=== PATIENT | male | born 1975 | race Caucasian/White ===

== ENCOUNTER 2016-12-18 12:06 | Inpatient (IN) | payer OTHER ==
[2016-12-18 12:36] VITALS: BMI 48.0
--- NOTE | 2016-12-18 14:39 | HP ---
Admission ROS [facility] Chief Complaint: i am here for rehab from alcohol and cocaine Allergies/Adverse Reactions: Allergies Allergy/AdvReac Type Severity Reaction Status Date / Time No Known Allergies Allergy Verified 12/18/16 13:56 History of Present Illness: this 41 years old male with alcohol and cocaine dependence,seeking rehab,last treatment in [facility] from 10/26/11 to 10/30/11 hypertension,asthma.hiv positive in 2008 sleep apnea ongest period of sobriety 3 months Exam Limitations: No Limitations - Ebola screening Have you traveled outside of the country in the last 21 days: No Have you had contact with anyone from an Ebola affected area: No Have you been sick,other than usual withdrawal symptoms: No Do you have a fever: No - Review of Systems Constitutional: No Symptoms Reported EENT: reports: No Symptoms Reported, Hearing Loss Respiratory: reports: Other (asthma) Cardiac: reports: No Symptoms Reported GI: reports: No Symptoms Reported : reports: No Symptoms Reported Musculoskeletal: reports: No Symptoms Reported Integumentary: reports: No Symptoms Reported Neuro: reports: No Symptoms reported Endocrine: reports: No Symptoms Reported Hematology: reports: No Symptoms Reported, Other (hiv) Psychiatric: reports: Judgement Intact, Mood/Affect Appropiate Patient History - Patient Medical History Hx Asthma: Yes (ON ALBUTEROL INHALER) Hx Chronic Obstructive Pulmonary Disease (COPD): No Hx Cardiac Disorders: Yes (history of chf 5 years ago) Hx Hypertension: Yes (on meds) Hx Pacemaker: No HX Cerebrovascular Accident: No Hx Seizures: No Hx Dementia: No Hx Diabetes: Yes (no med since 2012 ) Hx Gastrointestinal Disorders: No Hx Liver Disease: No Hx Genitourinary Disorders: No Hx Sexually Transmitted Disorders: No Hx Renal Disease (ESRD): No Hx Human Immunodeficiency Virus (HIV): Yes (since 2008) Hx Hepatitis C: No Hx Depression: No Hx Suicide Attempt: No Hx Bipolar Disorder: No Hx Schizophrenia: No Other Medical History: no suicidal,no homicidal - Patient Surgical History Past Surgical History: Yes Hx Neurologic Surgery: No Hx Cataract Extraction: No Hx Cardiac Surgery: Yes (CARDIAC CATHETERIZATION IN 09/2011.. NO BLOCKAGE) Hx Lung Surgery: No Hx Breast Surgery: No Hx Breast Biopsy: No Hx Abdominal Surgery: No Hx Appendectomy: No Hx Cholecystectomy: No Hx Genitourinary Surgery: No Hx Section: No Hx Orthopedic Surgery: No Anesthesia Reaction: No - PPD History Previous Implant?: Yes Documented Results: Negative w/o proof Implanted On Prior R Admission?: Yes Date: 05/31/11 Results: 0 mm PPD to be Administered?: Yes - Smoking Cessation Smoking history: Current every day smoker Have you smoked in the past 12 months: Yes Aproximately how many cigarettes per day: 3 Hx Chewing Tobacco Use: No Initiated information on smoking cessation: Yes 'Breaking Loose' booklet given: 12/18/16 - Substance & Tx. History Hx Alcohol Use: Yes Hx Substance Use: Yes Substance Use Type: Alcohol, Cocaine Hx Substance Use Treatment: Yes (last treatment 10/26/11 to 10/30/11 [facility]) - Substances Abused Alcohol Route: Oral Frequency: Daily Amount used: 1to 2pint bacardi,vodka/4 of 24 ozs of beer Age of first use: 20 Date of Last Use: 12/16/16 Cocaine Route: Smoking Frequency: 1-2 times per week Amount used: 60$ to 100$ Age of first use: 24 Date of Last Use: 12/16/16 Family Disease History - Family Disease History Family History: Denies Admission Physical Exam S - Vital Signs Vital Signs: Vital Signs - 24 hr 12/18/16 12:26 Temperature 98.7 F Pulse Rate 72 Respiratory 18 Rate Blood Pressure 155/79 - Physical General Appearance: Yes: Within Normal Limits HEENTM: Yes: Hearing grossly Normal, MAISHA, Pharynx Normal Respiratory: Yes: Lungs Clear, Normal Breath Sounds, No Respiratory Distress Neck: Yes: Within Normal Limits, Supple, Trachea in good position Breast: Yes: Within Normal Limits Cardiology: Yes: Within Normal Limits, Regular Rhythm, Regular Rate, S1, S2 Abdominal: Yes: Within Normal Limits, Normal Bowel Sounds, Non Tender, Flat, Soft Genitourinary: Yes: Within Normal Limits Back: Yes: Within Normal Limits Musculoskeletal: Yes: Within Normal Limits Extremities: Yes: Within Normal Limits, Normal Inspection, Normal Range of Motion 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: Yes: veneer marker II-XII NML intact, Alert, Motor Strength 5/5 Integumentary: Yes: Within Normal Limits Lymphatic: Yes: Within Normal Limits - Diagnostic (1) Alcohol dependence Current Visit: No Status: Active (2) Cocaine dependence Current Visit: No Status: Active (3) Hypertension Current Visit: Yes Status: Acute (4) Asthma Current Visit: Yes Status: Acute (5) Sleep apnea Current Visit: Yes Status: Acute (6) HIV (human immunodeficiency virus infection) Current Visit: Yes Status: Acute (7) History of CHF (congestive heart failure) Current Visit: Yes Status: Acute (8) DM2 (diabetes mellitus, type 2) Current Visit: Yes Status: Acute Cleared for Admission [facility] - Detox or Rehab Claeared for Rehab Admission: Yes [facility] Breath Alcohol Content Breath Alcohol Content: 0 Urine Drug Screen - Results Drug Screen Negative: No Urine Drug Screen Results: TOMÁS-Cocaine, AMP-Amphetamines, MET-Methamphetamine
[2016-12-18] MEDS ORDERED: MAG HYDROX/AL HYDROX/SIMETH 30 ML UNIT-DOSE CUP PO PRN (15:03)
[2016-12-18] MEDS ORDERED: MAGNESIUM CITRATE 300 ML BOTTLE PO PRN (15:03)
[2016-12-18] MEDS ORDERED: LOPERAMIDE HCL 2 MG CAPSULE PO PRN (15:03)
[2016-12-18] MEDS ORDERED: MENTHOL/PHENOL 1 EACH UD MM PRN (15:03)
[2016-12-18] MEDS ORDERED: ACETAMINOPHEN 325 MG TABLET (FP) PO PRN (15:03)
[2016-12-18] MEDS ORDERED: P-EPHED 60MG/TRIPROLIDI 2.5MG TABLET PO PRN (15:03)
[2016-12-18] MEDS ORDERED: diphenhydrAMINE HCL 50 MG CAPSULE PO PRN (15:03)
[2016-12-18] MEDS ORDERED: hydrOXYzine PAMOATE 50 MG CAPSULE (FP) PO PRN (15:03)
[2016-12-18] MEDS ORDERED: guaiFENesin/D-METHORPHAN HB 10 ML UNIT-DOSE CUPS PO PRN (15:03)
[2016-12-18] MEDS ORDERED: MAGNESIUM HYDROX 2400MG/30ML ORAL SUSPENSION 30 ML CUP PO PRN (15:03)
[2016-12-18] MEDS ORDERED: IBUPROFEN 400 MG TABLET (FP) PO PRN (15:03)
[2016-12-18] MEDS ORDERED: ALBUTEROL SO4 6.7 GM HFA INHALER IH PRN (15:06)
[2016-12-18 16:11] LABS: MCH 32.4 pg (25.7-33.7); MCHC 33.6 g/dl (32.0-35.9); MEAN CELL VOLUME 96.4 fl (80-96); MEAN PLT VOLUME 7.2 fl (7.5-11.1); PLATELET COUNT 318 K/MM3 (134-434); RDW 13.8 % (11.9-15.9)
[2016-12-18 16:34] LABS: ALBUMIN 3.8 g/dl (3.4-5.0); ANION GAP 6 (8-16); CO2 33 mmol/L (21-32); GLUCOSE,RANDOM 108 mg/dL (74-106)
[2016-12-18 16:37] LABS: ALK PHOS 89 U/L (45-117); BILIRUBIN,TOTAL 0.7 mg/dL (0.2-1.0); CREATININE 0.8 mg/dL (0.7-1.3); SGOT/AST 16 U/L (15-37); SGPT/ALT 42 U/L (12-78); TOT PROT 7.7 g/dl (6.4-8.2)
[2016-12-18 19:06] LABS: URINE APPEARANCE CLEAR; URINE BILIRUBIN NEGATIVE (NEGATIVE); URINE BLOOD NEGATIVE (NEGATIVE); URINE COLOR YELLOW; URINE GLUCOSE (UA) NEGATIVE (NEGATIVE); URINE KETONE NEGATIVE (NEGATIVE); URINE LEUK ESTERASE NEGATIVE (NEGATIVE); URINE NITRITE NEGATIVE (NEGATIVE); URINE PROTEIN NEGATIVE (NEGATIVE); URINE UROBILINOGEN NEGATIVE mg/dL (0.2-1.0)
[2016-12-18] MEDS ORDERED: TUBERCULIN PPD 5 TU/0.1ML VIAL ID ONE (20:35)
[2016-12-18] MEDS: THIAMINE HCL 100 MG TABLET (FP) PO SCH (21:28)
[2016-12-19] MEDS: EMTRICITAB/RILPIVIRINE/TENOFOV 1 EACH TABLET PO SCH ×2 (07:48→09:28)
[2016-12-19] MEDS: HYDROCHLOROTHIAZIDE 25 MG TABLET (FP) PO SCH (09:25)
[2016-12-19] MEDS: LISINOPRIL 20 MG TABLET (FP) PO SCH (09:25)
[2016-12-19] MEDS: amLODIPine BESYLATE 10 MG TABLET (FP) PO SCH (09:25)
[2016-12-19] MEDS: PRENATAL VITAMINS W/ FOLIC ACID TABLET (FP) PO SCH (09:25)
[2016-12-19] MEDS: THIAMINE HCL 100 MG TABLET (FP) PO SCH (21:52)
[2016-12-20] MEDS: EMTRICITAB/RILPIVIRINE/TENOFOV 1 EACH TABLET PO SCH (07:08)
[2016-12-20] MEDS: amLODIPine BESYLATE 10 MG TABLET (FP) PO SCH (09:34)
[2016-12-20] MEDS: PRENATAL VITAMINS W/ FOLIC ACID TABLET (FP) PO SCH (09:34)
[2016-12-20] MEDS: HYDROCHLOROTHIAZIDE 25 MG TABLET (FP) PO SCH (09:34)
[2016-12-20] MEDS: LISINOPRIL 20 MG TABLET (FP) PO SCH (09:34)
--- NOTE | 2016-12-20 13:58 | EKG ---
Test Reason : Blood Pressure : / mmHG Vent. Rate : 075 BPM Atrial Rate : 075 BPM P-R Int : 140 ms QRS Dur : 100 ms QT Int : 390 ms P-R-T Axes : 044 035 040 degrees QTc Int : 435 ms NORMAL SINUS RHYTHM NORMAL ECG NO PREVIOUS ECGS AVAILABLE Confirmed by LIBERTAD CHAVIS MD ([id number]) on 12/20/2016 1:58:06 PM Referred By: Confirmed By:LIBERTAD CHAVIS MD
[2016-12-20] MEDS: THIAMINE HCL 100 MG TABLET (FP) PO SCH (23:26)
[2016-12-21] MEDS: EMTRICITAB/RILPIVIRINE/TENOFOV 1 EACH TABLET PO SCH (07:00)
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
[2016-12-21] MEDS: HYDROCHLOROTHIAZIDE 25 MG TABLET (FP) PO SCH (10:49)
[2016-12-21] MEDS: LISINOPRIL 20 MG TABLET (FP) PO SCH (10:49)
[2016-12-21] MEDS: amLODIPine BESYLATE 10 MG TABLET (FP) PO SCH (10:49)
[2016-12-21] MEDS: PRENATAL VITAMINS W/ FOLIC ACID TABLET (FP) PO SCH (10:49)
[2016-12-21] MEDS: THIAMINE HCL 100 MG TABLET (FP) PO SCH (21:34)
[2016-12-22] MEDS: EMTRICITAB/RILPIVIRINE/TENOFOV 1 EACH TABLET PO SCH (07:18)
[2016-12-22] MEDS ORDERED: HYDROCHLOROTHIAZIDE 25 MG TABLET (FP) PO ONE (07:24)
[2016-12-22] MEDS: PRENATAL VITAMINS W/ FOLIC ACID TABLET (FP) PO SCH (09:43)
[2016-12-22] MEDS: LISINOPRIL 20 MG TABLET (FP) PO SCH (09:43)
[2016-12-22] MEDS: amLODIPine BESYLATE 10 MG TABLET (FP) PO SCH (09:43)
[2016-12-22] MEDS: THIAMINE HCL 100 MG TABLET (FP) PO SCH (21:28)
[2016-12-23] MEDS: HYDROCHLOROTHIAZIDE 25 MG TABLET (FP) PO SCH (06:01)
[2016-12-23] MEDS: EMTRICITAB/RILPIVIRINE/TENOFOV 1 EACH TABLET PO SCH (07:12)
[2016-12-23] MEDS: PRENATAL VITAMINS W/ FOLIC ACID TABLET (FP) PO SCH (09:48)
[2016-12-23] MEDS: LISINOPRIL 20 MG TABLET (FP) PO SCH (09:48)
[2016-12-23] MEDS: amLODIPine BESYLATE 10 MG TABLET (FP) PO SCH (09:48)
[2016-12-23] MEDS ORDERED: ALBUTEROL SO4 2.5/IPRATROPIUM 0.5 INH SOL 3 ML VIAL.NEB. NEB PRN (12:40)
[2016-12-23] MEDS: THIAMINE HCL 100 MG TABLET (FP) PO SCH (21:24)
[2016-12-24] MEDS: HYDROCHLOROTHIAZIDE 25 MG TABLET (FP) PO SCH (06:07)
[2016-12-24] MEDS: EMTRICITAB/RILPIVIRINE/TENOFOV 1 EACH TABLET PO SCH (07:21)
[2016-12-24] MEDS: LISINOPRIL 20 MG TABLET (FP) PO SCH (09:37)
[2016-12-24] MEDS: PRENATAL VITAMINS W/ FOLIC ACID TABLET (FP) PO SCH (09:37)
[2016-12-24] MEDS: amLODIPine BESYLATE 10 MG TABLET (FP) PO SCH (09:37)
[2016-12-24] MEDS: THIAMINE HCL 100 MG TABLET (FP) PO SCH (23:15)
[2016-12-25] MEDS: HYDROCHLOROTHIAZIDE 25 MG TABLET (FP) PO SCH (06:54)
[2016-12-25] MEDS: EMTRICITAB/RILPIVIRINE/TENOFOV 1 EACH TABLET PO SCH (07:32)
[2016-12-25] MEDS: LISINOPRIL 20 MG TABLET (FP) PO SCH (09:50)
[2016-12-25] MEDS: amLODIPine BESYLATE 10 MG TABLET (FP) PO SCH (09:50)
[2016-12-25] MEDS: PRENATAL VITAMINS W/ FOLIC ACID TABLET (FP) PO SCH (09:50)
[2016-12-25] MEDS: THIAMINE HCL 100 MG TABLET (FP) PO SCH (21:25)
[2016-12-26] MEDS: HYDROCHLOROTHIAZIDE 25 MG TABLET (FP) PO SCH (06:15)
[2016-12-26 06:42] VITALS: TEMP 98.3
[2016-12-26] MEDS: EMTRICITAB/RILPIVIRINE/TENOFOV 1 EACH TABLET PO SCH (07:03)
[2016-12-26] MEDS: LISINOPRIL 20 MG TABLET (FP) PO SCH (09:41)
[2016-12-26] MEDS: PRENATAL VITAMINS W/ FOLIC ACID TABLET (FP) PO SCH (09:42)
[2016-12-26] MEDS: amLODIPine BESYLATE 10 MG TABLET (FP) PO SCH (09:42)
[2016-12-26 09:53] VITALS: BP 119/66; PULSE 85
--- NOTE | 2016-12-26 20:20 | PN ---
[facility] Progress Note Note: patient did not want to complete treatment,seen by counselor,signed releaser ama ,psychiatrist director environmental notified by nurse
== END 2016-12-26 19:25 | disposition left against medical advice (07) | DRG 770 ==
LOC: YASAS 12:06 → Y3W 15:35
PROVIDERS: ADMIT Psychiatry & Neurology Psychiatry; ATTEND Psychiatry & Neurology Psychiatry
PROC: HZ42ZZZ Group Counseling for Substance Abuse Treatment, Cognitive-Behavioral (ICD-10-PCS; principal; 2016-12-18)
DX: F10.20 Alcohol dependence, uncomplicated (principal); F14.20 Cocaine dependence, uncomplicated; F17.210 Nicotine dependence, cigarettes, uncomplicated; F19.24 Other psychoactive substance dependence with psychoactive substance-induced mood disorder; E11.9 Type 2 diabetes mellitus without complications; J45.909 Unspecified asthma, uncomplicated; Z21 Asymptomatic human immunodeficiency virus [HIV] infection status; I10 Essential (primary) hypertension; I50.9 Heart failure, unspecified; G47.30 Sleep apnea, unspecified
CPT/HCPCS: 36415; 80053; 81003; 85027; 86593; 93005; 93010

== ENCOUNTER 2017-01-28 11:59 | Inpatient (IN) | payer OTHER ==
[2017-01-28 13:51] VITALS: BMI 51.0
--- NOTE | 2017-01-28 15:53 | HP ---
CIWA Score - CIWA Score Nausea/Vomitin Muscle Tremors: 3 Anxiety: 3 Agitation: 3 Paroxysmal Sweats: 1-Minimal Palms Moist Orientation: 0-Oriented Tacttile Disturbances: 2-Mild Itch/Numbness/Burn Auditory Disturbances: 2-Mild Harshness/Frighten Visual Disturbances: 1-Very Mild Sensitivity Headache: 2-Mild CIWA-Ar Total Score: 20 Admission ROS [facility] - HPI Chief Complaint: I NEED HELP TO STOP DRINKING ALCOHOL AND COCAINE Allergies/Adverse Reactions: Allergies Allergy/AdvReac Type Severity Reaction Status Date / Time No Known Allergies Allergy Verified 01/28/17 14:58 History of Present Illness: THIS 41 YEARS OLD MALE WITH ALCOHOL AND COCAINE DEPENDENCE,SEEKING DETOX,LAST TREATMENT [facility] FROM 12/28/16 TO 12/30/16 MULTIPLE ADMISSIONS FOR DETOX KEEP RELAPSING HIV SINCE 2008 HTN ASTHMA NICOTINE DEPENDENCE LONGEST PERIOD OF SOBRIETY 3 MONTHS Exam Limitations: No Limitations - Ebola screening Have you traveled outside of the country in the last 21 days: No Have you had contact with anyone from an Ebola affected area: No Have you been sick,other than usual withdrawal symptoms: No - Review of Systems Constitutional: Loss of Appetite, Malaise, Night Sweats, Changes in sleep EENT: reports: Nose Congestion Respiratory: reports: Other (ASTHMA) Cardiac: reports: No Symptoms Reported GI: reports: Diarrhea, Nausea, Vomiting, Abdominal cramping : reports: No Symptoms Reported Musculoskeletal: reports: Back Pain, Muscle Pain Integumentary: reports: Dryness Neuro: reports: Tremors Endocrine: reports: No Symptoms Reported Hematology: reports: No Symptoms Reported Psychiatric: reports: Judgement Intact, Mood/Affect Appropiate, Orientated x3 Patient History - Patient Medical History Hx Asthma: Yes (ON ALBUTEROL INHALER) Hx Chronic Obstructive Pulmonary Disease (COPD): No Hx Cancer: No Hx Cardiac Disorders: No Hx Hypertension: Yes (ON MED) Hx Pacemaker: No HX Cerebrovascular Accident: No Hx Seizures: No Hx Dementia: No Hx Diabetes: No Hx Gastrointestinal Disorders: No Hx Liver Disease: No Hx Genitourinary Disorders: No Hx Sexually Transmitted Disorders: No Hx Renal Disease (ESRD): No Hx Human Immunodeficiency Virus (HIV): Yes (since 2008) Hx Hepatitis C: No Hx Depression: No Hx Suicide Attempt: No Hx Bipolar Disorder: No Hx Schizophrenia: No Other Medical History: NO SUICIDAL,NO HOMICIDAL - Patient Surgical History Past Surgical History: Yes Hx Neurologic Surgery: No Hx Cataract Extraction: No Hx Cardiac Surgery: Yes (CARDIAC CATHETERIZATION IN 09/2011.. NO BLOCKAGE) Hx Lung Surgery: No Hx Breast Surgery: No Hx Breast Biopsy: No Hx Abdominal Surgery: No Hx Appendectomy: No Hx Cholecystectomy: No Hx Genitourinary Surgery: No Hx Section: No Hx Orthopedic Surgery: No Anesthesia Reaction: No - PPD History Previous Implant?: Yes Documented Results: Negative w/proof Implanted On Prior [facility] Admission?: Yes Date: 12/20/16 Results: 0 mm PPD to be Administered?: No - Smoking Cessation Smoking history: Current some day smoker Have you smoked in the past 12 months: Yes Aproximately how many cigarettes per day: 3 Hx Chewing Tobacco Use: No Initiated information on smoking cessation: Yes 'Breaking Loose' booklet given: 01/28/17 - Substance & Tx. History Hx Alcohol Use: Yes Hx Substance Use: Yes Substance Use Type: Alcohol, Cocaine - Substances Abused Alcohol Route: Oral Frequency: Daily Amount used: vodka(1 pint)/beer(3-4 24 oz cans)/ Age of first use: 20 Date of Last Use: 01/28/17 Cocaine Route: Smoking Frequency: 1-2 times per week Amount used: $40-60 Age of first use: 24 Date of Last Use: 01/27/17 Family Disease History - Family Disease History Family Disease History: Other: Father (ALOCOHOL,), Mother (ALCOHOL, ) Admission Physical Exam [facility] - Vital Signs Vital Signs: Vital Signs - 24 hr 01/28/17 13:47 Temperature 96.4 F L Pulse Rate 98 H Respiratory 20 Rate Blood Pressure 165/90 - Physical General Appearance: Yes: Moderate Distress, Intoxicated, Tremorous, Irritable, Anxious HEENTM: Yes: Normal ENT Inspection, MAISHA, Pharynx Normal, Photophobia Respiratory: Yes: Lungs Clear, Normal Breath Sounds, No Respiratory Distress Neck: Yes: Within Normal Limits, No masses,lesions,Nodules, Supple, Trachea in good position Breast: Yes: Within Normal Limits Cardiology: Yes: Within Normal Limits, Regular Rhythm, Regular Rate, S1, S2 Abdominal: Yes: Within Normal Limits, Normal Bowel Sounds, Non Tender, Flat, Soft Genitourinary: Yes: Within Normal Limits Back: Yes: Muscle Spasm Musculoskeletal: Yes: Back pain, Muscle Pain Extremities: Yes: Within Normal Limits, Normal Range of Motion, Tremors 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: Yes: sports apparel internship II-XII NML intact, Fully Oriented, Alert, Motor Strength 5/5 Integumentary: Yes: Clammy Lymphatic: Yes: Within Normal Limits - Diagnostic (1) Alcohol dependence with uncomplicated withdrawal Current Visit: Yes Status: Acute (2) Asthma Current Visit: No Status: Acute (3) Cocaine dependence Current Visit: No Status: Acute (4) DM2 (diabetes mellitus, type 2) Current Visit: No Status: Acute (5) HIV (human immunodeficiency virus infection) Current Visit: No Status: Acute (6) Hypertension Current Visit: No Status: Acute (7) Nicotine dependence Current Visit: No Status: Acute (8) Sleep apnea Current Visit: No Status: Acute Cleared for Admission [facility] - Detox or Rehab [facility] Level of Care: Medically Managed Detox Regimen/Protocol: Librium S Breath Alcohol Content Breath Alcohol Content: 0 Urine Drug Screen - Results Drug Screen Negative: No Urine Drug Screen Results: TOMÁS-Cocaine, BZO-Benzodiazepines
[2017-01-28] MEDS ORDERED: guaiFENesin/D-METHORPHAN HB 10 ML UNIT-DOSE CUPS PO PRN (16:12)
[2017-01-28] MEDS ORDERED: P-EPHED 60MG/TRIPROLIDI 2.5MG TABLET PO PRN (16:12)
[2017-01-28] MEDS ORDERED: ACETAMINOPHEN 325 MG TABLET (FP) PO PRN (16:12)
[2017-01-28] MEDS ORDERED: MAG HYDROX/AL HYDROX/SIMETH 30 ML UNIT-DOSE CUP PO PRN (16:12)
[2017-01-28] MEDS ORDERED: chlordiazePOXIDE HCL 25 MG CAPSULE PO PRN (16:12)
[2017-01-28] MEDS ORDERED: MAGNESIUM CITRATE 300 ML BOTTLE PO PRN (16:12)
[2017-01-28] MEDS ORDERED: MAGNESIUM HYDROX 2400MG/30ML ORAL SUSPENSION 30 ML CUP PO PRN (16:12)
[2017-01-28] MEDS ORDERED: MENTHOL/PHENOL 1 EACH UD MM PRN (16:12)
[2017-01-28] MEDS ORDERED: LOPERAMIDE HCL 2 MG CAPSULE PO PRN (16:12)
[2017-01-28] MEDS ORDERED: diphenhydrAMINE HCL 50 MG CAPSULE PO PRN (16:12)
[2017-01-28] MEDS ORDERED: hydrOXYzine PAMOATE 50 MG CAPSULE (FP) PO PRN (16:12)
[2017-01-28] MEDS ORDERED: ALBUTEROL SO4 18 GM HFA INHALER IH PRN (16:17)
[2017-01-28] MEDS ORDERED: chlordiazePOXIDE HCL 25 MG CAPSULE PO ONE (16:55)
[2017-01-28] MEDS: LISINOPRIL 20 MG TABLET (FP) PO SCH (18:03)
[2017-01-28] MEDS: amLODIPine BESYLATE 10 MG TABLET (FP) PO SCH (18:03)
[2017-01-28] MEDS: HYDROCHLOROTHIAZIDE 25 MG TABLET (FP) PO SCH (18:03)
[2017-01-28] MEDS: chlordiazePOXIDE HCL 25 MG CAPSULE PO SCH (22:17)
[2017-01-28] MEDS: THIAMINE HCL 100 MG TABLET (FP) PO SCH (22:17)
[2017-01-28 23:39] LABS: URINE APPEARANCE CLEAR; URINE BILIRUBIN NEGATIVE (NEGATIVE); URINE BLOOD NEGATIVE (NEGATIVE); URINE COLOR YELLOW; URINE GLUCOSE (UA) NEGATIVE (NEGATIVE); URINE KETONE NEGATIVE (NEGATIVE); URINE LEUK ESTERASE NEGATIVE (NEGATIVE); URINE NITRITE NEGATIVE (NEGATIVE); URINE PROTEIN NEGATIVE (NEGATIVE); URINE UROBILINOGEN NEGATIVE mg/dL (0.2-1.0)
[2017-01-29] MEDS: chlordiazePOXIDE HCL 25 MG CAPSULE PO SCH ×4 (05:25→22:30)
[2017-01-29] MEDS: EMTRICITAB/RILPIVIRINE/TENOFOV 1 EACH TABLET PO SCH (07:49)
--- NOTE | 2017-01-29 09:23 | EKG ---
Test Reason : Blood Pressure : / mmHG Vent. Rate : 081 BPM Atrial Rate : 081 BPM P-R Int : 142 ms QRS Dur : 106 ms QT Int : 398 ms P-R-T Axes : 043 021 024 degrees QTc Int : 462 ms NORMAL SINUS RHYTHM NON-SPECIFIC INTRA-VENTRICULAR CONDUCTION DELAY WHEN COMPARED WITH ECG OF 18-DEC-2016 20:19, NO SIGNIFICANT CHANGE WAS FOUND Confirmed by JUAN DIEGO FITCH MD ([id number]) on 01/29/2017 9:22:57 AM Referred By: Confirmed By:JUAN DIEGO FITCH MD
--- NOTE | 2017-01-29 10:14 | PN ---
S CIWA - CIWA Score Nausea/Vomitin Muscle Tremors: 3 Anxiety: 3 Agitation: 3 Paroxysmal Sweats: 1-Minimal Palms Moist Orientation: 0-Oriented Tacttile Disturbances: 1-Very Mild Itch/Numbness Auditory Disturbances: 1-Very Mild Visual Disturbances: 0-None Headache: 1-Very Mild CIWA-Ar Total Score: 16 [facility] Progress Note (SOAP) Subjective: alert,irritable,anxious,interrupted sleep,tremor,pain in the body Objective: 01/29/17 10:11 Vital Signs Temperature 98.1 F 01/29/17 09:49 Pulse Rate 90 01/29/17 09:49 Respiratory Rate 18 01/29/17 09:49 Blood Pressure 146/87 01/29/17 09:49 O2 Sat by Pulse Oximetry (%) 01/29/17 10:12 ekg nsr Laboratory Last Values Urine Color Yellow 01/28/17 15:44 Urine Appearance Clear 01/28/17 15:44 Urine pH 6.0 (5.0-8.0) 01/28/17 15:44 Ur Specific [place] 1.025 (1.005-1.025) 01/28/17 15:44 Urine Protein Negative (NEGATIVE) 01/28/17 15:44 Urine Glucose (UA) Negative (NEGATIVE) 01/28/17 15:44 Urine Ketones Negative (NEGATIVE) 01/28/17 15:44 Urine Blood Negative (NEGATIVE) 01/28/17 15:44 Urine Nitrite Negative (NEGATIVE) 01/28/17 15:44 Urine Bilirubin Negative (NEGATIVE) 01/28/17 15:44 Urine Urobilinogen Negative mg/dL (0.2-1.0) 01/28/17 15:44 normal ecg labs pending Assessment: 01/29/17 10:13 withdrawal symptom Plan: continue detox
[2017-01-29 10:22] LABS: MCHC 32.7 g/dl (32.0-35.9); MEAN CELL VOLUME 94.9 fl (80-96); MEAN PLT VOLUME 7.1 fl (7.5-11.1); PLATELET COUNT 292 K/MM3 (134-434); RDW 13.6 % (11.9-15.9); WHITE BLOOD COUNT 7.3 K/mm3 (4.0-10.0)
[2017-01-29] MEDS: amLODIPine BESYLATE 10 MG TABLET (FP) PO SCH (10:27)
[2017-01-29] MEDS: LISINOPRIL 20 MG TABLET (FP) PO SCH (10:27)
[2017-01-29] MEDS: HYDROCHLOROTHIAZIDE 25 MG TABLET (FP) PO SCH (10:27)
[2017-01-29] MEDS: PRENATAL VITAMINS W/ FOLIC ACID TABLET (FP) PO SCH (10:27)
[2017-01-29 10:59] LABS: SGPT/ALT 36 U/L (12-78)
[2017-01-29 11:03] LABS: ALBUMIN 3.5 g/dl (3.4-5.0); ALK PHOS 106 U/L (45-117); ANION GAP 10 (8-16); BILIRUBIN,TOTAL 0.7 mg/dL (0.2-1.0); CALCIUM 8.5 mg/dL (8.5-10.1); CO2 29 mmol/L (21-32); CREATININE 0.8 mg/dL (0.7-1.3); GLUCOSE,RANDOM 122 mg/dL (74-106); SGOT/AST 16 U/L (15-37); TOT PROT 7.9 g/dl (6.4-8.2)
[2017-01-29] MEDS: THIAMINE HCL 100 MG TABLET (FP) PO SCH (22:30)
[2017-01-30] MEDS: chlordiazePOXIDE HCL 25 MG CAPSULE PO SCH ×3 (05:25→17:38)
[2017-01-30] MEDS: EMTRICITAB/RILPIVIRINE/TENOFOV 1 EACH TABLET PO SCH (07:31)
[2017-01-30] MEDS: LISINOPRIL 20 MG TABLET (FP) PO SCH (10:29)
[2017-01-30] MEDS: amLODIPine BESYLATE 10 MG TABLET (FP) PO SCH (10:29)
[2017-01-30] MEDS: HYDROCHLOROTHIAZIDE 25 MG TABLET (FP) PO SCH (10:29)
[2017-01-30] MEDS: PRENATAL VITAMINS W/ FOLIC ACID TABLET (FP) PO SCH (10:29)
--- NOTE | 2017-01-30 12:36 | PN ---
S CIWA - CIWA Score Nausea/Vomitin Muscle Tremors: 3 Anxiety: 3 Agitation: 2 Paroxysmal Sweats: 1-Minimal Palms Moist Orientation: 0-Oriented Tacttile Disturbances: 1-Very Mild Itch/Numbness Auditory Disturbances: 1-Very Mild Visual Disturbances: 1-Very Mild Sensitivity Headache: 2-Mild CIWA-Ar Total Score: 17 [facility] Progress Note (SOAP) Subjective: alert,irritable,anxious,interrupted sleep,tremor Objective: 01/30/17 12:35 Vital Signs Temperature 97.7 F 01/30/17 10:57 Pulse Rate 92 H 01/30/17 10:57 Respiratory Rate 20 01/30/17 10:57 Blood Pressure 131/77 01/30/17 10:57 O2 Sat by Pulse Oximetry (%) Laboratory Last Values WBC 7.3 K/mm3 (4.0-10.0) 01/29/17 07:40 RBC 4.30 M/mm3 (4.00-5.60) 01/29/17 07:40 Hgb 13.3 GM/dL (11.7-16.9) 01/29/17 07:40 Hct 40.7 % (35.4-49) 01/29/17 07:40 MCV 94.9 fl (80-96) 01/29/17 07:40 MCH 31.0 pg (25.7-33.7) 01/29/17 07:40 MCHC 32.7 g/dl (32.0-35.9) 01/29/17 07:40 RDW 13.6 % (11.9-15.9) 01/29/17 07:40 Plt Count 292 K/MM3 (134-434) 01/29/17 07:40 MPV 7.1 fl (7.5-11.1) L 01/29/17 07:40 Sodium 137 mmol/L (136-145) 01/29/17 07:40 Potassium 3.5 mmol/L (3.5-5.1) 01/29/17 07:40 Chloride 98 mmol/L (98-107) 01/29/17 07:40 Carbon Dioxide 29 mmol/L (21-32) 01/29/17 07:40 Anion Gap 10 (8-16) 01/29/17 07:40 BUN 13 mg/dL (7-18) D 01/29/17 07:40 Creatinine 0.8 mg/dL (0.7-1.3) 01/29/17 07:40 Creat Clearance w eGFR > 60 (>60) 01/29/17 07:40 Random Glucose 122 mg/dL (74-106) H 01/29/17 07:40 Calcium 8.5 mg/dL (8.5-10.1) 01/29/17 07:40 Total Bilirubin 0.7 mg/dL (0.2-1.0) 01/29/17 07:40 AST 16 U/L (15-37) 01/29/17 07:40 ALT 36 U/L (12-78) 01/29/17 07:40 Alkaline Phosphatase 106 U/L (45-117) 01/29/17 07:40 Total Protein 7.9 g/dl (6.4-8.2) 01/29/17 07:40 Albumin 3.5 g/dl (3.4-5.0) 01/29/17 07:40 Urine Color Yellow 01/28/17 15:44 Urine Appearance Clear 01/28/17 15:44 Urine pH 6.0 (5.0-8.0) 01/28/17 15:44 Ur Specific [place] 1.025 (1.005-1.025) 01/28/17 15:44 Urine Protein Negative (NEGATIVE) 01/28/17 15:44 Urine Glucose (UA) Negative (NEGATIVE) 01/28/17 15:44 Urine Ketones Negative (NEGATIVE) 01/28/17 15:44 Urine Blood Negative (NEGATIVE) 01/28/17 15:44 Urine Nitrite Negative (NEGATIVE) 01/28/17 15:44 Urine Bilirubin Negative (NEGATIVE) 01/28/17 15:44 Urine Urobilinogen Negative mg/dL (0.2-1.0) 01/28/17 15:44 RPR Titer Nonreactive (NONREACTIVE) 01/29/17 07:40 Assessment: 01/30/17 12:35 withdrawal symptom Plan: continue detox,bgm 122,bgm monitoring
[2017-01-30] MEDS: THIAMINE HCL 100 MG TABLET (FP) PO SCH (22:25)
[2017-01-30] MEDS: chlordiazePOXIDE 5 MG CAPSULE PO SCH (22:26)
[2017-01-31] MEDS: chlordiazePOXIDE 5 MG CAPSULE PO SCH ×3 (06:24→17:34)
[2017-01-31] MEDS: EMTRICITAB/RILPIVIRINE/TENOFOV 1 EACH TABLET PO SCH (08:48)
--- NOTE | 2017-01-31 09:17 | PN ---
S Progress Note (SOAP) Subjective: ALERT,IRRITABLE,ANXIOUS,INTERRUPTED SLEEP, Objective: 01/31/17 09:16 Vital Signs Temperature 97.1 F L 01/31/17 06:00 Pulse Rate 82 01/31/17 06:00 Respiratory Rate 20 01/31/17 06:00 Blood Pressure 157/89 01/31/17 06:00 O2 Sat by Pulse Oximetry (%) Assessment: 01/31/17 09:16 WITHDRAWAL SYMPTOM Plan: CONTINUE DETOX,DISCHARGE IN AM
[2017-01-31] MEDS: PRENATAL VITAMINS W/ FOLIC ACID TABLET (FP) PO SCH (10:27)
[2017-01-31] MEDS: HYDROCHLOROTHIAZIDE 25 MG TABLET (FP) PO SCH (10:27)
[2017-01-31] MEDS: amLODIPine BESYLATE 10 MG TABLET (FP) PO SCH (10:27)
[2017-01-31] MEDS: IBUPROFEN 400 MG TABLET (FP) PO PRN ×2 (10:28→22:25)
[2017-01-31] MEDS: LISINOPRIL 20 MG TABLET (FP) PO SCH (10:30)
[2017-01-31] MEDS: chlordiazePOXIDE HCL 10 MG CAPSULE PO SCH (22:23)
[2017-01-31] MEDS: THIAMINE HCL 100 MG TABLET (FP) PO SCH (22:23)
[2017-02-01] MEDS: chlordiazePOXIDE HCL 10 MG CAPSULE PO SCH (06:33)
[2017-02-01] MEDS: EMTRICITAB/RILPIVIRINE/TENOFOV 1 EACH TABLET PO SCH (07:57)
--- NOTE | 2017-02-01 08:54 | DS ---
[facility] Detox Discharge Summary Admission Date: 01/28/17 Discharge Date: 02/01/17 - History Present History: Alcohol Dependence, Cocaine Dependence Additional Comments: FOLLOW UP WITH [facility] Pertinent Past History: HIV HYPERTENSION TYPE 2 DM NICOTINE DEPENDENCE SLEEP APNEA - Physical Exam Results Vital Signs: Vital Signs Temperature 97.0 F L 02/01/17 06:36 Pulse Rate 83 02/01/17 06:36 Respiratory Rate 18 02/01/17 06:36 Blood Pressure 158/87 02/01/17 06:36 O2 Sat by Pulse Oximetry (%) Pertinent Admission Physical Exam Findings: WITHDRAWAL SYMPTOM - Treatment Hospital Course: Detox Protocol Followed, Detoxed Safely, Responded well, Discharged Condition Good Patient has Accepted a Rehab Referral to: DECLINED - Medication Discharge Medications: Ambulatory Orders Hydrochlorothiazide [Hydrodiuril] 25 mg PO DAILY 05/29/11 Albuterol Sulfate [Proventil HFA Inhaler -] 2 inh PO Q4H PRN 10/26/11 Amlodipine Besylate [Norvasc -] 10 mg PO DAILY 12/18/16 Emtricitab/Rilpiviri/Tenof Ala [Odefsey Tablet] 1 each PO DAILY 12/18/16 Lisinopril [Zestril] 40 mg PO DAILY 12/18/16 - Diagnosis (1) Alcohol dependence with uncomplicated withdrawal Current Visit: Yes Status: Acute (2) Asthma Current Visit: No Status: Acute (3) Cocaine dependence Current Visit: No Status: Acute (4) DM2 (diabetes mellitus, type 2) Current Visit: No Status: Acute (5) HIV (human immunodeficiency virus infection) Current Visit: No Status: Acute (6) Hypertension Current Visit: No Status: Acute (7) Nicotine dependence Current Visit: No Status: Acute (8) Sleep apnea Current Visit: No Status: Acute - AMA Did Patient Leave Against Medical Advice: No
[2017-02-01] MEDS: HYDROCHLOROTHIAZIDE 25 MG TABLET (FP) PO SCH (09:23)
[2017-02-01] MEDS: PRENATAL VITAMINS W/ FOLIC ACID TABLET (FP) PO SCH (09:23)
[2017-02-01] MEDS: LISINOPRIL 20 MG TABLET (FP) PO SCH (09:23)
[2017-02-01] MEDS: amLODIPine BESYLATE 10 MG TABLET (FP) PO SCH (09:23)
[2017-02-01 10:14] VITALS: BP 135/88; PULSE 93; TEMP 97.9
== END 2017-02-01 09:34 | disposition home or self-care (01) | DRG 774 ==
LOC: YASAS 11:59 → Y6N 16:52
PROVIDERS: ADMIT Internal Medicine; ATTEND Internal Medicine
PROC: HZ2ZZZZ Detoxification Services for Substance Abuse Treatment (ICD-10-PCS; principal; 2017-01-28)
DX: F10.230 Alcohol dependence with withdrawal, uncomplicated (principal); F10.220 Alcohol dependence with intoxication, uncomplicated; F14.20 Cocaine dependence, uncomplicated; F17.210 Nicotine dependence, cigarettes, uncomplicated; J45.909 Unspecified asthma, uncomplicated; E11.9 Type 2 diabetes mellitus without complications; I10 Essential (primary) hypertension; G47.30 Sleep apnea, unspecified; Z21 Asymptomatic human immunodeficiency virus [HIV] infection status; Z98.61 Coronary angioplasty status
CPT/HCPCS: 36415; 80053; 81003; 85027; 86593; 93005; 93010

== ENCOUNTER 2017-03-21 10:21 | Inpatient (IN) | payer OTHER ==
[2017-03-21 10:46] VITALS: BMI 56.5
--- NOTE | 2017-03-21 13:17 | HP ---
CIWA Score - CIWA Score Nausea/Vomitin (DIARRHEA) Muscle Tremors: 2 Anxiety: 4-Mod. Anxious/Guarded Agitation: 3 Paroxysmal Sweats: 1-Minimal Palms Moist Orientation: 0-Oriented Tacttile Disturbances: 3-Moderate Itch/Numb/Burn Auditory Disturbances: 0-None Visual Disturbances: 0-None Headache: 0-None Present CIWA-Ar Total Score: 16 Admission ROS BHS - HPI Chief Complaint: DETOX TX FOR ALCOHOL WITHDRAWAL SX Allergies/Adverse Reactions: Allergies Allergy/AdvReac Type Severity Reaction Status Date / Time No Known Allergies Allergy Verified 03/21/17 12:31 History of Present Illness: 41 Y/O H/M WITH A HX OF ALCOHOL DEPENDENCE SEEKING DETOX TX Exam Limitations: No Limitations - Ebola screening Have you traveled outside of the country in the last 21 days: No Have you had contact with anyone from an Ebola affected area: No Have you been sick,other than usual withdrawal symptoms: No Do you have a fever: No - Review of Systems Constitutional: Chills, Night Sweats, Changes in sleep EENT: reports: Blurred Vision, Nose Congestion, Dental Problems (MISSING TEETH) Respiratory: reports: Shortness of Breath (HX ASTHMA), Wheezing Cardiac: reports: Lightheadedness GI: reports: Constipated, Diarrhea, Poor Fluid Intake : reports: Frequency Musculoskeletal: reports: Back Pain, Joint Pain, Muscle Pain Integumentary: reports: Dryness, Lesions, Rash (BOTH LOWE EXTREMETIES.) Neuro: reports: Headache, Numbness, Tingling, Tremors, Unsteady Gait, Dizziness Endocrine: reports: No Symptoms Reported Hematology: reports: No Symptoms Reported Psychiatric: reports: Orientated x3, Anxious Other Systems: Reviewed and Negative Patient History - Patient Medical History Hx Anemia: No Hx Asthma: Yes (MDI) Hx Chronic Obstructive Pulmonary Disease (COPD): No Hx Cancer: No Hx Cardiac Disorders: Yes (HX ENLARGED HEART;S/P CATHETERIZATION 2011) Hx Congestive Heart Failure: Yes Hx Hypertension: Yes (ON MEDS) Hx Pacemaker: No HX Cerebrovascular Accident: No Hx Seizures: No Hx Dementia: No Hx Diabetes: Yes (TYPE 2 DM--WAS ON METFORMIN BID; D/C'D 2013 DUE TO CONTROLLED. ) Hx Gastrointestinal Disorders: No Hx Liver Disease: No Hx Genitourinary Disorders: No Hx Sexually Transmitted Disorders: No Hx Renal Disease (ESRD): No Hx Thyroid Disease: No Hx Human Immunodeficiency Virus (HIV): Yes (since 2008;NOT CURRENTLY TAKING MEDS ("I STOPPED BY MYSELF").) Hx Hepatitis C: No Hx Depression: No Hx Suicide Attempt: No (DENIES) Hx Bipolar Disorder: No Hx Schizophrenia: No Other Medical History: PT NOW DENIES PREVIOUS ADMISSIONS CLAIM OF SLEEP APNEA WHEN ASKED. - Patient Surgical History Past Surgical History: Yes Hx Neurologic Surgery: No Hx Cataract Extraction: No Hx Cardiac Surgery: Yes (CARDIAC CATHETERIZATION IN 09/2011.. NO BLOCKAGE) Hx Lung Surgery: No Hx Breast Surgery: No Hx Breast Biopsy: No Hx Abdominal Surgery: No Hx Appendectomy: No Hx Cholecystectomy: No Hx Genitourinary Surgery: Yes (rt testicle removed-2011(swelling)) Hx Orthopedic Surgery: No Other Surgical History: abcess rt thigh (inner-2011) Anesthesia Reaction: No - PPD History Previous Implant?: Yes Documented Results: Negative w/proof Implanted On Prior R Admission?: Yes Date: 12/20/16 Results: 0 mm PPD to be Administered?: No - Reproductive History Patient is a Female of Child Bearing Age (11 -55 yrs old): No (MALE) - Smoking Cessation Smoking history: Current some day smoker Have you smoked in the past 12 months: Yes Aproximately how many cigarettes per day: 3 Hx Chewing Tobacco Use: No Initiated information on smoking cessation: Yes 'Breaking Loose' booklet given: 03/21/17 - Substance & Tx. History Hx Alcohol Use: Yes (BEER/LIQUOR) Hx Substance Use: Yes (COCAINE) Substance Use Type: Alcohol, Cocaine Hx Substance Use Treatment: Yes (LAST TX AT [facility]) - Substances Abused Alcohol Route: Oral Frequency: Daily Amount used: beer(4-5 40 oz)/vodka(2-3 -1/2 pints) Age of first use: 20 Date of Last Use: 03/21/17 Cocaine Route: Smoking Frequency: 1-2 times per week Amount used: $40-60 Age of first use: 24 Date of Last Use: 03/20/17 Family Disease History - Family Disease History Family Disease History: Other: Father (ALOCOHOL,), Mother (ALCOHOL, ) Admission Physical Exam BHS - Vital Signs Vital Signs: Vital Signs - 24 hr 11/12/17 10:43 Temperature 98.9 F Pulse Rate 101 H Respiratory 22 Rate Blood Pressure 167/104 - Physical General Appearance: Yes: Moderate Distress, Obese, Irritable, Anxious HEENTM: Yes: EOMI, Normocephalic, MAISHA, Pharynx Normal Respiratory: Yes: Chest Non-Tender, Lungs Clear, Normal Breath Sounds, No Respiratory Distress Neck: Yes: Supple, Trachea in good position Breast: Yes: Breast Exam Deferred Cardiology: Yes: Regular Rhythm, S1, S2, Tachycardia Abdominal: Yes: Normal Bowel Sounds, Non Tender, Protuberent Genitourinary: Yes: Other (N/C) Back: Yes: Within Normal Limits Musculoskeletal: Yes: full range of Motion, Gait Steady Extremities: Yes: Normal Range of Motion, Non-Tender, Inflammation (DRY SCALY DISCOORATION OF LOWER EXTREMITIES, BILATERAL.) 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: 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: 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, Fully Oriented, Alert Integumentary: Yes: Dry, Warm, Erythema (LOWER EXTREMITIES, BILATERAL), Rash ( SCALY DRY DISCOLORATION OF LOWER EXTREMITIES,BILATERAL) Lymphatic: Yes: Within Normal Limits - Addiitonal Findings: BGM = 144 MG/DL - Diagnostic (1) Alcohol dependence with uncomplicated withdrawal Current Visit: No Status: Acute (2) Asthma Current Visit: No Status: Chronic Qualifiers: Asthma severity: mild Asthma persistence: unspecified (3) Cocaine dependence Current Visit: No Status: Acute Qualifiers: Substance use status: uncomplicated Qualified Code(s): F14.20 - Cocaine dependence, uncomplicated (4) DM2 (diabetes mellitus, type 2) Current Visit: No Status: Chronic Qualifiers: Diabetes mellitus complication status: with skin complications Diabetes mellitus complication detail: with other skin complication (5) HIV (human immunodeficiency virus infection) Current Visit: No Status: Chronic (6) History of CHF (congestive heart failure) Current Visit: No Status: Chronic (7) Hypertension Current Visit: No Status: Chronic Qualifiers: Hypertension type: essential hypertension Qualified Code(s): I10 - Essential (primary) hypertension (8) Nicotine dependence Current Visit: No Status: Acute Qualifiers: Nicotine product type: cigarettes Substance use status: in withdrawal Qualified Code(s): F17.213 - Nicotine dependence, cigarettes, with withdrawal (9) Cellulitis Current Visit: Yes Status: Acute Qualifiers: Site of cellulitis: extremity Site of cellulitis of extremity: lower extremity Cleared for Admission [facility] - Detox or Rehab [facility] Level of Care: Medically Managed Detox Regimen/Protocol: Librium [facility] Breath Alcohol Content Breath Alcohol Content: 0 Urine Drug Screen - Results Drug Screen Negative: No Urine Drug Screen Results: TOMÁS-Cocaine, BZO-Benzodiazepines
[2017-03-21] MEDS ORDERED: hydrOXYzine PAMOATE 25 MG CAPSULE (FP) PO PRN (13:34)
[2017-03-21] MEDS ORDERED: guaiFENesin/D-METHORPHAN HB 10 ML UNIT-DOSE CUPS PO PRN (13:34)
[2017-03-21] MEDS ORDERED: LOPERAMIDE HCL 2 MG CAPSULE PO PRN (13:34)
[2017-03-21] MEDS ORDERED: chlordiazePOXIDE HCL 25 MG CAPSULE PO PRN (13:34)
[2017-03-21] MEDS ORDERED: MAGNESIUM HYDROX 2400MG/30ML ORAL SUSPENSION 30 ML CUP PO PRN (13:34)
[2017-03-21] MEDS ORDERED: MAG HYDROX/AL HYDROX/SIMETH 30 ML UNIT-DOSE CUP PO PRN (13:34)
[2017-03-21] MEDS ORDERED: MENTHOL/PHENOL 1 EACH UD MM PRN (13:34)
[2017-03-21] MEDS ORDERED: P-EPHED 60MG/TRIPROLIDI 2.5MG TABLET PO PRN (13:34)
[2017-03-21] MEDS ORDERED: MAGNESIUM CITRATE 300 ML BOTTLE PO PRN (13:34)
[2017-03-21] MEDS ORDERED: IBUPROFEN 400 MG TABLET (FP) PO PRN (13:34)
[2017-03-21] MEDS ORDERED: NICOTINE POLACRILEX 2 MG GUM BUC PRN (13:34)
[2017-03-21] MEDS ORDERED: ALBUTEROL SO4 18 GM HFA INHALER IH PRN (13:36)
[2017-03-21] MEDS ORDERED: PATIENT'S OWN MEDICATION (NON-FORMULARY) (Lisinopril [Zestril] 40 MG) PO SCH ×2 (13:45→15:06)
[2017-03-21] MEDS: ASPIRIN 81 MG CHEWABLE TABLETS PO SCH (14:44)
[2017-03-21] MEDS: INSULIN SLIDING SCALE (NOVOLOG) 1 VIAL SQ SCH ×2 (15:03→18:09)
[2017-03-21] MEDS: CEPHALEXIN MONOHYDRATE 500 MG CAPSULE (UD) PO SCH ×2 (15:11→22:20)
--- NOTE | 2017-03-21 15:41 | EKG ---
Test Reason : Blood Pressure : / mmHG Vent. Rate : 085 BPM Atrial Rate : 085 BPM P-R Int : 142 ms QRS Dur : 094 ms QT Int : 410 ms P-R-T Axes : 044 017 040 degrees QTc Int : 487 ms NORMAL SINUS RHYTHM MODERATE VOLTAGE CRITERIA FOR LVH, MAY BE NORMAL VARIANT PROLONGED QT ABNORMAL ECG WHEN COMPARED WITH ECG OF 28-JAN-2017 16:44, NO SIGNIFICANT CHANGE WAS FOUND Confirmed by ANTONIO SARAVIA MD ([id number]) on 03/21/2017 3:40:54 PM Referred By: Confirmed By:ANTONIO SARAVIA MD
[2017-03-21] MEDS ORDERED: chlordiazePOXIDE HCL 25 MG CAPSULE PO ONE (16:00)
[2017-03-21 16:22] LABS: URINE APPEARANCE CLEAR; URINE BILIRUBIN NEGATIVE (NEGATIVE); URINE BLOOD NEGATIVE (NEGATIVE); URINE COLOR LTYELLOW; URINE GLUCOSE (UA) 3+ (NEGATIVE); URINE KETONE NEGATIVE (NEGATIVE); URINE NITRITE NEGATIVE (NEGATIVE); URINE UROBILINOGEN NEGATIVE mg/dL (0.2-1.0)
[2017-03-21 16:24] LABS: URINE PROTEIN 1+ (NEGATIVE)
[2017-03-21 16:26] LABS: URINE RBC < 1; URINE WBC 3
[2017-03-21] MEDS: chlordiazePOXIDE HCL 25 MG CAPSULE PO SCH ×2 (18:09→22:19)
[2017-03-21 18:59] LABS: URINE LEUK ESTERASE Negative (NEGATIVE)
[2017-03-21] MEDS ORDERED: ATORVASTATIN CA 40 MG TABLET (FP) ONE (21:19)
[2017-03-21] MEDS: THIAMINE HCL 100 MG TABLET (FP) PO SCH (22:19)
[2017-03-21] MEDS: CARVEDILOL 6.25 MG TABLET (FP) PO SCH (22:19)
[2017-03-21] MEDS: ATORVASTATIN CA 80 MG TABLET (FP) PO SCH (22:20)
[2017-03-21] MEDS: AMMONIUM LACTATE 12% LOTION 225 GM BOTTLE TP SCH (22:20)
[2017-03-22] MEDS: chlordiazePOXIDE HCL 25 MG CAPSULE PO SCH ×4 (05:46→22:21)
[2017-03-22] MEDS: ACETAMINOPHEN 325 MG TABLET (FP) PO PRN (05:47)
[2017-03-22] MEDS: INSULIN SLIDING SCALE (NOVOLOG) 1 VIAL SQ SCH ×2 (07:30→18:09)
[2017-03-22 09:58] LABS: MCH 29.1 pg (25.7-33.7); MCHC 31.9 g/dl (32.0-35.9); MEAN CELL VOLUME 91.1 fl (80-96); PLATELET COUNT 262 K/MM3 (134-434); WHITE BLOOD COUNT 7.8 K/mm3 (4.0-10.0)
--- NOTE | 2017-03-22 10:04 | PN ---
S CIWA - CIWA Score Nausea/Vomitin Muscle Tremors: 3 Anxiety: 2 Agitation: 3 Paroxysmal Sweats: 1-Minimal Palms Moist Orientation: 0-Oriented Tacttile Disturbances: 1-Very Mild Itch/Numbness Auditory Disturbances: 1-Very Mild Visual Disturbances: 0-None Headache: 2-Mild CIWA-Ar Total Score: 16 BHS Progress Note (SOAP) Subjective: alert,irritable,anxious,interrupted sleep,tremor Objective: 03/22/17 10:01 Vital Signs Temperature 97.9 F 03/22/17 09:40 Pulse Rate 90 03/22/17 09:40 Respiratory Rate 19 03/22/17 09:40 Blood Pressure 163/81 03/22/17 09:40 O2 Sat by Pulse Oximetry (%) ekg nsr,lvh,prolong qt no chest pain,no sob,no dizziness Laboratory Last Values POC Glucometer 182 UNITS (80-120) 03/22/17 05:39 Urine Color Ltyellow 03/21/17 15:30 Urine Appearance Clear 03/21/17 15:30 Urine pH 7.0 (5.0-8.0) 03/21/17 15:30 Ur Specific [place] 1.014 (1.001-1.035) 03/21/17 15:30 Urine Protein 1+ (NEGATIVE) H 03/21/17 15:30 Urine Glucose (UA) 3+ (NEGATIVE) H 03/21/17 15:30 Urine Ketones Negative (NEGATIVE) 03/21/17 15:30 Urine Blood Negative (NEGATIVE) 03/21/17 15:30 Urine Nitrite Negative (NEGATIVE) 03/21/17 15:30 Urine Bilirubin Negative (NEGATIVE) 03/21/17 15:30 Urine Urobilinogen Negative mg/dL (0.2-1.0) 03/21/17 15:30 Ur Leukocyte Esterase Negative (NEGATIVE) 03/21/17 15:30 Urine WBC (Auto) 3 03/21/17 15:30 Urine RBC (Auto) < 1 03/21/17 15:30 labs pending Assessment: 03/22/17 10:03 withdrawal symptom Plan: continue detox
--- NOTE | 2017-03-22 10:05 | PN ---
[facility] Progress Note Note: addendum patient stated he is on complera 1 tab po daily
[2017-03-22 10:11] LABS: ALBUMIN 3.3 g/dl (3.4-5.0); ANION GAP 9 (8-16); CALCIUM 8.7 mg/dL (8.5-10.1); CO2 29 mmol/L (21-32); GLUCOSE,RANDOM 203 mg/dL (74-106)
[2017-03-22 10:16] LABS: ALK PHOS 128 U/L (45-117); BILIRUBIN,TOTAL 0.9 mg/dL (0.2-1.0); CREATININE 1.2 mg/dL (0.7-1.3); SGOT/AST 42 U/L (15-37); SGPT/ALT 87 U/L (12-78); TOT PROT 7.4 g/dl (6.4-8.2)
[2017-03-22] MEDS: LISINOPRIL 20 MG TABLET (FP) PO SCH (10:48)
[2017-03-22] MEDS: CEPHALEXIN MONOHYDRATE 500 MG CAPSULE (UD) PO SCH ×2 (10:48→22:21)
[2017-03-22] MEDS: ASPIRIN 81 MG CHEWABLE TABLETS PO SCH (10:48)
[2017-03-22] MEDS: HYDROCHLOROTHIAZIDE 25 MG TABLET (FP) PO SCH (10:48)
[2017-03-22] MEDS: PRENATAL VITAMINS W/ FOLIC ACID TABLET (FP) PO SCH (10:48)
[2017-03-22] MEDS: EMTRICITAB/RILPIVIRINE/TENOFOV 1 EACH TABLET PO SCH (10:49)
[2017-03-22] MEDS: CARVEDILOL 6.25 MG TABLET (FP) PO SCH ×2 (10:49→22:21)
[2017-03-22] MEDS: AMMONIUM LACTATE 12% LOTION 225 GM BOTTLE TP SCH ×2 (11:00→22:21)
[2017-03-22] MEDS ORDERED: INSULIN (NOVOLOG) ASPART 100 UNITS/ML 10ML VIAL ONE (17:49)
[2017-03-22] MEDS: ATORVASTATIN CA 80 MG TABLET (FP) PO SCH (22:21)
[2017-03-22] MEDS: THIAMINE HCL 100 MG TABLET (FP) PO SCH (22:21)
[2017-03-23] MEDS: chlordiazePOXIDE HCL 25 MG CAPSULE PO SCH ×2 (06:20→10:32)
[2017-03-23] MEDS ORDERED: INSULIN (NOVOLOG) ASPART 100 UNITS/ML 10ML VIAL ONE ×2 (07:03→17:41)
[2017-03-23] MEDS: ACETAMINOPHEN 325 MG TABLET (FP) PO PRN ×2 (07:05→12:25)
[2017-03-23] MEDS: INSULIN SLIDING SCALE (NOVOLOG) 1 VIAL SQ SCH ×2 (07:10→18:02)
[2017-03-23] MEDS: EMTRICITAB/RILPIVIRINE/TENOFOV 1 EACH TABLET PO SCH (09:06)
--- NOTE | 2017-03-23 10:13 | PN ---
S CIWA - CIWA Score Nausea/Vomitin Muscle Tremors: 3 Anxiety: 3 Agitation: 3 Paroxysmal Sweats: 1-Minimal Palms Moist Orientation: 0-Oriented Tacttile Disturbances: 1-Very Mild Itch/Numbness Auditory Disturbances: 1-Very Mild Visual Disturbances: 0-None Headache: 2-Mild CIWA-Ar Total Score: 17 BHS Progress Note (SOAP) Subjective: alert,irritable,anxious,interrupted sleep,tremor Objective: 03/23/17 10:11 Vital Signs Temperature 97.3 F L 03/23/17 06:00 Pulse Rate 73 03/23/17 06:00 Respiratory Rate 22 03/23/17 06:00 Blood Pressure 147/66 03/23/17 06:00 O2 Sat by Pulse Oximetry (%) bgm 226 Assessment: 03/23/17 10:12 withdrawal symptom Plan: continue detox,bgm monitoring
[2017-03-23] MEDS: CEPHALEXIN MONOHYDRATE 500 MG CAPSULE (UD) PO SCH ×2 (10:32→22:33)
[2017-03-23] MEDS: ASPIRIN 81 MG CHEWABLE TABLETS PO SCH (10:32)
[2017-03-23] MEDS: LISINOPRIL 20 MG TABLET (FP) PO SCH (10:32)
[2017-03-23] MEDS: HYDROCHLOROTHIAZIDE 25 MG TABLET (FP) PO SCH (10:32)
[2017-03-23] MEDS: PRENATAL VITAMINS W/ FOLIC ACID TABLET (FP) PO SCH (10:32)
[2017-03-23] MEDS: CARVEDILOL 6.25 MG TABLET (FP) PO SCH ×2 (10:33→22:33)
[2017-03-23] MEDS: AMMONIUM LACTATE 12% LOTION 225 GM BOTTLE TP SCH ×2 (10:45→22:35)
[2017-03-23] MEDS: chlordiazePOXIDE 5 MG CAPSULE PO SCH ×2 (18:02→22:33)
[2017-03-23] MEDS ORDERED: cloNIDine HCL 0.1 MG TABLET PO ONE (19:38)
[2017-03-23] MEDS: ATORVASTATIN CA 80 MG TABLET (FP) PO SCH (22:33)
[2017-03-23] MEDS: THIAMINE HCL 100 MG TABLET (FP) PO SCH (22:33)
[2017-03-24] MEDS: ACETAMINOPHEN 325 MG TABLET (FP) PO PRN (06:09)
[2017-03-24] MEDS: chlordiazePOXIDE 5 MG CAPSULE PO SCH ×2 (06:10→10:13)
[2017-03-24] MEDS ORDERED: INSULIN (NOVOLOG) ASPART 100 UNITS/ML 10ML VIAL ONE ×2 (07:31→17:16)
[2017-03-24] MEDS: INSULIN SLIDING SCALE (NOVOLOG) 1 VIAL SQ SCH ×2 (07:40→22:32)
--- NOTE | 2017-03-24 09:35 | PN ---
S Progress Note (SOAP) Subjective: ALERT,IRRITABLE,INTERRUPTED SLEEP,REPORTED TO NURSE THAT HE ROLLED OUT OF BED AROUND 2.30 AM, Objective: 03/24/17 09:35 BP 169/97,P95,R18,T97.3 Assessment: WITHDRAWAL SYMPTOM 03/24/17 09:36 Plan: CONTINUE DETOX,FALL PROTOCOL2,FALL PRECAUTION
[2017-03-24] MEDS: CEPHALEXIN MONOHYDRATE 500 MG CAPSULE (UD) PO SCH ×2 (10:13→23:35)
[2017-03-24] MEDS: HYDROCHLOROTHIAZIDE 25 MG TABLET (FP) PO SCH (10:13)
[2017-03-24] MEDS: ASPIRIN 81 MG CHEWABLE TABLETS PO SCH (10:13)
[2017-03-24] MEDS: LISINOPRIL 20 MG TABLET (FP) PO SCH (10:13)
[2017-03-24] MEDS: CARVEDILOL 6.25 MG TABLET (FP) PO SCH ×2 (10:13→23:35)
[2017-03-24] MEDS: EMTRICITAB/RILPIVIRINE/TENOFOV 1 EACH TABLET PO SCH (10:13)
[2017-03-24] MEDS: PRENATAL VITAMINS W/ FOLIC ACID TABLET (FP) PO SCH (10:13)
[2017-03-24] MEDS ORDERED: IBUPROFEN 400 MG TABLET (FP) PO PRN (10:18)
[2017-03-24] MEDS: AMMONIUM LACTATE 12% LOTION 225 GM BOTTLE TP SCH ×2 (12:10→23:36)
[2017-03-24 14:24] VITALS: BP 130/79; PULSE 91; TEMP 97.9
[2017-03-24] MEDS: chlordiazePOXIDE HCL 10 MG CAPSULE PO SCH ×2 (18:58→23:36)
--- NOTE | 2017-03-24 21:28 | PN ---
[facility] Progress Note Note: nose bleeding, coughing, bp 207/112, c/o headache, shortness of breath, obese patient admitted non compliance with hypertension medications recent months, waking up frequent from post bloody nasal drip transferred to [facility] er for uncontrol bp and headache and ent bleeding may return for alcohol rehab when medically cleared
[2017-03-24] MEDS: THIAMINE HCL 100 MG TABLET (FP) PO SCH (23:36)
[2017-03-24] MEDS: ATORVASTATIN CA 80 MG TABLET (FP) PO SCH (23:36)
[2017-03-25] MEDS: chlordiazePOXIDE HCL 10 MG CAPSULE PO SCH (06:18)
--- NOTE | 2017-03-25 07:32 | PN ---
[facility] Progress Note Note: patient was transferred to [facility] for evaluation and treatment of hypertension,on 03/24/17 admitted at [facility] for management and monitoring
== END 2017-03-25 06:22 | disposition short-term general hospital (02) | DRG 774 ==
LOC: YASAS 10:21 → Y6N 13:25
PROVIDERS: ADMIT Internal Medicine; ATTEND Internal Medicine
PROC: HZ2ZZZZ Detoxification Services for Substance Abuse Treatment (ICD-10-PCS; principal; 2017-03-21)
DX: F10.230 Alcohol dependence with withdrawal, uncomplicated (principal); F14.20 Cocaine dependence, uncomplicated; F17.213 Nicotine dependence, cigarettes, with withdrawal; J45.30 Mild persistent asthma, uncomplicated; E11.628 Type 2 diabetes mellitus with other skin complications; Z79.4 Long term (current) use of insulin; Z21 Asymptomatic human immunodeficiency virus [HIV] infection status; I10 Essential (primary) hypertension; I50.9 Heart failure, unspecified; E66.9 Obesity, unspecified; R05 Cough; R04.0 Epistaxis; R51 Headache; R06.02 Shortness of breath; Z68.43 Body mass index [BMI] 50.0-59.9, adult; Z91.14 Patient's other noncompliance with medication regimen; Z87.2 Personal history of diseases of the skin and subcutaneous tissue; Z79.84 Long term (current) use of oral hypoglycemic drugs; Z98.61 Coronary angioplasty status
CPT/HCPCS: 36415; 80053; 81003; 81015; 85027; 86593; 93005; 93010

== ENCOUNTER 2017-03-24 20:40 | Inpatient (IN) | payer OTHER ==
[2017-03-24 20:56] VITALS: BMI 56.5
[2017-03-24] MEDS ORDERED: CARVEDILOL 6.25 MG TABLET (FP) PO ONE (22:29)
[2017-03-24] MEDS ORDERED: CARVEDILOL 3.125 MG TABLET (FP) ONE (22:41)
--- NOTE | 2017-03-24 22:48 | PDOC ---
History of Present Illness - General Chief Complaint: Blood Pressure Problem Stated Complaint: NOSE BLEED Time Seen by Provider: 03/24/17 22:22 - History of Present Illness Initial Comments: 03/24/17 22:42 CHIEF COMPLAINT: nosebleed HISTORY OF PRESENT ILLNESS: 41 yo M with hx of HIV, HTN, HLD, "heart failure", etOH and cocaine abuse, presents to ED with nosebleed x 2 hours. Patient reports "I woke up with a bloody nose and I've been spitting up blood." He reports a "slight headache" but denies any chest pain, shortness of breath, palpitations. Patient reports daily etOH use "like 4-5 40 oz drinks a day" as well as cocaine use "maybe twice a week" and his last use was approximately 4 days ago. On arrival patient's BP was 190s/110s, patient states he did not take his BP meds tonight yet. PAST MEDICAL HISTORY: as per HPI FAMILY HISTORY: Denies SOCIAL HISTORY: alcohol, cocaine SURGICAL HISTORY: Denies ALLERGIES: No known drug allergies REVIEW OF SYSTEMS General/Constitutional: Denies fever or chills. Denies weakness. HEENT: Nose bleed, "and I've been spitting up blood." Denies change in vision. Denies ear pain or discharge. Denies sore throat. Cardiovascular: Denies chest pain or shortness of breath. Respiratory: Denies cough, wheezing. Gastrointestinal: Denies nausea, vomiting, diarrhea or constipation. Genitourinary: Denies dysuria, frequency, or change in urination. Musculoskeletal: Denies joint or muscle swelling or pain. Denies neck or back pain. Skin and breasts: Denies rash or easy bruising. Neurologic: "slight headache." Denies vertigo, loss of consciousness, or loss of sensation. PHYSICAL EXAM General Appearance: Well-appearing, appropriately dressed. No apparent distress. HEENT: Dried blood to L nare, no active bleeding. EOMI, PERRLA. No conjunctival pallor. No photophobia, scleral icterus. Respiratory/Chest: Lungs CTAB. No shortness of breath, chest tenderness, respiratory distress, accessory muscle use. No crackles, rales, rhonchi, stridor , wheezing, dullness Cardiovascular: RRR. S1, S2. Gastrointestinal/Abdominal: Normal bowel sounds. Abdomen soft, non-distended. No tenderness or rebound tenderness. No organomegaly, pulsatile mass, guarding , hernia, hepatomegaly, splenomegaly. Musculoskeletal/Extremities: Normal inspection. FROM of all extremities, normal capillary refill. Pelvis Stable. No CVA tenderness. No tenderness to extremities, pedal edema, swelling, erythema or deformity. Integumentary: Appropriate color, dry, warm. 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 Fully oriented, alert. Appropriate mood/affect. Motor strength 5/5. No appreciable EOM palsy, facial droop or sensory deficit. Past History - Past Medical History Allergies/Adverse Reactions: Allergies Allergy/AdvReac Type Severity Reaction Status Date / Time No Known Allergies Allergy Verified 03/21/17 12:31 Home Medications: Ambulatory Orders Hydrochlorothiazide [Hydrodiuril] 25 mg PO DAILY 05/29/11 Albuterol Sulfate [Proventil HFA Inhaler -] 2 inh PO Q4H PRN 10/26/11 Emtricitab/Rilpiviri/Tenof Ala [Odefsey Tablet] 1 each PO DAILY 12/18/16 Lisinopril [Zestril] 40 mg PO DAILY 12/18/16 Aspirin [ASA -] 81 mg PO DAILY 03/21/17 Atorvastatin Ca [Lipitor] 80 mg PO HS 03/21/17 Labetalol HCl [Normodyne -] 100 mg PO BID #60 tablet 03/25/17 Anemia: No Asthma: Yes (MDI) Cancer: No Cardiac Disorders: Yes (HX ENLARGED HEART;S/P CATHETERIZATION 2011) CVA: No COPD: No CHF: Yes Dementia: No Diabetes: Yes (TYPE 2 DM--WAS ON METFORMIN BID; D/C'D 2013 DUE TO CONTROLLED.) GI Disorders: No Disorders: No HTN: Yes (ON MEDS) Kidney Stones: No Liver Disease: No Seizures: No Thyroid Disease: No - Surgical History Abdominal Surgery: No Appendectomy: No Cardiac Surgery: Yes (CARDIAC CATHETERIZATION IN 09/2011.. NO BLOCKAGE) Cholecystectomy: No Lung Surgery: No Neurologic Surgery: No Orthopedic Surgery: No - Reproductive History Testicular Surgery: No - Suicide/Smoking/Psychosocial Hx Smoking History: Never smoked Have you smoked in the past 12 months: Yes Number of Cigarettes Smoked Daily: 3 'Breaking Loose' booklet given: 03/21/17 Hx Alcohol Use: Yes (BEER/LIQUOR) Drug/Substance Use Hx: Yes (COCAINE) Substance Use Type: Alcohol, Cocaine Hx Substance Use Treatment: Yes (LAST TX AT [facility] DETOX) *Physical Exam - Vital Signs Last Vital Signs Temp Pulse Resp BP Pulse Ox 97.9 F 81 18 199/113 98 03/24/17 20:54 03/24/17 20:54 03/24/17 20:54 03/24/17 20:54 03/24/17 20:54 ED Treatment Course - LABORATORY CBC & Chemistry Diagram: 03/25/17 08:30 03/25/17 08:30 - RADIOLOGY Radiology Studies Ordered: Category Date Time Status CHEST PA & LAT [RAD] Stat Radiology 03/24/17 22:25 Ordered Medical Decision Making - Medical Decision Making 03/24/17 22:48 41 yo M with hx of HTN, HLD, "heart failure", etOH and cocaine abuse, presents to ED with nosebleed x 2 hours and elevated BP on arrival. -CBC, CMP, PT/INR, Mg, card profile, BNP -EKG, CXR -6.25 Coreg (home med) 03/25/17 00:39 Repeat BP 178/95. Lisinopril given (home dose). Patient c/o lower back and R leg pain. Tylenol given. 03/25/17 03:39 Repeat BP 197/105. Discussed case with attending ER MD Eddy. Given that patient BP is not responding to home BP meds (with additional dose of Lisinopril , will admit for hypertensive urgency.) *DC/Admit/Observation/Transfer Diagnosis at time of Disposition: Cocaine dependence, Alcohol dependence, Hypertensive urgency - Discharge Dispostion Disposition: AGAINST MEDICAL ADVICE Admit: Yes - Prescriptions - Referrals - Patient Instructions - Post Discharge Activity
[2017-03-24 23:33] LABS: BASOPHIL 0.5 % (0-2.0); EOSINOPHIL 3.8 % (0-4.5); MCH 29.2 pg (25.7-33.7); MCHC 32.5 g/dl (32.0-35.9); MEAN CELL VOLUME 89.8 fl (80-96); MEAN PLT VOLUME 6.8 fl (7.5-11.1); NEUTROPHILS 74.8 % (42.8-82.8); PLATELET COUNT 268 K/MM3 (134-434); WHITE BLOOD COUNT 7.4 K/mm3 (4.0-10.0)
[2017-03-24 23:37] LABS: INR 1.15 (0.82-1.09)
[2017-03-25 00:03] LABS: ANION GAP 8 (8-16); BILIRUBIN,TOTAL 0.5 mg/dL (0.2-1.0); CALCIUM 8.2 mg/dL (8.5-10.1); CO2 30 mmol/L (21-32); CREATININE 0.9 mg/dL (0.7-1.3); GLUCOSE,RANDOM 167 mg/dL (74-106); MAGNESIUM 2.1 mg/dL (1.8-2.4); SGOT/AST 26 U/L (15-37); SGPT/ALT 64 U/L (12-78); TOT PROT 7.2 g/dl (6.4-8.2)
[2017-03-25 00:05] LABS: ALK PHOS 113 U/L (45-117); CPK 143 IU/L (39-308); TROPONIN I 0.04 ng/ml (0.00-0.05)
[2017-03-25 00:28] LABS: URINE MARIJUANA THC NEGATIVE ng/ml (CUTOFF=50)
[2017-03-25] MEDS ORDERED: LISINOPRIL 20 MG TABLET (FP) PO ONE (01:18)
[2017-03-25] MEDS ORDERED: LISINOPRIL 20 MG TABLET (FP) ONE ×2 (01:27→06:17)
[2017-03-25] MEDS ORDERED: ACETAMINOPHEN 325 MG TABLET (FP) PO ONE (02:02)
[2017-03-25] MEDS ORDERED: ACETAMINOPHEN 325 MG TABLET (FP) ONE (02:26)
[2017-03-25 04:41] LABS: TROPONIN I 0.04 ng/ml (0.00-0.05)
[2017-03-25] MEDS ORDERED: hydrALAZINE HCL 20 MG/ML VIAL IVPUSH ONE (04:55)
[2017-03-25] MEDS ORDERED: ACETAMINOPHEN 325 MG TABLET (FP) PO PRN (04:56)
--- NOTE | 2017-03-25 04:58 | PDOC ---
*Physical Exam - Vital Signs Last Vital Signs Temp Pulse Resp BP Pulse Ox 97.9 F 89 20 197/105 98 03/24/17 20:54 03/25/17 03:10 03/25/17 03:10 03/25/17 03:10 03/25/17 03:10 ED Treatment Course - LABORATORY CBC & Chemistry Diagram: 03/24/17 23:12 03/24/17 23:12 - ADDITIONAL ORDERS Additional order review: Laboratory Results 03/25/17 03/24/17 03/24/17 04:01 23:12 23:12 PT with INR INR Sodium Potassium Chloride Carbon Dioxide Anion Gap BUN Creatinine Creat Clearance w eGFR Random Glucose Calcium Magnesium Total Bilirubin AST ALT Alkaline Phosphatase Creatine Kinase 131 Troponin I 0.04 B-Natriuretic Peptide 128.22 H Total Protein Albumin Opiates Screen Negative Methadone Screen Negative Barbiturate Screen Negative Phencyclidine Screen Negative Ur Amphetamines Screen Negative MDMA (Ecstasy) Screen Negative Benzodiazepines Screen Positive Cocaine Screen Negative U Marijuana (THC) Screen Negative 03/24/17 03/24/17 23:12 23:12 PT with INR 13.00 H INR 1.15 H Sodium 140 Potassium 3.7 Chloride 102 Carbon Dioxide 30 Anion Gap 8 BUN 19 H Creatinine 0.9 D Creat Clearance w eGFR > 60 Random Glucose 167 H Calcium 8.2 L Magnesium 2.1 Total Bilirubin 0.5 D AST 26 D ALT 64 D Alkaline Phosphatase 113 Creatine Kinase 143 Troponin I 0.04 B-Natriuretic Peptide Total Protein 7.2 Albumin 3.0 L Opiates Screen Methadone Screen Barbiturate Screen Phencyclidine Screen Ur Amphetamines Screen MDMA (Ecstasy) Screen Benzodiazepines Screen Cocaine Screen U Marijuana (THC) Screen 03/24/17 23:12 RBC 4.15 MCV 89.8 MCHC 32.5 RDW 15.0 MPV 6.8 L Neutrophils % 74.8 Lymphocytes % 14.5 Monocytes % 6.4 Eosinophils % 3.8 Basophils % 0.5 - Medications Given in the ED: ED Medications Discontinued Medications Generic Name Dose Route Start Last Admin Trade Name Freq PRN Reason Stop Dose Admin Acetaminophen 975 mg 03/25/17 02:02 03/25/17 02:30 Tylenol - PO 03/25/17 02:03 975 mg ONCE ONE Administration Carvedilol 6.25 mg 03/24/17 22:29 03/24/17 23:08 Coreg - PO 03/24/17 22:30 6.25 mg ONCE ONE Administration Lisinopril 40 mg 03/25/17 01:18 03/25/17 01:30 Prinivil PO 03/25/17 01:19 40 mg ONCE ONE Administration Medical Decision Making - Medical Decision Making 03/25/17 04:51 Pt seen by the Advanced Practice Provider under my direct supervision Ancillary studies reviewed I agree with plan as outlined by the Advanced Practice Provider Pt's presents to ED with epistaxis (quickly controlled with pressure) and found to have very elevated BP. Home dose of coreg was given with minimal response. Home dose of lisinopril was given with temporary decrease in blood pressure, however BP shot up again to 190s/110. Pt continues to be asymptomatic, but labs checked to evaluate for hypertensive emergency. Labs with no evidence of end organ damage. BP persistently elevated to 190/110 despite long acting home dose medications. Given the absence of end organ damage, and two anti-hypertensive medications already on board, the decision was made to not treat with IV BP medications so as not to cause end organ hypoperfusion and irreversible ischemia as has been well reported in the literature. Given the need for a more gradual decrease in BP for this patient, a decision was made to admit for further management of his hypertensive urgency.
[2017-03-25] MEDS ORDERED: chlordiazePOXIDE HCL 25 MG CAPSULE PO PRN (05:11)
[2017-03-25] MEDS ORDERED: ALBUTEROL SO4 18 GM HFA INHALER IH PRN (05:11)
--- NOTE | 2017-03-25 05:14 | HP ---
CHIEF COMPLAINT: "I have a headache and a nose bleed" PCP: none HISTORY OF PRESENT ILLNESS: This is a 41 yo M with PMH of HIV (on HAART), HTN, HLD, CAD s/p stent 2011, CHF , etOH and cocaine abuse who presents to ED with epistaxis and headache x 2 hours. Patient found to have BP 199/113. He reports onset of symptoms immediately upon waking up. He states that his BP is usually well controlled ( has been checked daily in [facility]) and that he does not usually get epistaxis or headache, however he did not take his BP meds tonight. On presentation to ED he denies blurry vision, CP, sob, palpitations, n/v, numbness. In ED patient was given home doses of po coreg 6.25 and po lisinopril 40, with initial reduction of BP to 178/95 followed by elevation back up to 197/ 105 over 2 hours. Patient reports resolution of epistaxis and headache but complain of back ache. [facility], last use of both on wednesday. He drinks 4-5 40 oz drinks a day and uses cocaine 2 x a week. ER course was notable for: (1)labs (2)cxr clear. EKG: prolonged qtc 477, NS 93, LVH, lateral T abnormalities (3)home PO meds. Recent Travel: denies PAST MEDICAL HISTORY: as above PAST SURGICAL HISTORY: as above [facility] Smoking: denies Alcohol: daily Drugs: cocaine Family History: unknown Allergies No Known Allergies Allergy (Verified 03/21/17 12:31) HOME MEDICATIONS: Home Medications Medication Instructions Recorded Hydrochlorothiazide [Hydrodiuril] 25 mg PO DAILY 05/29/11 Albuterol Sulfate [Proventil HFA 2 inh PO Q4H PRN 10/26/11 Inhaler -] Emtricitab/Rilpiviri/Tenof Ala 1 each PO DAILY 12/18/16 [Odefsey Tablet] Lisinopril [Zestril] 40 mg PO DAILY 12/18/16 Aspirin [ASA -] 81 mg PO DAILY 03/21/17 Atorvastatin Ca [Lipitor] 80 mg PO HS 03/21/17 Carvedilol [Coreg -] 6.25 mg PO BID 03/21/17 REVIEW OF SYSTEMS CONSTITUTIONAL: Absent: fever, chills, generalized weakness, malaise, loss of appetite, weight change HEENT: Absent: rhinorrhea, nasal congestion, throat pain, visual changes CARDIOVASCULAR: Absent: chest pain, syncope, palpitations, irregular heart rate, lightheadedness , peripheral edema RESPIRATORY: Absent: cough, shortness of breath, dyspnea with exertion GASTROINTESTINAL: Absent: abdominal pain, abdominal distension, nausea, vomiting, diarrhea, constipation, melena, hematochezia GENITOURINARY: Absent: dysuria MUSCULOSKELETAL: Absent: myalgia, arthralgia, joint swelling, SKIN: Absent: rash, itching, pallor HEMATOLOGIC/IMMUNOLOGIC: Absent: easy bleeding, easy bruising ENDOCRINE: Absent: unexplained weight gain, unexplained weight loss, heat intolerance, cold intolerance NEUROLOGIC: Absent: focal weakness or paresthesias PSYCHIATRIC: Absent: anxiety, depression PHYSICAL EXAMINATION Vital Signs - 24 hr 03/24/17 03/25/17 03/25/17 20:54 01:12 03:10 Temperature 97.9 F Pulse Rate 81 Pulse Rate [ 96 H 89 Apical] Respiratory 18 20 20 Rate Blood Pressure 199/113 Blood Pressure 178/95 197/105 [Left Arm] Blood Pressure [Right Arm] O2 Sat by Pulse 98 97 98 Oximetry (%) 03/25/17 04:57 Temperature Pulse Rate Pulse Rate [ 85 Apical] Respiratory 20 Rate Blood Pressure Blood Pressure [Left Arm] Blood Pressure 167/109 [Right Arm] O2 Sat by Pulse 95 Oximetry (%) GENERAL: obese, Awake, alert, and fully oriented, in no acute distress. HEAD: Normal with no signs of trauma. EYES: Pupils equal, round and reactive to light, extraocular movements intact, sclera anicteric, conjunctiva injected. No lid lag. Fundoscopic exam: no papilledema EARS, NOSE, THROAT: Moist mucous membranes. NECK: supple without JVD LUNGS: Breath sounds equal, clear to auscultation bilaterally. HEART: Regular rate and rhythm, normal S1 and S2 ABDOMEN: obese, Soft, nontender, not distended, normoactive bowel sounds, no guarding, no rebound, no masses. No hepatomegaly or splenomegaly. MUSCULOSKELETAL: No CVA tenderness. UPPER EXTREMITIES: 2+ pulses, warm, well-perfused. No peripheral edema. LOWER EXTREMITIES: 1+ pulses, warm, well-perfused. No calf tenderness. 1+ peripheral edema with venous statis skin changes. NEUROLOGICAL: Cranial nerves II-XII intact. Normal speech. PSYCHIATRIC: Cooperative. Good eye contact. Appropriate mood and affect. SKIN: Warm, dry Laboratory Results - last 24 hr 03/24/17 03/24/17 03/24/17 23:12 23:12 23:12 WBC 7.4 RBC 4.15 Hgb 12.1 Hct 37.2 MCV 89.8 MCH 29.2 MCHC 32.5 RDW 15.0 Plt Count 268 MPV 6.8 L Neutrophils % 74.8 Lymphocytes % 14.5 Monocytes % 6.4 Eosinophils % 3.8 Basophils % 0.5 PT with INR 13.00 H INR 1.15 H Sodium 140 Potassium 3.7 Chloride 102 Carbon Dioxide 30 Anion Gap 8 BUN 19 H Creatinine 0.9 D Creat Clearance w eGFR > 60 Random Glucose 167 H Calcium 8.2 L Magnesium 2.1 Total Bilirubin 0.5 D AST 26 D ALT 64 D Alkaline Phosphatase 113 Creatine Kinase 143 Troponin I 0.04 B-Natriuretic Peptide Total Protein 7.2 Albumin 3.0 L Opiates Screen Methadone Screen Barbiturate Screen Phencyclidine Screen Ur Amphetamines Screen MDMA (Ecstasy) Screen Benzodiazepines Screen Cocaine Screen U Marijuana (THC) Screen 03/24/17 03/24/17 03/25/17 23:12 23:12 04:01 WBC RBC Hgb Hct MCV MCH MCHC RDW Plt Count MPV Neutrophils % Lymphocytes % Monocytes % Eosinophils % Basophils % PT with INR INR Sodium Potassium Chloride Carbon Dioxide Anion Gap BUN Creatinine Creat Clearance w eGFR Random Glucose Calcium Magnesium Total Bilirubin AST ALT Alkaline Phosphatase Creatine Kinase 131 Troponin I 0.04 B-Natriuretic Peptide 128.22 H Total Protein Albumin Opiates Screen Negative Methadone Screen Negative Barbiturate Screen Negative Phencyclidine Screen Negative Ur Amphetamines Screen Negative MDMA (Ecstasy) Screen Negative Benzodiazepines Screen Positive Cocaine Screen Negative U Marijuana (THC) Screen Negative ASSESSMENT/PLAN: This is a 41 yo M with PMH of HIV (currently treated), HTN, HLD, CAD s/p stent 2011, CHF, etOH and cocaine abuse who presents to ED with epistaxis and headache x 2 hours. Hypertensive urgency, possibly emergency at onset given mild hypertensive encephalopathy -presents with BP 199/133, acute in onset given [facility] -epistaxis, headache, now resolved -patients BP did not adequately respond to home PO meds given in ED -given initial emergency with encephalopathy, which resolved, multiple cardiac risk factors and relatively acute onset, will treat with IV hydralazine to lower by no more than 25% and reassess -TTE, TSH, free t4, lipid panel a1c -cardiac monitoring -back ache chronic, aortic dissection unlikely CAD s/p stent HLD HTN CHF -resume home statin, asa -resume home HTN meds, if BP is not below 160 systolic tomorrow morning HIV -resume HAART EtOH detox -librium protocol Dispo: obs tele. Problem List - Problem (1) Alcohol dependence Code(s): F10.20 - ALCOHOL DEPENDENCE, UNCOMPLICATED (2) Cocaine dependence Code(s): F14.20 - COCAINE DEPENDENCE, UNCOMPLICATED Qualifiers: Substance use status: uncomplicated Qualified Code(s): F14.20 - Cocaine dependence, uncomplicated (3) Epistaxis Code(s): R04.0 - EPISTAXIS (4) Hypertensive urgency Code(s): I16.0 - HYPERTENSIVE URGENCY (5) DM2 (diabetes mellitus, type 2) Code(s): E11.9 - TYPE 2 DIABETES MELLITUS WITHOUT COMPLICATIONS Qualifiers: Diabetes mellitus complication status: with skin complications Diabetes mellitus complication detail: with other skin complication (6) History of CHF (congestive heart failure) Code(s): Z86.79 - PERSONAL HISTORY OF OTHER DISEASES OF THE CIRCULATORY SYSTEM (7) Hypertension Code(s): I10 - ESSENTIAL (PRIMARY) HYPERTENSION Qualifiers: Hypertension type: essential hypertension Qualified Code(s): I10 - Essential (primary) hypertension Visit type - Emergency Visit Emergency Visit: Yes ED Registration Date: 03/25/17 Care time: The patient presented to the Emergency Department on the above date and was hospitalized for further evaluation of their emergent condition. - New Patient This patient is new to me today: Yes Date on this admission: 03/29/17 - Critical Care Critical Care patient: No
[2017-03-25] MEDS ORDERED: LISINOPRIL 20 MG TABLET (FP) PO SCH (05:15)
[2017-03-25] MEDS ORDERED: hydrALAZINE HCL 20 MG/ML VIAL ONE (05:26)
[2017-03-25] MEDS ORDERED: chlordiazePOXIDE HCL 25 MG CAPSULE ONE ×2 (05:52→11:03)
[2017-03-25] MEDS: chlordiazePOXIDE HCL 25 MG CAPSULE PO SCH ×2 (05:58→11:02)
--- NOTE | 2017-03-25 06:37 | PN ---
Teaching Attending Note Name of Resident: Chiquita Hudson ATTENDING PHYSICIAN STATEMENT I saw and evaluated the patient. I reviewed the resident's note and discussed the case with the resident. I agree with the resident's findings and plan as documented. SUBJECTIVE: 41 year old presenting from [facility] with complaints of elevated blood pressure , headache and episode of epistaxis. Epistaxis resolved Reports habituale cocaine use / last episode 4 days ago c/o lower back pain radiating to left lower ext non compliant with CPAP while at [facility] PMH Obesity Sleep apnea Substance abuse CAD HTN OBJECTIVE: Vital Signs Temperature 97.9 F 03/24/17 20:54 Pulse Rate 86 03/25/17 06:07 Respiratory Rate 20 03/25/17 06:07 Blood Pressure 165/110 03/25/17 06:07 O2 Sat by Pulse Oximetry (%) 98 03/25/17 06:07 MOrbidly obese HEENT PERRLA , NO pupillary edema CVS S1/S2 WNL RS no wheesing CBC, BMP 03/24/17 23:12 03/24/17 23:12 ASSESSMENT AND PLAN: 1. HTN urgency- Presented with BP 195/113, indeed no evidence of end organ damage based on our exam . So far only home medications were administered with lack of improvement of his BP which remains 165/110
--- NOTE | 2017-03-25 07:25 | DS ---
[facility] Detox Discharge Summary Admission Date: 03/25/17 Discharge Date: 03/25/17 - History Present History: Alcohol Dependence, Cocaine Dependence Additional Comments: patient has epistaxis with uncontrolled hypertension,transferred to [facility] for evaluation ,and treatment,on 03/24/17 admitted at [facility] for management of hypertensive urgency and monitoring, discharge from [facility] [place] Pertinent Past History: asthma type 2 dm hiv hypertension uncontrolled epitaxis history of chf - Physical Exam Results Vital Signs: Vital Signs Temperature 97.9 F 03/24/17 20:54 Pulse Rate 86 03/25/17 06:07 Respiratory Rate 20 03/25/17 06:07 Blood Pressure 182/90 03/25/17 06:07 O2 Sat by Pulse Oximetry (%) 98 03/25/17 06:07 Pertinent Admission Physical Exam Findings: withdrawal symptom - Medication Discharge Medications: Ambulatory Orders Hydrochlorothiazide [Hydrodiuril] 25 mg PO DAILY 05/29/11 Albuterol Sulfate [Proventil HFA Inhaler -] 2 inh PO Q4H PRN 10/26/11 Emtricitab/Rilpiviri/Tenof Ala [Odefsey Tablet] 1 each PO DAILY 12/18/16 Lisinopril [Zestril] 40 mg PO DAILY 12/18/16 Aspirin [ASA -] 81 mg PO DAILY 03/21/17 Atorvastatin Ca [Lipitor] 80 mg PO HS 03/21/17 Carvedilol [Coreg -] 6.25 mg PO BID 03/21/17 - Diagnosis (1) Alcohol dependence with uncomplicated withdrawal Current Visit: No Status: Acute (2) Cocaine dependence Current Visit: No Status: Acute Qualifiers: Substance use status: uncomplicated Qualified Code(s): F14.20 - Cocaine dependence, uncomplicated (3) Nicotine dependence Current Visit: No Status: Acute Qualifiers: Nicotine product type: cigarettes Substance use status: in withdrawal Qualified Code(s): F17.213 - Nicotine dependence, cigarettes, with withdrawal (4) Asthma Current Visit: No Status: Chronic Qualifiers: Asthma severity: mild Asthma persistence: unspecified (5) DM2 (diabetes mellitus, type 2) Current Visit: No Status: Chronic Qualifiers: Diabetes mellitus complication status: with skin complications Diabetes mellitus complication detail: with other skin complication (6) HIV (human immunodeficiency virus infection) Current Visit: No Status: Chronic (7) History of CHF (congestive heart failure) Current Visit: No Status: Chronic (8) Hypertension Current Visit: No Status: Chronic Qualifiers: Hypertension type: essential hypertension Qualified Code(s): I10 - Essential (primary) hypertension (9) Epistaxis Current Visit: Yes Status: Acute - AMA Did Patient Leave Against Medical Advice: No
[2017-03-25] MEDS ORDERED: LABETALOL HCL 5 MG/1 ML (100MG/20 ML VIAL) IVPUSH ONE (08:22)
[2017-03-25] MEDS ORDERED: LABETALOL HCL 5 MG/1 ML (200MG/40ML VIAL) IVPB ONE (08:28)
[2017-03-25 09:07] LABS: MCH 29.1 pg (25.7-33.7); MCHC 32.2 g/dl (32.0-35.9); MEAN CELL VOLUME 90.4 fl (80-96); MEAN PLT VOLUME 6.9 fl (7.5-11.1); PLATELET COUNT 263 K/MM3 (134-434); RDW 15.2 % (11.9-15.9); WHITE BLOOD COUNT 7.7 K/mm3 (4.0-10.0)
[2017-03-25 09:43] LABS: ANION GAP 9 (8-16); CO2 28 mmol/L (21-32); CREATININE 0.8 mg/dL (0.7-1.3); GLUCOSE,RANDOM 230 mg/dL (74-106); MAGNESIUM 2.2 mg/dL (1.8-2.4); PHOSPHOROUS 2.7 mg/dL (2.5-4.9)
[2017-03-25 09:56] LABS: FREE T4 0.95 ng/dl (0.76-1.16); THYROID STIMULATING HORMONE 2.04 uIU/ml (0.358-3.74)
[2017-03-25] MEDS ORDERED: HYDROCHLOROTHIAZIDE 25 MG TABLET (FP) PO SCH (10:00)
[2017-03-25] MEDS ORDERED: ASPIRIN 81 MG CHEWABLE TABLETS PO SCH (10:00)
[2017-03-25] MEDS ORDERED: CARVEDILOL 6.25 MG TABLET (FP) PO SCH (10:00)
[2017-03-25 10:44] LABS: CHOLESTEROL 138 mg/dL (50-200)
--- NOTE | 2017-03-25 11:03 | EKG ---
Test Reason : Blood Pressure : / mmHG Vent. Rate : 093 BPM Atrial Rate : 093 BPM P-R Int : 144 ms QRS Dur : 086 ms QT Int : 384 ms P-R-T Axes : 051 008 043 degrees QTc Int : 477 ms NORMAL SINUS RHYTHM MODERATE VOLTAGE CRITERIA FOR LVH, MAY BE NORMAL VARIANT NONSPECIFIC T WAVE ABNORMALITY PROLONGED QT ABNORMAL ECG WHEN COMPARED WITH ECG OF 21-MAR-2017 14:35, NONSPECIFIC T WAVE ABNORMALITY NOW EVIDENT IN LATERAL LEADS Confirmed by YONY RODRIGUEZ MD ([id number]) on 03/25/2017 11:02:48 AM Referred By: Confirmed By:YONY RODRIGUEZ MD
[2017-03-25] MEDS ORDERED: LABETALOL HCL 100 MG TABLET (FP) PO SCH (12:15)
[2017-03-25] MEDS ORDERED: LABETALOL HCL 100 MG TABLET (FP) ONE (12:19)
[2017-03-25 14:24] VITALS: BP 143/80; PULSE 80; TEMP 98
--- NOTE | 2017-03-25 16:07 | DS ---
Physical Examination Vital Signs: Vital Signs Temperature 98 F 03/25/17 14:17 Pulse Rate 80 03/25/17 14:17 Respiratory Rate 18 03/25/17 14:17 Blood Pressure 143/80 03/25/17 14:17 O2 Sat by Pulse Oximetry (%) 97 03/25/17 14:28 Labs: CBC, BMP 03/25/17 08:30 03/25/17 08:30 Discharge Summary Reason For Visit: HYPERTENSIVE URGENCY COCAINE ABUSE Hospital Course: Left AMA Attempted to call the patient to inform him that a prescription for Labetolol 100mg po bid was sent to his pharmacy and to STOP taking Coreg. Call placed to . Number disconnected. Call placed to Don ([phone]), person to notify in [facility]. Phone went straight to voicemail and voicemail was not set up, could not leave message. - Instructions Disposition: AGAINST MEDICAL ADVICE - Home Medications Comprehensive Discharge Medication List: Ambulatory Orders Hydrochlorothiazide [Hydrodiuril] 25 mg PO DAILY 05/29/11 Albuterol Sulfate [Proventil HFA Inhaler -] 2 inh PO Q4H PRN 10/26/11 Emtricitab/Rilpiviri/Tenof Ala [Odefsey Tablet] 1 each PO DAILY 12/18/16 Lisinopril [Zestril] 40 mg PO DAILY 12/18/16 Aspirin [ASA -] 81 mg PO DAILY 03/21/17 Atorvastatin Ca [Lipitor] 80 mg PO HS 03/21/17 Labetalol HCl [Normodyne -] 100 mg PO BID #60 tablet 03/25/17
--- NOTE | 2017-03-25 17:28 | PN ---
Progress Note (short form) - Note Progress Note: Informed earlier today that patient left AMA. Unable to perform consult.
[2017-03-25] MEDS ORDERED: ATORVASTATIN CA 80 MG TABLET (FP) PO SCH (22:00)
[2017-03-26] MEDS ORDERED: LISINOPRIL 20 MG TABLET (FP) PO SCH (10:00)
== END 2017-03-25 15:18 | disposition left against medical advice (07) | DRG 199 ==
LOC: JER 20:40 → JERBED 03-25 05:21 → UNDOADMOB 03-25 05:55 → OBSVTOIN 03-25 08:28 → J4W 03-25 13:01
PROVIDERS: ADMIT Internal Medicine; ATTEND Registered Nurse
DX: I16.0 Hypertensive urgency (principal); J45.909 Unspecified asthma, uncomplicated; E11.9 Type 2 diabetes mellitus without complications; F10.20 Alcohol dependence, uncomplicated; F14.20 Cocaine dependence, uncomplicated; Z68.43 Body mass index [BMI] 50.0-59.9, adult; Z21 Asymptomatic human immunodeficiency virus [HIV] infection status; I25.10 Atherosclerotic heart disease of native coronary artery without angina pectoris; Z98.61 Coronary angioplasty status; R04.0 Epistaxis; I50.9 Heart failure, unspecified; E66.01 Morbid (severe) obesity due to excess calories
CPT/HCPCS: 36415; 71010-TC; 80048; 80053; 80061; 80307; 82550; 83036; 83721; 83735; 83880; 84100; 84439; 84443; 84484; 85025; 85027; 85610; 93005; 93010; 93306-TC; 99285-25; G0378

== ENCOUNTER 2018-07-04 12:55 | Inpatient (IN) | payer OTHER ==
[2018-07-04 14:14] VITALS: BMI 53.1
--- NOTE | 2018-07-04 14:51 | HP ---
CIWA Score Nausea/Vomitin-Mild Nausea/No Vomiting Muscle Tremors: 2 Anxiety: 3 Agitation: 0-Normal Activity Paroxysmal Sweats: 4-Forehead w/Sweat Beads Orientation: 0-Oriented Tacttile Disturbances: 1-Very Mild Itch/Numbness Auditory Disturbances: 0-None Visual Disturbances: 1-Very Mild Sensitivity Headache: 0-None Present CIWA-Ar Total Score: 12 - Admission Criteria OAS Guidelines: Admission for Medically Managed Detox: Requires at least one of the followin. CIWA greater than 12 2. Seizures within the past 24 hours 3. Delirium tremens within the past 24 hours 4. Hallucinations within the past 24 hours 5. Acute intervention needed for co occurring medical disorder 6. Acute intervention needed for co occurring psychiatric disorder 7. Severe withdrawal that cannot be handled at a lower level of care (continued vomiting, continued diarrhea, abnormal vital signs) requiring intravenous medication and/or fluids 8. Patient presents the following: CIWA greater than 12, Acute intervention needed for co-occurring med or psych disorder Admission Criteria Met: Admission criteria met Admission ROS [facility] Chief Complaint: " detox" Allergies/Adverse Reactions: Allergies Allergy/AdvReac Type Severity Reaction Status Date / Time No Known Allergies Allergy Verified 03/21/17 12:31 History of Present Illness: 42 yo male presents today for alcohol detox d/t withdrawal sx, with hx of chronic alcohol and cocaine dependence, self referred. utox positive for dayron and bzo, denies use of benzo. Patient currently drinks 80 - 120 oz of beer + 1/ 2 pint liquor per day since age 20 yo, last drink this morning. VAL = 0.000. PMHX: CHF, HTN, DMII ( oral meds), Asthma, obesity, HDL, HIV +. Denies psych hx. Denies suicidal / homicidal ideation. Denies hx of suicide attempt. Denies hx of seizures, reports hx of EOTH black out with last episode 2017. Exam Limitations: No Limitations - Ebola screening Have you traveled outside of the country in the last 21 days: No Have you had contact with anyone from an Ebola affected area: No Have you been sick,other than usual withdrawal symptoms: No - Review of Systems Constitutional: Other (weight gain of 15 lbs in last 30 days) EENT: reports: No Symptoms Reported Respiratory: reports: SOB with Exertion Cardiac: reports: No Symptoms Reported GI: reports: Indigestion, Abdominal cramping : reports: No Symptoms Reported Musculoskeletal: reports: Back Pain Integumentary: reports: No Symptoms Reported Neuro: reports: No Symptoms reported Endocrine: reports: Increased Thirst Hematology: reports: No Symptoms Reported Psychiatric: reports: Orientated x3, Anxious Other Systems: Reviewed and Negative Patient History - Patient Medical History Hx Anemia: No Hx Asthma: Yes (MDI) Hx Chronic Obstructive Pulmonary Disease (COPD): No Hx Cancer: No Hx Cardiac Disorders: Yes (HX ENLARGED HEART;S/P CATHETERIZATION 2011) Hx Congestive Heart Failure: Yes Hx Hypertension: Yes (ON MEDS) Hx Hypercholesterolemia: No Hx Pacemaker: No HX Cerebrovascular Accident: No Hx Seizures: No Hx Dementia: No Hx Diabetes: Yes (TYPE 2 DM--WAS ON METFORMIN BID;) Hx Gastrointestinal Disorders: No Hx Liver Disease: No Hx Genitourinary Disorders: No Hx Sexually Transmitted Disorders: No Hx Renal Disease (ESRD): No Hx Thyroid Disease: No Hx Human Immunodeficiency Virus (HIV): No Hx Hepatitis C: No Hx Depression: No Hx Suicide Attempt: No (DENIES) Hx Bipolar Disorder: No Hx Schizophrenia: No - Patient Surgical History Past Surgical History: No Hx Neurologic Surgery: No Hx Cataract Extraction: No Hx Cardiac Surgery: Yes (CARDIAC CATHETERIZATION IN 09/2011.. NO BLOCKAGE) Hx Lung Surgery: No Hx Breast Surgery: No Hx Breast Biopsy: No Hx Abdominal Surgery: No Hx Appendectomy: No Hx Cholecystectomy: No Hx Genitourinary Surgery: No Hx Section: No Hx Orthopedic Surgery: No Hx Hysterectomy: No Other Surgical History: abcess rt thigh () Anesthesia Reaction: No - PPD History Previous Implant?: No Documented Results: Negative w/proof Date: 12/20/16 Results: 0 mm PPD to be Administered?: Yes - Smoking Cessation Smoking history: Never smoked Have you smoked in the past 12 months: Yes Aproximately how many cigarettes per day: 3 Hx Chewing Tobacco Use: No Initiated information on smoking cessation: No - Substance & Tx. History Hx Alcohol Use: Yes Hx Substance Use: Yes Substance Use Type: Alcohol, Cocaine Hx Substance Use Treatment: Yes (1.5 years ago detox at [facility] ) - Substances Abused alcohol Route: Oral Frequency: Daily Amount used: 80 -120 oz beer + 1/2 pint liquor Age of first use: 20 Date of Last Use: 07/04/18 Cocaine Route: Smoking Frequency: Daily Amount used: 8 -12 bags Age of first use: 24 Date of Last Use: 07/04/18 Family Disease History - Family Disease History Family Disease History: Other: Father (ALOCOHOL,), Mother (ALCOHOL, ) Admission Physical Exam [facility] - Vital Signs Vital Signs: Vital Signs - 24 hr 07/04/18 14:12 Temperature 98.6 F Pulse Rate 82 Respiratory 18 Rate Blood Pressure 208/110 H - Physical General Appearance: Yes: Appropriately Dressed, Mild Distress, Obese, Sweating, Anxious HEENTM: Yes: EOMI, Hearing grossly Normal, Normal ENT Inspection, Normocephalic , Normal Voice, MAISHA, Pharynx Normal, Tm's normal Respiratory: Yes: Chest Non-Tender, Lungs Clear, Normal Breath Sounds, No Respiratory Distress, No Accessory Muscle Use Neck: Yes: No masses,lesions,Nodules Breast: Yes: Breast Exam Deferred Cardiology: Yes: Regular Rhythm, Regular Rate, Edema Abdominal: Yes: Normal Bowel Sounds, Non Tender, Soft, Protuberent Genitourinary: Yes: Within Normal Limits Back: Yes: Normal Inspection Musculoskeletal: Yes: full range of Motion, Gait Steady, Pelvis Stable, Back pain Extremities: Yes: Normal Capillary Refill, Normal Range of Motion, Non-Tender, Other ( chronic venous stasis b/l lower extremities, hyperpigmentation. 2+ edema to the knees, non-pitting and non-tender to palpation.) 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: Yes: resident in diagnostic radiology II-XII NML intact, Fully Oriented, Alert, Motor Strength 5/5, Depressed Affect Integumentary: Yes: Normal Color, Warm, Diaphoresis Lymphatic: Yes: Within Normal Limits - Diagnostic (1) Congestive heart failure (CHF) Current Visit: Yes Status: Chronic Qualifiers: Heart failure type: unspecified Heart failure chronicity: chronic Qualified Code(s): I50.9 - Heart failure, unspecified (2) Alcohol dependence with uncomplicated withdrawal Current Visit: No Status: Acute (3) Cocaine dependence Current Visit: Yes Status: Acute Qualifiers: Substance use status: uncomplicated Qualified Code(s): F14.20 - Cocaine dependence, uncomplicated (4) Asthma Current Visit: Yes Status: Chronic Qualifiers: Asthma severity: mild Asthma persistence: unspecified (5) DM2 (diabetes mellitus, type 2) Current Visit: Yes Status: Chronic Qualifiers: Diabetes mellitus penitentiary insulin use: without penitentiary use Diabetes mellitus complication status: with skin complications Diabetes mellitus complication detail: with other skin complication Qualified Code(s): E11.628 - Type 2 diabetes mellitus with other skin complications (6) HIV (human immunodeficiency virus infection) Current Visit: Yes Status: Chronic Qualifiers: HIV symptom status: unspecified Qualified Code(s): B20 - Human immunodeficiency virus [HIV] disease (7) Hypertension Current Visit: Yes Status: Chronic Qualifiers: Hypertension type: essential hypertension Qualified Code(s): I10 - Essential (primary) hypertension (8) Obese Current Visit: Yes Status: Chronic Qualifiers: Obesity type: unspecified obesity type Obesity classification: adult class 3 (BMI >= 40) Body mass index: BMI 50.0-59.9 Cleared for Admission [facility] - Detox or Rehab [facility] Level of Care: Medically Managed Detox Regimen/Protocol: Librium S Breath Alcohol Content Breath Alcohol Content: 0 Urine Drug Screen - Results Drug Screen Negative: No Urine Drug Screen Results: DAYRON-Cocaine, BZO-Benzodiazepines Inpatient Rehab Admission - Rehab Decision to Admit Inpatient rehab admission?: No
[2018-07-04] MEDS ORDERED: ALBUTEROL SO4 8 GM HFA INHALER IH PRN (14:55)
[2018-07-04] MEDS ORDERED: MAG HYDROX/AL HYDROX/SIMETH 30 ML UNIT-DOSE CUP PO PRN (14:56)
[2018-07-04] MEDS ORDERED: guaiFENesin/D-METHORPHAN HB 10 ML UNIT-DOSE CUPS PO PRN (14:56)
[2018-07-04] MEDS ORDERED: MENTHOL/PHENOL 1 EACH UD MM PRN (14:56)
[2018-07-04] MEDS ORDERED: ACETAMINOPHEN 325 MG TABLET (FP) PO PRN (14:56)
[2018-07-04] MEDS ORDERED: MAGNESIUM HYDROX 2400MG/30ML ORAL SUSPENSION 30 ML CUP PO PRN (14:56)
[2018-07-04] MEDS ORDERED: MAGNESIUM CITRATE 300 ML BOTTLE PO PRN (14:56)
[2018-07-04] MEDS ORDERED: P-EPHED 60MG/TRIPROLIDI 2.5MG TABLET PO PRN (14:56)
[2018-07-04] MEDS ORDERED: LOPERAMIDE HCL 2 MG CAPSULE PO PRN (14:56)
[2018-07-04] MEDS: LISINOPRIL 20 MG TABLET (FP) PO SCH (18:31)
[2018-07-04] MEDS: HYDROCHLOROTHIAZIDE 25 MG TABLET (FP) PO SCH (18:31)
[2018-07-04] MEDS: CARVEDILOL 6.25 MG TABLET (FP) PO SCH (18:32)
[2018-07-04] MEDS: chlordiazePOXIDE HCL 25 MG CAPSULE PO PRN (18:32)
[2018-07-04] MEDS: metFORMIN HCL 500 MG TABLET (FP) PO SCH (18:32)
[2018-07-04] MEDS ORDERED: MELATONIN 5 MG TABLETS PO PRN (22:00)
[2018-07-04] MEDS: THIAMINE HCL 100 MG TABLET (FP) PO SCH (22:37)
[2018-07-04] MEDS: chlordiazePOXIDE HCL 25 MG CAPSULE PO SCH (22:37)
[2018-07-05] MEDS: chlordiazePOXIDE HCL 25 MG CAPSULE PO SCH ×4 (06:03→22:21)
[2018-07-05] MEDS: metFORMIN HCL 500 MG TABLET (FP) PO SCH ×2 (06:03→16:40)
[2018-07-05] MEDS: CARVEDILOL 6.25 MG TABLET (FP) PO SCH (10:40)
[2018-07-05] MEDS: LISINOPRIL 20 MG TABLET (FP) PO SCH (10:40)
[2018-07-05] MEDS: PRENATAL VITAMINS W/ FOLIC ACID TABLET (FP) PO SCH (10:40)
[2018-07-05] MEDS: HYDROCHLOROTHIAZIDE 25 MG TABLET (FP) PO SCH (10:41)
--- NOTE | 2018-07-05 11:14 | PN ---
S CIWA - CIWA Score Nausea/Vomitin-No Nausea/No Vomiting Muscle Tremors: None Anxiety: 3 Agitation: 0-Normal Activity Paroxysmal Sweats: 3 Orientation: 0-Oriented Tacttile Disturbances: 2-Mild Itch/Numbness/Burn Auditory Disturbances: 2-Mild Harshness/Frighten Visual Disturbances: 3-Moderate Sensitivity Headache: 0-None Present CIWA-Ar Total Score: 13 [facility] Progress Note (SOAP) Subjective: Anxious, Sweating, Body Aches. Objective: PATIENT A & O X 3, OBSERVED AMBULATING ON UNIT. IN NO ACUTE DISTRESS. 07/05/18 11:16 Vital Signs Temperature 97.4 F L 07/05/18 09:42 Pulse Rate 72 07/05/18 09:42 Respiratory Rate 20 07/05/18 09:42 Blood Pressure 152/90 07/05/18 09:42 O2 Sat by Pulse Oximetry (%) Laboratory Tests 07/04/18 07/05/18 16:23 06:03 POC Glucometer 219 199 ADMISSION LAB RESULTS PENDING. Assessment: 07/05/18 11:18 WITHDRAWAL SYMPTOMS. HYPERTENSION. 07/05/18 11:23 Plan: CONTINUE DETOX. TOPICAL DUTCH-LASSITER FOR LOWER BACK PAIN. CONTINUE TO MONITOR BLOOD PRESSURE.
--- NOTE | 2018-07-05 11:29 | PN ---
[facility] Progress Note Note: PATIENT REPORTS THAT HE TAKES ODEFSEY FOR TREATMENT OF H.I.V., BUT THAT HE DID NOT BRING MEDICATION WITH HIM AT TIME OF ADMISSION. ACCORDING TO PHARMACIST AT PATIENT'[place] PHARMAC[place] [place] [place] PATIENT LAST HAD PRESCRIPTION FOR ODEFSEY SENT THERE ON FEBRUARY OF 2017 AND HE DID NOT FILL PRESCRIPTION AT THAT TIME. ODEFSEY WILL NOT BE ORDERED FOR PATIENT DURING THIS DETOX ADMISSION. PATIENT ADVISED TO FOLLOW-UP WITH H.I.V. MEDICAL PROVIDER AFTER DISCHARGE FROM DETOX UNIT FOR FURTHER EVALUATION. Dustin SANDOVAL NP
[2018-07-05 12:40] LABS: HEMATOCRIT 38.4 % (35.4-49); HEMOGLOBIN 12.7 GM/dL (11.7-16.9); MCH 31.5 pg (25.7-33.7); MCHC 33.2 g/dl (32.0-35.9); MEAN CELL VOLUME 94.7 fl (80-96); MEAN PLT VOLUME 7.5 fl (7.5-11.1); PLATELET COUNT 215 K/MM3 (134-434); RBC 4.05 M/mm3 (4.00-5.60); RDW 13.4 % (11.9-15.9); WHITE BLOOD COUNT 8.1 K/mm3 (4.0-10.0)
[2018-07-05 12:48] LABS: ALBUMIN 3.4 g/dl (3.4-5.0); ALK PHOS 91 U/L (45-117); ANION GAP 6 MMOL/L (8-16); BILIRUBIN,TOTAL 0.8 mg/dL (0.2-1); BLOOD UREA NITROGEN 13 mg/dL (7-18); CALCIUM 7.9 mg/dL (8.5-10.1); CHLORIDE 101 mmol/L (98-107); CO2 31 mmol/L (21-32); GLUCOSE,RANDOM 211 mg/dL (74-106); POTASSIUM 3.3 mmol/L (3.5-5.1); SGOT/AST 16 U/L (15-37); SGPT/ALT 38 U/L (13-61); SODIUM 138 mmol/L (136-145)
[2018-07-05] MEDS: METHYL SALICYLATE/MENTHOL OINT 30 GM TUBE TP SCH ×2 (13:57→22:21)
--- NOTE | 2018-07-05 14:19 | EKG ---
Test Reason : Blood Pressure : / mmHG Vent. Rate : 079 BPM Atrial Rate : 079 BPM P-R Int : 140 ms QRS Dur : 084 ms QT Int : 386 ms P-R-T Axes : 033 018 036 degrees QTc Int : 442 ms NORMAL SINUS RHYTHM NORMAL ECG WHEN COMPARED WITH ECG OF 24-MAR-2017 23:36, NO SIGNIFICANT CHANGE WAS FOUND Confirmed by Jose Ramon Henry MD ([id number]) on 07/05/2018 2:18:47 PM Referred By: Confirmed By:Jose Ramon Henry MD
[2018-07-05] MEDS ORDERED: INSULIN (NOVOLOG) ASPART 100 UNITS/ML 10ML VIAL SQ ONE (18:17)
--- NOTE | 2018-07-05 18:18 | PN ---
[facility] Progress Note Note: Vital Signs Temperature 98.4 F 07/05/18 17:44 Pulse Rate 79 07/05/18 17:44 Respiratory Rate 18 07/05/18 17:44 Blood Pressure 153/87 07/05/18 17:44 O2 Sat by Pulse Oximetry (%) Patient on Glucophage with BGM 321, asymptomatic. novolog 4 units ordered increase PO fluids continue to monitor
[2018-07-05] MEDS: chlordiazePOXIDE HCL 25 MG CAPSULE PO PRN (18:52)
[2018-07-05] MEDS ORDERED: INSULIN SLIDING SCALE (NOVOLOG) 1 VIAL SQ ONE (19:20)
[2018-07-05] MEDS ORDERED: cloNIDine HCL 0.1 MG TABLET PO ONE (22:07)
--- NOTE | 2018-07-05 22:10 | PN ---
S Progress Note Note: Patient's blood pressure is B/P 175/103. Patient is asymptomatic Vital Signs Temperature 97.1 F L 07/05/18 21:35 Pulse Rate 80 07/05/18 21:37 Respiratory Rate 20 07/05/18 21:37 Blood Pressure 175/103 H 07/05/18 21:37 O2 Sat by Pulse Oximetry (%) Action: Clonidine 0.1mg tablet 1 tablet oral ordered
[2018-07-05] MEDS: THIAMINE HCL 100 MG TABLET (FP) PO SCH (22:21)
[2018-07-06] MEDS: metFORMIN HCL 500 MG TABLET (FP) PO SCH ×2 (06:25→16:36)
[2018-07-06] MEDS: chlordiazePOXIDE HCL 25 MG CAPSULE PO SCH ×3 (06:25→17:36)
--- NOTE | 2018-07-06 07:38 | PN ---
S Progress Note Note: bp 180/97,p124, withdrawal symptom,tremor on librium regimen no complaint,no headache,no no sob clonidine 0.1 mg po continue lisinopril 40 mgs po daily bp monitoring
[2018-07-06] MEDS ORDERED: cloNIDine HCL 0.1 MG TABLET PO ONE (07:45)
[2018-07-06] MEDS: HYDROCHLOROTHIAZIDE 25 MG TABLET (FP) PO SCH (10:37)
[2018-07-06] MEDS: LISINOPRIL 20 MG TABLET (FP) PO SCH (10:37)
[2018-07-06] MEDS: PRENATAL VITAMINS W/ FOLIC ACID TABLET (FP) PO SCH (10:37)
[2018-07-06] MEDS: METHYL SALICYLATE/MENTHOL OINT 30 GM TUBE TP SCH ×2 (10:37→22:23)
[2018-07-06] MEDS: CARVEDILOL 6.25 MG TABLET (FP) PO SCH ×2 (10:37→21:04)
[2018-07-06] MEDS: IBUPROFEN 400 MG TABLET (FP) PO PRN (10:39)
[2018-07-06] MEDS ORDERED: HYDROCHLOROTHIAZIDE 25 MG TABLET (FP) PO ONE (14:00)
[2018-07-06] MEDS ORDERED: POTASSIUM CHLORIDE TABS 20 MEQ TABLET.ER (FP) PO ONE (14:02)
--- NOTE | 2018-07-06 14:05 | PN ---
[facility] CIWA - CIWA Score Nausea/Vomitin-No Nausea/No Vomiting Muscle Tremors: None Anxiety: 3 Agitation: 2 Paroxysmal Sweats: No Perspiration Orientation: 0-Oriented Tacttile Disturbances: 2-Mild Itch/Numbness/Burn Auditory Disturbances: 0-None Visual Disturbances: 2-Mild Sensitivity Headache: 2-Mild CIWA-Ar Total Score: 11 S Progress Note (SOAP) Subjective: Body Aches, H/A, Anxious. Objective: PATIENT A & O X 3, OBSERVED AMBULATING ON UNIT. IN NO ACUTE DISTRESS. 07/06/18 14:01 Vital Signs Temperature 98.8 F 07/06/18 13:27 Pulse Rate 80 07/06/18 13:27 Respiratory Rate 18 07/06/18 13:27 Blood Pressure 169/94 07/06/18 13:27 O2 Sat by Pulse Oximetry (%) Laboratory Tests 07/04/18 07/05/18 07/05/18 16:23 06:03 07:00 WBC 8.1 RBC 4.05 Hgb 12.7 Hct 38.4 MCV 94.7 MCH 31.5 MCHC 33.2 RDW 13.4 D Plt Count 215 MPV 7.5 Sodium Potassium Chloride Carbon Dioxide Anion Gap BUN Creatinine Creat Clearance w eGFR POC Glucometer 219 199 Random Glucose Calcium Total Bilirubin AST ALT Alkaline Phosphatase Total Protein Albumin RPR Titer 07/05/18 07/05/18 07/05/18 07:00 07:00 16:43 WBC RBC Hgb Hct MCV MCH MCHC RDW Plt Count MPV Sodium 138 Potassium 3.3 L Chloride 101 Carbon Dioxide 31 Anion Gap 6 L BUN 13 Creatinine 1.0 Creat Clearance w eGFR > 60 POC Glucometer 321 Random Glucose 211 H Calcium 7.9 L Total Bilirubin 0.8 AST 16 ALT 38 Alkaline Phosphatase 91 Total Protein 7.0 Albumin 3.4 RPR Titer Nonreactive 07/06/18 06:24 WBC RBC Hgb Hct MCV MCH MCHC RDW Plt Count MPV Sodium Potassium Chloride Carbon Dioxide Anion Gap BUN Creatinine Creat Clearance w eGFR POC Glucometer 281 Random Glucose Calcium Total Bilirubin AST ALT Alkaline Phosphatase Total Protein Albumin RPR Titer LABS NOTED. Assessment: 07/06/18 14:02 WITHDRAWAL SYMPTOMS. HTN. HYPOKALEMIA. 07/06/18 14:05 Plan: CONTINUE DETOX. K-DUR, 40 MEQ X 1 NOW, THEN 20 MEQ PO BID. ANTI-HYPERTENSIVE MEDICATIONS ADJUSTED DUE TO PERSISTENTLY ELEVATED BP DESPITE TREATMENT. SEE FOLLOWING [facility] NOTE BY Mera STEVENS NP.
--- NOTE | 2018-07-06 14:34 | PN ---
[facility] Progress Note Note: patient continues having bp elevation asymptomatic denies chest pain denies headaches denies shortness or breath denies dizziness S1S2 clear lungs radio news writer called patient preferred pharmacy [phone] that last fill 2016 patient currently does not have preferred pharmacy increase hctz to 50 mg po daily increase coreg 6.25 mg to bid adds amlodipine 10 mg discuss weight loss healthy eating hobbies and exercise regularly
[2018-07-06] MEDS: amLODIPine BESYLATE 10 MG TABLET (FP) PO SCH (14:49)
[2018-07-06] MEDS: POTASSIUM CHLORIDE TABS 20 MEQ TABLET.ER (FP) PO SCH (17:36)
--- NOTE | 2018-07-06 18:07 | PN ---
[facility] Progress Note Note: Vital Signs Temperature 98.8 F 07/06/18 13:27 Pulse Rate 80 07/06/18 13:27 Respiratory Rate 18 07/06/18 13:27 Blood Pressure 169/94 07/06/18 13:27 O2 Sat by Pulse Oximetry (%) Laboratory Last Values WBC 8.1 K/mm3 (4.0-10.0) 07/05/18 07:00 RBC 4.05 M/mm3 (4.00-5.60) 07/05/18 07:00 Hgb 12.7 GM/dL (11.7-16.9) 07/05/18 07:00 Hct 38.4 % (35.4-49) 07/05/18 07:00 MCV 94.7 fl (80-96) 07/05/18 07:00 MCH 31.5 pg (25.7-33.7) 07/05/18 07:00 MCHC 33.2 g/dl (32.0-35.9) 07/05/18 07:00 RDW 13.4 % (11.9-15.9) D 07/05/18 07:00 Plt Count 215 K/MM3 (134-434) 07/05/18 07:00 MPV 7.5 fl (7.5-11.1) 07/05/18 07:00 Sodium 138 mmol/L (136-145) 07/05/18 07:00 Potassium 3.3 mmol/L (3.5-5.1) L 07/05/18 07:00 Chloride 101 mmol/L (98-107) 07/05/18 07:00 Carbon Dioxide 31 mmol/L (21-32) 07/05/18 07:00 Anion Gap 6 MMOL/L (8-16) L 07/05/18 07:00 BUN 13 mg/dL (7-18) 07/05/18 07:00 Creatinine 1.0 mg/dL (0.55-1.3) 07/05/18 07:00 Creat Clearance w eGFR > 60 (>60) 07/05/18 07:00 POC Glucometer 337 UNITS (80-120) 07/06/18 16:41 Random Glucose 211 mg/dL (74-106) H 07/05/18 07:00 Calcium 7.9 mg/dL (8.5-10.1) L 07/05/18 07:00 Total Bilirubin 0.8 mg/dL (0.2-1) 07/05/18 07:00 AST 16 U/L (15-37) 07/05/18 07:00 ALT 38 U/L (13-61) 07/05/18 07:00 Alkaline Phosphatase 91 U/L (45-117) 07/05/18 07:00 Total Protein 7.0 g/dl (6.4-8.2) 07/05/18 07:00 Albumin 3.4 g/dl (3.4-5.0) 07/05/18 07:00 RPR Titer Nonreactive (NONREACTIVE) 07/05/18 07:00 patient with elevated BGM during stay, last BGM 337 Patient in no distress, ambulating in the unit sliding scale ordered continue to monitor increase PO fluids ambulate
[2018-07-06] MEDS: INSULIN SLIDING SCALE (NOVOLOG) 1 VIAL SQ SCH (18:48)
[2018-07-06] MEDS: THIAMINE HCL 100 MG TABLET (FP) PO SCH (21:03)
[2018-07-06] MEDS: chlordiazePOXIDE 5 MG CAPSULE PO SCH (22:24)
[2018-07-07] MEDS: chlordiazePOXIDE 5 MG CAPSULE PO SCH ×3 (05:55→17:15)
[2018-07-07] MEDS: INSULIN SLIDING SCALE (NOVOLOG) 1 VIAL SQ SCH ×3 (07:10→19:29)
[2018-07-07] MEDS ORDERED: INSULIN SLIDING SCALE (NOVOLOG) 1 VIAL SQ ONE (07:12)
[2018-07-07] MEDS: metFORMIN HCL 500 MG TABLET (FP) PO SCH ×2 (07:33→17:15)
[2018-07-07] MEDS: HYDROCHLOROTHIAZIDE 25 MG TABLET (FP) PO SCH (10:30)
[2018-07-07] MEDS: LISINOPRIL 20 MG TABLET (FP) PO SCH (10:30)
[2018-07-07] MEDS: POTASSIUM CHLORIDE TABS 20 MEQ TABLET.ER (FP) PO SCH ×2 (10:30→17:45)
[2018-07-07] MEDS: PRENATAL VITAMINS W/ FOLIC ACID TABLET (FP) PO SCH (10:31)
[2018-07-07] MEDS: METHYL SALICYLATE/MENTHOL OINT 30 GM TUBE TP SCH ×2 (10:31→22:16)
[2018-07-07] MEDS: CARVEDILOL 6.25 MG TABLET (FP) PO SCH ×2 (10:31→22:16)
[2018-07-07] MEDS: amLODIPine BESYLATE 10 MG TABLET (FP) PO SCH (10:31)
[2018-07-07] MEDS: IBUPROFEN 400 MG TABLET (FP) PO PRN (10:34)
--- NOTE | 2018-07-07 11:33 | PN ---
S CIWA - CIWA Score Nausea/Vomitin-No Nausea/No Vomiting Muscle Tremors: 2 Anxiety: 1-Mildly Anxious Agitation: 2 Paroxysmal Sweats: 1-Minimal Palms Moist Orientation: 0-Oriented Tacttile Disturbances: 0-None Auditory Disturbances: 0-None Visual Disturbances: 0-None Headache: 0-None Present CIWA-Ar Total Score: 6 [facility] Progress Note (SOAP) Subjective: feeling better less tremor mild sweating social with peers in day room Objective: 07/07/18 11:34 Vital Signs Temperature 97.4 F L 07/07/18 09:31 Pulse Rate 91 H 07/07/18 09:31 Respiratory Rate 20 07/07/18 09:31 Blood Pressure 158/87 07/07/18 09:31 O2 Sat by Pulse Oximetry (%) Laboratory Last Values WBC 8.1 K/mm3 (4.0-10.0) 07/05/18 07:00 RBC 4.05 M/mm3 (4.00-5.60) 07/05/18 07:00 Hgb 12.7 GM/dL (11.7-16.9) 07/05/18 07:00 Hct 38.4 % (35.4-49) 07/05/18 07:00 MCV 94.7 fl (80-96) 07/05/18 07:00 MCH 31.5 pg (25.7-33.7) 07/05/18 07:00 MCHC 33.2 g/dl (32.0-35.9) 07/05/18 07:00 RDW 13.4 % (11.9-15.9) D 07/05/18 07:00 Plt Count 215 K/MM3 (134-434) 07/05/18 07:00 MPV 7.5 fl (7.5-11.1) 07/05/18 07:00 Sodium 138 mmol/L (136-145) 07/05/18 07:00 Potassium 3.3 mmol/L (3.5-5.1) L 07/05/18 07:00 Chloride 101 mmol/L (98-107) 07/05/18 07:00 Carbon Dioxide 31 mmol/L (21-32) 07/05/18 07:00 Anion Gap 6 MMOL/L (8-16) L 07/05/18 07:00 BUN 13 mg/dL (7-18) 07/05/18 07:00 Creatinine 1.0 mg/dL (0.55-1.3) 07/05/18 07:00 Creat Clearance w eGFR > 60 (>60) 07/05/18 07:00 POC Glucometer 257 UNITS (80-120) 07/07/18 05:55 Random Glucose 211 mg/dL (74-106) H 07/05/18 07:00 Calcium 7.9 mg/dL (8.5-10.1) L 07/05/18 07:00 Total Bilirubin 0.8 mg/dL (0.2-1) 07/05/18 07:00 AST 16 U/L (15-37) 07/05/18 07:00 ALT 38 U/L (13-61) 07/05/18 07:00 Alkaline Phosphatase 91 U/L (45-117) 07/05/18 07:00 Total Protein 7.0 g/dl (6.4-8.2) 07/05/18 07:00 Albumin 3.4 g/dl (3.4-5.0) 07/05/18 07:00 RPR Titer Nonreactive (NONREACTIVE) 07/05/18 07:00 07/07/18 11:36 lab noted K+ repeat pending bp lower average from 180 systolic to 140 systolic patient agrees to follow up with infectious disease specialist for bp monitoring 07/07/18 11:37 Assessment: 07/07/18 11:38 mild alcohol withdrawal sx Plan: continue detox encourage bring in lab report to infectious disease specialist and medication list to aftercare appointment
[2018-07-07] MEDS: CALCIUM 250MG/VIT-D 125 UNITS 1 COMBO TABLET PO SCH ×2 (13:51→22:16)
[2018-07-07] MEDS ORDERED: INSULIN SLIDING SCALE (NOVOLOG) 1 VIAL SQ SCH (19:12)
[2018-07-07] MEDS: THIAMINE HCL 100 MG TABLET (FP) PO SCH (22:15)
[2018-07-07] MEDS: chlordiazePOXIDE HCL 10 MG CAPSULE PO SCH (22:16)
[2018-07-08] MEDS: chlordiazePOXIDE HCL 10 MG CAPSULE PO SCH ×2 (06:35→10:33)
[2018-07-08] MEDS: metFORMIN HCL 500 MG TABLET (FP) PO SCH (06:35)
[2018-07-08] MEDS ORDERED: INSULIN SLIDING SCALE (NOVOLOG) 1 VIAL SQ ONE (07:40)
[2018-07-08] MEDS: INSULIN SLIDING SCALE (NOVOLOG) 1 VIAL SQ SCH (07:40)
[2018-07-08 09:53] VITALS: BP 169/91; PULSE 92; TEMP 98.7
[2018-07-08] MEDS: amLODIPine BESYLATE 10 MG TABLET (FP) PO SCH (10:30)
[2018-07-08] MEDS: LISINOPRIL 20 MG TABLET (FP) PO SCH (10:30)
[2018-07-08] MEDS: POTASSIUM CHLORIDE TABS 20 MEQ TABLET.ER (FP) PO SCH (10:30)
[2018-07-08] MEDS: CARVEDILOL 6.25 MG TABLET (FP) PO SCH (10:30)
[2018-07-08] MEDS: HYDROCHLOROTHIAZIDE 25 MG TABLET (FP) PO SCH (10:31)
[2018-07-08] MEDS: METHYL SALICYLATE/MENTHOL OINT 30 GM TUBE TP SCH (10:31)
[2018-07-08] MEDS: PRENATAL VITAMINS W/ FOLIC ACID TABLET (FP) PO SCH (10:31)
[2018-07-08] MEDS: CALCIUM 250MG/VIT-D 125 UNITS 1 COMBO TABLET PO SCH (10:31)
--- NOTE | 2018-07-08 11:40 | DS ---
[facility] Detox Discharge Summary Admission Date: 07/04/18 Discharge Date: 07/08/18 - History Present History: Alcohol Dependence, Cocaine Dependence Additional Comments: PATIENT GOING ON TO [facility] ([place], [place]) FOR AFTERCARE. PATIENT ADVISED TO FOLLOW-UP WITH BENEFITS COUNSELOR SOON POSSIBLE AFTER DISCHARGE FROM REHAB UNIT FOR GENERAL MEDICAL EVALUATION AND FOR HISTORY OF HTN, TYPE II DM, AND FOR H.I.V. PATIENT VERBALIZED UNDERSTANDING OF RECOMMENDATION. PATIENT WAS DISCHARGED FROM DETOX UNIT TO BE TAKEN OVER TO REHAB UNIT IN STABLE MEDICAL CONDITION. Pertinent Past History: Asthma, CHF, Type II DM, HTN, History of Enlarged Heart, History of Cardiac Catheterization Procedure, H.I.V., Hypokalemia. - Physical Exam Results Vital Signs: Vital Signs Temperature 98.7 F 07/08/18 09:40 Pulse Rate 92 H 07/08/18 09:40 Respiratory Rate 20 07/08/18 09:40 Blood Pressure 169/91 07/08/18 09:40 O2 Sat by Pulse Oximetry (%) Pertinent Admission Physical Exam Findings: WITHDRAWAL SYMPTOMS. Laboratory Tests 07/04/18 07/05/18 07/05/18 16:23 06:03 07:00 WBC 8.1 RBC 4.05 Hgb 12.7 Hct 38.4 MCV 94.7 MCH 31.5 MCHC 33.2 RDW 13.4 D Plt Count 215 MPV 7.5 Sodium Potassium Chloride Carbon Dioxide Anion Gap BUN Creatinine Creat Clearance w eGFR POC Glucometer 219 199 Random Glucose Calcium Total Bilirubin AST ALT Alkaline Phosphatase Total Protein Albumin RPR Titer 07/05/18 07/05/18 07/05/18 07:00 07:00 16:43 WBC RBC Hgb Hct MCV MCH MCHC RDW Plt Count MPV Sodium 138 Potassium 3.3 L Chloride 101 Carbon Dioxide 31 Anion Gap 6 L BUN 13 Creatinine 1.0 Creat Clearance w eGFR > 60 POC Glucometer 321 Random Glucose 211 H Calcium 7.9 L Total Bilirubin 0.8 AST 16 ALT 38 Alkaline Phosphatase 91 Total Protein 7.0 Albumin 3.4 RPR Titer Nonreactive 07/06/18 07/06/18 07/07/18 06:24 16:41 05:55 WBC RBC Hgb Hct MCV MCH MCHC RDW Plt Count MPV Sodium Potassium Chloride Carbon Dioxide Anion Gap BUN Creatinine Creat Clearance w eGFR POC Glucometer 281 337 257 Random Glucose Calcium Total Bilirubin AST ALT Alkaline Phosphatase Total Protein Albumin RPR Titer 07/07/18 07/07/18 07/08/18 16:36 18:51 06:29 WBC RBC Hgb Hct MCV MCH MCHC RDW Plt Count MPV Sodium Potassium Chloride Carbon Dioxide Anion Gap BUN Creatinine Creat Clearance w eGFR POC Glucometer 440 414 290 Random Glucose Calcium Total Bilirubin AST ALT Alkaline Phosphatase Total Protein Albumin RPR Titer 07/08/18 07:00 WBC RBC Hgb Hct MCV MCH MCHC RDW Plt Count MPV Sodium Potassium 3.9 Chloride Carbon Dioxide Anion Gap BUN Creatinine Creat Clearance w eGFR POC Glucometer Random Glucose Calcium Total Bilirubin AST ALT Alkaline Phosphatase Total Protein Albumin RPR Titer LABS NOTED. - Treatment Hospital Course: Detox Protocol Followed, Detoxed Safely, Responded well, Discharged Condition Good, Rehab Referral Accepted Patient has Accepted a Rehab Referral to: [facility] ([place], [place]). - Medication Discharge Medications: Ambulatory Orders Emtricitab/Rilpiviri/Tenof Ala [Odefsey Tablet] 1 each PO DAILY 12/18/16 metFORMIN HCL [Metformin HCl] 500 mg PO BID 07/04/18 Albuterol Sulfate [Proventil HFA Inhaler -] 2 inh PO Q4H PRN #1 hfa.[email or web address].[email or web address] 07/07 Amlodipine Besylate [Norvasc -] 10 mg PO DAILY #30 tablet 07/07/18 Carvedilol [Coreg -] 6.25 mg PO BID #60 tablet 07/07/18 Hydrochlorothiazide [Hctz -] 50 mg PO DAILY #30 tablet 07/07/18 Lisinopril [Zestril] 40 mg PO DAILY #30 tablet 07/07/18 - Diagnosis (1) Cocaine dependence Current Visit: Yes Status: Acute Qualifiers: Substance use status: uncomplicated Qualified Code(s): F14.20 - Cocaine dependence, uncomplicated (2) Hypokalemia Current Visit: Yes Status: Acute (3) Asthma Current Visit: Yes Status: Chronic Qualifiers: Asthma severity: mild Asthma persistence: unspecified Asthma complication type: uncomplicated Qualified Code(s): J45.909 - Unspecified asthma, uncomplicated (4) Congestive heart failure (CHF) Current Visit: Yes Status: Chronic Qualifiers: Heart failure type: unspecified Heart failure chronicity: chronic Qualified Code(s): I50.9 - Heart failure, unspecified (5) HIV (human immunodeficiency virus infection) Current Visit: Yes Status: Chronic Qualifiers: HIV symptom status: unspecified Qualified Code(s): B20 - Human immunodeficiency virus [HIV] disease (6) Hypertension Current Visit: Yes Status: Chronic Qualifiers: Hypertension type: essential hypertension Qualified Code(s): I10 - Essential (primary) hypertension (7) Obese Current Visit: Yes Status: Chronic Qualifiers: Obesity type: unspecified obesity type Obesity classification: adult class 3 (BMI >= 40) Serious obesity comorbidity presence: unspecified whether serious comorbidity present Body mass index: BMI 50.0-59.9 Qualified Code(s) : E66.01 - Morbid (severe) obesity due to excess calories; Z68.43 - Body mass index (BMI) 50-59.9, adult (8) Alcohol dependence with uncomplicated withdrawal Current Visit: Yes Status: Acute (9) DM2 (diabetes mellitus, type 2) Current Visit: Yes Status: Chronic Qualifiers: Diabetes mellitus fpc insulin use: without histology technologist use Diabetes mellitus complication status: with skin complications Diabetes mellitus complication detail: with other skin complication Qualified Code(s): E11.628 - Type 2 diabetes mellitus with other skin complications - AMA Did Patient Leave Against Medical Advice: No
[2018-07-08 16:25] LABS: URINE APPEARANCE CLEAR; URINE BILIRUBIN NEGATIVE (<2.0 mg/dL); URINE COLOR LTYELLOW; URINE GLUCOSE (UA) 3+ (NEGATIVE); URINE KETONE NEGATIVE (NEGATIVE); URINE LEUK ESTERASE NEGATIVE (NEGATIVE); URINE NITRITE NEGATIVE (NEGATIVE); URINE PROTEIN NEGATIVE (NEGATIVE); URINE UROBILINOGEN NEGATIVE mg/dL (0.2-1.0)
== END 2018-07-08 11:24 | disposition other institution (70) | DRG 774 ==
LOC: YASAS 12:55 → Y3N 16:42
PROVIDERS: ADMIT Surgery; ATTEND Surgery
PROC: HZ2ZZZZ Detoxification Services for Substance Abuse Treatment (ICD-10-PCS; principal; 2018-07-04)
DX: F10.230 Alcohol dependence with withdrawal, uncomplicated (principal); F14.20 Cocaine dependence, uncomplicated; Z21 Asymptomatic human immunodeficiency virus [HIV] infection status; E11.9 Type 2 diabetes mellitus without complications; Z79.84 Long term (current) use of oral hypoglycemic drugs; E87.6 Hypokalemia; J45.909 Unspecified asthma, uncomplicated; I11.0 Hypertensive heart disease with heart failure; I50.9 Heart failure, unspecified; Z98.61 Coronary angioplasty status; E66.01 Morbid (severe) obesity due to excess calories; Z68.43 Body mass index [BMI] 50.0-59.9, adult
CPT/HCPCS: 36415; 80053; 81003; 82962; 84132; 85027; 86593; 93005; 93010; J0735

== ENCOUNTER 2018-07-08 11:21 | Inpatient (IN) | payer OTHER ==
[2018-07-08] MEDS ORDERED: P-EPHED 60MG/TRIPROLIDI 2.5MG TABLET PO PRN (11:44)
[2018-07-08] MEDS ORDERED: MAG HYDROX/AL HYDROX/SIMETH 30 ML UNIT-DOSE CUP PO PRN (11:44)
[2018-07-08] MEDS ORDERED: guaiFENesin/D-METHORPHAN HB 10 ML UNIT-DOSE CUPS PO PRN (11:44)
[2018-07-08] MEDS ORDERED: MAGNESIUM HYDROX 2400MG/30ML ORAL SUSPENSION 30 ML CUP PO PRN (11:44)
[2018-07-08] MEDS ORDERED: LOPERAMIDE HCL 2 MG CAPSULE PO PRN (11:44)
[2018-07-08] MEDS ORDERED: MAGNESIUM CITRATE 300 ML BOTTLE PO PRN (11:44)
[2018-07-08] MEDS ORDERED: MENTHOL/PHENOL 1 EACH UD MM PRN (11:44)
[2018-07-08] MEDS ORDERED: ACETAMINOPHEN 325 MG TABLET (FP) PO PRN (11:44)
--- NOTE | 2018-07-08 11:55 | HP ---
[facility] Rehab Assess/Revision - Admission History Admitted to Rehab from: [facility] Date of Admission to Rehab: 07/08/2018 - Vital signs Vital Signs: NOTED; STABLE WITH ELEVATED BP. - Findings Detox History & Physical reviewed: Yes Concur with findings: Yes Comments/Additional Findings: PATIENT'S MEDICAL / MEDICATION HISTORY REVIEWED PRIOR TO DISCHARGE FROM DETOX UNIT. WILL INCREASE DAILY DOSE OF METFORMIN TO 850 MG PO BIDAC FOR TIME BEING FOR ELEVATED BGM'S AND CONTINUE TO MONITOR FOR EFFECT. WILL INCREASE DAILY DOSE OF COREG TO 12 MG PO BID FOR TIME BEING FOR PERSISTENTLY ELEVATED BP AND CONTINUE TO MONITOR FOR EFFECT. WILL ALSO CONTINUE CALCIUM/VITAMIN D AND POTASSIUM SUPPLEMENTS FOR A FEW DAYS EACH DUE TO LOW DETOX ADMISSION CALCIUM AND POTASSIUM LEVELS. PATIENT EDUCATED ABOUT IMPORTANCE OF HEALTHY, LOW FAT, LOW SALT, AND LOW CARBOHYDRATE DIET AND ABOUT THE IMPORTANCE OF REGULAR EXERCISE. PATIENT ALSO ADVISED TO FOLLOW-UP WITH CHEMOTHERAPIST AFTER DISCAHRGE FROM REHAB UNIT FOR HISTORY OF HTN, CHF, H.I.V., AND FOR TYPE II DM. PATIENT VERBALIZED UNDERSTANDING OF ALL RECOMMENDATIONS. PATIENT WAS DISCHARGED FROM DETOX UNIT TO BE TAKEN TO REHAB UNIT IN STABLE MEDICAL CONDITION. Inpatient Rehab Admission - Rehab Decision to Admit Inpatient rehab admission?: Yes - Initial Determination Are CD services needed?: Yes Free of communicable disease: Yes Not in need of hospitalization: Yes - Rehab Admission Criteria Previous failed treatment: Yes Poor recovery environment: No Comorbidities: Yes Lacks judgement: Yes Patient is meeting Inpatient Rehab admission criteria:: Yes
[2018-07-08] MEDS: POTASSIUM CHLORIDE TABS 20 MEQ TABLET.ER (FP) PO SCH (18:44)
[2018-07-08] MEDS: LISINOPRIL 20 MG TABLET (FP) PO SCH (21:11)
[2018-07-08] MEDS: CARVEDILOL 12.5 MG TABLET (FP) PO SCH (21:11)
[2018-07-08] MEDS: THIAMINE HCL 100 MG TABLET (FP) PO SCH (21:11)
[2018-07-08] MEDS ORDERED: MELATONIN 5 MG TABLETS PO PRN (22:00)
[2018-07-09] MEDS ORDERED: cloNIDine HCL 0.1 MG TABLET PO ONE (07:08)
--- NOTE | 2018-07-09 07:10 | PN ---
S Progress Note Note: Patient's blood pressure is B/P 158/98. Patient is asymptomatic Vital Signs Temperature 97.9 F 07/09/18 07:03 Pulse Rate 84 07/09/18 07:03 Respiratory Rate 18 07/09/18 07:03 Blood Pressure 158/98 07/09/18 07:03 O2 Sat by Pulse Oximetry (%) Action: Clonidine 0.1mg tablet 1 tablet oral ordered
[2018-07-09] MEDS: HYDROCHLOROTHIAZIDE 25 MG TABLET (FP) PO SCH (10:11)
[2018-07-09] MEDS: POTASSIUM CHLORIDE TABS 20 MEQ TABLET.ER (FP) PO SCH ×2 (10:11→17:06)
[2018-07-09] MEDS: CALCIUM 250MG/VIT-D 125 UNITS 1 COMBO TABLET PO SCH (10:12)
[2018-07-09] MEDS: LISINOPRIL 20 MG TABLET (FP) PO SCH ×2 (10:12→21:14)
[2018-07-09] MEDS: PRENATAL VITAMINS W/ FOLIC ACID TABLET (FP) PO SCH (10:12)
[2018-07-09] MEDS: CARVEDILOL 12.5 MG TABLET (FP) PO SCH ×2 (10:12→21:14)
[2018-07-09] MEDS: amLODIPine BESYLATE 10 MG TABLET (FP) PO SCH (10:13)
[2018-07-09] MEDS ORDERED: FLU VACCINE QUAD 60 MCG/0.5 ML (MDV 18-19) IM ONE (13:34)
[2018-07-09] MEDS ORDERED: INSULIN (NOVOLOG) ASPART 100 UNITS/ML 10ML VIAL ONE ×2 (17:58→22:20)
[2018-07-09] MEDS ORDERED: Insulin (LOG) Aspart 100 UNITS/ML VIAL SQ ONE (18:00)
[2018-07-09] MEDS: INSULIN SLIDING SCALE (NOVOLOG) 1 VIAL SQ SCH (21:13)
[2018-07-09] MEDS: THIAMINE HCL 100 MG TABLET (FP) PO SCH (21:14)
[2018-07-10] MEDS: INSULIN SLIDING SCALE (NOVOLOG) 1 VIAL SQ SCH ×4 (07:01→21:41)
[2018-07-10] MEDS ORDERED: INSULIN (NOVOLOG) ASPART 100 UNITS/ML 10ML VIAL ONE ×4 (08:05→22:14)
[2018-07-10] MEDS: POTASSIUM CHLORIDE TABS 20 MEQ TABLET.ER (FP) PO SCH ×2 (09:47→18:00)
[2018-07-10] MEDS: HYDROCHLOROTHIAZIDE 25 MG TABLET (FP) PO SCH (09:47)
[2018-07-10] MEDS: amLODIPine BESYLATE 10 MG TABLET (FP) PO SCH (09:47)
[2018-07-10] MEDS: CALCIUM 250MG/VIT-D 125 UNITS 1 COMBO TABLET PO SCH (09:47)
[2018-07-10] MEDS: CARVEDILOL 12.5 MG TABLET (FP) PO SCH ×2 (09:47→21:41)
[2018-07-10] MEDS: LISINOPRIL 20 MG TABLET (FP) PO SCH ×2 (09:47→21:41)
[2018-07-10] MEDS: PRENATAL VITAMINS W/ FOLIC ACID TABLET (FP) PO SCH (09:47)
[2018-07-10] MEDS: THIAMINE HCL 100 MG TABLET (FP) PO SCH (21:41)
[2018-07-11] MEDS ORDERED: INSULIN (NOVOLOG) ASPART 100 UNITS/ML 10ML VIAL ONE ×2 (06:13→12:04)
[2018-07-11] MEDS: INSULIN SLIDING SCALE (NOVOLOG) 1 VIAL SQ SCH ×4 (06:14→21:21)
[2018-07-11] MEDS: HYDROCHLOROTHIAZIDE 25 MG TABLET (FP) PO SCH (10:10)
[2018-07-11] MEDS: LISINOPRIL 20 MG TABLET (FP) PO SCH ×2 (10:10→21:21)
[2018-07-11] MEDS: POTASSIUM CHLORIDE TABS 20 MEQ TABLET.ER (FP) PO SCH (10:10)
[2018-07-11] MEDS: CARVEDILOL 12.5 MG TABLET (FP) PO SCH ×2 (10:10→21:21)
[2018-07-11] MEDS: PRENATAL VITAMINS W/ FOLIC ACID TABLET (FP) PO SCH (10:10)
[2018-07-11] MEDS: amLODIPine BESYLATE 10 MG TABLET (FP) PO SCH (10:10)
[2018-07-11] MEDS: CALCIUM 250MG/VIT-D 125 UNITS 1 COMBO TABLET PO SCH (10:10)
[2018-07-11] MEDS: THIAMINE HCL 100 MG TABLET (FP) PO SCH (21:21)
[2018-07-11] MEDS: METHYL SALICYLATE/MENTHOL OINT 30 GM TUBE TP SCH (21:24)
[2018-07-12] MEDS ORDERED: INSULIN (NOVOLOG) ASPART 100 UNITS/ML 10ML VIAL ONE ×2 (06:48→11:56)
[2018-07-12] MEDS: INSULIN SLIDING SCALE (NOVOLOG) 1 VIAL SQ SCH ×4 (06:48→20:59)
[2018-07-12] MEDS: amLODIPine BESYLATE 10 MG TABLET (FP) PO SCH (10:19)
[2018-07-12] MEDS: HYDROCHLOROTHIAZIDE 25 MG TABLET (FP) PO SCH (10:19)
[2018-07-12] MEDS: PRENATAL VITAMINS W/ FOLIC ACID TABLET (FP) PO SCH (10:19)
[2018-07-12] MEDS: CALCIUM 250MG/VIT-D 125 UNITS 1 COMBO TABLET PO SCH (10:19)
[2018-07-12] MEDS: LISINOPRIL 20 MG TABLET (FP) PO SCH ×2 (10:19→21:00)
[2018-07-12] MEDS: CARVEDILOL 12.5 MG TABLET (FP) PO SCH ×2 (10:19→21:00)
[2018-07-12] MEDS: METHYL SALICYLATE/MENTHOL OINT 30 GM TUBE TP SCH ×2 (10:20→21:01)
[2018-07-12] MEDS: THIAMINE HCL 100 MG TABLET (FP) PO SCH (21:00)
[2018-07-13] MEDS ORDERED: INSULIN (NOVOLOG) ASPART 100 UNITS/ML 10ML VIAL ONE ×2 (06:38→12:10)
[2018-07-13] MEDS: INSULIN SLIDING SCALE (NOVOLOG) 1 VIAL SQ SCH ×4 (06:45→21:05)
[2018-07-13] MEDS: amLODIPine BESYLATE 10 MG TABLET (FP) PO SCH (09:58)
[2018-07-13] MEDS: METHYL SALICYLATE/MENTHOL OINT 30 GM TUBE TP SCH ×2 (09:58→21:06)
[2018-07-13] MEDS: CALCIUM 250MG/VIT-D 125 UNITS 1 COMBO TABLET PO SCH (09:58)
[2018-07-13] MEDS: PRENATAL VITAMINS W/ FOLIC ACID TABLET (FP) PO SCH (09:58)
[2018-07-13] MEDS: CARVEDILOL 12.5 MG TABLET (FP) PO SCH ×2 (09:58→21:06)
[2018-07-13] MEDS: LISINOPRIL 20 MG TABLET (FP) PO SCH ×2 (09:58→21:06)
[2018-07-13] MEDS: HYDROCHLOROTHIAZIDE 25 MG TABLET (FP) PO SCH (09:58)
[2018-07-13] MEDS: THIAMINE HCL 100 MG TABLET (FP) PO SCH (21:16)
[2018-07-14] MEDS: INSULIN SLIDING SCALE (NOVOLOG) 1 VIAL SQ SCH ×4 (06:56→21:50)
[2018-07-14] MEDS ORDERED: INSULIN (NOVOLOG) ASPART 100 UNITS/ML 10ML VIAL ONE ×4 (06:56→22:08)
[2018-07-14] MEDS: amLODIPine BESYLATE 10 MG TABLET (FP) PO SCH (10:08)
[2018-07-14] MEDS: PRENATAL VITAMINS W/ FOLIC ACID TABLET (FP) PO SCH (10:08)
[2018-07-14] MEDS: CARVEDILOL 12.5 MG TABLET (FP) PO SCH ×2 (10:08→21:48)
[2018-07-14] MEDS: CALCIUM 250MG/VIT-D 125 UNITS 1 COMBO TABLET PO SCH (10:08)
[2018-07-14] MEDS: HYDROCHLOROTHIAZIDE 25 MG TABLET (FP) PO SCH (10:08)
[2018-07-14] MEDS: LISINOPRIL 20 MG TABLET (FP) PO SCH ×2 (10:09→21:48)
[2018-07-14] MEDS: METHYL SALICYLATE/MENTHOL OINT 30 GM TUBE TP SCH ×2 (10:09→21:49)
[2018-07-14] MEDS: THIAMINE HCL 100 MG TABLET (FP) PO SCH (21:48)
[2018-07-15] MEDS ORDERED: INSULIN (NOVOLOG) ASPART 100 UNITS/ML 10ML VIAL ONE ×2 (06:39→11:58)
[2018-07-15] MEDS: INSULIN SLIDING SCALE (NOVOLOG) 1 VIAL SQ SCH ×2 (06:40→11:59)
[2018-07-15 09:49] VITALS: PULSE 87; TEMP 98.6
[2018-07-15] MEDS: METHYL SALICYLATE/MENTHOL OINT 30 GM TUBE TP SCH (09:57)
[2018-07-15] MEDS: PRENATAL VITAMINS W/ FOLIC ACID TABLET (FP) PO SCH (09:57)
[2018-07-15] MEDS: CARVEDILOL 12.5 MG TABLET (FP) PO SCH (09:57)
[2018-07-15] MEDS: amLODIPine BESYLATE 10 MG TABLET (FP) PO SCH (09:57)
[2018-07-15] MEDS: LISINOPRIL 20 MG TABLET (FP) PO SCH (09:57)
[2018-07-15] MEDS: HYDROCHLOROTHIAZIDE 25 MG TABLET (FP) PO SCH (09:57)
[2018-07-15] MEDS: CALCIUM 250MG/VIT-D 125 UNITS 1 COMBO TABLET PO SCH (09:57)
[2018-07-15 14:11] VITALS: BP 148/92
--- NOTE | 2018-07-15 16:08 | PN ---
[facility] Progress Note Note: PATIENT REQUESTED EARLY DISCHARGE TODAY HE HAS PERSONAL MATTERS TO TAKE CARE OF. PATIENT COMPLETED 7 DAYS OF REHAB SERVICES AND IS TO FOLLOW UP WITH [employer] [facility] FOR AFTERCARE. PATIENT STATES HE ACCOMPLISHED REHAB GOALS AND ENCOURAGED TO CONTINUE WITH GROUP MEETINGS TO PREVENT RELAPSE. PATIENT TO FOLLOW UP WITH PCP WITHIN ONE WEEK OF D/C AND HAS RECENT PRESCRIPTIONS OF HTN/DM MEDICATIONS SENT TO PREFERRED PHARMACY. PATIENT D/C MEDICALLY STABLE AND DOES NOT REPORT SI/ HI. Vital Signs Temperature 98.6 F 07/15/18 09:48 Pulse Rate 87 07/15/18 14:10 Respiratory Rate 20 07/15/18 14:10 Blood Pressure 148/92 07/15/18 14:10 O2 Sat by Pulse Oximetry (%)
== END 2018-07-15 15:51 | disposition home or self-care (01) | DRG 772 ==
LOC: YASAS 11:21 → Y3W 11:22
PROVIDERS: ADMIT Neuromusculoskeletal Medicine & OMM; ATTEND Neuromusculoskeletal Medicine & OMM
PROC: HZ42ZZZ Group Counseling for Substance Abuse Treatment, Cognitive-Behavioral (ICD-10-PCS; principal; 2018-07-08)
DX: F10.20 Alcohol dependence, uncomplicated (principal); F14.20 Cocaine dependence, uncomplicated; Z21 Asymptomatic human immunodeficiency virus [HIV] infection status; I11.0 Hypertensive heart disease with heart failure; I50.9 Heart failure, unspecified; J45.909 Unspecified asthma, uncomplicated; E11.628 Type 2 diabetes mellitus with other skin complications; Z79.84 Long term (current) use of oral hypoglycemic drugs; E66.01 Morbid (severe) obesity due to excess calories; Z68.43 Body mass index [BMI] 50.0-59.9, adult
CPT/HCPCS: 82962; 90688; G0008; J0735

== ENCOUNTER 2018-07-27 08:48 | Inpatient (IN) | payer OTHER ==
[2018-07-27 09:45] VITALS: BMI 54.6
--- NOTE | 2018-07-27 09:56 | HP ---
CIWA Score Nausea/Vomitin Muscle Tremors: 2 Anxiety: 2 Agitation: 2 Paroxysmal Sweats: 1-Minimal Palms Moist Orientation: 0-Oriented Tacttile Disturbances: 1-Very Mild Itch/Numbness Auditory Disturbances: 1-Very Mild Visual Disturbances: 0-None Headache: 2-Mild CIWA-Ar Total Score: 13 - Admission Criteria [facility] Guidelines: Admission for Medically Managed Detox: Requires at least one of the followin. CIWA greater than 12 2. Seizures within the past 24 hours 3. Delirium tremens within the past 24 hours 4. Hallucinations within the past 24 hours 5. Acute intervention needed for co occurring medical disorder 6. Acute intervention needed for co occurring psychiatric disorder 7. Severe withdrawal that cannot be handled at a lower level of care (continued vomiting, continued diarrhea, abnormal vital signs) requiring intravenous medication and/or fluids 8. Admission ROS S - HPI Chief Complaint: i need help to stop drinking alcohol and cocaine Allergies/Adverse Reactions: Allergies Allergy/AdvReac Type Severity Reaction Status Date / Time No Known Allergies Allergy Verified 07/27/18 10:06 History of Present Illness: this 42 years old male with alcohol and cocaine dependence,seeking detox, withdrawal symptom, multiple admissions in detox and rehab last detox 07/04/18 to 07/08/18 at [facility] and rehab 07/08/18 to 07/15/18 but relapsed and have been drinking daily since thenno seizure had syncope obese hypertension,type 2 dm,asthma hiv positive since march 2009 longest sobriety 3 months Exam Limitations: No Limitations - Ebola screening Have you traveled outside of the country in the last 21 days: No Have you had contact with anyone from an Ebola affected area: No Have you been sick,other than usual withdrawal symptoms: No Do you have a fever: No - Review of Systems Constitutional: Malaise, Night Sweats, Changes in sleep, Weakness EENT: reports: Nose Congestion Respiratory: reports: Other (asthma) Cardiac: reports: Other (chf) GI: reports: Nausea, Abdominal cramping Musculoskeletal: reports: Back Pain, Muscle Pain Integumentary: reports: Dryness Neuro: reports: Tremors Endocrine: reports: No Symptoms Reported Hematology: reports: No Symptoms Reported, Other (hiv) Psychiatric: reports: No Sypmtoms Reported, Judgement Intact, Mood/Affect Appropiate, Orientated x3 Patient History - Patient Medical History Hx Anemia: No Hx Asthma: Yes (on albuterol inhaler) Hx Chronic Obstructive Pulmonary Disease (COPD): No Hx Cancer: No Hx Cardiac Disorders: Yes (CHF) Hx Congestive Heart Failure: Yes Hx Hypertension: Yes (on meds) Hx Hypercholesterolemia: No Hx Pacemaker: No HX Cerebrovascular Accident: No Hx Seizures: No Hx Dementia: No Hx Diabetes: Yes (on metformin 500 mgs po bid non compliance) Hx Gastrointestinal Disorders: No Hx Liver Disease: No Hx Genitourinary Disorders: No Hx Sexually Transmitted Disorders: Yes (HIV since 2008) Hx Renal Disease (ESRD): No Hx Thyroid Disease: No Hx Human Immunodeficiency Virus (HIV): No Hx Hepatitis C: No Hx Depression: No Hx Suicide Attempt: No Hx Bipolar Disorder: No Hx Schizophrenia: No Other Medical History: no suicidal,no homicidal,obese - Patient Surgical History Past Surgical History: No Hx Neurologic Surgery: No Hx Cataract Extraction: No Hx Cardiac Surgery: Yes (CARDIAC CATHETERIZATION IN 09/2011.. NO BLOCKAGE) Hx Lung Surgery: No Hx Breast Surgery: No Hx Breast Biopsy: No Hx Abdominal Surgery: No Hx Appendectomy: No Hx Cholecystectomy: No Hx Genitourinary Surgery: No Hx Section: No Hx Orthopedic Surgery: No Hx Hysterectomy: No Other Surgical History: abcess rt thigh () Anesthesia Reaction: No - PPD History Documented Results: Negative w/proof Implanted On Prior [facility] Admission?: Yes Date: 07/06/18 Results: 0 mm - Smoking Cessation Smoking history: Never smoked Have you smoked in the past 12 months: No Aproximately how many cigarettes per day: 3 Hx Chewing Tobacco Use: No - Substance & Tx. History Hx Alcohol Use: Yes Hx Substance Use: Yes Substance Use Type: Alcohol, Cocaine Hx Substance Use Treatment: Yes ([facility] 07/04/18 to 07/08/18,rehab 07/08/18 to 12/25 ) - Substances Abused Alcohol Route: Oral Frequency: Daily Amount used: 1pint of vodka/4 of 40 ozs of beer Age of first use: 20 Date of Last Use: 07/27/18 Cocaine Route: Smoking Frequency: 3-6 times per week Amount used: 40$ Age of first use: 24 Date of Last Use: 07/26/18 Family Disease History - Family Disease History Family Disease History: Other: Father (ALOCOHOL,), Mother (ALCOHOL, ) Admission Physical Exam S - Vital Signs Vital Signs: Vital Signs - 24 hr 07/27/18 09:43 Temperature 97.6 F Pulse Rate 94 H Respiratory 20 Rate Blood Pressure 164/102 H - Physical General Appearance: Yes: Moderate Distress, Obese, Tremorous, Irritable, Sweating, Anxious HEENTM: Yes: Normal ENT Inspection, MAISHA, Pharynx Normal Respiratory: Yes: Lungs Clear, Normal Breath Sounds, No Respiratory Distress Neck: Yes: Within Normal Limits, Supple, Trachea in good position Breast: Yes: Within Normal Limits Cardiology: Yes: Within Normal Limits, Regular Rhythm, Regular Rate, S1, S2 Abdominal: Yes: Within Normal Limits, Normal Bowel Sounds, Non Tender, Flat, Soft Genitourinary: Yes: Within Normal Limits Back: Yes: Within Normal Limits, Muscle Spasm Musculoskeletal: Yes: Back pain, Muscle Pain Extremities: Yes: Within Normal Limits, Tremors 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: Yes: fringe weaver II-XII NML intact, Fully Oriented, Alert, Motor Strength 5/5 Integumentary: Yes: Dry Lymphatic: Yes: Within Normal Limits - Diagnostic (1) Alcohol dependence with uncomplicated withdrawal Current Visit: No Status: Acute (2) Cocaine dependence Current Visit: No Status: Acute Qualifiers: Substance use status: uncomplicated Qualified Code(s): F14.20 - Cocaine dependence, uncomplicated (3) DM2 (diabetes mellitus, type 2) Current Visit: No Status: Chronic Qualifiers: Diabetes mellitus watermaster insulin use: without watermaster use Diabetes mellitus complication status: with skin complications Diabetes mellitus complication detail: with other skin complication Qualified Code(s): E11.628 - Type 2 diabetes mellitus with other skin complications (4) HIV (human immunodeficiency virus infection) Current Visit: No Status: Chronic Qualifiers: HIV symptom status: unspecified Qualified Code(s): B20 - Human immunodeficiency virus [HIV] disease (5) History of CHF (congestive heart failure) Current Visit: No Status: Chronic (6) Hypertension Current Visit: No Status: Chronic Qualifiers: Hypertension type: essential hypertension Qualified Code(s): I10 - Essential (primary) hypertension (7) Obese Current Visit: No Status: Chronic Qualifiers: Obesity type: unspecified obesity type Obesity classification: adult class 3 (BMI >= 40) Serious obesity comorbidity presence: unspecified whether serious comorbidity present Body mass index: BMI 50.0-59.9 Qualified Code(s) : E66.01 - Morbid (severe) obesity due to excess calories; Z68.43 - Body mass index (BMI) 50-59.9, adult Cleared for Admission [facility] - Detox or Rehab [facility] Level of Care: Medically Managed Detox Regimen/Protocol: Librium S Breath Alcohol Content Breath Alcohol Content: 0 Urine Drug Screen - Results Drug Screen Negative: No Urine Drug Screen Results: TOMÁS-Cocaine, BZO-Benzodiazepines Inpatient Rehab Admission - Rehab Decision to Admit Inpatient rehab admission?: No
[2018-07-27] MEDS ORDERED: MAGNESIUM HYDROX 2400MG/30ML ORAL SUSPENSION 30 ML CUP PO PRN (10:09)
[2018-07-27] MEDS ORDERED: METHOCARBAMOL 500 MG TABLET PO PRN (10:09)
[2018-07-27] MEDS ORDERED: MENTHOL/PHENOL 1 EACH UD MM PRN (10:09)
[2018-07-27] MEDS ORDERED: MAGNESIUM CITRATE 300 ML BOTTLE PO PRN (10:09)
[2018-07-27] MEDS ORDERED: hydrOXYzine PAMOATE 25 MG CAPSULE (FP) PO PRN (10:09)
[2018-07-27] MEDS ORDERED: IBUPROFEN 400 MG TABLET (FP) PO PRN (10:09)
[2018-07-27] MEDS ORDERED: ACETAMINOPHEN 325 MG TABLET (FP) PO PRN ×2 (10:09)
[2018-07-27] MEDS ORDERED: BISMUTH SUBSALICYLATE 524 MG/30 ML UD PO PRN (10:09)
[2018-07-27] MEDS ORDERED: MELATONIN 5 MG TABLETS PO PRN (10:09)
[2018-07-27] MEDS ORDERED: chlordiazePOXIDE HCL 25 MG CAPSULE PO PRN (10:09)
[2018-07-27] MEDS ORDERED: MAG HYDROX/AL HYDROX/SIMETH 30 ML UNIT-DOSE CUP PO PRN (10:09)
[2018-07-27] MEDS ORDERED: ALBUTEROL SO4 8 GM HFA INHALER IH PRN (10:15)
[2018-07-27] MEDS: metFORMIN HCL 500 MG TABLET (FP) PO SCH (16:30)
[2018-07-27] MEDS ORDERED: CARVEDILOL 6.25 MG TABLET (FP) PO ONE (18:09)
--- NOTE | 2018-07-27 18:10 | PN ---
[facility] Progress Note Note: called received from RN re: patient BP 175/105 P93 T98.5 no symptoms patient is scheduled for coreg 6.25 mg at 10 pm, dose ordered for now increase po fluids continue to monitor
[2018-07-27] MEDS: chlordiazePOXIDE HCL 25 MG CAPSULE PO SCH ×2 (18:20→22:08)
[2018-07-27] MEDS ORDERED: CARVEDILOL 6.25 MG TABLET (FP) PO SCH (22:00)
[2018-07-27] MEDS: THIAMINE HCL 100 MG TABLET (FP) PO SCH (22:06)
[2018-07-28] MEDS: chlordiazePOXIDE HCL 25 MG CAPSULE PO SCH ×4 (05:43→22:23)
[2018-07-28] MEDS ORDERED: cloNIDine HCL 0.1 MG TABLET PO ONE (06:07)
--- NOTE | 2018-07-28 06:08 | PN ---
[facility] Progress Note Note: Patient's blood pressure this morning is B/P 188/89. Patient is asymptomatic
[2018-07-28] MEDS: metFORMIN HCL 500 MG TABLET (FP) PO SCH ×2 (07:31→17:14)
[2018-07-28 11:06] LABS: HEMATOCRIT 38.5 % (35.4-49); HEMOGLOBIN 12.8 GM/dL (11.7-16.9); MCHC 33.3 g/dl (32.0-35.9); MEAN CELL VOLUME 93.2 fl (80-96); PLATELET COUNT 257 K/MM3 (134-434); RBC 4.13 M/mm3 (4.00-5.60); RDW 13.7 % (11.9-15.9); WHITE BLOOD COUNT 6.6 K/mm3 (4.0-10.0)
[2018-07-28] MEDS: PRENATAL VITAMINS W/ FOLIC ACID TABLET (FP) PO SCH (11:09)
[2018-07-28] MEDS: amLODIPine BESYLATE 10 MG TABLET (FP) PO SCH (11:09)
[2018-07-28] MEDS: CARVEDILOL 6.25 MG TABLET (FP) PO SCH ×2 (11:09→22:23)
[2018-07-28] MEDS: LISINOPRIL 20 MG TABLET (FP) PO SCH (11:09)
--- NOTE | 2018-07-28 11:53 | PN ---
[facility] CIWA - CIWA Score Nausea/Vomitin-No Nausea/No Vomiting Muscle Tremors: 2 Anxiety: 3 Agitation: 1-Slight > Activity Paroxysmal Sweats: 2 Orientation: 3-Disoriented Date>2 days Tacttile Disturbances: 0-None Auditory Disturbances: 0-None Visual Disturbances: 0-None Headache: 0-None Present CIWA-Ar Total Score: 11 BHS Progress Note (SOAP) Subjective: patient acknowledged that weight is an issue admitted no taking medication while drinking Objective: 07/28/18 11:55 Vital Signs Temperature 97.7 F 07/28/18 10:12 Pulse Rate 85 07/28/18 10:12 Respiratory Rate 18 07/28/18 10:12 Blood Pressure 167/94 07/28/18 10:12 O2 Sat by Pulse Oximetry (%) Laboratory Last Values WBC 6.6 K/mm3 (4.0-10.0) 07/28/18 06:30 RBC 4.13 M/mm3 (4.00-5.60) 07/28/18 06:30 Hgb 12.8 GM/dL (11.7-16.9) 07/28/18 06:30 Hct 38.5 % (35.4-49) 07/28/18 06:30 MCV 93.2 fl (80-96) 07/28/18 06:30 MCH 31.0 pg (25.7-33.7) 07/28/18 06:30 MCHC 33.3 g/dl (32.0-35.9) 07/28/18 06:30 RDW 13.7 % (11.9-15.9) 07/28/18 06:30 Plt Count 257 K/MM3 (134-434) 07/28/18 06:30 MPV 8.0 fl (7.5-11.1) 07/28/18 06:30 POC Glucometer 285 UNITS (80-120) 07/28/18 05:34 lab noted Assessment: 07/28/18 11:55 withdrawal sx Plan: continue detox
[2018-07-28] MEDS: HYDROCHLOROTHIAZIDE 25 MG TABLET (FP) PO SCH (12:11)
[2018-07-28 13:55] LABS: BLOOD UREA NITROGEN 16 mg/dL (7-18); GLUCOSE,RANDOM 219 mg/dL (74-106)
[2018-07-28 13:56] LABS: ALBUMIN 3.6 g/dl (3.4-5.0); ANION GAP 7 MMOL/L (8-16); BILIRUBIN,TOTAL 0.5 mg/dL (0.2-1); CALCIUM 8.6 mg/dL (8.5-10.1); CHLORIDE 106 mmol/L (98-107); CO2 26 mmol/L (21-32); CREATININE 0.9 mg/dL (0.55-1.3); POTASSIUM 3.8 mmol/L (3.5-5.1); SGOT/AST 22 U/L (15-37); SGPT/ALT 63 U/L (13-61); SODIUM 139 mmol/L (136-145); TOT PROT 7.6 g/dl (6.4-8.2)
[2018-07-28 13:57] LABS: ALK PHOS 104 U/L (45-117)
[2018-07-28] MEDS: THIAMINE HCL 100 MG TABLET (FP) PO SCH (22:23)
[2018-07-29] MEDS: chlordiazePOXIDE HCL 25 MG CAPSULE PO SCH ×2 (05:43→10:11)
[2018-07-29] MEDS: metFORMIN HCL 500 MG TABLET (FP) PO SCH ×2 (07:14→17:27)
[2018-07-29] MEDS: HYDROCHLOROTHIAZIDE 25 MG TABLET (FP) PO SCH (10:10)
[2018-07-29] MEDS: PRENATAL VITAMINS W/ FOLIC ACID TABLET (FP) PO SCH (10:11)
[2018-07-29] MEDS: CARVEDILOL 6.25 MG TABLET (FP) PO SCH (10:11)
[2018-07-29] MEDS: LISINOPRIL 20 MG TABLET (FP) PO SCH (10:11)
[2018-07-29] MEDS: amLODIPine BESYLATE 10 MG TABLET (FP) PO SCH (10:11)
--- NOTE | 2018-07-29 16:13 | PN ---
[facility] CIWA - CIWA Score Nausea/Vomitin-No Nausea/No Vomiting Muscle Tremors: 3 Anxiety: 2 Agitation: 1-Slight > Activity Paroxysmal Sweats: 3 Orientation: 0-Oriented Tacttile Disturbances: 2-Mild Itch/Numbness/Burn Auditory Disturbances: 2-Mild Harshness/Frighten Visual Disturbances: 2-Mild Sensitivity Headache: 0-None Present CIWA-Ar Total Score: 15 S Progress Note (SOAP) Subjective: Body Aches, Anxious, Interrupted sleep, Sweating. Objective: PATIENT A & O X 3, OBSERVED AMBULATING ON UNIT. IN NO ACUTE DISTRESS. PATIENT DENIES CHEST PAIN. 07/29/18 16:11 Vital Signs Temperature 98 F 07/29/18 13:46 Pulse Rate 92 H 07/29/18 13:46 Respiratory Rate 20 07/29/18 13:46 Blood Pressure 156/91 07/29/18 13:46 O2 Sat by Pulse Oximetry (%) Laboratory Tests 07/27/18 07/27/18 07/28/18 10:18 16:27 05:34 WBC RBC Hgb Hct MCV MCH MCHC RDW Plt Count MPV Sodium Potassium Chloride Carbon Dioxide Anion Gap BUN Creatinine Creat Clearance w eGFR POC Glucometer 220 286 285 Random Glucose Calcium Total Bilirubin AST ALT Alkaline Phosphatase Total Protein Albumin RPR Titer 07/28/18 07/28/18 07/28/18 06:30 06:30 06:30 WBC 6.6 RBC 4.13 Hgb 12.8 Hct 38.5 MCV 93.2 MCH 31.0 MCHC 33.3 RDW 13.7 Plt Count 257 MPV 8.0 Sodium 139 Potassium 3.8 Chloride 106 Carbon Dioxide 26 Anion Gap 7 L BUN 16 Creatinine 0.9 Creat Clearance w eGFR 92.99 POC Glucometer Random Glucose 219 H Calcium 8.6 Total Bilirubin 0.5 AST 22 ALT 63 H Alkaline Phosphatase 104 Total Protein 7.6 Albumin 3.6 RPR Titer Nonreactive 07/28/18 07/29/18 16:15 05:42 WBC RBC Hgb Hct MCV MCH MCHC RDW Plt Count MPV Sodium Potassium Chloride Carbon Dioxide Anion Gap BUN Creatinine Creat Clearance w eGFR POC Glucometer 281 321 Random Glucose Calcium Total Bilirubin AST ALT Alkaline Phosphatase Total Protein Albumin RPR Titer LABS NOTED. Assessment: 07/29/18 16:12 WITHDRAWAL SYMPTOMS. HYPERTENSION. Plan: CONTINUE DETOX. INCREASE DAILY PO FLUID INTAKE. INCREASE DOSE OF CARVEDILOL TO 12.5 MG PO BID FOR PERSISTENTLY ELEVATED BP DESPITE TREATMENT.
[2018-07-29] MEDS ORDERED: chlordiazePOXIDE HCL 10 MG CAPSULE PO PRN (17:00)
[2018-07-29] MEDS: chlordiazePOXIDE HCL 10 MG CAPSULE PO SCH ×2 (17:27→22:01)
[2018-07-29] MEDS: THIAMINE HCL 100 MG TABLET (FP) PO SCH (22:01)
[2018-07-29] MEDS: CARVEDILOL 12.5 MG TABLET (FP) PO SCH (22:01)
[2018-07-30] MEDS: chlordiazePOXIDE HCL 10 MG CAPSULE PO SCH ×3 (05:16→17:53)
[2018-07-30] MEDS: metFORMIN HCL 500 MG TABLET (FP) PO SCH ×2 (07:56→17:52)
[2018-07-30] MEDS: PRENATAL VITAMINS W/ FOLIC ACID TABLET (FP) PO SCH (10:08)
[2018-07-30] MEDS: LISINOPRIL 20 MG TABLET (FP) PO SCH (10:09)
[2018-07-30] MEDS: HYDROCHLOROTHIAZIDE 25 MG TABLET (FP) PO SCH (10:09)
[2018-07-30] MEDS: amLODIPine BESYLATE 10 MG TABLET (FP) PO SCH (10:10)
[2018-07-30] MEDS: CARVEDILOL 12.5 MG TABLET (FP) PO SCH ×2 (10:11→22:28)
--- NOTE | 2018-07-30 15:47 | PN ---
BHS Progress Note (SOAP) Subjective: Sweating, Anxious, Body Aches, Interrupted Sleep. Objective: PATIENT A & O X 3, OBSERVED AMBULATING ON UNIT. IN NO ACUTE DISTRESS. 07/30/18 15:48 Vital Signs Temperature 98.1 F 07/30/18 13:47 Pulse Rate 90 07/30/18 13:47 Respiratory Rate 07/30/18 13:47 Blood Pressure 146/86 07/30/18 13:47 O2 Sat by Pulse Oximetry (%) Laboratory Tests 07/27/18 07/27/18 07/28/18 10:18 16:27 05:34 WBC RBC Hgb Hct MCV MCH MCHC RDW Plt Count MPV Sodium Potassium Chloride Carbon Dioxide Anion Gap BUN Creatinine Creat Clearance w eGFR POC Glucometer 220 286 285 Random Glucose Calcium Total Bilirubin AST ALT Alkaline Phosphatase Total Protein Albumin RPR Titer 07/28/18 07/28/18 07/28/18 06:30 06:30 06:30 WBC 6.6 RBC 4.13 Hgb 12.8 Hct 38.5 MCV 93.2 MCH 31.0 MCHC 33.3 RDW 13.7 Plt Count 257 MPV 8.0 Sodium 139 Potassium 3.8 Chloride 106 Carbon Dioxide 26 Anion Gap 7 L BUN 16 Creatinine 0.9 Creat Clearance w eGFR 92.99 POC Glucometer Random Glucose 219 H Calcium 8.6 Total Bilirubin 0.5 AST 22 ALT 63 H Alkaline Phosphatase 104 Total Protein 7.6 Albumin 3.6 RPR Titer Nonreactive 07/28/18 07/29/18 07/29/18 16:15 05:42 16:25 WBC RBC Hgb Hct MCV MCH MCHC RDW Plt Count MPV Sodium Potassium Chloride Carbon Dioxide Anion Gap BUN Creatinine Creat Clearance w eGFR POC Glucometer 281 321 359 Random Glucose Calcium Total Bilirubin AST ALT Alkaline Phosphatase Total Protein Albumin RPR Titer 07/30/18 05:15 WBC RBC Hgb Hct MCV MCH MCHC RDW Plt Count MPV Sodium Potassium Chloride Carbon Dioxide Anion Gap BUN Creatinine Creat Clearance w eGFR POC Glucometer 308 Random Glucose Calcium Total Bilirubin AST ALT Alkaline Phosphatase Total Protein Albumin RPR Titer LABS NOTED. Assessment: 07/30/18 15:48 WITHDRAWAL SYMPTOMS. Plan: CONTINUE DETOX. INCREASE DAILY PO FLUID INTAKE.
[2018-07-30] MEDS: THIAMINE HCL 100 MG TABLET (FP) PO SCH (22:28)
[2018-07-31] MEDS: chlordiazePOXIDE HCL 10 MG CAPSULE PO SCH ×2 (05:36→17:04)
[2018-07-31] MEDS: metFORMIN HCL 500 MG TABLET (FP) PO SCH ×2 (07:44→17:04)
--- NOTE | 2018-07-31 09:31 | DS ---
[facility] Detox Discharge Summary Admission Date: 07/27/18 Discharge Date: 07/31/18 - History Present History: Alcohol Dependence - Physical Exam Results Vital Signs: Vital Signs Temperature 97.6 F 07/31/18 06:24 Pulse Rate 84 07/31/18 06:24 Respiratory Rate 18 07/31/18 06:24 Blood Pressure 152/94 07/31/18 06:24 O2 Sat by Pulse Oximetry (%) - Treatment Hospital Course: Detox Protocol Followed, Detoxed Safely, Responded well, Discharged Condition Good, Rehab Referral Accepted - Medication Discharge Medications: Ambulatory Orders Emtricitab/Rilpiviri/Tenof Ala [Odefsey Tablet] 1 each PO DAILY 12/18/16 metFORMIN HCL [Metformin HCl] 500 mg PO BID 07/04/18 Albuterol Sulfate [Proventil HFA Inhaler -] 2 inh PO Q4H PRN #1 hfa.aer.ad 07/07 Amlodipine Besylate [Norvasc -] 10 mg PO DAILY #30 tablet 07/07/18 Carvedilol [Coreg -] 6.25 mg PO BID #60 tablet 07/07/18 Hydrochlorothiazide [Hctz -] 50 mg PO DAILY #30 tablet 07/07/18 Lisinopril [Zestril] 40 mg PO DAILY #30 tablet 07/07/18 - AMA Did Patient Leave Against Medical Advice: No
[2018-07-31] MEDS: HYDROCHLOROTHIAZIDE 25 MG TABLET (FP) PO SCH (10:09)
[2018-07-31] MEDS: LISINOPRIL 20 MG TABLET (FP) PO SCH (10:09)
[2018-07-31] MEDS: PRENATAL VITAMINS W/ FOLIC ACID TABLET (FP) PO SCH (10:09)
[2018-07-31] MEDS: amLODIPine BESYLATE 10 MG TABLET (FP) PO SCH (10:09)
[2018-07-31] MEDS: CARVEDILOL 12.5 MG TABLET (FP) PO SCH (10:09)
--- NOTE | 2018-07-31 11:57 | PN ---
[facility] CIWA - CIWA Score Nausea/Vomitin-No Nausea/No Vomiting Muscle Tremors: 1-None Visible, but [place] Anxiety: 1-Mildly Anxious Agitation: 1-Slight > Activity Paroxysmal Sweats: 1-Minimal Palms Moist Orientation: 0-Oriented Tacttile Disturbances: 0-None Auditory Disturbances: 0-None Visual Disturbances: 0-None Headache: 1-Very Mild CIWA-Ar Total Score: 5 S Progress Note (SOAP) Subjective: systolic reduced from 188 to 135 since antihypertensive medications adherence reporting feeling better less headache received counselor report that the patient is granted stay in detox one more day Objective: 07/31/18 12:02 Vital Signs Temperature 98.0 F 07/31/18 09:48 Pulse Rate 92 H 07/31/18 09:48 Respiratory Rate 20 07/31/18 09:48 Blood Pressure 156/98 07/31/18 09:48 O2 Sat by Pulse Oximetry (%) Laboratory Last Values WBC 6.6 K/mm3 (4.0-10.0) 07/28/18 06:30 RBC 4.13 M/mm3 (4.00-5.60) 07/28/18 06:30 Hgb 12.8 GM/dL (11.7-16.9) 07/28/18 06:30 Hct 38.5 % (35.4-49) 07/28/18 06:30 MCV 93.2 fl (80-96) 07/28/18 06:30 MCH 31.0 pg (25.7-33.7) 07/28/18 06:30 MCHC 33.3 g/dl (32.0-35.9) 07/28/18 06:30 RDW 13.7 % (11.9-15.9) 07/28/18 06:30 Plt Count 257 K/MM3 (134-434) 07/28/18 06:30 MPV 8.0 fl (7.5-11.1) 07/28/18 06:30 Sodium 139 mmol/L (136-145) 07/28/18 06:30 Potassium 3.8 mmol/L (3.5-5.1) 07/28/18 06:30 Chloride 106 mmol/L (98-107) 07/28/18 06:30 Carbon Dioxide 26 mmol/L (21-32) 07/28/18 06:30 Anion Gap 7 MMOL/L (8-16) L 07/28/18 06:30 BUN 16 mg/dL (7-18) 07/28/18 06:30 Creatinine 0.9 mg/dL (0.55-1.3) 07/28/18 06:30 Creat Clearance w eGFR 92.99 (>60) 07/28/18 06:30 POC Glucometer 276 UNITS (80-120) 07/31/18 05:35 Random Glucose 219 mg/dL (74-106) H 07/28/18 06:30 Calcium 8.6 mg/dL (8.5-10.1) 07/28/18 06:30 Total Bilirubin 0.5 mg/dL (0.2-1) 07/28/18 06:30 AST 22 U/L (15-37) 07/28/18 06:30 ALT 63 U/L (13-61) H 07/28/18 06:30 Alkaline Phosphatase 104 U/L (45-117) 07/28/18 06:30 Total Protein 7.6 g/dl (6.4-8.2) 07/28/18 06:30 Albumin 3.6 g/dl (3.4-5.0) 07/28/18 06:30 RPR Titer Nonreactive (NONREACTIVE) 07/28/18 06:30 lab noted Assessment: 07/31/18 12:02 withdrawal sx Plan: continue detox
[2018-07-31 17:17] VITALS: BP 137/75; PULSE 91; TEMP 98.2
--- NOTE | 2018-07-31 18:29 | DS ---
[facility] Detox Discharge Summary Admission Date: 07/27/18 Discharge Date: 07/31/18 - History Present History: Alcohol Dependence, Cocaine Dependence Additional Comments: Admitted w/ alcohol withdrawal Pertinent Past History: Patient admitted w/ alcohol withdrawal. Co-occurring cocaine use disorder. Morbid obesity. - Physical Exam Results Vital Signs: Vital Signs Temperature 98.2 F 07/31/18 17:16 Pulse Rate 91 H 07/31/18 17:16 Respiratory Rate 18 07/31/18 17:16 Blood Pressure 137/75 07/31/18 17:16 O2 Sat by Pulse Oximetry (%) Pertinent Admission Physical Exam Findings: Patient admitted for alcohol detox. PMHx: DM, HTN, Asthma, HIV(+), morbid obesity Laboratory Last Values WBC 6.6 K/mm3 (4.0-10.0) 07/28/18 06:30 RBC 4.13 M/mm3 (4.00-5.60) 07/28/18 06:30 Hgb 12.8 GM/dL (11.7-16.9) 07/28/18 06:30 Hct 38.5 % (35.4-49) 07/28/18 06:30 MCV 93.2 fl (80-96) 07/28/18 06:30 MCH 31.0 pg (25.7-33.7) 07/28/18 06:30 MCHC 33.3 g/dl (32.0-35.9) 07/28/18 06:30 RDW 13.7 % (11.9-15.9) 07/28/18 06:30 Plt Count 257 K/MM3 (134-434) 07/28/18 06:30 MPV 8.0 fl (7.5-11.1) 07/28/18 06:30 Sodium 139 mmol/L (136-145) 07/28/18 06:30 Potassium 3.8 mmol/L (3.5-5.1) 07/28/18 06:30 Chloride 106 mmol/L (98-107) 07/28/18 06:30 Carbon Dioxide 26 mmol/L (21-32) 07/28/18 06:30 Anion Gap 7 MMOL/L (8-16) L 07/28/18 06:30 BUN 16 mg/dL (7-18) 07/28/18 06:30 Creatinine 0.9 mg/dL (0.55-1.3) 07/28/18 06:30 Creat Clearance w eGFR 92.99 (>60) 07/28/18 06:30 POC Glucometer 333 UNITS (80-120) 07/31/18 16:26 Random Glucose 219 mg/dL (74-106) H 07/28/18 06:30 Calcium 8.6 mg/dL (8.5-10.1) 07/28/18 06:30 Total Bilirubin 0.5 mg/dL (0.2-1) 07/28/18 06:30 AST 22 U/L (15-37) 07/28/18 06:30 ALT 63 U/L (13-61) H 07/28/18 06:30 Alkaline Phosphatase 104 U/L (45-117) 07/28/18 06:30 Total Protein 7.6 g/dl (6.4-8.2) 07/28/18 06:30 Albumin 3.6 g/dl (3.4-5.0) 07/28/18 06:30 RPR Titer Nonreactive (NONREACTIVE) 07/28/18 06:30 Labs reviewed. - Treatment Hospital Course: Detox Protocol Followed, Detoxed Safely, Responded well, Discharged Condition Good, Rehab Referral Accepted (Patient admitted to [facility] In- patient Rehab program) - Medication Discharge Medications: Ambulatory Orders Emtricitab/Rilpiviri/Tenof Ala [Odefsey Tablet] 1 each PO DAILY 12/18/16 metFORMIN HCL [Metformin HCl] 500 mg PO BID 07/04/18 Albuterol Sulfate [Proventil HFA Inhaler -] 2 inh PO Q4H PRN #1 hfa.aer.ad 07/07 Amlodipine Besylate [Norvasc -] 10 mg PO DAILY #30 tablet 07/07/18 Carvedilol [Coreg -] 6.25 mg PO BID #60 tablet 07/07/18 Hydrochlorothiazide [Hctz -] 50 mg PO DAILY #30 tablet 07/07/18 Lisinopril [Zestril] 40 mg PO DAILY #30 tablet 07/07/18 - Diagnosis (1) Alcohol dependence with uncomplicated withdrawal Status: Acute (2) Cocaine dependence Status: Chronic Qualifiers: Substance use status: uncomplicated Qualified Code(s): F14.20 - Cocaine dependence, uncomplicated (3) Nicotine dependence Status: Acute Qualifiers: Nicotine product type: cigarettes Substance use status: in withdrawal Qualified Code(s): F17.213 - Nicotine dependence, cigarettes, with withdrawal (4) Asthma Status: Chronic Qualifiers: Asthma severity: mild Asthma persistence: unspecified Asthma complication type: uncomplicated Qualified Code(s): J45.909 - Unspecified asthma, uncomplicated (5) DM2 (diabetes mellitus, type 2) Status: Chronic Qualifiers: Diabetes mellitus account administrator insulin use: without senior living use Diabetes mellitus complication status: with skin complications Diabetes mellitus complication detail: with other skin complication Qualified Code(s): E11.628 - Type 2 diabetes mellitus with other skin complications (6) HIV (human immunodeficiency virus infection) Status: Chronic Qualifiers: HIV symptom status: unspecified Qualified Code(s): B20 - Human immunodeficiency virus [HIV] disease (7) Hypertension Status: Chronic Qualifiers: Hypertension type: essential hypertension Qualified Code(s): I10 - Essential (primary) hypertension (8) Obese Status: Chronic Qualifiers: Obesity type: unspecified obesity type Obesity classification: adult class 3 (BMI >= 40) Serious obesity comorbidity presence: unspecified whether serious comorbidity present Body mass index: BMI 50.0-59.9 Qualified Code(s) : E66.01 - Morbid (severe) obesity due to excess calories; Z68.43 - Body mass index (BMI) 50-59.9, adult - AMA Did Patient Leave Against Medical Advice: No
== END 2018-07-31 19:15 | disposition other institution (70) | DRG 774 ==
LOC: YASAS 08:48 → Y3N 10:34
PROVIDERS: ADMIT Surgery; ATTEND Surgery
PROC: HZ2ZZZZ Detoxification Services for Substance Abuse Treatment (ICD-10-PCS; principal; 2018-07-27)
DX: F10.230 Alcohol dependence with withdrawal, uncomplicated (principal); F14.20 Cocaine dependence, uncomplicated; F17.213 Nicotine dependence, cigarettes, with withdrawal; Z21 Asymptomatic human immunodeficiency virus [HIV] infection status; I11.0 Hypertensive heart disease with heart failure; I50.9 Heart failure, unspecified; E11.628 Type 2 diabetes mellitus with other skin complications; Z79.84 Long term (current) use of oral hypoglycemic drugs; J45.909 Unspecified asthma, uncomplicated; E66.01 Morbid (severe) obesity due to excess calories; Z68.43 Body mass index [BMI] 50.0-59.9, adult; Z98.61 Coronary angioplasty status
CPT/HCPCS: 36415; 80053; 82962; 85027; 86593; J0735

== ENCOUNTER 2018-07-31 19:16 | Inpatient (IN) | payer OTHER ==
[2018-07-31 19:35] VITALS: BMI 54.6
--- NOTE | 2018-07-31 20:47 | HP ---
[facility] Rehab Assess/Revision - Admission History Admitted to Rehab from: [facility] Date of Admission to Rehab: 07/09/18 - Vital signs Vital Signs: Vital Signs Period Temp Pulse Resp BP Sys/Jones Pulse Ox Last 24 Hr 98.5 F 86 18 166/79 - Findings Detox History & Physical reviewed: Yes Concur with findings: Yes Comments/Additional Findings: Patient w/ recent detox from alcohol and hx of cocaine use disorder. Labs reviewed. Tolerated detox. PMHx: HTN, DM, Asthma and HIV (+) Inpatient Rehab Admission - Rehab Decision to Admit Inpatient rehab admission?: Yes - Initial Determination Are CD services needed?: Yes Free of communicable disease: Yes Not in need of hospitalization: Yes - Rehab Admission Criteria Previous failed treatment: Yes Poor recovery environment: Yes Comorbidities: Yes Lacks judgement: No Patient is meeting Inpatient Rehab admission criteria:: Yes
[2018-07-31] MEDS ORDERED: MAG HYDROX/AL HYDROX/SIMETH 30 ML UNIT-DOSE CUP PO PRN (20:48)
[2018-07-31] MEDS ORDERED: LOPERAMIDE HCL 2 MG CAPSULE PO PRN (20:48)
[2018-07-31] MEDS ORDERED: guaiFENesin 200 MG/10 ML 10 ML UNIT-DOSE CUPS PO PRN (20:48)
[2018-07-31] MEDS ORDERED: IBUPROFEN 400 MG TABLET (FP) PO PRN (20:48)
[2018-07-31] MEDS ORDERED: MENTHOL/PHENOL 1 EACH UD MM PRN (20:48)
[2018-07-31] MEDS ORDERED: hydrOXYzine PAMOATE 50 MG CAPSULE (FP) PO PRN (20:48)
[2018-07-31] MEDS ORDERED: ACETAMINOPHEN 325 MG TABLET (FP) PO PRN (20:48)
[2018-07-31] MEDS ORDERED: MAGNESIUM HYDROX 2400MG/30ML ORAL SUSPENSION 30 ML CUP PO PRN (20:48)
[2018-07-31] MEDS ORDERED: MAGNESIUM CITRATE 300 ML BOTTLE PO PRN (20:48)
[2018-07-31] MEDS ORDERED: ALBUTEROL SO4 0.083% IH SOL 2.5 MG/3 ML VIAL.NEB. NEB PRN (20:50)
[2018-07-31] MEDS: metFORMIN HCL 500 MG TABLET (FP) PO SCH (21:48)
[2018-07-31] MEDS: THIAMINE HCL 100 MG TABLET (FP) PO SCH (21:48)
[2018-07-31] MEDS ORDERED: MELATONIN 5 MG TABLETS PO PRN (22:00)
[2018-07-31] MEDS: CARVEDILOL 6.25 MG TABLET (FP) PO SCH (22:11)
[2018-08-01] MEDS: metFORMIN HCL 500 MG TABLET (FP) PO SCH ×2 (06:21→22:08)
[2018-08-01] MEDS ORDERED: INSULIN (NOVOLOG) ASPART 100 UNITS/ML 10ML VIAL ONE ×2 (06:35→22:07)
[2018-08-01] MEDS: INSULIN SLIDING SCALE (NOVOLOG) 1 VIAL SQ SCH ×2 (06:35→16:41)
[2018-08-01] MEDS ORDERED: PATIENT'S OWN MEDICATION (NON-FORMULARY) (Lisinopril [Zestril] 40 MG) PO SCH (10:00)
[2018-08-01] MEDS: LISINOPRIL 20 MG TABLET (FP) PO SCH (10:25)
[2018-08-01] MEDS: HYDROCHLOROTHIAZIDE 25 MG TABLET (FP) PO SCH (10:25)
[2018-08-01] MEDS: CARVEDILOL 6.25 MG TABLET (FP) PO SCH ×2 (10:25→22:09)
[2018-08-01] MEDS: PRENATAL VITAMINS W/ FOLIC ACID TABLET (FP) PO SCH (10:25)
[2018-08-01] MEDS: amLODIPine BESYLATE 10 MG TABLET (FP) PO SCH (10:25)
[2018-08-01] MEDS: THIAMINE HCL 100 MG TABLET (FP) PO SCH (22:08)
[2018-08-02] MEDS: metFORMIN HCL 500 MG TABLET (FP) PO SCH ×2 (06:28→16:26)
[2018-08-02] MEDS ORDERED: INSULIN (NOVOLOG) ASPART 100 UNITS/ML 10ML VIAL ONE (06:29)
[2018-08-02] MEDS: INSULIN SLIDING SCALE (NOVOLOG) 1 VIAL SQ SCH ×2 (06:29→16:27)
[2018-08-02] MEDS: amLODIPine BESYLATE 10 MG TABLET (FP) PO SCH (10:01)
[2018-08-02] MEDS: HYDROCHLOROTHIAZIDE 25 MG TABLET (FP) PO SCH (10:01)
[2018-08-02] MEDS: CARVEDILOL 6.25 MG TABLET (FP) PO SCH ×2 (10:01→21:30)
[2018-08-02] MEDS: LISINOPRIL 20 MG TABLET (FP) PO SCH (10:01)
[2018-08-02] MEDS: PRENATAL VITAMINS W/ FOLIC ACID TABLET (FP) PO SCH (10:01)
--- NOTE | 2018-08-02 15:15 | PN ---
BHS Progress Note (SOAP) Subjective: Lower extremity selling and discomfort. Left greater than right, also some pedal edema, which the patient states has improved. Reports it frequently happens when he is drinking. PMHx of DM2-treated with metformin and insulin, HTN - treated with IRIS inhibitors and HCTZ. Objective: Lower extremities discolored, some edema to mid calf bilaterally, left > right, morbidly obese, 08/02/18 15:12 Assessment: 08/02/18 15:13 Edema, Diabetes, type 2, uncontrolled. HTN. 08/02/18 15:15 Plan: Continue with HCTZ, increased Metformin to 1000 BID, FS before meals and bedtime. Will monitor FS and BP.
[2018-08-02] MEDS ORDERED: INSULIN SLIDING SCALE (NOVOLOG) 1 VIAL SQ SCH (16:30)
[2018-08-02] MEDS: THIAMINE HCL 100 MG TABLET (FP) PO SCH (21:30)
[2018-08-03] MEDS ORDERED: cloNIDine HCL 0.1 MG TABLET PO ONE (06:28)
--- NOTE | 2018-08-03 06:29 | PN ---
BHS Progress Note Note: Patient's blood pressure is B/P 164/114. Patient is asymptomatic Vital Signs Temperature 97.9 F 08/03/18 06:27 Pulse Rate 87 08/03/18 06:27 Respiratory Rate 20 08/03/18 06:27 Blood Pressure 164/114 H 08/03/18 06:27 O2 Sat by Pulse Oximetry (%) Action Clonidine 0.1mg tablet oral ordered
[2018-08-03] MEDS ORDERED: INSULIN (NOVOLOG) ASPART 100 UNITS/ML 10ML VIAL ONE (06:39)
[2018-08-03] MEDS: metFORMIN HCL 500 MG TABLET (FP) PO SCH ×2 (06:40→16:37)
[2018-08-03] MEDS: INSULIN SLIDING SCALE (NOVOLOG) 1 VIAL SQ SCH ×3 (06:40→16:38)
[2018-08-03] MEDS ORDERED: PT OWN MED DRAWER 7, Y5N ONE (09:03)
[2018-08-03] MEDS: CARVEDILOL 6.25 MG TABLET (FP) PO SCH ×2 (10:10→21:38)
[2018-08-03] MEDS: HYDROCHLOROTHIAZIDE 25 MG TABLET (FP) PO SCH (10:10)
[2018-08-03] MEDS: amLODIPine BESYLATE 10 MG TABLET (FP) PO SCH (10:10)
[2018-08-03] MEDS: PRENATAL VITAMINS W/ FOLIC ACID TABLET (FP) PO SCH (10:10)
[2018-08-03] MEDS: LISINOPRIL 20 MG TABLET (FP) PO SCH (10:10)
[2018-08-03] MEDS: THIAMINE HCL 100 MG TABLET (FP) PO SCH (21:38)
[2018-08-03] MEDS ORDERED: INSULIN (NOVOLOG) ASPART 100 UNITS/ML 10ML VIAL SQ ONE (23:34)
[2018-08-04] MEDS: metFORMIN HCL 500 MG TABLET (FP) PO SCH ×2 (06:39→16:41)
[2018-08-04] MEDS: INSULIN SLIDING SCALE (NOVOLOG) 1 VIAL SQ SCH ×4 (06:41→22:01)
[2018-08-04] MEDS ORDERED: PT OWN MED DRAWER 7, Y5N ONE (08:37)
[2018-08-04] MEDS: CARVEDILOL 6.25 MG TABLET (FP) PO SCH ×2 (10:16→21:58)
[2018-08-04] MEDS: HYDROCHLOROTHIAZIDE 25 MG TABLET (FP) PO SCH (10:17)
[2018-08-04] MEDS: amLODIPine BESYLATE 10 MG TABLET (FP) PO SCH (10:17)
[2018-08-04] MEDS: PRENATAL VITAMINS W/ FOLIC ACID TABLET (FP) PO SCH (10:17)
[2018-08-04] MEDS: LISINOPRIL 20 MG TABLET (FP) PO SCH (10:17)
[2018-08-04] MEDS ORDERED: INSULIN (NOVOLOG) ASPART 100 UNITS/ML 10ML VIAL ONE (11:51)
--- NOTE | 2018-08-04 15:24 | PN ---
S Progress Note Note: patient with elevated BGM. Metformin increased to 1000 mg BID. Need to monitor BGM to determine if he is experiencing better control of his glucose. Laboratory 07/31/18 08/01/18 08/01/18 21:50 06:05 16:39 POC Glucometer 285 UNITS UNITS 319 UNITS UNITS 329 UNITS UNITS (80-120) (80-120) (80-120) 08/02/18 08/02/18 08/03/18 05:56 16:25 06:25 POC Glucometer 261 UNITS UNITS 329 UNITS UNITS 269 UNITS UNITS (80-120) (80-120) (80-120) 08/03/18 08/03/18 08/03/18 11:45 16:38 21:40 POC Glucometer 366 UNITS UNITS 235 UNITS UNITS 310 UNITS UNITS (80-120) (80-120) (80-120) 08/04/18 08/04/18 06:38 11:47 POC Glucometer 244 UNITS UNITS 244 UNITS UNITS (80-120) (80-120)
[2018-08-04] MEDS: THIAMINE HCL 100 MG TABLET (FP) PO SCH (21:58)
[2018-08-05] MEDS ORDERED: ALBUTEROL SO4 0.083% IH SOL 2.5 MG/3 ML VIAL.NEB. NEB PRN (06:31)
[2018-08-05] MEDS: metFORMIN HCL 500 MG TABLET (FP) PO SCH ×2 (07:04→16:56)
[2018-08-05] MEDS: INSULIN SLIDING SCALE (NOVOLOG) 1 VIAL SQ SCH ×4 (07:07→21:41)
[2018-08-05] MEDS ORDERED: PT OWN MED DRAWER 7, Y5N ONE ×2 (08:58→19:42)
[2018-08-05] MEDS: LISINOPRIL 20 MG TABLET (FP) PO SCH (10:15)
[2018-08-05] MEDS: HYDROCHLOROTHIAZIDE 25 MG TABLET (FP) PO SCH (10:15)
[2018-08-05] MEDS: PRENATAL VITAMINS W/ FOLIC ACID TABLET (FP) PO SCH (10:16)
[2018-08-05] MEDS: amLODIPine BESYLATE 10 MG TABLET (FP) PO SCH (10:16)
[2018-08-05] MEDS: CARVEDILOL 6.25 MG TABLET (FP) PO SCH ×2 (10:16→21:42)
[2018-08-05] MEDS ORDERED: INSULIN (NOVOLOG) ASPART 100 UNITS/ML 10ML VIAL ONE ×2 (11:51→22:33)
[2018-08-05] MEDS: THIAMINE HCL 100 MG TABLET (FP) PO SCH (21:42)
[2018-08-05] MEDS: TOLNAFTATE 1% CREAM 15 GM TUBE TP SCH (21:42)
[2018-08-06] MEDS: metFORMIN HCL 500 MG TABLET (FP) PO SCH ×2 (06:40→16:46)
[2018-08-06] MEDS ORDERED: INSULIN (NOVOLOG) ASPART 100 UNITS/ML 10ML VIAL ONE ×3 (06:40→22:19)
[2018-08-06] MEDS: INSULIN SLIDING SCALE (NOVOLOG) 1 VIAL SQ SCH ×4 (06:41→21:29)
[2018-08-06] MEDS ORDERED: PT OWN MED DRAWER 7, Y5N ONE (08:50)
[2018-08-06] MEDS: LISINOPRIL 20 MG TABLET (FP) PO SCH (10:06)
[2018-08-06] MEDS: CARVEDILOL 6.25 MG TABLET (FP) PO SCH ×2 (10:06→21:29)
[2018-08-06] MEDS: HYDROCHLOROTHIAZIDE 25 MG TABLET (FP) PO SCH (10:06)
[2018-08-06] MEDS: PRENATAL VITAMINS W/ FOLIC ACID TABLET (FP) PO SCH (10:06)
[2018-08-06] MEDS: amLODIPine BESYLATE 10 MG TABLET (FP) PO SCH (10:06)
[2018-08-06] MEDS: TOLNAFTATE 1% CREAM 15 GM TUBE TP SCH ×2 (10:07→21:29)
[2018-08-06] MEDS: THIAMINE HCL 100 MG TABLET (FP) PO SCH (21:29)
[2018-08-07] MEDS ORDERED: INSULIN (NOVOLOG) ASPART 100 UNITS/ML 10ML VIAL ONE ×3 (06:25→22:15)
[2018-08-07] MEDS: metFORMIN HCL 500 MG TABLET (FP) PO SCH ×2 (06:51→16:50)
[2018-08-07] MEDS: INSULIN SLIDING SCALE (NOVOLOG) 1 VIAL SQ SCH ×4 (06:51→21:33)
[2018-08-07] MEDS ORDERED: PT OWN MED DRAWER 7, Y5N ONE (09:09)
[2018-08-07] MEDS: PRENATAL VITAMINS W/ FOLIC ACID TABLET (FP) PO SCH (10:18)
[2018-08-07] MEDS: LISINOPRIL 20 MG TABLET (FP) PO SCH (10:18)
[2018-08-07] MEDS: HYDROCHLOROTHIAZIDE 25 MG TABLET (FP) PO SCH (10:18)
[2018-08-07] MEDS: amLODIPine BESYLATE 10 MG TABLET (FP) PO SCH (10:18)
[2018-08-07] MEDS: CARVEDILOL 6.25 MG TABLET (FP) PO SCH ×2 (10:19→21:32)
[2018-08-07] MEDS: TOLNAFTATE 1% CREAM 15 GM TUBE TP SCH ×2 (10:19→21:31)
[2018-08-07] MEDS: THIAMINE HCL 100 MG TABLET (FP) PO SCH (21:32)
[2018-08-08] MEDS: metFORMIN HCL 500 MG TABLET (FP) PO SCH ×2 (07:07→16:25)
[2018-08-08] MEDS ORDERED: INSULIN (NOVOLOG) ASPART 100 UNITS/ML 10ML VIAL ONE ×2 (07:08→11:54)
[2018-08-08] MEDS: INSULIN SLIDING SCALE (NOVOLOG) 1 VIAL SQ SCH ×4 (07:09→21:43)
[2018-08-08] MEDS: amLODIPine BESYLATE 10 MG TABLET (FP) PO SCH (10:06)
[2018-08-08] MEDS: PRENATAL VITAMINS W/ FOLIC ACID TABLET (FP) PO SCH (10:06)
[2018-08-08] MEDS: LISINOPRIL 20 MG TABLET (FP) PO SCH (10:06)
[2018-08-08] MEDS: HYDROCHLOROTHIAZIDE 25 MG TABLET (FP) PO SCH (10:06)
[2018-08-08] MEDS: CARVEDILOL 6.25 MG TABLET (FP) PO SCH ×2 (10:07→21:40)
[2018-08-08] MEDS ORDERED: PT OWN MED DRAWER 7, Y5N ONE (10:07)
[2018-08-08] MEDS: TOLNAFTATE 1% CREAM 15 GM TUBE TP SCH ×2 (10:08→21:39)
[2018-08-08] MEDS: THIAMINE HCL 100 MG TABLET (FP) PO SCH (21:39)
[2018-08-09] MEDS: metFORMIN HCL 500 MG TABLET (FP) PO SCH (06:21)
[2018-08-09] MEDS ORDERED: INSULIN (NOVOLOG) ASPART 100 UNITS/ML 10ML VIAL ONE (06:21)
[2018-08-09] MEDS: INSULIN SLIDING SCALE (NOVOLOG) 1 VIAL SQ SCH ×2 (06:22→11:43)
[2018-08-09 06:41] VITALS: TEMP 98.4
[2018-08-09 09:46] VITALS: BP 154/84; PULSE 90
[2018-08-09] MEDS: HYDROCHLOROTHIAZIDE 25 MG TABLET (FP) PO SCH (10:05)
[2018-08-09] MEDS: CARVEDILOL 6.25 MG TABLET (FP) PO SCH (10:05)
[2018-08-09] MEDS: LISINOPRIL 20 MG TABLET (FP) PO SCH (10:05)
[2018-08-09] MEDS: amLODIPine BESYLATE 10 MG TABLET (FP) PO SCH (10:05)
[2018-08-09] MEDS: PRENATAL VITAMINS W/ FOLIC ACID TABLET (FP) PO SCH (10:05)
[2018-08-09] MEDS: TOLNAFTATE 1% CREAM 15 GM TUBE TP SCH (10:06)
--- NOTE | 2018-08-09 11:30 | PN ---
[facility] Progress Note (SOAP) Subjective: Patient wants to leave AMA for personal and legal reasons that he chooses not to discuss at this time. States when he takes care of his issues, he will return. States he discussed leaving AMA with counselor and nurse. Refusing fingerstick today. Objective: 08/09/18 11:29 Laboratory Results - last 24 hr 08/08/18 08/08/18 08/08/18 11:52 16:27 21:42 POC Glucometer 203 209 280 08/09/18 06:01 POC Glucometer 234 08/09/18 11:29 Vital Signs - 24 hr 08/08/18 08/09/18 08/09/18 20:47 03:30 06:40 Temperature 98.4 F Pulse Rate 92 H 83 Respiratory 20 20 20 Rate Blood Pressure 158/95 157/98 08/09/18 09:30 Temperature Pulse Rate 90 Respiratory 18 Rate Blood Pressure 154/84 Client is A + O x 3; medically stable. DM uncontrolled, client is non-adherent to diet. 08/09/18 11:35 Assessment: medically stable, leaving AM Diagnoses: ETOH Dependance HIV Diabetes, type 2, uncontrolled Sleep Apnea 08/09/18 11:33 Plan: States hew will get after care at [facility], Will arrange for primary care at [facility], Does not need prescriptions, states he has medications at home.
== END 2018-08-09 12:10 | disposition left against medical advice (07) | DRG 770 ==
LOC: YASAS 19:16 → Y3W 19:17
PROVIDERS: ADMIT Neuromusculoskeletal Medicine & OMM; ATTEND Neuromusculoskeletal Medicine & OMM
PROC: HZ42ZZZ Group Counseling for Substance Abuse Treatment, Cognitive-Behavioral (ICD-10-PCS; principal; 2018-07-31)
DX: F10.20 Alcohol dependence, uncomplicated (principal); F14.10 Cocaine abuse, uncomplicated; Z21 Asymptomatic human immunodeficiency virus [HIV] infection status; J45.909 Unspecified asthma, uncomplicated; E11.65 Type 2 diabetes mellitus with hyperglycemia; Z79.84 Long term (current) use of oral hypoglycemic drugs; I10 Essential (primary) hypertension; R60.0 Localized edema; E66.01 Morbid (severe) obesity due to excess calories; Z68.43 Body mass index [BMI] 50.0-59.9, adult
CPT/HCPCS: 82962; J0735

== ENCOUNTER 2018-08-29 09:15 | Inpatient (IN) | payer OTHER ==
[2018-08-29 10:09] VITALS: BMI 53.1
--- NOTE | 2018-08-29 10:53 | HP ---
CIWA Score Nausea/Vomitin Muscle Tremors: 2 Anxiety: 2 Agitation: 2 Paroxysmal Sweats: 1-Minimal Palms Moist Orientation: 0-Oriented Tacttile Disturbances: 1-Very Mild Itch/Numbness Auditory Disturbances: 1-Very Mild Visual Disturbances: 0-None Headache: 2-Mild CIWA-Ar Total Score: 13 - Admission Criteria OASAS Guidelines: Admission for Medically Managed Detox: Requires at least one of the followin. CIWA greater than 12 2. Seizures within the past 24 hours 3. Delirium tremens within the past 24 hours 4. Hallucinations within the past 24 hours 5. Acute intervention needed for co occurring medical disorder 6. Acute intervention needed for co occurring psychiatric disorder 7. Severe withdrawal that cannot be handled at a lower level of care (continued vomiting, continued diarrhea, abnormal vital signs) requiring intravenous medication and/or fluids 8. Admission ROS S - HPI Chief Complaint: i need help to stop drinking alcohol and cocaine Allergies/Adverse Reactions: Allergies Allergy/AdvReac Type Severity Reaction Status Date / Time No Known Allergies Allergy Verified 08/29/18 12:14 History of Present Illness: this 43 years old male with alcohol and cocaine dependence,seeking detox, withdrawal symptom multiple admissions in detox and rehab but keep relapsing last detox [facility]07/26/18 to 07/31/18 ,rehab 07/09/18 to 08/09/18 history of hypertension,type 2 dm and insulin dependence,asthma, hiv since 2008 no med longest period of sobriety 3 months plan for rehab after detox Exam Limitations: No Limitations - Ebola screening Have you traveled outside of the country in the last 21 days: No Have you had contact with anyone from an Ebola affected area: No Do you have a fever: No - Review of Systems Constitutional: Loss of Appetite, Malaise, Night Sweats, Changes in sleep EENT: reports: No Symptoms Reported Respiratory: reports: No Symptoms reported, Other (asthma) Cardiac: reports: No Symptoms Reported GI: reports: Nausea, Poor Appetite, Abdominal cramping : reports: No Symptoms Reported Musculoskeletal: reports: Back Pain, Muscle Pain Integumentary: reports: Dryness Neuro: reports: No Symptoms reported, Headache, Tremors Endocrine: reports: No Symptoms Reported Hematology: reports: No Symptoms Reported Psychiatric: reports: No Sypmtoms Reported, Judgement Intact, Mood/Affect Appropiate, Orientated x3 Other Systems: Reviewed and Negative Patient History - Patient Medical History Hx Anemia: No Hx Asthma: Yes (on albuterol inhaler) Hx Chronic Obstructive Pulmonary Disease (COPD): No Hx Cancer: No Hx Cardiac Disorders: Yes (CHF FOR 5 YRS) Hx Congestive Heart Failure: Yes Hx Hypertension: Yes Hx Hypercholesterolemia: No Hx Pacemaker: No HX Cerebrovascular Accident: No Hx Seizures: No Hx Dementia: No Hx Diabetes: Yes (iddm) Hx Gastrointestinal Disorders: No Hx Liver Disease: No Hx Genitourinary Disorders: No Hx Sexually Transmitted Disorders: No Hx Renal Disease (ESRD): No Hx Thyroid Disease: No Hx Human Immunodeficiency Virus (HIV): Yes (since 2008 no med) Hx Hepatitis C: No Hx Depression: No Hx Suicide Attempt: No Hx Bipolar Disorder: No Hx Schizophrenia: No Other Medical History: no suicidal,no homicidal - Patient Surgical History Past Surgical History: No Hx Neurologic Surgery: No Hx Cataract Extraction: No Hx Cardiac Surgery: Yes (CARDIAC CATHETERIZATION IN 09/2011.. NO BLOCKAGE) Hx Lung Surgery: No Hx Breast Surgery: No Hx Breast Biopsy: No Hx Abdominal Surgery: No Hx Appendectomy: No Hx Cholecystectomy: No Hx Genitourinary Surgery: No Hx Section: No Hx Orthopedic Surgery: No Hx Hysterectomy: No Other Surgical History: abcess rt thigh () Anesthesia Reaction: No - PPD History Previous Implant?: Yes Documented Results: Negative w/proof Implanted On Prior [facility] Admission?: No Date: 07/06/18 Results: 0MM PPD to be Administered?: No - Smoking Cessation Smoking history: Never smoked Have you smoked in the past 12 months: No Hx Chewing Tobacco Use: No - Substance & Tx. History Hx Alcohol Use: Yes Hx Substance Use: Yes Substance Use Type: Alcohol, Cocaine Hx Substance Use Treatment: Yes ([facility] 07/26/18 to 07/31/18,rehab 07/31/18 to 06/28) - Substances abused Alcohol Substance route: Oral Frequency: Daily Amount used: 6 cans beers ( 24 oz) 1pt. vodka Age of first use: 20 Date of last use: 08/29/18 Cocaine Substance route: Inhalation Frequency: 1-2 times per week Amount used: 5bags Age of first use: 24 Date of last use: 08/29/18 Crack Substance route: Smoking Frequency: 1-2 times per week Amount used: 5 bags Age of first use: 24 Date of last use: 08/29/18 Family Disease History - Family Disease History Family Disease History: Other: Father (ALOCOHOL,), Mother (ALCOHOL, ) Admission Physical Exam [facility] - Vital Signs Vital Signs: Vital Signs - 24 hr 08/29/18 10:03 Temperature 98 F Pulse Rate 90 Respiratory 18 Rate Blood Pressure 166/100 - Physical General Appearance: Yes: Moderate Distress, Tremorous, Irritable, Sweating, Anxious HEENTM: Yes: Normal ENT Inspection (swelling right infraorbital area,facial drooping), MAISHA, Pharynx Normal Respiratory: Yes: Respiratory Distress Neck: Yes: Supple, Trachea in good position Cardiology: Yes: Within Normal Limits, Regular Rhythm, S1, S2 Abdominal: Yes: Within Normal Limits, Flat Genitourinary: Yes: Within Normal Limits Back: Yes: Muscle Spasm Extremities: Yes: Tremors, Pedal Edema 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: Yes: nail cutter II-XII NML intact, Fully Oriented, Alert, Motor Strength 5/5 (right facial drop) Integumentary: Yes: Dry Lymphatic: Yes: Within Normal Limits - Diagnostic (1) Alcohol dependence with uncomplicated withdrawal Current Visit: No Status: Acute (2) Cocaine dependence Current Visit: No Status: Acute (3) DM2 (diabetes mellitus, type 2) Current Visit: No Status: Chronic Qualifiers: Diabetes mellitus terminal worker insulin use: without terminal worker use Diabetes mellitus complication status: with skin complications Diabetes mellitus complication detail: with other skin complication Qualified Code(s): E11.628 - Type 2 diabetes mellitus with other skin complications (4) HIV (human immunodeficiency virus infection) Current Visit: No Status: Chronic Qualifiers: HIV symptom status: unspecified Qualified Code(s): B20 - Human immunodeficiency virus [HIV] disease (5) History of CHF (congestive heart failure) Current Visit: No Status: Chronic (6) Hypertension Current Visit: No Status: Chronic Qualifiers: Hypertension type: essential hypertension Qualified Code(s): I10 - Essential (primary) hypertension (7) Fracture of right orbital floor Current Visit: Yes Status: Acute Screened but not Admitted - Documentation of Visit Additional Information/Explanation: patient sent to er at [facility] for evaluation of right facial injury r/o fx floor of orbit right,transported by [facility] Breathalyzer - Breathalyzer Breathalyzer: 0.022 Urine Drug Screen - Test Device Lot number: [id number] Expiration date: 04/08/20 - Results Urine drug screen results: TOMÁS-Cocaine, BZO-Benzodiazepines Inpatient Rehab Admission - Rehab Decision to Admit Inpatient rehab admission?: No
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
[2018-08-29] MEDS ORDERED: ALBUTEROL SO4 8 GM HFA INHALER IH PRN (17:12)
[2018-08-29] MEDS ORDERED: ACETAMINOPHEN 325 MG TABLET (FP) PO PRN ×2 (17:14)
[2018-08-29] MEDS ORDERED: MAGNESIUM CITRATE 300 ML BOTTLE PO PRN (17:14)
[2018-08-29] MEDS ORDERED: MAGNESIUM HYDROX 2400MG/30ML ORAL SUSPENSION 30 ML CUP PO PRN (17:14)
[2018-08-29] MEDS ORDERED: MELATONIN 5 MG TABLETS PO PRN (17:14)
[2018-08-29] MEDS ORDERED: MENTHOL/PHENOL 1 EACH UD MM PRN (17:14)
[2018-08-29] MEDS ORDERED: MAG HYDROX/AL HYDROX/SIMETH 30 ML UNIT-DOSE CUP PO PRN (17:14)
[2018-08-29] MEDS ORDERED: BISMUTH SUBSALICYLATE 524 MG/30 ML UD PO PRN (17:14)
[2018-08-29] MEDS ORDERED: METHOCARBAMOL 500 MG TABLET PO PRN (17:14)
[2018-08-29] MEDS ORDERED: ALBUTEROL SO4 0.083% IH SOL 2.5 MG/3 ML VIAL.NEB. NEB PRN (17:18)
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
[2018-08-29] MEDS: chlordiazePOXIDE HCL 25 MG CAPSULE PO PRN (18:31)
--- NOTE | 2018-08-29 18:33 | PN ---
[facility] Progress Note Note: Vital Signs Temperature 98.3 F 08/29/18 18:21 Pulse Rate 94 H 08/29/18 18:24 Respiratory Rate 18 08/29/18 18:24 Blood Pressure 224/119 H 08/29/18 18:24 O2 Sat by Pulse Oximetry (%) next BP 183/109 asymptomatic needs his routine BP meds, not taken since 08/22/18 routine coreg, lisinopril and HCTZ ordered increase po fluids repeat v/s in an hour continue to monitor
[2018-08-29] MEDS ORDERED: CARVEDILOL 6.25 MG TABLET (FP) PO ONE (18:45)
[2018-08-29] MEDS ORDERED: HYDROCHLOROTHIAZIDE 25 MG TABLET (FP) PO ONE (19:00)
[2018-08-29] MEDS ORDERED: LISINOPRIL 20 MG TABLET (FP) PO ONE (19:52)
[2018-08-29] MEDS ORDERED: CARVEDILOL 6.25 MG TABLET (FP) PO SCH (22:00)
[2018-08-29] MEDS: THIAMINE HCL 100 MG TABLET (FP) PO SCH (22:38)
[2018-08-29] MEDS: chlordiazePOXIDE HCL 25 MG CAPSULE PO SCH (22:38)
[2018-08-29] MEDS: IBUPROFEN 400 MG TABLET (FP) PO PRN (22:40)
[2018-08-30] MEDS: metFORMIN HCL 500 MG TABLET (FP) PO SCH ×2 (06:02→16:30)
[2018-08-30] MEDS: chlordiazePOXIDE HCL 25 MG CAPSULE PO SCH ×4 (06:02→22:55)
[2018-08-30] MEDS ORDERED: cloNIDine HCL 0.1 MG TABLET PO ONE ×2 (07:26→17:27)
[2018-08-30] MEDS: PRENATAL VITAMINS W/ FOLIC ACID TABLET (FP) PO SCH (09:04)
[2018-08-30] MEDS: HYDROCHLOROTHIAZIDE 25 MG TABLET (FP) PO SCH (09:04)
[2018-08-30] MEDS: amLODIPine BESYLATE 10 MG TABLET (FP) PO SCH (09:04)
[2018-08-30] MEDS: LISINOPRIL 20 MG TABLET (FP) PO SCH (09:04)
[2018-08-30] MEDS ORDERED: CARVEDILOL 6.25 MG TABLET (FP) PO SCH (10:00)
[2018-08-30 10:10] LABS: ALBUMIN 3.7 g/dl (3.4-5.0); ALK PHOS 97 U/L (45-117); ANION GAP 9 MMOL/L (8-16); BLOOD UREA NITROGEN 14 mg/dL (7-18); CALCIUM 8.8 mg/dL (8.5-10.1); CHLORIDE 96 mmol/L (98-107); CO2 32 mmol/L (21-32); CREATININE 1.1 mg/dL (0.55-1.3); POTASSIUM 3.7 mmol/L (3.5-5.1); SGOT/AST 21 U/L (15-37); SGPT/ALT 55 U/L (13-61); SODIUM 138 mmol/L (136-145); TOT PROT 7.8 g/dl (6.4-8.2)
[2018-08-30 10:11] LABS: HEMATOCRIT 41.8 % (35.4-49); HEMOGLOBIN 13.6 GM/dL (11.7-16.9); MCH 29.9 pg (25.7-33.7); MCHC 32.5 g/dl (32.0-35.9); MEAN PLT VOLUME 7.6 fl (7.5-11.1); PLATELET COUNT 263 K/MM3 (134-434); RBC 4.54 M/mm3 (4.00-5.60); RDW 13.9 % (11.9-15.9); WHITE BLOOD COUNT 6.7 K/mm3 (4.0-10.0)
[2018-08-30 10:12] LABS: GLUCOSE,RANDOM 349 mg/dL (74-106)
--- NOTE | 2018-08-30 16:56 | PN ---
S CIWA - CIWA Score Nausea/Vomitin-No Nausea/No Vomiting Muscle Tremors: 3 Anxiety: 2 Agitation: 0-Normal Activity Paroxysmal Sweats: 3 Orientation: 0-Oriented Tacttile Disturbances: 2-Mild Itch/Numbness/Burn Auditory Disturbances: 0-None Visual Disturbances: 2-Mild Sensitivity Headache: 0-None Present CIWA-Ar Total Score: 12 [facility] Progress Note (SOAP) Subjective: Sweating, Body Aches, Anxious, Tremors. Objective: PATIENT A & O X 3, OBSERVED AMBULATING ON UNIT UNASSISTED. IN NO ACUTE DISTRESS. CAST NOTED TO BE IN PLACE AND INTACT ON LEFT FOREARM. 08/30/18 16:56 Vital Signs Temperature 95.8 F L 08/30/18 13:21 Pulse Rate 92 H 08/30/18 13:21 Respiratory Rate 18 08/30/18 13:21 Blood Pressure 162/92 08/30/18 13:21 O2 Sat by Pulse Oximetry (%) Laboratory Tests 08/30/18 08/30/18 08/30/18 06:01 07:00 07:00 WBC 6.7 RBC 4.54 Hgb 13.6 Hct 41.8 MCV 92.0 MCH 29.9 MCHC 32.5 RDW 13.9 Plt Count 263 MPV 7.6 Sodium 138 Potassium 3.7 Chloride 96 L Carbon Dioxide 32 Anion Gap 9 BUN 14 Creatinine 1.1 Creat Clearance w eGFR 73.41 POC Glucometer 261 Random Glucose 349 H* Calcium 8.8 Total Bilirubin 1.0 AST 21 ALT 55 Alkaline Phosphatase 97 Total Protein 7.8 Albumin 3.7 RPR Titer 08/30/18 08/30/18 07:00 16:30 WBC RBC Hgb Hct MCV MCH MCHC RDW Plt Count MPV Sodium Potassium Chloride Carbon Dioxide Anion Gap BUN Creatinine Creat Clearance w eGFR POC Glucometer 328 Random Glucose Calcium Total Bilirubin AST ALT Alkaline Phosphatase Total Protein Albumin RPR Titer Nonreactive LABS NOTED. 08/30/18 16:57 Assessment: 08/30/18 16:56 WITHDRAWAL SYMPTOMS. HYPERGLYCEMIA. HYPERTENSION. Plan: CONTINUE DETOX. INCREASE METFORMIN DAILY DOSE TO 850 MG PO BID FOR ELEVATED BGM READINGS. INCREASE COREG DAILY DOSE TO 12.5 MG PO BID FOR PERSISTENTLY ELEVATED BP.
[2018-08-30] MEDS: chlordiazePOXIDE HCL 25 MG CAPSULE PO PRN (21:11)
[2018-08-30] MEDS: CARVEDILOL 12.5 MG TABLET (FP) PO SCH (21:11)
[2018-08-30] MEDS: THIAMINE HCL 100 MG TABLET (FP) PO SCH (21:12)
[2018-08-31] MEDS: chlordiazePOXIDE HCL 25 MG CAPSULE PO SCH ×2 (04:55→10:07)
[2018-08-31] MEDS: IBUPROFEN 400 MG TABLET (FP) PO PRN ×2 (04:55→13:26)
[2018-08-31] MEDS ORDERED: cloNIDine HCL 0.1 MG TABLET PO ONE (06:51)
--- NOTE | 2018-08-31 06:53 | PN ---
[facility] Progress Note Note: Patient's blood pressure was B/P 168/99. Patient is asymptomatic Vital Signs Temperature 97.0 F L 08/31/18 06:44 Pulse Rate 84 08/31/18 06:44 Respiratory Rate 20 08/31/18 06:44 Blood Pressure 168/99 08/31/18 06:44 O2 Sat by Pulse Oximetry (%) Action:' Clonidine 0.1mg tablet oral daily
[2018-08-31] MEDS: amLODIPine BESYLATE 10 MG TABLET (FP) PO SCH (10:06)
[2018-08-31] MEDS: LISINOPRIL 20 MG TABLET (FP) PO SCH (10:06)
[2018-08-31] MEDS: PRENATAL VITAMINS W/ FOLIC ACID TABLET (FP) PO SCH (10:06)
[2018-08-31] MEDS: HYDROCHLOROTHIAZIDE 25 MG TABLET (FP) PO SCH (10:06)
[2018-08-31] MEDS: CARVEDILOL 12.5 MG TABLET (FP) PO SCH (10:07)
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
[2018-08-31 15:40] VITALS: BP 152/77; PULSE 89; TEMP 96.5
--- NOTE | 2018-08-31 15:42 | DS ---
[facility] Detox Discharge Summary Admission Date: 08/29/18 Discharge Date: 08/31/18 - History Present History: Alcohol Dependence Additional Comments: 43 years old male admitted on 08/29/18 for alcohol withdrawal stabilization feeling better today case discussed with counselor that [facility] bed available today patient preferring to go to the rehab today case discussed with rehab nurse practitioner that in one condition accept patient is that casting in place prior to rehab admission case discussed with ER provider Dr. Rubalcava an orthopedic physician on board could help out the casting ambulance called and rehab bed hold for patient return from ER - Physical Exam Results Vital Signs: Vital Signs Temperature 98.8 F 08/31/18 09:41 Pulse Rate 97 H 08/31/18 09:41 Respiratory Rate 18 08/31/18 09:41 Blood Pressure 160/91 08/31/18 09:41 O2 Sat by Pulse Oximetry (%) Pertinent Admission Physical Exam Findings: alcohol withdrawal sx Laboratory Last Values WBC 6.7 K/mm3 (4.0-10.0) 08/30/18 07:00 RBC 4.54 M/mm3 (4.00-5.60) 08/30/18 07:00 Hgb 13.6 GM/dL (11.7-16.9) 08/30/18 07:00 Hct 41.8 % (35.4-49) 08/30/18 07:00 MCV 92.0 fl (80-96) 08/30/18 07:00 MCH 29.9 pg (25.7-33.7) 08/30/18 07:00 MCHC 32.5 g/dl (32.0-35.9) 08/30/18 07:00 RDW 13.9 % (11.9-15.9) 08/30/18 07:00 Plt Count 263 K/MM3 (134-434) 08/30/18 07:00 MPV 7.6 fl (7.5-11.1) 08/30/18 07:00 Sodium 138 mmol/L (136-145) 08/30/18 07:00 Potassium 3.7 mmol/L (3.5-5.1) 08/30/18 07:00 Chloride 96 mmol/L (98-107) L 08/30/18 07:00 Carbon Dioxide 32 mmol/L (21-32) 08/30/18 07:00 Anion Gap 9 MMOL/L (8-16) 08/30/18 07:00 BUN 14 mg/dL (7-18) 08/30/18 07:00 Creatinine 1.1 mg/dL (0.55-1.3) 08/30/18 07:00 Creat Clearance w eGFR 73.41 (>60) 08/30/18 07:00 POC Glucometer 304 UNITS (80-120) 08/31/18 06:21 Random Glucose 349 mg/dL (74-106) H* 08/30/18 07:00 Calcium 8.8 mg/dL (8.5-10.1) 08/30/18 07:00 Total Bilirubin 1.0 mg/dL (0.2-1) 08/30/18 07:00 AST 21 U/L (15-37) 08/30/18 07:00 ALT 55 U/L (13-61) 08/30/18 07:00 Alkaline Phosphatase 97 U/L (45-117) 08/30/18 07:00 Total Protein 7.8 g/dl (6.4-8.2) 08/30/18 07:00 Albumin 3.7 g/dl (3.4-5.0) 08/30/18 07:00 RPR Titer Nonreactive (NONREACTIVE) 08/30/18 07:00 lab noted - Treatment Hospital Course: Detox Protocol Followed, Detoxed Safely, Responded well, Discharged Condition Good, Rehab Referral Accepted Patient has Accepted a Re[facility]erral to[facility] - Medication Discharge Medications: Ambulatory Orders Emtricitab/Rilpiviri/Tenof Ala [Odefsey Tablet] 1 each PO DAILY 12/18/16 metFORMIN HCL [Metformin HCl] 500 mg PO BID 07/04/18 Albuterol Sulfate [Proventil HFA Inhaler -] 2 inh PO Q4H PRN #1 hfa.aer.ad 07/07 Amlodipine Besylate [Norvasc -] 10 mg PO DAILY #30 tablet 07/07/18 Carvedilol [Coreg -] 6.25 mg PO BID #60 tablet 07/07/18 Hydrochlorothiazide [Hctz -] 50 mg PO DAILY #30 tablet 07/07/18 Lisinopril [Zestril] 40 mg PO DAILY #30 tablet 07/07/18 - Diagnosis (1) Metacarpophalangeal joint pain of left hand Current Visit: Yes Status: Acute (2) DM2 (diabetes mellitus, type 2) Current Visit: Yes Status: Chronic Qualifiers: Diabetes mellitus terminal gauger insulin use: without terminal gauger use Diabetes mellitus complication status: with skin complications Diabetes mellitus complication detail: with other skin complication Qualified Code(s): E11.628 - Type 2 diabetes mellitus with other skin complications (3) Hypertension Current Visit: Yes Status: Chronic Qualifiers: Hypertension type: essential hypertension Qualified Code(s): I10 - Essential (primary) hypertension (4) Alcohol dependence with uncomplicated withdrawal Current Visit: Yes Status: Acute (5) Nicotine dependence Current Visit: Yes Status: Acute Qualifiers: Nicotine product type: cigarettes Substance use status: in withdrawal Qualified Code(s): F17.213 - Nicotine dependence, cigarettes, with withdrawal (6) Substance induced mood disorder Current Visit: Yes Status: Suspected (7) HIV (human immunodeficiency virus infection) Current Visit: Yes Status: Chronic Qualifiers: HIV symptom status: unspecified Qualified Code(s): B20 - Human immunodeficiency virus [HIV] disease (8) Obese Current Visit: Yes Status: Chronic Qualifiers: Obesity type: unspecified obesity type Obesity classification: adult class 3 (BMI >= 40) Serious obesity comorbidity presence: unspecified whether serious comorbidity present Body mass index: BMI 50.0-59.9 Qualified Code(s) : E66.01 - Morbid (severe) obesity due to excess calories; Z68.43 - Body mass index (BMI) 50-59.9, adult - AMA Did Patient Leave Against Medical Advice: No
[2018-08-31] MEDS ORDERED: chlordiazePOXIDE HCL 10 MG CAPSULE PO SCH (23:00)
[2018-08-31] MEDS ORDERED: chlordiazePOXIDE HCL 10 MG CAPSULE PO PRN (23:00)
[2018-09-01] MEDS ORDERED: chlordiazePOXIDE HCL 10 MG CAPSULE PO SCH (23:00)
== END 2018-08-31 16:10 | disposition home or self-care (01) | DRG 774 ==
LOC: YASAS 09:15 → Y3N 17:55
PROVIDERS: ADMIT Surgery; ATTEND Surgery
PROC: HZ2ZZZZ Detoxification Services for Substance Abuse Treatment (ICD-10-PCS; principal; 2018-08-29)
DX: F10.230 Alcohol dependence with withdrawal, uncomplicated (principal); F14.20 Cocaine dependence, uncomplicated; F19.24 Other psychoactive substance dependence with psychoactive substance-induced mood disorder; I11.0 Hypertensive heart disease with heart failure; I50.9 Heart failure, unspecified; E11.628 Type 2 diabetes mellitus with other skin complications; Z21 Asymptomatic human immunodeficiency virus [HIV] infection status; E11.65 Type 2 diabetes mellitus with hyperglycemia; J45.909 Unspecified asthma, uncomplicated; E66.9 Obesity, unspecified; Z68.43 Body mass index [BMI] 50.0-59.9, adult; S62.002D Unspecified fracture of navicular [scaphoid] bone of left wrist, subsequent encounter for fracture with routine healing; Y04.0XXD Assault by unarmed brawl or fight, subsequent encounter; Z79.84 Long term (current) use of oral hypoglycemic drugs; Z98.61 Coronary angioplasty status
CPT/HCPCS: 36415; 80053; 82962; 85027; 86593; J0735

== ENCOUNTER 2018-08-29 11:48 | Emergency (ER) | payer OTHER ==
[2018-08-29 12:16] VITALS: BP 121/55; PULSE 101; TEMP 97.8; BMI 53.1
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
[2018-08-29] MEDS ORDERED: IBUPROFEN 600 MG TABLET (FP) PO ONE ×2 (12:36→12:37)
== END 2018-08-29 16:35 | disposition home or self-care (01) ==
LOC: JERFT 11:48
DX: S62.341A Nondisplaced fracture of base of second metacarpal bone, left hand, initial encounter for closed fracture (principal); S00.83XA Contusion of other part of head, initial encounter; Y00.XXXA Assault by blunt object, initial encounter; Y93.89 Activity, other specified; Y92.513 Shop (commercial) as the place of occurrence of the external cause; Y99.8 Other external cause status; I11.0 Hypertensive heart disease with heart failure; I50.9 Heart failure, unspecified; Z98.61 Coronary angioplasty status; E11.9 Type 2 diabetes mellitus without complications; Z79.84 Long term (current) use of oral hypoglycemic drugs; Z87.09 Personal history of other diseases of the respiratory system; F10.120 Alcohol abuse with intoxication, uncomplicated; Y90.9 Presence of alcohol in blood, level not specified
CPT/HCPCS: 70450-TC; 70486-TC; 73110-TC-LT-FY; 73130-TC-LT-FY; 73200-TC-RT; 99282-25

== ENCOUNTER 2018-08-31 16:36 | Emergency (ER) | payer OTHER ==
[2018-08-31 16:46] VITALS: BP 159/79; PULSE 89; TEMP 98.6; BMI 53.1
--- NOTE | 2018-08-31 16:46 | PDOC ---
Rapid Medical Evaluation Time Seen by Provider: 08/31/18 16:43 Medical Evaluation: Allergies Allergy/AdvReac Type Severity Reaction Status Date / Time No Known Allergies Allergy Verified 08/29/18 12:14 08/31/18 16:43 I have performed a brief in-person evaluation of this patient. The patient presents with a chief complaint of: sent from [facility] for casting Pertinent physical exam findings: known 2nd metacarpal fx of left hand. Right hand dominant. NVI. +2 radial pulse I have ordered the following: nothing The patient will proceed to the ED for further evaluation. 08/31/18 16:46 Discharge Disposition - Diagnosis Fracture of second metacarpal bone - Referrals - Patient Instructions - Post Discharge Activity
--- NOTE | 2018-08-31 17:21 | PDOC ---
History of Present Illness - General Chief Complaint: Injury Stated Complaint: injury Time Seen by Provider: 08/31/18 16:43 - History of Present Illness Initial Comments: 08/31/18 17:18 43-year-old male presents from rehabilitation facility for casting of the left hand fracture. He has not followed up with orthopedics. Past History - Past Medical History Allergies/Adverse Reactions: Allergies Allergy/AdvReac Type Severity Reaction Status Date / Time No Known Allergies Allergy Verified 08/31/18 16:47 Home Medications: Ambulatory Orders Emtricitab/Rilpiviri/Tenof Ala [Odefsey Tablet] 1 each PO DAILY 12/18/16 metFORMIN HCL [Metformin HCl] 500 mg PO BID 07/04/18 Albuterol Sulfate [Proventil HFA Inhaler -] 2 inh PO Q4H PRN #1 hfa.aer.ad 07/07 Amlodipine Besylate [Norvasc -] 10 mg PO DAILY #30 tablet 07/07/18 Carvedilol [Coreg -] 6.25 mg PO BID #60 tablet 07/07/18 Hydrochlorothiazide [Hctz -] 50 mg PO DAILY #30 tablet 07/07/18 Lisinopril [Zestril] 40 mg PO DAILY #30 tablet 07/07/18 Anemia: No Asthma: Yes Cancer: No Cardiac Disorders: Yes (CHF dx 2011) CVA: No COPD: No CHF: Yes Dementia: No Diabetes: Yes GI Disorders: No Disorders: No HTN: Yes Hypercholesterolemia: No Kidney Stones: No Liver Disease: No Seizures: No Thyroid Disease: No Other medical history: obesity, alcohol abuse - Surgical History Abdominal Surgery: No Appendectomy: No Cardiac Surgery: Yes (CARDIAC CATHETERIZATION IN 09/2011.. NO BLOCKAGE) Cholecystectomy: No Lung Surgery: No Neurologic Surgery: No Orthopedic Surgery: No - Reproductive History Testicular Surgery: No - Immunization History Immunization Up to Date: Yes - Suicide/Smoking/Psychosocial Hx Smoking History: Never smoked Have you smoked in the past 12 months: No Number of Cigarettes Smoked Daily: 3 Information on smoking cessation initiated: No 'Breaking Loose' booklet given: 03/21/17 Hx Alcohol Use: Yes Drug/Substance Use Hx: No Substance Use Type: Alcohol, Cocaine Hx Substance Use Treatment: No Review of Systems - Review of Systems Musculoskeletal: Yes: See HPI *Physical Exam - Vital Signs Last Vital Signs Temp Pulse Resp BP Pulse Ox 98.6 F 89 19 159/79 97 08/31/18 16:44 08/31/18 16:44 08/31/18 16:44 08/31/18 16:44 08/31/18 16:44 - Physical Exam Comments: 08/31/18 17:20 Left hand skin color and temperature are normal no gross sensorimotor deficits mild dorsal swelling. Neurovascularly intact. Medical Decision Making - Medical Decision Making 08/31/18 17:20 The splint was removed and reapplied with new Lm wrap's. Neurovascularly intact post-reapplication of splint *DC/Admit/Observation/Transfer Diagnosis at time of Disposition: Fracture of second metacarpal bone - Discharge Dispostion Disposition: HOME Condition at time of disposition: Stable Decision to Admit order: No - Referrals Referrals: Saturnino Landry DO [Staff Physician] - - Patient Instructions Additional Instructions: You must follow-up with orthopedic surgery for casting. Return to the emergency room for further issues. - Post Discharge Activity
== END 2018-08-31 17:30 | disposition home or self-care (01) ==
LOC: JERFT 16:36
DX: S62.301A Unspecified fracture of second metacarpal bone, left hand, initial encounter for closed fracture (principal); X58.XXXA Exposure to other specified factors, initial encounter; Y93.89 Activity, other specified; I50.9 Heart failure, unspecified; E11.9 Type 2 diabetes mellitus without complications; I10 Essential (primary) hypertension; J45.909 Unspecified asthma, uncomplicated; Z72.0 Tobacco use
CPT/HCPCS: 99281-25

== ENCOUNTER 2018-08-31 20:15 | Inpatient (IN) | payer OTHER ==
--- NOTE | 2018-08-31 15:04 | HP ---
[facility] Rehab Assess/Revision - Admission History Admitted to Rehab from: [facility] Date of Admission to Rehab: 08/31/18 - Findings Detox History & Physical reviewed: Yes Concur with findings: Yes Comments/Additional Findings: transferred from detox to rehab admission as per protocol Inpatient Rehab Admission - Rehab Decision to Admit Inpatient rehab admission?: Yes - Initial Determination Are CD services needed?: Yes Free of communicable disease: Yes Not in need of hospitalization: Yes - Rehab Admission Criteria Previous failed treatment: Yes Poor recovery environment: Yes Comorbidities: Yes Lacks judgement: No Patient is meeting Inpatient Rehab admission criteria:: Yes
--- NOTE | 2018-08-31 19:59 | PN ---
[facility] Progress Note Note: Patient evaluated at [facility] for casting of left hand, patient evaluated. Patient had previous splint removed and reapplied with new Lm wrap 's. Neurovascularly intact post-reapplication of splint advised to follow up with ortho in two days, patient in stable condition, continue rehab.
[~2018-08-31 20:15] MED LIST: ACETAMINOPHEN 325 MG TABLET (FP) PO PRN; ALBUTEROL SO4 8 GM HFA INHALER IH PRN; IBUPROFEN 400 MG TABLET (FP) PO PRN; LOPERAMIDE HCL 2 MG CAPSULE PO PRN; MAG HYDROX/AL HYDROX/SIMETH 30 ML UNIT-DOSE CUP PO PRN; MAGNESIUM CITRATE 300 ML BOTTLE PO PRN; MAGNESIUM HYDROX 2400MG/30ML ORAL SUSPENSION 30 ML CUP PO PRN; MENTHOL/PHENOL 1 EACH UD MM PRN; NICOTINE 14 MG/24 HOURS TOPICAL PATCH TD PRN; NICOTINE POLACRILEX 2 MG GUM BC PRN; P-EPHED 60MG/TRIPROLIDI 2.5MG TABLET PO PRN; guaiFENesin 200 MG/10 ML 10 ML UNIT-DOSE CUPS PO PRN
[2018-08-31] MEDS: CARVEDILOL 6.25 MG TABLET (FP) PO SCH (21:39)
[2018-08-31] MEDS: metFORMIN HCL 500 MG TABLET (FP) PO SCH (21:39)
[2018-08-31] MEDS: THIAMINE HCL 100 MG TABLET (FP) PO SCH (21:39)
[2018-08-31] MEDS: IBUPROFEN 600 MG TABLET (FP) PO PRN (21:40)
[2018-08-31] MEDS ORDERED: MELATONIN 5 MG TABLETS PO PRN (22:00)
[2018-09-01] MEDS: metFORMIN HCL 500 MG TABLET (FP) PO SCH ×2 (06:46→16:35)
[2018-09-01] MEDS ORDERED: INSULIN (NOVOLOG) ASPART 100 UNITS/ML 10ML VIAL SQ ONE (07:42)
[2018-09-01] MEDS: PRENATAL VITAMINS W/ FOLIC ACID TABLET (FP) PO SCH (10:15)
[2018-09-01] MEDS: LISINOPRIL 20 MG TABLET (FP) PO SCH (10:15)
[2018-09-01] MEDS: CARVEDILOL 6.25 MG TABLET (FP) PO SCH ×2 (10:15→21:39)
[2018-09-01] MEDS: amLODIPine BESYLATE 10 MG TABLET (FP) PO SCH (10:16)
[2018-09-01] MEDS: HYDROCHLOROTHIAZIDE 25 MG TABLET (FP) PO SCH (10:16)
[2018-09-01] MEDS: IBUPROFEN 600 MG TABLET (FP) PO PRN ×2 (10:17→21:39)
[2018-09-01] MEDS ORDERED: INSULIN (NOVOLOG) ASPART 100 UNITS/ML 10ML VIAL ONE (16:13)
[2018-09-01] MEDS: INSULIN SLIDING SCALE (NOVOLOG) 1 VIAL SQ SCH (16:37)
[2018-09-01] MEDS: THIAMINE HCL 100 MG TABLET (FP) PO SCH (21:39)
[2018-09-02] MEDS: metFORMIN HCL 500 MG TABLET (FP) PO SCH ×2 (06:54→16:55)
[2018-09-02] MEDS ORDERED: INSULIN (NOVOLOG) ASPART 100 UNITS/ML 10ML VIAL ONE ×3 (06:55→21:11)
[2018-09-02] MEDS: IBUPROFEN 600 MG TABLET (FP) PO PRN ×2 (06:55→21:12)
[2018-09-02] MEDS: INSULIN SLIDING SCALE (NOVOLOG) 1 VIAL SQ SCH ×4 (07:28→21:10)
[2018-09-02] MEDS: CARVEDILOL 6.25 MG TABLET (FP) PO SCH ×2 (09:46→21:12)
[2018-09-02] MEDS: HYDROCHLOROTHIAZIDE 25 MG TABLET (FP) PO SCH (09:46)
[2018-09-02] MEDS: PRENATAL VITAMINS W/ FOLIC ACID TABLET (FP) PO SCH (09:46)
[2018-09-02] MEDS: amLODIPine BESYLATE 10 MG TABLET (FP) PO SCH (09:46)
[2018-09-02] MEDS: LISINOPRIL 20 MG TABLET (FP) PO SCH (09:46)
--- NOTE | 2018-09-02 16:33 | PN ---
[facility] Progress Note Note: patient place on insulin coverage sliding scale
[2018-09-02] MEDS: THIAMINE HCL 100 MG TABLET (FP) PO SCH (21:12)
[2018-09-03] MEDS: metFORMIN HCL 500 MG TABLET (FP) PO SCH ×2 (06:24→16:43)
[2018-09-03] MEDS ORDERED: INSULIN (NOVOLOG) ASPART 100 UNITS/ML 10ML VIAL ONE ×4 (06:56→20:36)
[2018-09-03] MEDS: INSULIN SLIDING SCALE (NOVOLOG) 1 VIAL SQ SCH ×4 (07:21→21:43)
[2018-09-03] MEDS: CARVEDILOL 6.25 MG TABLET (FP) PO SCH ×2 (10:19→21:41)
[2018-09-03] MEDS: PRENATAL VITAMINS W/ FOLIC ACID TABLET (FP) PO SCH (10:19)
[2018-09-03] MEDS: LISINOPRIL 20 MG TABLET (FP) PO SCH (10:19)
[2018-09-03] MEDS: HYDROCHLOROTHIAZIDE 25 MG TABLET (FP) PO SCH (10:19)
[2018-09-03] MEDS: amLODIPine BESYLATE 10 MG TABLET (FP) PO SCH (10:19)
[2018-09-03] MEDS: IBUPROFEN 600 MG TABLET (FP) PO PRN ×2 (15:03→21:41)
[2018-09-03] MEDS: THIAMINE HCL 100 MG TABLET (FP) PO SCH (21:42)
[2018-09-04] MEDS: metFORMIN HCL 500 MG TABLET (FP) PO SCH ×2 (06:39→16:39)
[2018-09-04] MEDS ORDERED: INSULIN (NOVOLOG) ASPART 100 UNITS/ML 10ML VIAL ONE ×4 (07:03→20:33)
[2018-09-04] MEDS: INSULIN SLIDING SCALE (NOVOLOG) 1 VIAL SQ SCH ×4 (07:33→21:49)
[2018-09-04] MEDS: amLODIPine BESYLATE 10 MG TABLET (FP) PO SCH (10:17)
[2018-09-04] MEDS: PRENATAL VITAMINS W/ FOLIC ACID TABLET (FP) PO SCH (10:17)
[2018-09-04] MEDS: CARVEDILOL 6.25 MG TABLET (FP) PO SCH ×2 (10:17→21:47)
[2018-09-04] MEDS: HYDROCHLOROTHIAZIDE 25 MG TABLET (FP) PO SCH (10:18)
[2018-09-04] MEDS: LISINOPRIL 20 MG TABLET (FP) PO SCH (10:18)
[2018-09-04] MEDS: IBUPROFEN 600 MG TABLET (FP) PO PRN ×2 (10:20→21:47)
[2018-09-04] MEDS: THIAMINE HCL 100 MG TABLET (FP) PO SCH (21:46)
[2018-09-05] MEDS: INSULIN SLIDING SCALE (NOVOLOG) 1 VIAL SQ SCH ×4 (07:20→22:09)
[2018-09-05] MEDS: metFORMIN HCL 500 MG TABLET (FP) PO SCH ×2 (07:20→16:49)
[2018-09-05] MEDS: amLODIPine BESYLATE 10 MG TABLET (FP) PO SCH (10:18)
[2018-09-05] MEDS: CARVEDILOL 6.25 MG TABLET (FP) PO SCH ×2 (10:18→22:07)
[2018-09-05] MEDS: PRENATAL VITAMINS W/ FOLIC ACID TABLET (FP) PO SCH (10:18)
[2018-09-05] MEDS: LISINOPRIL 20 MG TABLET (FP) PO SCH (10:19)
[2018-09-05] MEDS: HYDROCHLOROTHIAZIDE 25 MG TABLET (FP) PO SCH (10:19)
[2018-09-05] MEDS: IBUPROFEN 600 MG TABLET (FP) PO PRN (10:20)
[2018-09-05] MEDS ORDERED: INSULIN (NOVOLOG) ASPART 100 UNITS/ML 10ML VIAL ONE ×2 (11:55→20:57)
[2018-09-05] MEDS: THIAMINE HCL 100 MG TABLET (FP) PO SCH (22:08)
[2018-09-06] MEDS ORDERED: INSULIN (NOVOLOG) ASPART 100 UNITS/ML 10ML VIAL ONE ×3 (06:33→22:18)
[2018-09-06] MEDS: metFORMIN HCL 500 MG TABLET (FP) PO SCH ×2 (06:34→16:56)
[2018-09-06] MEDS: INSULIN SLIDING SCALE (NOVOLOG) 1 VIAL SQ SCH ×4 (07:09→22:18)
[2018-09-06] MEDS: LISINOPRIL 20 MG TABLET (FP) PO SCH (09:53)
[2018-09-06] MEDS: HYDROCHLOROTHIAZIDE 25 MG TABLET (FP) PO SCH (09:53)
[2018-09-06] MEDS: CARVEDILOL 6.25 MG TABLET (FP) PO SCH ×2 (09:53→22:15)
[2018-09-06] MEDS: amLODIPine BESYLATE 10 MG TABLET (FP) PO SCH (09:53)
[2018-09-06] MEDS: PRENATAL VITAMINS W/ FOLIC ACID TABLET (FP) PO SCH (09:53)
[2018-09-06] MEDS: IBUPROFEN 600 MG TABLET (FP) PO PRN (16:57)
[2018-09-06] MEDS: THIAMINE HCL 100 MG TABLET (FP) PO SCH (22:20)
[2018-09-07 07:02] VITALS: TEMP 97.9
[2018-09-07] MEDS ORDERED: INSULIN (NOVOLOG) ASPART 100 UNITS/ML 10ML VIAL ONE (07:17)
[2018-09-07] MEDS: metFORMIN HCL 500 MG TABLET (FP) PO SCH (07:35)
[2018-09-07] MEDS: INSULIN SLIDING SCALE (NOVOLOG) 1 VIAL SQ SCH (07:36)
[2018-09-07] MEDS: IBUPROFEN 600 MG TABLET (FP) PO PRN (07:54)
[2018-09-07] MEDS: LISINOPRIL 20 MG TABLET (FP) PO SCH (09:36)
[2018-09-07] MEDS: CARVEDILOL 6.25 MG TABLET (FP) PO SCH (09:36)
[2018-09-07] MEDS: amLODIPine BESYLATE 10 MG TABLET (FP) PO SCH (09:36)
[2018-09-07] MEDS: PRENATAL VITAMINS W/ FOLIC ACID TABLET (FP) PO SCH (09:36)
[2018-09-07] MEDS: HYDROCHLOROTHIAZIDE 25 MG TABLET (FP) PO SCH (09:36)
--- NOTE | 2018-09-07 09:47 | PN ---
[facility] Progress Note Note: PT REQUESTED FOR EARLY DISCHARGE TODAY STATING "PERSONAL REASONS". PT MET WITH HIS COUNSELOR, TRINO MACIEL TODAY AND WAS REFERRED TO CD AFTERCARE AT [facility] ON [address] [place], [place] AND [facility] ON [id number] [place], [place] FOR MEDICAL/ PSYCH MANAGEMENT. COURTESY RX BELOW ELECTRONICALLY SENT TO [facility] FOR PATIENT TO PROGRAM DIRECTOR/AIR PERSONALITY AFTER DISCHARGE. PT REMINDED TO FOLLOW UP WITH ORTHOPEDICS INSTRUCTED FROM THE [facility] ER RE:LEFT HAND FRACTURE. ALERT O X 3. DENIES S/H/I. Home Medications Medication Instructions Recorded Emtricitab/Rilpiviri/Tenof Ala 1 each PO DAILY 12/18/16 [Odefsey Tablet] Albuterol Sulfate [Proventil HFA 2 inh PO Q4H PRN #1 hfa.aer.ad 09/07/18 Inhaler -] Amlodipine Besylate [Norvasc -] 10 mg PO DAILY #30 tablet 09/07/18 Carvedilol [Coreg -] 6.25 mg PO BID #60 tablet 09/07/18 Hydrochlorothiazide [Hctz -] 25 mg PO DAILY #30 tablet 09/07/18 Lisinopril [Zestril] 40 mg PO DAILY #30 tablet 09/07/18 metFORMIN HCL [Metformin HCl] 500 mg PO BID #60 tablet 09/07/18 Vital Signs 09/07/18 09/07/18 07:01 10:00 Temperature 97.9 F Pulse Rate 85 84 Respiratory 20 Rate Blood Pressure 153/82 155/77 Laboratory Tests 09/01/18 09/01/18 09/02/18 06:45 16:36 06:52 POC Glucometer 305 376 353 09/02/18 09/02/18 09/03/18 16:51 20:55 06:23 POC Glucometer 264 278 319 09/03/18 09/03/18 09/03/18 12:01 16:41 21:40 POC Glucometer 281 242 354 09/04/18 09/04/18 09/04/18 06:39 11:58 16:40 POC Glucometer 278 447 278 09/04/18 09/05/18 09/05/18 21:48 06:28 11:53 POC Glucometer 319 321 283 09/05/18 09/05/18 09/06/18 16:49 20:49 06:31 POC Glucometer 241 272 315 09/06/18 09/06/18 09/06/18 11:50 16:51 21:21 POC Glucometer 291 249 280 09/07/18 07:10 POC Glucometer 317 LEFT FOREARM:SOFT CAST CLEAN AND INTACT, IN-PLACE. NAD MEDICALLY STABLE PLAN:FOLLOW UP WITH CD AFTERCARE RECOMMENDATIONS. FOLLOW UP WITH MEDICAL AND ORTHOPEDICS WITHIN 1 WEEK AFTER DISCHARGE. PT HAS A COPY OF ORTHO FOLLOW UP INSTRUCTION FROM MICAH MACHADO.
[2018-09-07 10:38] VITALS: BP 155/77; PULSE 84
== END 2018-09-07 09:55 | disposition home or self-care (01) | DRG 772 ==
LOC: YASAS 20:15 → Y5N 20:16
PROVIDERS: ADMIT Neuromusculoskeletal Medicine & OMM; ATTEND Neuromusculoskeletal Medicine & OMM
PROC: HZ42ZZZ Group Counseling for Substance Abuse Treatment, Cognitive-Behavioral (ICD-10-PCS; principal; 2018-08-31)
DX: F10.20 Alcohol dependence, uncomplicated (principal); F14.20 Cocaine dependence, uncomplicated; F17.210 Nicotine dependence, cigarettes, uncomplicated; Z21 Asymptomatic human immunodeficiency virus [HIV] infection status; I10 Essential (primary) hypertension; J45.20 Mild intermittent asthma, uncomplicated; E11.9 Type 2 diabetes mellitus without complications; Z79.84 Long term (current) use of oral hypoglycemic drugs; S62.301D Unspecified fracture of second metacarpal bone, left hand, subsequent encounter for fracture with routine healing; X58.XXXD Exposure to other specified factors, subsequent encounter
CPT/HCPCS: 82962

== ENCOUNTER 2018-09-26 13:06 | Inpatient (IN) | payer OTHER | END 2018-10-01 11:39 | disposition home or self-care (01) | LOC: YASAS 13:06 → Y3N 20:29 ==

== ENCOUNTER 2018-10-13 09:29 | Inpatient (IN) | payer OTHER ==
[2018-10-13 10:10] VITALS: BMI 56.5
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
[2018-10-13] MEDS ORDERED: ALBUTEROL SO4 0.083% IH SOL 2.5 MG/3 ML VIAL.NEB. NEB PRN (11:21)
[2018-10-13] MEDS ORDERED: diazePAM 5 MG TABLET PO PRN (11:25)
[2018-10-13] MEDS ORDERED: ACETAMINOPHEN 325 MG TABLET (FP) PO PRN ×2 (11:25)
[2018-10-13] MEDS ORDERED: IBUPROFEN 400 MG TABLET (FP) PO PRN (11:25)
[2018-10-13] MEDS ORDERED: MAGNESIUM CITRATE 300 ML BOTTLE PO PRN (11:25)
[2018-10-13] MEDS ORDERED: BISMUTH SUBSALICYLATE 262 MG/15 ML BTL PO PRN (11:25)
[2018-10-13] MEDS ORDERED: MAGNESIUM HYDROX 2400MG/30ML ORAL SUSPENSION 30 ML CUP PO PRN (11:25)
[2018-10-13] MEDS ORDERED: MAG HYDROX/AL HYDROX/SIMETH 30 ML UNIT-DOSE CUP PO PRN (11:25)
[2018-10-13] MEDS ORDERED: hydrOXYzine PAMOATE 25 MG CAPSULE (FP) PO PRN (11:25)
[2018-10-13] MEDS ORDERED: MELATONIN 5 MG TABLETS PO PRN (11:25)
[2018-10-13] MEDS ORDERED: MENTHOL/PHENOL 1 EACH UD MM PRN (11:25)
[2018-10-13] MEDS ORDERED: NIFEDIPINE 20 MG PO SCH (11:30)
[2018-10-13] MEDS: LISINOPRIL 20 MG TABLET (FP) PO SCH (13:18)
[2018-10-13] MEDS: HYDROCHLOROTHIAZIDE 25 MG TABLET (FP) PO SCH (13:18)
[2018-10-13] MEDS: diazePAM 5 MG TABLET PO SCH ×2 (13:57→22:12)
[2018-10-13] MEDS: metFORMIN HCL 500 MG TABLET (FP) PO SCH ×2 (13:57→17:04)
[2018-10-13] MEDS: CARVEDILOL 6.25 MG TABLET (FP) PO SCH ×2 (13:57→22:11)
[2018-10-13] MEDS ORDERED: INSULIN SLIDING SCALE (NOVOLOG) 1 VIAL SQ ONE (17:03)
[2018-10-13] MEDS: INSULIN SLIDING SCALE (NOVOLOG) 1 VIAL SQ SCH (17:05)
[2018-10-13] MEDS: THIAMINE HCL 100 MG TABLET (FP) PO SCH (22:11)
[2018-10-14] MEDS: diazePAM 5 MG TABLET PO SCH ×3 (05:52→22:08)
[2018-10-14] MEDS: metFORMIN HCL 500 MG TABLET (FP) PO SCH ×2 (07:28→16:40)
[2018-10-14] MEDS: INSULIN SLIDING SCALE (NOVOLOG) 1 VIAL SQ SCH ×2 (07:28→16:50)
[2018-10-14] MEDS: PRENATAL VITAMINS W/ FOLIC ACID TABLET (FP) PO SCH (10:06)
[2018-10-14] MEDS: LISINOPRIL 20 MG TABLET (FP) PO SCH (10:06)
[2018-10-14] MEDS: CARVEDILOL 6.25 MG TABLET (FP) PO SCH ×2 (10:06→22:08)
[2018-10-14] MEDS: HYDROCHLOROTHIAZIDE 25 MG TABLET (FP) PO SCH (10:07)
[2018-10-14] MEDS ORDERED: ALBUTEROL SO4 8 GM HFA INHALER IH PRN (11:54)
--- NOTE | 2018-10-14 11:58 | PN ---
S CIWA - CIWA Score Nausea/Vomitin-No Nausea/No Vomiting Muscle Tremors: 3 Anxiety: 1-Mildly Anxious Agitation: 1-Slight > Activity Paroxysmal Sweats: No Perspiration Orientation: 0-Oriented Tacttile Disturbances: 0-None Auditory Disturbances: 0-None Visual Disturbances: 0-None Headache: 0-None Present CIWA-Ar Total Score: 5 [facility] Progress Note (SOAP) Subjective: I need to be in rehab but will finish detox. some anxiety Objective: 10/14/18 11:57 Vital Signs Temperature 97.4 F L 10/14/18 09:22 Pulse Rate 91 H 10/14/18 09:22 Respiratory Rate 18 10/14/18 09:22 Blood Pressure 180/98 H 10/14/18 09:22 O2 Sat by Pulse Oximetry (%) Laboratory Tests 10/13/18 10/13/18 10/14/18 12:51 16:29 05:50 POC Glucometer 180 252 259 rest of labs pending [id number] ambulating no acute distress Assessment: 10/14/18 11:57 mild withdrawals Plan: continue detox as ordered increase fluids d/c in am
[2018-10-14] MEDS ORDERED: INSULIN SLIDING SCALE (NOVOLOG) 1 VIAL SQ ONE (17:32)
[2018-10-14] MEDS: THIAMINE HCL 100 MG TABLET (FP) PO SCH (22:08)
[2018-10-15] MEDS ORDERED: diazePAM 5 MG TABLET PO ONE (06:00)
[2018-10-15 07:02] VITALS: BP 159/94; PULSE 84; TEMP 98.8
[2018-10-15] MEDS ORDERED: INSULIN SLIDING SCALE (NOVOLOG) 1 VIAL SQ ONE (07:39)
[2018-10-15] MEDS: metFORMIN HCL 500 MG TABLET (FP) PO SCH (07:45)
[2018-10-15] MEDS: INSULIN SLIDING SCALE (NOVOLOG) 1 VIAL SQ SCH (07:45)
[2018-10-15] MEDS: HYDROCHLOROTHIAZIDE 25 MG TABLET (FP) PO SCH (09:22)
[2018-10-15] MEDS: LISINOPRIL 20 MG TABLET (FP) PO SCH (09:22)
[2018-10-15] MEDS: CARVEDILOL 6.25 MG TABLET (FP) PO SCH (09:22)
[2018-10-15] MEDS: PRENATAL VITAMINS W/ FOLIC ACID TABLET (FP) PO SCH (09:22)
--- NOTE | 2018-10-15 09:31 | DS ---
[facility] Detox Discharge Summary Admission Date: 10/13/18 Discharge Date: 10/15/18 - History Present History: Alcohol Dependence, Cocaine Dependence - Physical Exam Results Vital Signs: Vital Signs Temperature 98.8 F 10/15/18 07:25 Pulse Rate 84 10/15/18 07:25 Respiratory Rate 20 10/15/18 07:25 Blood Pressure 159/94 10/15/18 07:25 O2 Sat by Pulse Oximetry (%) - Treatment Hospital Course: Detox Protocol Followed, Detoxed Safely, Responded well, Discharged Condition Good, Rehab Referral Accepted - Medication Discharge Medications: Ambulatory Orders Emtricitab/Rilpiviri/Tenof Ala [Odefsey Tablet] 1 each PO DAILY 12/18/16 Carvedilol [Coreg -] 6.25 mg PO BID #60 tablet 09/07/18 Albuterol Sulfate [Proventil HFA Inhaler -] 2 inh PO Q4H PRN #1 hfa.aer.ad 10/15 Hydrochlorothiazide [Hctz -] 25 mg PO DAILY #30 tablet 10/15/18 Lisinopril [Zestril] 40 mg PO DAILY #30 tablet 10/15/18 Nifedipine 20 mg PO DAILY #60 capsule 10/15/18 metFORMIN HCL [Metformin HCl] 500 mg PO BID #60 tablet 10/15/18 - Diagnosis (1) Alcohol dependence with uncomplicated withdrawal Current Visit: Yes Status: Chronic (2) Cocaine abuse, episodic Current Visit: Yes Status: Chronic (3) Hyperglycemia Current Visit: No Status: Acute (4) Hypertensive urgency Current Visit: No Status: Acute (5) Hypokalemia Current Visit: No Status: Acute (6) Metacarpophalangeal joint pain of left hand Current Visit: No Status: Acute (7) Sleep apnea Current Visit: No Status: Acute (8) Asthma Current Visit: No Status: Chronic Qualifiers: Asthma persistence: unspecified (9) Cocaine dependence Current Visit: No Status: Chronic Qualifiers: Substance use status: uncomplicated Qualified Code(s): F14.20 - Cocaine dependence, uncomplicated (10) Congestive heart failure (CHF) Current Visit: No Status: Chronic Qualifiers: Heart failure type: unspecified Heart failure chronicity: chronic Qualified Code(s): I50.9 - Heart failure, unspecified (11) DM2 (diabetes mellitus, type 2) Current Visit: No Status: Chronic Qualifiers: 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: 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 (12) HIV (human immunodeficiency virus infection) Current Visit: Yes Status: Chronic Qualifiers: HIV symptom status: unspecified (13) History of CHF (congestive heart failure) Current Visit: No Status: Chronic (14) Hypertension Current Visit: No Status: Chronic Qualifiers: Hypertension type: essential hypertension Qualified Code(s): I10 - Essential (primary) hypertension (15) Nicotine dependence Current Visit: Yes Status: Chronic Qualifiers: Nicotine product type: cigarettes Substance use status: uncomplicated Qualified Code(s): F17.210 - Nicotine dependence, cigarettes, uncomplicated (16) Obese Current Visit: Yes Status: Chronic Qualifiers: Obesity classification: adult class 3 (BMI >= 40) (17) Substance induced mood disorder Current Visit: No Status: Suspected - AMA Did Patient Leave Against Medical Advice: No (pt referred to [facility] inpatient rehab )
== END 2018-10-15 09:30 | disposition home or self-care (01) | DRG 774 ==
LOC: YASAS 09:29 → Y6N 12:17
PROVIDERS: ADMIT Surgery; ATTEND Surgery
PROC: HZ2ZZZZ Detoxification Services for Substance Abuse Treatment (ICD-10-PCS; principal; 2018-10-13)
PROC: HZ2ZZZZ Detoxification Services for Substance Abuse Treatment (ICD-10-PCS; 2018-10-13)
DX: F10.230 Alcohol dependence with withdrawal, uncomplicated (principal); F14.20 Cocaine dependence, uncomplicated; F17.210 Nicotine dependence, cigarettes, uncomplicated; Z21 Asymptomatic human immunodeficiency virus [HIV] infection status; I25.10 Atherosclerotic heart disease of native coronary artery without angina pectoris; Z98.61 Coronary angioplasty status; I16.0 Hypertensive urgency; I50.9 Heart failure, unspecified; E87.6 Hypokalemia; I11.9 Hypertensive heart disease without heart failure; Z79.84 Long term (current) use of oral hypoglycemic drugs; J45.909 Unspecified asthma, uncomplicated; E66.01 Morbid (severe) obesity due to excess calories; Z68.43 Body mass index [BMI] 50.0-59.9, adult; Z87.81 Personal history of (healed) traumatic fracture; Z90.79 Acquired absence of other genital organ(s)
CPT/HCPCS: 82962

== ENCOUNTER 2018-11-10 08:12 | Inpatient (IN) | payer OTHER ==
[2018-11-10 08:36] VITALS: BMI 55.7
--- NOTE | 2018-11-10 09:07 | HP ---
CIWA Score Nausea/Vomitin-No Nausea/No Vomiting Muscle Tremors: None Anxiety: 3 Agitation: 2 Paroxysmal Sweats: 2 Orientation: 0-Oriented Tacttile Disturbances: 0-None Auditory Disturbances: 0-None Visual Disturbances: 0-None Headache: 0-None Present CIWA-Ar Total Score: 7 - Admission Criteria OASAS Guidelines: Admission for Medically Managed Detox: Requires at least one of the followin. CIWA greater than 12 2. Seizures within the past 24 hours 3. Delirium tremens within the past 24 hours 4. Hallucinations within the past 24 hours 5. Acute intervention needed for co occurring medical disorder 6. Acute intervention needed for co occurring psychiatric disorder 7. Severe withdrawal that cannot be handled at a lower level of care (continued vomiting, continued diarrhea, abnormal vital signs) requiring intravenous medication and/or fluids 8. Admission ROS [facility] Chief Complaint: seeking detox from alcohol and cocaine Allergies/Adverse Reactions: Allergies Allergy/AdvReac Type Severity Reaction Status Date / Time No Known Allergies Allergy Verified 09/26/18 16:37 History of Present Illness: 43 y/o/m here seeking detox from alcohol and cocaine. He states he has been up for the last 48 hours drinking and doing cocaine and was afraid if he did not come in today and went to some parties instead he would overdose. He states he drinks 4-7 24oz beers a day and a pint of liquor a week. He starts drinking in the evenings and drinks throughout the night and his last drink was this morning at 5am. He has been drinking for 23 years. He has been doing cocaine for 19 years and typically uses 4-6 bags per 10 days. He states he does not do cocaine every day but whenever he extra money. He uses the cocaine by inhaling it and smoking it. He occasionally uses Heroin about once a month and he occasionally uses Marijuana. He denies any tobacco use. He denies any Benzo use and thinks it is likely cross contamination from his cocaine use. He his longest period of abstinence was in 2000 for 3 months when [facility] in [facility]. He is currently unemployed and homeless. He would like to stay for rehab after going through detox. He denies any history of seizures. He has had multiple blackouts and his last episode was in 2017. He has a history of DM, HTN, CHF, asthma, and HIV and states he is taking medications daily but did not take any today. He does not have a PCP and states he gets his medication when he comes in for detox. He was last in for detox in the beginning of October and relapsed because he was not able to get into a rehab program. Exam Limitations: No Limitations - Ebola screening Have you traveled outside of the country in the last 21 days: No (N) Have you had contact with anyone from an Ebola affected area: No Do you have a fever: No - Review of Systems Constitutional: No Symptoms Reported EENT: reports: No Symptoms Reported Respiratory: reports: No Symptoms reported Cardiac: reports: No Symptoms Reported GI: reports: No Symptoms Reported : reports: No Symptoms Reported Musculoskeletal: reports: Back Pain (chronic) Integumentary: reports: No Symptoms Reported Neuro: reports: No Symptoms reported Endocrine: reports: Increased Urine Hematology: reports: No Symptoms Reported Psychiatric: reports: Agitated, Anxious Other Systems: Reviewed and Negative Patient History - Patient Medical History Hx Anemia: No Hx Asthma: Yes Hx Chronic Obstructive Pulmonary Disease (COPD): No Hx Cancer: No Hx Cardiac Disorders: Yes Hx Congestive Heart Failure: Yes Hx Hypertension: Yes Hx Hypercholesterolemia: No Hx Pacemaker: No HX Cerebrovascular Accident: No Hx Seizures: No Hx Dementia: No Hx Diabetes: Yes (DM type 2) Hx Gastrointestinal Disorders: No Hx Liver Disease: No Hx Genitourinary Disorders: No Hx Sexually Transmitted Disorders: Yes (HIV) Hx Renal Disease (ESRD): No Hx Thyroid Disease: No Hx Human Immunodeficiency Virus (HIV): Yes (since 2008 ) Hx Hepatitis C: No Hx Depression: No Hx Suicide Attempt: No Hx Bipolar Disorder: No Hx Schizophrenia: No - Patient Surgical History Past Surgical History: Yes Hx Neurologic Surgery: No Hx Cataract Extraction: No Hx Cardiac Surgery: Yes (CARDIAC CATHETERIZATION IN 09/2011.. NO BLOCKAGE) Hx Lung Surgery: No Hx Breast Surgery: No Hx Breast Biopsy: No Hx Abdominal Surgery: No Hx Appendectomy: No Hx Cholecystectomy: No Hx Genitourinary Surgery: No Hx Section: No Hx Orthopedic Surgery: No Hx Hysterectomy: No Other Surgical History: R Testicular Sx 2011 d/t blood clot Anesthesia Reaction: No - PPD History Previous Implant?: Yes Documented Results: Negative w/o proof Implanted On Prior R Admission?: Yes Date: 07/06/18 Results: 0.0mm PPD to be Administered?: No - Smoking Cessation Smoking history: Never smoked Have you smoked in the past 12 months: No Aproximately how many cigarettes per day: 0 Hx Chewing Tobacco Use: No - Substance & Tx. History Hx Alcohol Use: Yes Substance Use Type: Alcohol, Cocaine, Heroin, Marijuana - Substances abused Alcohol Substance route: Oral Frequency: Daily Amount used: 6 cans beers ( 24 oz) 1pt. vodka Age of first use: 20 Date of last use: 11/10/18 Cocaine Substance route: Inhalation Frequency: 1-2 times per week Amount used: 5bags Age of first use: 24 Date of last use: 08/29/18 Crack Substance route: Smoking Frequency: 3-6 times per week Amount used: 3-5bags Age of first use: 24 Date of last use: 11/10/18 Family Disease History - Family Disease History Family Disease History: Other: Father (ALOCOHOL,), Mother (ALCOHOL, ) Admission Physical Exam [facility] - Vital Signs Vital Signs: Vital Signs - 24 hr 11/10/18 08:23 Temperature 99.4 F Pulse Rate 97 H Respiratory 20 Rate Blood Pressure 177/105 H - Physical General Appearance: Yes: Disheveled HEENTM: Yes: EOMI, Normocephalic Respiratory: Yes: Lungs Clear, Normal Breath Sounds Neck: Yes: Supple Cardiology: Yes: Regular Rhythm, Regular Rate, S1, S2 Abdominal: Yes: Normal Bowel Sounds, Soft, Distended Back: Yes: Vertebral Tenderness (L2-L3 mild tenderness to palpation) Extremities: Yes: Normal Capillary Refill, Swelling (3+ non pitting edema bilaterally in the legs) 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: 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: 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, Fully Oriented, Alert, Motor Strength 5/5, Finger to Nose Integumentary: Yes: Dry Lymphatic: Yes: Within Normal Limits - Diagnostic (1) Cocaine use disorder Current Visit: Yes Status: Acute (2) Alcohol use disorder Current Visit: Yes Status: Acute (3) Heroin use disorder, mild Current Visit: Yes Status: Acute (4) Asthma Current Visit: No Status: Chronic Qualifiers: Asthma persistence: unspecified (5) Congestive heart failure (CHF) Current Visit: No Status: Chronic Qualifiers: Heart failure type: unspecified Heart failure chronicity: chronic Qualified Code(s): I50.9 - Heart failure, unspecified (6) DM2 (diabetes mellitus, type 2) Current Visit: No Status: Chronic Qualifiers: 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 (7) HIV (human immunodeficiency virus infection) Current Visit: No Status: Chronic Qualifiers: HIV symptom status: unspecified Qualified Code(s): B20 - Human immunodeficiency virus [HIV] disease (8) Hypertension Current Visit: No Status: Chronic Qualifiers: Hypertension type: essential hypertension Qualified Code(s): I10 - Essential (primary) hypertension (9) Obese Current Visit: No Status: Chronic Qualifiers: Obesity classification: adult class 3 (BMI >= 40) Cleared for Admission S - Detox or Rehab [facility] Level of Care: Medically Supervised 2Day Detox Regimen/Protocol: Valium Claeared for Rehab Admission: No Breathalyzer - Breathalyzer Breathalyzer: 0 Urine Drug Screen - Test Device Lot number: [id number] Expiration date: 07/07/20 - Control Is test valid?: Yes - Results Drug screen NEGATIVE: No Urine drug screen results: TOMÁS-Cocaine, BZO-Benzodiazepines Inpatient Rehab Admission - Rehab Decision to Admit Inpatient rehab admission?: No
[2018-11-10] MEDS ORDERED: ALBUTEROL SO4 8 GM HFA INHALER IH PRN (09:29)
[2018-11-10] MEDS ORDERED: MAGNESIUM CITRATE 300 ML BOTTLE PO PRN (09:30)
[2018-11-10] MEDS ORDERED: MAGNESIUM HYDROX 2400MG/30ML ORAL SUSPENSION 30 ML CUP PO PRN (09:30)
[2018-11-10] MEDS ORDERED: hydrOXYzine PAMOATE 25 MG CAPSULE (FP) PO PRN (09:30)
[2018-11-10] MEDS ORDERED: BISMUTH SUBSALICYLATE 524 MG/30 ML UD PO PRN (09:30)
[2018-11-10] MEDS ORDERED: diazePAM 5 MG TABLET PO PRN (09:30)
[2018-11-10] MEDS ORDERED: ACETAMINOPHEN 325 MG TABLET (FP) PO PRN ×2 (09:30)
[2018-11-10] MEDS ORDERED: MAG HYDROX/AL HYDROX/SIMETH 30 ML UNIT-DOSE CUP PO PRN (09:30)
[2018-11-10] MEDS ORDERED: MENTHOL/PHENOL 1 EACH UD MM PRN (09:30)
[2018-11-10] MEDS ORDERED: IBUPROFEN 400 MG TABLET (FP) PO PRN (09:30)
[2018-11-10] MEDS ORDERED: EMTRICITAB/RILPIVIRI/TENOF ALA (ODEFSEY) TABLET PO SCH (10:00)
[2018-11-10] MEDS ORDERED: NIFEDIPINE 20 MG PO SCH (10:00)
--- NOTE | 2018-11-10 10:15 | PN ---
[facility] Progress Note Note: pt here for etoh abuse , multiple prior visits at this facility for same , most recently October 2018 , relapse immediately after d/c , pt states has not followed up w/ PCP regarding his multiple medical issues , is aware of clinic where PCP is ( [facility] ) and states it is failrly easy to get an appt , however he did not go . Current symptoms as above . a/p Alcohol dependence - Valium taper . pt was encouraged to f/up w/ PCP , educated about risks including CKD , verbalizes understanding and agreement to f/up upon d/c from this facility .
[2018-11-10] MEDS: LISINOPRIL 20 MG TABLET (FP) PO SCH (11:08)
[2018-11-10] MEDS: CARVEDILOL 6.25 MG TABLET (FP) PO SCH ×2 (11:08→22:14)
[2018-11-10] MEDS: HYDROCHLOROTHIAZIDE 25 MG TABLET (FP) PO SCH (11:08)
[2018-11-10] MEDS: PRENATAL VITAMINS W/ FOLIC ACID TABLET (FP) PO SCH (11:09)
[2018-11-10 12:59] LABS: HEMOGLOBIN 13.4 GM/dL (11.7-16.9); MCH 29.3 pg (25.7-33.7); MCHC 32.6 g/dl (32.0-35.9); MEAN CELL VOLUME 89.9 fl (80-96); MEAN PLT VOLUME 7.2 fl (7.5-11.1); RBC 4.56 M/mm3 (4.00-5.60); RDW 14.3 % (11.9-15.9); WHITE BLOOD COUNT 8.1 K/mm3 (4.0-10.0)
[2018-11-10 13:24] LABS: BILIRUBIN,TOTAL 0.4 mg/dL (0.2-1); BLOOD UREA NITROGEN 5.8 mg/dL (7-18); CREATININE 1.3 mg/dL (0.55-1.3); TOT PROT 8.5 g/dl (6.4-8.2)
[2018-11-10 13:29] LABS: PLATELET COUNT 291 K/MM3 (134-434)
[2018-11-10 13:45] LABS: POTASSIUM 2.8 mmol/L (3.5-5.1)
[2018-11-10] MEDS: diazePAM 5 MG TABLET PO SCH ×2 (13:45→22:15)
[2018-11-10] MEDS: NIFEdipine E.R. 90 MG TABLET (FP) PO SCH (13:46)
[2018-11-10] MEDS ORDERED: METOPROLOL TARTRATE 25 MG TABLET (FP) PO ONE (17:13)
[2018-11-10] MEDS ORDERED: SPIRONOLACTONE 25 MG TABLET (FP) PO ONE (17:13)
[2018-11-10] MEDS: metFORMIN HCL 500 MG TABLET (FP) PO SCH (17:30)
[2018-11-10] MEDS: INSULIN SLIDING SCALE (NOVOLOG) 1 VIAL SQ SCH (17:30)
[2018-11-10] MEDS ORDERED: MELATONIN 5 MG TABLETS PO PRN (22:00)
[2018-11-10] MEDS: THIAMINE HCL 100 MG TABLET (FP) PO SCH (22:14)
[2018-11-11] MEDS: diazePAM 5 MG TABLET PO SCH ×3 (06:14→22:56)
[2018-11-11] MEDS ORDERED: INSULIN SLIDING SCALE (NOVOLOG) 1 VIAL SQ ONE (06:52)
[2018-11-11] MEDS: metFORMIN HCL 500 MG TABLET (FP) PO SCH ×2 (06:53→17:27)
[2018-11-11] MEDS: INSULIN SLIDING SCALE (NOVOLOG) 1 VIAL SQ SCH ×2 (06:53→17:27)
[2018-11-11] MEDS ORDERED: [UNRECOGNIZED DRUG - OTHER] PO SCH (10:00)
[2018-11-11] MEDS ORDERED: POTASSIUM CHLORIDE TABS 20 MEQ TABLET.ER (FP) PO ONE (10:00)
[2018-11-11] MEDS: HYDROCHLOROTHIAZIDE 25 MG TABLET (FP) PO SCH (10:09)
[2018-11-11] MEDS: PRENATAL VITAMINS W/ FOLIC ACID TABLET (FP) PO SCH (10:09)
[2018-11-11] MEDS: LISINOPRIL 20 MG TABLET (FP) PO SCH (10:10)
[2018-11-11] MEDS: CARVEDILOL 6.25 MG TABLET (FP) PO SCH ×2 (10:10→22:56)
[2018-11-11] MEDS: NIFEdipine E.R. 90 MG TABLET (FP) PO SCH (10:55)
--- NOTE | 2018-11-11 15:39 | PN ---
[facility] CIWA - CIWA Score Nausea/Vomitin-No Nausea/No Vomiting Muscle Tremors: None Anxiety: 4-Mod. Anxious/Guarded Agitation: 2 Paroxysmal Sweats: 3 Orientation: 0-Oriented Tacttile Disturbances: 2-Mild Itch/Numbness/Burn Auditory Disturbances: 2-Mild Harshness/Frighten Visual Disturbances: 0-None Headache: 0-None Present CIWA-Ar Total Score: 13 S Progress Note (SOAP) Subjective: Anxious, Sweating, Body Aches. Objective: PATIENT A & O X 3, OBSERVED AMBULATING ON UNIT UNASSISTED. IN NO ACUTE DISTRESS. 11/11/18 15:36 Vital Signs Temperature 97.4 F L 11/11/18 13:43 Pulse Rate 89 11/11/18 13:43 Respiratory Rate 18 11/11/18 13:43 Blood Pressure 132/78 11/11/18 13:43 O2 Sat by Pulse Oximetry (%) Laboratory Tests 11/10/18 11/10/18 11/10/18 09:37 10:30 10:30 WBC 8.1 RBC 4.56 Hgb 13.4 Hct 41.0 MCV 89.9 MCH 29.3 MCHC 32.6 RDW 14.3 Plt Count 291 MPV 7.2 L Sodium 138 Potassium 2.8 L* Chloride 96 L Carbon Dioxide 30 Anion Gap 12 BUN 5.8 L Creatinine 1.3 Est GFR (CKD-EPI)AfAm 78.00 Est GFR (CKD-EPI)NonAf 67.30 POC Glucometer 424 Random Glucose 373 H* Calcium 9.0 Total Bilirubin 0.4 AST 91 H ALT 132 H Alkaline Phosphatase 103 Total Protein 8.5 H Albumin 4.0 RPR Titer 11/10/18 11/10/18 11/11/18 10:30 16:24 06:09 WBC RBC Hgb Hct MCV MCH MCHC RDW Plt Count MPV Sodium Potassium Chloride Carbon Dioxide Anion Gap BUN Creatinine Est GFR (CKD-EPI)AfAm Est GFR (CKD-EPI)NonAf POC Glucometer 348 351 Random Glucose Calcium Total Bilirubin AST ALT Alkaline Phosphatase Total Protein Albumin RPR Titer Nonreactive LABS NOTED. Assessment: 11/11/18 15:36 WITHDRAWAL SYMPTOMS. HYPERTENSION. HYPOKALEMIA. ELEVATED LIVER ENZYMES (ALT, AST). 11/11/18 15:37 Plan: CONTINUE DETOX. INCREASE DAILY PO WATER INTAKE. K-DUR, 40 MEQ PO X 1 NOW, THEN 20 MEQ PO BID STARTING THIS EVENING. REPEAT K LEVEL ON 11/13/2018 TO SEE IF ANY IMPROVEMENT.
[2018-11-11] MEDS: POTASSIUM CHLORIDE TABS 20 MEQ TABLET.ER (FP) PO SCH (17:27)
[2018-11-11] MEDS: THIAMINE HCL 100 MG TABLET (FP) PO SCH (22:56)
[2018-11-12] MEDS: diazePAM 5 MG TABLET PO SCH ×2 (06:18→17:12)
[2018-11-12] MEDS: metFORMIN HCL 500 MG TABLET (FP) PO SCH ×2 (06:18→17:10)
[2018-11-12] MEDS: INSULIN SLIDING SCALE (NOVOLOG) 1 VIAL SQ SCH ×2 (06:41→17:09)
[2018-11-12] MEDS: CARVEDILOL 6.25 MG TABLET (FP) PO SCH (10:24)
[2018-11-12] MEDS: HYDROCHLOROTHIAZIDE 25 MG TABLET (FP) PO SCH (10:24)
[2018-11-12] MEDS: LISINOPRIL 20 MG TABLET (FP) PO SCH (10:24)
[2018-11-12] MEDS: POTASSIUM CHLORIDE TABS 20 MEQ TABLET.ER (FP) PO SCH ×2 (10:24→17:10)
[2018-11-12] MEDS: PRENATAL VITAMINS W/ FOLIC ACID TABLET (FP) PO SCH (10:25)
[2018-11-12] MEDS: NIFEdipine E.R. 90 MG TABLET (FP) PO SCH (10:25)
--- NOTE | 2018-11-12 15:46 | PN ---
S CIWA - CIWA Score Nausea/Vomitin-No Nausea/No Vomiting Muscle Tremors: None Anxiety: 2 Agitation: 1-Slight > Activity Paroxysmal Sweats: 1-Minimal Palms Moist Orientation: 0-Oriented Tacttile Disturbances: 1-Very Mild Itch/Numbness Auditory Disturbances: 1-Very Mild Visual Disturbances: 0-None Headache: 0-None Present CIWA-Ar Total Score: 6 BHS Progress Note (SOAP) Subjective: Anxious, Sweating, Body Aches. Patient Reports that Current withdrawal Symptoms are mild in degree and that they have subsided considerably since he was admitted to Detox Unit. Objective: PATIENT A & O X 3, OBSERVED AMBULATING ON UNIT UNASSISTED. IN NO ACUTE DISTRESS. 11/12/18 15:47 Vital Signs Temperature 97.8 F 11/12/18 13:34 Pulse Rate 79 11/12/18 13:34 Respiratory Rate 18 11/12/18 13:34 Blood Pressure 124/76 11/12/18 13:34 O2 Sat by Pulse Oximetry (%) Laboratory Tests 11/10/18 11/10/18 11/10/18 09:37 10:30 10:30 WBC 8.1 RBC 4.56 Hgb 13.4 Hct 41.0 MCV 89.9 MCH 29.3 MCHC 32.6 RDW 14.3 Plt Count 291 MPV 7.2 L Sodium 138 Potassium 2.8 L* Chloride 96 L Carbon Dioxide 30 Anion Gap 12 BUN 5.8 L Creatinine 1.3 Est GFR (CKD-EPI)AfAm 78.00 Est GFR (CKD-EPI)NonAf 67.30 POC Glucometer 424 Random Glucose 373 H* Calcium 9.0 Total Bilirubin 0.4 AST 91 H ALT 132 H Alkaline Phosphatase 103 Total Protein 8.5 H Albumin 4.0 RPR Titer 11/10/18 11/10/18 11/11/18 10:30 16:24 06:09 WBC RBC Hgb Hct MCV MCH MCHC RDW Plt Count MPV Sodium Potassium Chloride Carbon Dioxide Anion Gap BUN Creatinine Est GFR (CKD-EPI)AfAm Est GFR (CKD-EPI)NonAf POC Glucometer 348 351 Random Glucose Calcium Total Bilirubin AST ALT Alkaline Phosphatase Total Protein Albumin RPR Titer Nonreactive 11/11/18 11/12/18 16:20 06:19 WBC RBC Hgb Hct MCV MCH MCHC RDW Plt Count MPV Sodium Potassium Chloride Carbon Dioxide Anion Gap BUN Creatinine Est GFR (CKD-EPI)AfAm Est GFR (CKD-EPI)NonAf POC Glucometer 511 373 Random Glucose Calcium Total Bilirubin AST ALT Alkaline Phosphatase Total Protein Albumin RPR Titer LABS NOTED. Assessment: 11/12/18 15:47 COMPLETION OF DETOX REGIMEN. Plan: SINCE PATIENT REPORTS THAT CURRENT WITHDRAWAL / DETOX SYMPTOMS ARE MINIMAL IN DEGREE AND THAT HE FEELS WELL OVERALL, AT PATIENTS REQUEST, HE WAS GRANTED AN EARLY DISCHARGE FROM DETOX UNIT TODAY SO THAT HE MAY PROCEED ON TO AFTERCARE PLAN - [facility] ([place], [place]).
--- NOTE | 2018-11-12 15:56 | DS ---
[facility] Detox Discharge Summary Admission Date: 11/10/18 Discharge Date: 11/12/18 - History Present History: Alcohol Dependence, Cocaine Dependence, Opioid Dependence Additional Comments: PATIENT REPORTS THAT CURRENT WITHDRAWAL / DETOX SYMPTOMS ARE MILD IN DEGREE AND THAT HE FEELS WELL OVERALL AT TIME OF DISCHARGE FROM DETOX UNIT. PATIENT GOING ON TO [facility] ([place], [place]) FOR AFTERCARE. DUE TO LOW POTASSIUM LEVEL NOTED WHILE PATIENT WAS ADMITTED FOR DETOX, POTASSIUM LEVEL WILL BE RE-CHECKED AGAIN ONCE PATIENT IS ADMITTED ON REHAB UNIT. TREEATMENT WITH [facility] TO CONTINUE FOR FIRST FEW DAYS OF REHAB ADMISSION NEEDED. PATIENT WAS DISCHARGED FROM DETOX UNIT TO BE TAKEN OVER TO REHAB UNIT IN STABLE MEDICAL CONDITION. Pertinent Past History: HTN, Type II DM, H.I.V., History Of C.H.F., Asthma. - Physical Exam Results Vital Signs: Vital Signs Temperature 97.8 F 11/12/18 13:34 Pulse Rate 79 11/12/18 13:34 Respiratory Rate 18 11/12/18 13:34 Blood Pressure 124/76 11/12/18 13:34 O2 Sat by Pulse Oximetry (%) Pertinent Admission Physical Exam Findings: WITHDRAWAL SYMPTOMS. Laboratory Tests 11/10/18 11/10/18 11/10/18 09:37 10:30 10:30 WBC 8.1 RBC 4.56 Hgb 13.4 Hct 41.0 MCV 89.9 MCH 29.3 MCHC 32.6 RDW 14.3 Plt Count 291 MPV 7.2 L Sodium 138 Potassium 2.8 L* Chloride 96 L Carbon Dioxide 30 Anion Gap 12 BUN 5.8 L Creatinine 1.3 Est GFR (CKD-EPI)AfAm 78.00 Est GFR (CKD-EPI)NonAf 67.30 POC Glucometer 424 Random Glucose 373 H* Calcium 9.0 Total Bilirubin 0.4 AST 91 H ALT 132 H Alkaline Phosphatase 103 Total Protein 8.5 H Albumin 4.0 RPR Titer 11/10/18 11/10/18 11/11/18 10:30 16:24 06:09 WBC RBC Hgb Hct MCV MCH MCHC RDW Plt Count MPV Sodium Potassium Chloride Carbon Dioxide Anion Gap BUN Creatinine Est GFR (CKD-EPI)AfAm Est GFR (CKD-EPI)NonAf POC Glucometer 348 351 Random Glucose Calcium Total Bilirubin AST ALT Alkaline Phosphatase Total Protein Albumin RPR Titer Nonreactive 11/11/18 11/12/18 16:20 06:19 WBC RBC Hgb Hct MCV MCH MCHC RDW Plt Count MPV Sodium Potassium Chloride Carbon Dioxide Anion Gap BUN Creatinine Est GFR (CKD-EPI)AfAm Est GFR (CKD-EPI)NonAf POC Glucometer 511 373 Random Glucose Calcium Total Bilirubin AST ALT Alkaline Phosphatase Total Protein Albumin RPR Titer LABS NOTED. - Treatment Hospital Course: Detox Protocol Followed, Detoxed Safely, Responded well, Discharged Condition Good, Rehab Referral Accepted Patient has Accepted a Rehab Referral to: [facility] ([place], [place]). - Medication Discharge Medications: Ambulatory Orders Emtricitab/Rilpiviri/Tenof Ala [Odefsey Tablet] 1 each PO DAILY 12/18/16 Carvedilol [Coreg -] 6.25 mg PO BID #60 tablet 09/07/18 Albuterol Sulfate [Proventil HFA Inhaler -] 2 inh PO Q4H PRN #1 hfa.aer.ad 10/15 Hydrochlorothiazide [Hctz -] 25 mg PO DAILY #30 tablet 10/15/18 Lisinopril [Zestril] 40 mg PO DAILY #30 tablet 10/15/18 Nifedipine 20 mg PO DAILY #60 capsule 10/15/18 metFORMIN HCL [Metformin HCl] 500 mg PO BID #60 tablet 10/15/18 - Diagnosis (1) Alcohol use disorder Current Visit: Yes Status: Acute (2) Hypokalemia Current Visit: Yes Status: Acute (3) Hypertension Current Visit: Yes Status: Chronic Qualifiers: Hypertension type: essential hypertension Qualified Code(s): I10 - Essential (primary) hypertension (4) Asthma Current Visit: Yes Status: Chronic Qualifiers: Asthma severity: unspecified severity Asthma persistence: unspecified Asthma complication type: uncomplicated Qualified Code(s): J45.909 - Unspecified asthma, uncomplicated (5) Congestive heart failure (CHF) Current Visit: Yes Status: Chronic Qualifiers: Heart failure type: unspecified Heart failure chronicity: chronic Qualified Code(s): I50.9 - Heart failure, unspecified (6) DM2 (diabetes mellitus, type 2) Current Visit: Yes Status: Chronic Qualifiers: Diabetes mellitus truck terminal manager insulin use: without truck terminal manager use Diabetes mellitus complication status: with other specified complication Qualified Code (s): E11.69 - Type 2 diabetes mellitus with other specified complication (7) HIV (human immunodeficiency virus infection) Current Visit: Yes Status: Chronic Qualifiers: HIV symptom status: unspecified Qualified Code(s): B20 - Human immunodeficiency virus [HIV] disease (8) Obese Current Visit: Yes Status: Chronic Qualifiers: Obesity type: unspecified obesity type Obesity classification: adult class 3 (BMI >= 40) Serious obesity comorbidity presence: unspecified whether serious comorbidity present Body mass index: BMI 50.0-59.9 Qualified Code(s) : E66.01 - Morbid (severe) obesity due to excess calories; Z68.43 - Body mass index (BMI) 50-59.9, adult (9) Cocaine use disorder Current Visit: Yes Status: Acute (10) Elevated liver enzymes Current Visit: Yes Status: Acute - AMA Did Patient Leave Against Medical Advice: No
[2018-11-12 17:15] VITALS: BP 119/78; PULSE 93; TEMP 98.2
[2018-11-13] MEDS ORDERED: diazePAM 5 MG TABLET PO ONE (06:00)
== END 2018-11-12 07:55 | disposition other institution (70) | DRG 773 ==
LOC: YASAS 08:12 → Y3N 09:45 → Y6N 11-12 20:02 → Y3N 11-12 20:02
PROVIDERS: ADMIT Surgery; ATTEND Surgery
PROC: HZ2ZZZZ Detoxification Services for Substance Abuse Treatment (ICD-10-PCS; principal; 2018-11-10)
DX: F10.230 Alcohol dependence with withdrawal, uncomplicated (principal); F11.23 Opioid dependence with withdrawal; F14.20 Cocaine dependence, uncomplicated; Z21 Asymptomatic human immunodeficiency virus [HIV] infection status; I25.10 Atherosclerotic heart disease of native coronary artery without angina pectoris; Z98.61 Coronary angioplasty status; I11.0 Hypertensive heart disease with heart failure; I50.9 Heart failure, unspecified; E11.9 Type 2 diabetes mellitus without complications; Z79.84 Long term (current) use of oral hypoglycemic drugs; J45.909 Unspecified asthma, uncomplicated; R94.5 Abnormal results of liver function studies; E87.6 Hypokalemia; E66.9 Obesity, unspecified; Z68.43 Body mass index [BMI] 50.0-59.9, adult
CPT/HCPCS: 36415; 80053; 82962; 85027; 86593

== ENCOUNTER 2018-11-12 20:11 | Inpatient (IN) | payer OTHER ==
[2018-11-12] MEDS ORDERED: NICOTINE POLACRILEX 2 MG GUM BUC PRN (21:07)
[2018-11-12] MEDS ORDERED: ACETAMINOPHEN 325 MG TABLET (FP) PO PRN (21:07)
[2018-11-12] MEDS ORDERED: MAGNESIUM CITRATE 300 ML BOTTLE PO PRN (21:07)
[2018-11-12] MEDS ORDERED: MAG HYDROX/AL HYDROX/SIMETH 30 ML UNIT-DOSE CUP PO PRN (21:07)
[2018-11-12] MEDS ORDERED: MENTHOL/PHENOL 1 EACH UD MM PRN (21:07)
[2018-11-12] MEDS ORDERED: LOPERAMIDE HCL 2 MG CAPSULE PO PRN (21:07)
[2018-11-12] MEDS ORDERED: IBUPROFEN 400 MG TABLET (FP) PO PRN (21:07)
[2018-11-12] MEDS ORDERED: ALBUTEROL SO4 8 GM HFA INHALER IH PRN (21:07)
[2018-11-12] MEDS ORDERED: guaiFENesin 200 MG/10 ML 10 ML UNIT-DOSE CUPS PO PRN (21:07)
[2018-11-12] MEDS ORDERED: P-EPHED 60MG/TRIPROLIDI 2.5MG TABLET PO PRN (21:07)
[2018-11-12] MEDS ORDERED: MAGNESIUM HYDROX 2400MG/30ML ORAL SUSPENSION 30 ML CUP PO PRN (21:07)
--- NOTE | 2018-11-12 21:16 | HP ---
[facility] Rehab Assess/Revision - Admission History Admitted to Rehab from: [facility] - Findings Detox History & Physical reviewed: Yes Concur with findings: Yes Inpatient Rehab Admission - Rehab Decision to Admit Inpatient rehab admission?: Yes - Initial Determination Are CD services needed?: No Free of communicable disease: Yes Not in need of hospitalization: Yes - Rehab Admission Criteria Previous failed treatment: Yes Poor recovery environment: Yes Comorbidities: Yes Lacks judgement: No Patient is meeting Inpatient Rehab admission criteria:: Yes
[2018-11-12] MEDS ORDERED: MELATONIN 5 MG TABLETS PO PRN (22:00)
[2018-11-12] MEDS: THIAMINE HCL 100 MG TABLET (FP) PO SCH (22:17)
[2018-11-12] MEDS: metFORMIN HCL 500 MG TABLET (FP) PO SCH (22:53)
[2018-11-12] MEDS ORDERED: INSULIN SLIDING SCALE (NOVOLOG) 1 VIAL SQ SCH (23:14)
[2018-11-12] MEDS: INSULIN SLIDING SCALE (NOVOLOG) 1 VIAL SQ SCH (23:39)
[2018-11-13] MEDS: metFORMIN HCL 500 MG TABLET (FP) PO SCH ×2 (06:40→17:00)
[2018-11-13] MEDS ORDERED: INSULIN (NOVOLOG) ASPART 100 UNITS/ML 10ML VIAL ONE (06:42)
[2018-11-13] MEDS: INSULIN SLIDING SCALE (NOVOLOG) 1 VIAL SQ SCH ×2 (06:44→17:03)
[2018-11-13] MEDS ORDERED: INSULIN SLIDING SCALE (NOVOLOG) 1 VIAL SQ SCH (07:00)
[2018-11-13] MEDS: HYDROCHLOROTHIAZIDE 25 MG TABLET (FP) PO SCH (09:48)
[2018-11-13] MEDS: PRENATAL VITAMINS W/ FOLIC ACID TABLET (FP) PO SCH (09:48)
[2018-11-13] MEDS: LISINOPRIL 20 MG TABLET (FP) PO SCH (09:48)
[2018-11-13] MEDS: NIFEdipine E.R. 30 MG TABLET (FP) PO SCH (09:48)
[2018-11-13] MEDS ORDERED: NICOTINE 14 MG/24 HOURS TOPICAL PATCH TD SCH (10:00)
[2018-11-13] MEDS: THIAMINE HCL 100 MG TABLET (FP) PO SCH (21:24)
[2018-11-14] MEDS: metFORMIN HCL 500 MG TABLET (FP) PO SCH ×2 (06:38→16:37)
[2018-11-14] MEDS: INSULIN SLIDING SCALE (NOVOLOG) 1 VIAL SQ SCH ×2 (07:40→16:39)
[2018-11-14] MEDS ORDERED: INSULIN (NOVOLOG) ASPART 100 UNITS/ML 10ML VIAL ONE ×2 (07:41→16:39)
[2018-11-14] MEDS: PRENATAL VITAMINS W/ FOLIC ACID TABLET (FP) PO SCH (09:59)
[2018-11-14] MEDS: NIFEdipine E.R. 30 MG TABLET (FP) PO SCH (09:59)
[2018-11-14] MEDS: HYDROCHLOROTHIAZIDE 25 MG TABLET (FP) PO SCH (09:59)
[2018-11-14] MEDS: LISINOPRIL 20 MG TABLET (FP) PO SCH (09:59)
[2018-11-14] MEDS: THIAMINE HCL 100 MG TABLET (FP) PO SCH (21:17)
[2018-11-15] MEDS: metFORMIN HCL 500 MG TABLET (FP) PO SCH ×2 (06:09→16:57)
[2018-11-15] MEDS ORDERED: INSULIN SLIDING SCALE (NOVOLOG) 1 VIAL SQ ONE (07:13)
[2018-11-15] MEDS: INSULIN SLIDING SCALE (NOVOLOG) 1 VIAL SQ SCH ×2 (07:23→16:57)
[2018-11-15] MEDS: LISINOPRIL 20 MG TABLET (FP) PO SCH (10:12)
[2018-11-15] MEDS: NIFEdipine E.R. 30 MG TABLET (FP) PO SCH (10:12)
[2018-11-15] MEDS: PRENATAL VITAMINS W/ FOLIC ACID TABLET (FP) PO SCH (10:12)
[2018-11-15] MEDS: HYDROCHLOROTHIAZIDE 25 MG TABLET (FP) PO SCH (10:12)
[2018-11-15] MEDS: NICOTINE POLACRILEX 4 MG GUM BUC PRN ×2 (12:29→21:53)
[2018-11-15] MEDS ORDERED: INSULIN (NOVOLOG) ASPART 100 UNITS/ML 10ML VIAL ONE (16:56)
[2018-11-15] MEDS: THIAMINE HCL 100 MG TABLET (FP) PO SCH (21:37)
[2018-11-15 22:10] VITALS: BMI 55.7
[2018-11-16] MEDS: metFORMIN HCL 500 MG TABLET (FP) PO SCH ×2 (06:40→16:46)
[2018-11-16] MEDS: INSULIN SLIDING SCALE (NOVOLOG) 1 VIAL SQ SCH ×2 (06:42→16:47)
[2018-11-16] MEDS: LISINOPRIL 20 MG TABLET (FP) PO SCH ×2 (07:35→09:58)
[2018-11-16] MEDS: PRENATAL VITAMINS W/ FOLIC ACID TABLET (FP) PO SCH (09:57)
[2018-11-16] MEDS: NIFEdipine E.R. 30 MG TABLET (FP) PO SCH (09:57)
[2018-11-16] MEDS: HYDROCHLOROTHIAZIDE 25 MG TABLET (FP) PO SCH (09:57)
[2018-11-16] MEDS ORDERED: INSULIN (NOVOLOG) ASPART 100 UNITS/ML 10ML VIAL ONE (16:45)
[2018-11-16] MEDS: NICOTINE POLACRILEX 4 MG GUM BUC PRN ×2 (17:46→21:02)
[2018-11-16] MEDS: THIAMINE HCL 100 MG TABLET (FP) PO SCH (21:01)
[2018-11-17] MEDS: metFORMIN HCL 500 MG TABLET (FP) PO SCH ×2 (06:40→17:04)
[2018-11-17] MEDS: INSULIN SLIDING SCALE (NOVOLOG) 1 VIAL SQ SCH ×2 (06:41→17:03)
[2018-11-17] MEDS: PRENATAL VITAMINS W/ FOLIC ACID TABLET (FP) PO SCH (10:06)
[2018-11-17] MEDS: LISINOPRIL 20 MG TABLET (FP) PO SCH (10:06)
[2018-11-17] MEDS: NIFEdipine E.R. 30 MG TABLET (FP) PO SCH (10:06)
[2018-11-17] MEDS: HYDROCHLOROTHIAZIDE 25 MG TABLET (FP) PO SCH (10:06)
[2018-11-17] MEDS: NICOTINE POLACRILEX 4 MG GUM BUC PRN ×3 (12:30→20:13)
[2018-11-17] MEDS ORDERED: INSULIN (NOVOLOG) ASPART 100 UNITS/ML 10ML VIAL ONE ×2 (16:59→17:17)
[2018-11-17] MEDS: THIAMINE HCL 100 MG TABLET (FP) PO SCH (21:49)
[2018-11-18] MEDS: metFORMIN HCL 500 MG TABLET (FP) PO SCH ×2 (06:37→17:08)
[2018-11-18] MEDS: NICOTINE POLACRILEX 4 MG GUM BUC PRN ×3 (06:44→21:34)
[2018-11-18] MEDS ORDERED: INSULIN (NOVOLOG) ASPART 100 UNITS/ML 10ML VIAL ONE ×2 (07:33→17:05)
[2018-11-18] MEDS: HYDROCHLOROTHIAZIDE 25 MG TABLET (FP) PO SCH (09:52)
[2018-11-18] MEDS: LISINOPRIL 20 MG TABLET (FP) PO SCH (09:52)
[2018-11-18] MEDS: NIFEdipine E.R. 30 MG TABLET (FP) PO SCH (09:53)
[2018-11-18] MEDS: PRENATAL VITAMINS W/ FOLIC ACID TABLET (FP) PO SCH (09:53)
[2018-11-18] MEDS: INSULIN SLIDING SCALE (NOVOLOG) 1 VIAL SQ SCH (17:10)
[2018-11-18] MEDS: THIAMINE HCL 100 MG TABLET (FP) PO SCH (21:33)
[2018-11-19] MEDS: INSULIN SLIDING SCALE (NOVOLOG) 1 VIAL SQ SCH ×3 (00:27→16:38)
[2018-11-19] MEDS: metFORMIN HCL 500 MG TABLET (FP) PO SCH ×2 (06:49→16:37)
[2018-11-19] MEDS: NICOTINE POLACRILEX 4 MG GUM BUC PRN ×3 (07:18→16:53)
[2018-11-19] MEDS ORDERED: INSULIN (NOVOLOG) ASPART 100 UNITS/ML 10ML VIAL ONE ×2 (07:38→16:37)
[2018-11-19] MEDS: HYDROCHLOROTHIAZIDE 25 MG TABLET (FP) PO SCH (10:02)
[2018-11-19] MEDS: PRENATAL VITAMINS W/ FOLIC ACID TABLET (FP) PO SCH (10:02)
[2018-11-19] MEDS: NIFEdipine E.R. 30 MG TABLET (FP) PO SCH (10:02)
[2018-11-19] MEDS: LISINOPRIL 20 MG TABLET (FP) PO SCH (10:02)
[2018-11-19] MEDS: THIAMINE HCL 100 MG TABLET (FP) PO SCH (21:33)
[2018-11-20] MEDS: metFORMIN HCL 500 MG TABLET (FP) PO SCH ×2 (07:14→17:12)
[2018-11-20] MEDS ORDERED: INSULIN (NOVOLOG) ASPART 100 UNITS/ML 10ML VIAL ONE ×2 (07:16→17:17)
[2018-11-20] MEDS: INSULIN SLIDING SCALE (NOVOLOG) 1 VIAL SQ SCH ×2 (07:18→17:09)
[2018-11-20] MEDS: HYDROCHLOROTHIAZIDE 25 MG TABLET (FP) PO SCH (10:03)
[2018-11-20] MEDS: LISINOPRIL 20 MG TABLET (FP) PO SCH (10:03)
[2018-11-20] MEDS: NIFEdipine E.R. 30 MG TABLET (FP) PO SCH (10:04)
[2018-11-20] MEDS: PRENATAL VITAMINS W/ FOLIC ACID TABLET (FP) PO SCH (10:04)
[2018-11-20] MEDS: NICOTINE POLACRILEX 4 MG GUM BUC PRN ×2 (14:31→19:54)
[2018-11-20] MEDS: THIAMINE HCL 100 MG TABLET (FP) PO SCH (21:52)
[2018-11-21] MEDS: metFORMIN HCL 500 MG TABLET (FP) PO SCH ×2 (06:44→16:53)
[2018-11-21] MEDS: INSULIN SLIDING SCALE (NOVOLOG) 1 VIAL SQ SCH ×2 (07:31→16:55)
[2018-11-21] MEDS ORDERED: INSULIN (NOVOLOG) ASPART 100 UNITS/ML 10ML VIAL ONE (07:31)
[2018-11-21] MEDS: NICOTINE POLACRILEX 4 MG GUM BUC PRN ×3 (07:32→21:16)
[2018-11-21 08:01] VITALS: TEMP 97.7
[2018-11-21] MEDS: LISINOPRIL 20 MG TABLET (FP) PO SCH (09:52)
[2018-11-21] MEDS: HYDROCHLOROTHIAZIDE 25 MG TABLET (FP) PO SCH (09:52)
[2018-11-21] MEDS: PRENATAL VITAMINS W/ FOLIC ACID TABLET (FP) PO SCH (09:52)
[2018-11-21] MEDS: NIFEdipine E.R. 30 MG TABLET (FP) PO SCH (09:53)
[2018-11-21] MEDS: THIAMINE HCL 100 MG TABLET (FP) PO SCH (21:15)
[2018-11-22] MEDS: metFORMIN HCL 500 MG TABLET (FP) PO SCH ×2 (06:26→17:00)
[2018-11-22] MEDS: NICOTINE POLACRILEX 4 MG GUM BUC PRN ×4 (06:28→21:14)
[2018-11-22] MEDS ORDERED: INSULIN (NOVOLOG) ASPART 100 UNITS/ML 10ML VIAL ONE (07:18)
[2018-11-22] MEDS: INSULIN SLIDING SCALE (NOVOLOG) 1 VIAL SQ SCH ×2 (07:19→17:03)
[2018-11-22] MEDS: PRENATAL VITAMINS W/ FOLIC ACID TABLET (FP) PO SCH (09:51)
[2018-11-22] MEDS: NIFEdipine E.R. 30 MG TABLET (FP) PO SCH (09:51)
[2018-11-22] MEDS: HYDROCHLOROTHIAZIDE 25 MG TABLET (FP) PO SCH (09:51)
[2018-11-22] MEDS: LISINOPRIL 20 MG TABLET (FP) PO SCH (09:51)
[2018-11-22 11:49] VITALS: BP 146/88; PULSE 81
[2018-11-22] MEDS: THIAMINE HCL 100 MG TABLET (FP) PO SCH (21:14)
--- NOTE | 2018-11-23 01:35 | DS ---
[facility] Detox Discharge Summary Admission Date: 11/12/18 Discharge Date: 11/23/18 - History Additional Comments: Patient reports that he has o leave to take care of urgent personal issue. Risks and consequences of not completing detox reinforced and patient verbalized understanding. Patient is medically stable and is in no acute distress at this time. Patient reports that he is being picked up by a cab. Pertinent Past History: Withdrawal symptoms - Physical Exam Results Vital Signs: Vital Signs Temperature 97.7 F 11/22/18 06:42 Pulse Rate 81 11/22/18 09:00 Respiratory Rate 20 11/22/18 06:42 Blood Pressure 146/88 11/22/18 09:00 O2 Sat by Pulse Oximetry (%) Pertinent Admission Physical Exam Findings: DM Type 2, Hypertension, obesity, CHF, Alcohol dependece, Heroin dependence, Opoid dependence, - Medication Discharge Medications: Ambulatory Orders Emtricitab/Rilpiviri/Tenof Ala [Odefsey Tablet] 1 each PO DAILY 12/18/16 Carvedilol [Coreg -] 6.25 mg PO BID #60 tablet 09/07/18 Albuterol Sulfate [Proventil HFA Inhaler -] 2 inh PO Q4H PRN #1 hfa.aer.ad 10/15 Hydrochlorothiazide [Hctz -] 25 mg PO DAILY #30 tablet 10/15/18 Lisinopril [Zestril] 40 mg PO DAILY #30 tablet 10/15/18 Nifedipine 20 mg PO DAILY #60 capsule 10/15/18 metFORMIN HCL [Metformin HCl] 500 mg PO BID #60 tablet 10/15/18 - Diagnosis (1) Hypertensive urgency Current Visit: No Status: Acute (2) Asthma Current Visit: No Status: Chronic Qualifiers: Asthma severity: unspecified severity Asthma persistence: unspecified Asthma complication type: uncomplicated Qualified Code(s): J45.909 - Unspecified asthma, uncomplicated (3) Congestive heart failure (CHF) Current Visit: No Status: Chronic Qualifiers: Heart failure type: unspecified Heart failure chronicity: chronic Qualified Code(s): I50.9 - Heart failure, unspecified (4) DM2 (diabetes mellitus, type 2) Current Visit: Yes Status: Chronic Qualifiers: Diabetes mellitus termination clerk insulin use: without termination clerk use Diabetes mellitus complication status: with other specified complication Qualified Code (s): E11.69 - Type 2 diabetes mellitus with other specified complication (5) HIV (human immunodeficiency virus infection) Current Visit: Yes Status: Chronic Qualifiers: HIV symptom status: unspecified Qualified Code(s): B20 - Human immunodeficiency virus [HIV] disease (6) History of CHF (congestive heart failure) Current Visit: No Status: Chronic (7) Hypertension Current Visit: Yes Status: Chronic Qualifiers: Hypertension type: essential hypertension Qualified Code(s): I10 - Essential (primary) hypertension (8) Nicotine dependence Current Visit: No Status: Chronic Qualifiers: Nicotine product type: cigarettes Substance use status: uncomplicated Qualified Code(s): F17.210 - Nicotine dependence, cigarettes, uncomplicated (9) Obese Current Visit: No Status: Chronic Qualifiers: Obesity type: unspecified obesity type Obesity classification: adult class 3 (BMI >= 40) Serious obesity comorbidity presence: unspecified whether serious comorbidity present Body mass index: BMI 50.0-59.9 Qualified Code(s) : E66.01 - Morbid (severe) obesity due to excess calories; Z68.43 - Body mass index (BMI) 50-59.9, adult - AMA Did Patient Leave Against Medical Advice: Yes
== END 2018-11-23 00:58 | disposition left against medical advice (07) | DRG 770 ==
LOC: YASAS 20:11 → Y5N 20:12
PROVIDERS: ADMIT Neuromusculoskeletal Medicine & OMM; ATTEND Neuromusculoskeletal Medicine & OMM
PROC: HZ42ZZZ Group Counseling for Substance Abuse Treatment, Cognitive-Behavioral (ICD-10-PCS; principal; 2018-11-12)
DX: F11.20 Opioid dependence, uncomplicated (principal); F10.20 Alcohol dependence, uncomplicated; F14.20 Cocaine dependence, uncomplicated; Z21 Asymptomatic human immunodeficiency virus [HIV] infection status; I25.10 Atherosclerotic heart disease of native coronary artery without angina pectoris; I16.0 Hypertensive urgency; I50.9 Heart failure, unspecified; I11.0 Hypertensive heart disease with heart failure; E11.69 Type 2 diabetes mellitus with other specified complication; E66.01 Morbid (severe) obesity due to excess calories; Z68.43 Body mass index [BMI] 50.0-59.9, adult; Z79.4 Long term (current) use of insulin
CPT/HCPCS: 82962

== ENCOUNTER 2018-12-28 10:45 | Inpatient (IN) | payer OTHER ==
[2018-12-28 11:49] VITALS: BMI 56.6
--- NOTE | 2018-12-28 12:17 | HP ---
CIWA Score - Admission Criteria [facility] Guidelines: Admission for Medically Managed Detox: Requires at least one of the followin. CIWA greater than 12 2. Seizures within the past 24 hours 3. Delirium tremens within the past 24 hours 4. Hallucinations within the past 24 hours 5. Acute intervention needed for co occurring medical disorder 6. Acute intervention needed for co occurring psychiatric disorder 7. Severe withdrawal that cannot be handled at a lower level of care (continued vomiting, continued diarrhea, abnormal vital signs) requiring intravenous medication and/or fluids 8. Admission ROS [facility] - HPI Chief Complaint: i am here for rehab from alcohol,crack,cocaine, Allergies/Adverse Reactions: Allergies Allergy/AdvReac Type Severity Reaction Status Date / Time No Known Allergies Allergy Verified 12/28/18 11:36 History of Present Illness: this 43 years old male with alcohol,crack and cocaine dependence ,here for rehab ,completed detox [facility] from 12/25/18 to multiple admissions in detox and rehab history of hypertension,type 2 dm,asthma,hiv since 2008 syncope.denied seizure longest period of sobriety 3 months need rehab - Ebola screening Have you traveled outside of the country in the last 21 days: No (N) Have you had contact with anyone from an Ebola affected area: No Do you have a fever: No - Review of Systems Constitutional: No Symptoms Reported EENT: reports: No Symptoms Reported Respiratory: reports: No Symptoms reported, Other (asthma) Cardiac: reports: No Symptoms Reported GI: reports: No Symptoms Reported : reports: No Symptoms Reported Integumentary: reports: No Symptoms Reported Neuro: reports: No Symptoms reported Endocrine: reports: No Symptoms Reported, Other (eboni 2 dm) Hematology: reports: No Symptoms Reported, Other (hiv) Psychiatric: reports: No Sypmtoms Reported, Judgement Intact, Mood/Affect Appropiate, Orientated x3 Other Systems: Reviewed and Negative Patient History - Patient Medical History Hx Anemia: No Hx Asthma: Yes Hx Chronic Obstructive Pulmonary Disease (COPD): No Hx Cancer: No Hx Cardiac Disorders: Yes (CHF, Cardiac Cath 2011) Hx Congestive Heart Failure: Yes Hx Hypertension: Yes Hx Hypercholesterolemia: No Hx Pacemaker: No HX Cerebrovascular Accident: No Hx Seizures: No Hx Dementia: No Hx Diabetes: Yes (Type 2 on metformin 500 mgs po bid) Hx Gastrointestinal Disorders: No Hx Liver Disease: No Hx Genitourinary Disorders: No Hx Sexually Transmitted Disorders: Yes (HIV + 2008) Hx Renal Disease (ESRD): No Hx Thyroid Disease: No Hx Human Immunodeficiency Virus (HIV): Yes (since 2008 ) Hx Hepatitis C: No Hx Depression: No Hx Suicide Attempt: No Hx Bipolar Disorder: No Hx Schizophrenia: No Other Medical History: no sucidal,no homicidal - Patient Surgical History Past Surgical History: Yes Hx Neurologic Surgery: No Hx Cataract Extraction: No Hx Cardiac Surgery: Yes (CARDIAC CATHETERIZATION IN 09/2011.. NO BLOCKAGE) Hx Lung Surgery: No Hx Breast Surgery: No Hx Breast Biopsy: No Hx Abdominal Surgery: No Hx Appendectomy: No Hx Cholecystectomy: No Hx Genitourinary Surgery: No Hx Section: No Hx Orthopedic Surgery: No Hx Hysterectomy: No Other Surgical History: R Testicular S2011 Anesthesia Reaction: No - PPD History Previous Implant?: Yes Documented Results: Negative w/proof Implanted On Prior [facility] Admission?: Yes Date: 07/06/18 Results: 0.0mm PPD to be Administered?: No - Smoking Cessation Smoking history: Never smoked Have you smoked in the past 12 months: No Aproximately how many cigarettes per day: 0 Hx Chewing Tobacco Use: No - Substance & Tx. History Hx Alcohol Use: Yes Hx Substance Use Treatment: Yes ( 12/25/18 to 12/28/18 [facility]) - Substances abused Alcohol Substance route: Oral Frequency: Daily Amount used: 7-10 cans of 24 oz beer & 1pt. vodka Age of first use: 20 Date of last use: 12/24/18 Cocaine Substance route: Inhalation Frequency: 1-2 times per week Amount used: 5bags Age of first use: 24 Date of last use: 08/29/18 Crack Substance route: Smoking Frequency: 3-6 times per week Amount used: 4-6 bags Age of first use: 24 Date of last use: 12/24/18 Family Disease History - Family Disease History Family Disease History: Other: Father (ALOCOHOL,), Mother (ALCOHOL, ) Admission Physical Exam BHS - Vital Signs Vital Signs: Vital Signs - 24 hr 12/28/18 11:45 Temperature 98.4 F Pulse Rate 88 Respiratory 20 Rate Blood Pressure 158/90 - Physical General Appearance: Yes: Within Normal Limits HEENTM: Yes: Normal ENT Inspection, MAISHA, Pharynx Normal Respiratory: Yes: Lungs Clear, Normal Breath Sounds, No Respiratory Distress, Other (asthma) Neck: Yes: Within Normal Limits, Supple, Trachea in good position Breast: Yes: Within Normal Limits Cardiology: Yes: Within Normal Limits, S1, S2 Abdominal: Yes: Normal Bowel Sounds, Non Tender, Soft, Other (protuded) Genitourinary: Yes: Within Normal Limits, Other (right orchidectomy) Back: Yes: Within Normal Limits Musculoskeletal: Yes: Within Normal Limits Extremities: Yes: Within Normal Limits 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: Yes: Within Normal Limits Integumentary: Yes: Within Normal Limits Lymphatic: Yes: Within Normal Limits - Diagnostic (1) Alcohol use disorder Current Visit: No Status: Acute (2) Cocaine use disorder Current Visit: No Status: Acute (3) Asthma Current Visit: No Status: Chronic Qualifiers: Asthma severity: unspecified severity Asthma persistence: unspecified Asthma complication type: uncomplicated Qualified Code(s): J45.909 - Unspecified asthma, uncomplicated (4) DM2 (diabetes mellitus, type 2) Current Visit: No Status: Chronic Qualifiers: Diabetes mellitus retirement insulin use: without retirement use Diabetes mellitus complication status: with other specified complication Qualified Code (s): E11.69 - Type 2 diabetes mellitus with other specified complication (5) HIV (human immunodeficiency virus infection) Current Visit: No Status: Chronic Qualifiers: HIV symptom status: unspecified Qualified Code(s): B20 - Human immunodeficiency virus [HIV] disease (6) History of CHF (congestive heart failure) Current Visit: No Status: Chronic (7) Hypertension Current Visit: No Status: Chronic Qualifiers: Hypertension type: essential hypertension Qualified Code(s): I10 - Essential (primary) hypertension (8) Nicotine dependence Current Visit: No Status: Chronic Qualifiers: Nicotine product type: cigarettes Substance use status: uncomplicated Qualified Code(s): F17.210 - Nicotine dependence, cigarettes, uncomplicated (9) Obese Current Visit: No Status: Chronic Qualifiers: Obesity type: unspecified obesity type Obesity classification: adult class 3 (BMI >= 40) Serious obesity comorbidity presence: unspecified whether serious comorbidity present Body mass index: BMI 50.0-59.9 Qualified Code(s) : E66.01 - Morbid (severe) obesity due to excess calories; Z68.43 - Body mass index (BMI) 50-59.9, adult (10) H/O unilateral orchiectomy Current Visit: Yes Status: Resolved Cleared for Admission BHS - Detox or Rehab Claeared for Rehab Admission: Yes Breathalyzer - Breathalyzer Breathalyzer: 0 Urine Drug Screen - Test Device Lot number: [id number] Expiration date: 07/07/20 - Control Is test valid?: Yes - Results Drug screen NEGATIVE: No Urine drug screen results: TOMÁS-Cocaine, BZO-Benzodiazepines Inpatient Rehab Admission - Rehab Decision to Admit Inpatient rehab admission?: Yes - Initial Determination Are CD services needed?: Yes Free of communicable disease: Yes Not in need of hospitalization: Yes - Rehab Admission Criteria Previous failed treatment: Yes Poor recovery environment: Yes Comorbidities: Yes Lacks judgement: No Patient is meeting Inpatient Rehab admission criteria:: Yes
[2018-12-28] MEDS ORDERED: MAGNESIUM CITRATE 300 ML BOTTLE PO PRN (12:31)
[2018-12-28] MEDS ORDERED: ACETAMINOPHEN 325 MG TABLET (FP) PO PRN (12:31)
[2018-12-28] MEDS ORDERED: P-EPHED 60MG/TRIPROLIDI 2.5MG TABLET PO PRN (12:31)
[2018-12-28] MEDS ORDERED: guaiFENesin 200 MG/10 ML 10 ML UNIT-DOSE CUPS PO PRN (12:31)
[2018-12-28] MEDS ORDERED: hydrOXYzine PAMOATE 25 MG CAPSULE (FP) PO PRN (12:31)
[2018-12-28] MEDS ORDERED: MAG HYDROX/AL HYDROX/SIMETH 30 ML UNIT-DOSE CUP PO PRN (12:31)
[2018-12-28] MEDS ORDERED: MENTHOL/PHENOL 1 EACH UD MM PRN (12:31)
[2018-12-28] MEDS ORDERED: IBUPROFEN 400 MG TABLET (FP) PO PRN (12:31)
[2018-12-28] MEDS ORDERED: LOPERAMIDE HCL 2 MG CAPSULE PO PRN (12:31)
[2018-12-28] MEDS ORDERED: MAGNESIUM HYDROX 2400MG/30ML ORAL SUSPENSION 30 ML CUP PO PRN (12:31)
[2018-12-28] MEDS ORDERED: ALBUTEROL SO4 8 GM HFA INHALER IH PRN (12:33)
[2018-12-28] MEDS: HYDROCHLOROTHIAZIDE 25 MG TABLET (FP) PO SCH (13:17)
[2018-12-28] MEDS: LISINOPRIL 20 MG TABLET (FP) PO SCH (13:17)
[2018-12-28] MEDS: metFORMIN HCL 500 MG TABLET (FP) PO SCH ×2 (13:18→16:20)
[2018-12-28] MEDS: NIFEdipine E.R. 90 MG TABLET (FP) PO SCH (13:18)
[2018-12-28 14:34] LABS: HEMATOCRIT 42.5 % (35.4-49); HEMOGLOBIN 13.7 GM/dL (11.7-16.9); MCH 29.1 pg (25.7-33.7); MCHC 32.2 g/dl (32.0-35.9); MEAN CELL VOLUME 90.4 fl (80-96); MEAN PLT VOLUME 7.2 fl (7.5-11.1); PLATELET COUNT 292 K/MM3 (134-434); RBC 4.71 M/mm3 (4.00-5.60); RDW 14.5 % (11.9-15.9); WHITE BLOOD COUNT 7.3 K/mm3 (4.0-10.0)
[2018-12-28 14:48] LABS: ALBUMIN 3.8 g/dl (3.4-5.0); BILIRUBIN,TOTAL 0.5 mg/dL (0.2-1); BLOOD UREA NITROGEN 12.6 mg/dL (7-18); CALCIUM 9.4 mg/dL (8.5-10.1); CREATININE 1.1 mg/dL (0.55-1.3); POTASSIUM 3.8 mmol/L (3.5-5.1); TOT PROT 8.1 g/dl (6.4-8.2)
[2018-12-28] MEDS ORDERED: INSULIN (NOVOLOG) ASPART 100 UNITS/ML 10ML VIAL ONE (16:18)
[2018-12-28] MEDS: INSULIN (NOVOLOG) ASPART 100 UNITS/ML 10ML VIAL SQ SCH ×2 (16:20→21:52)
[2018-12-28] MEDS: THIAMINE HCL 100 MG TABLET (FP) PO SCH (21:50)
[2018-12-28] MEDS ORDERED: MELATONIN 5 MG TABLETS PO PRN (22:00)
[2018-12-29] MEDS ORDERED: INSULIN (NOVOLOG) ASPART 100 UNITS/ML 10ML VIAL ONE ×2 (06:28→11:53)
[2018-12-29] MEDS: INSULIN (NOVOLOG) ASPART 100 UNITS/ML 10ML VIAL SQ SCH ×4 (07:32→21:43)
[2018-12-29] MEDS: metFORMIN HCL 500 MG TABLET (FP) PO SCH (07:32)
[2018-12-29] MEDS: HYDROCHLOROTHIAZIDE 25 MG TABLET (FP) PO SCH (09:37)
[2018-12-29] MEDS: LISINOPRIL 20 MG TABLET (FP) PO SCH (09:38)
[2018-12-29] MEDS: NIFEdipine E.R. 90 MG TABLET (FP) PO SCH (09:38)
[2018-12-29] MEDS: PRENATAL VITAMINS W/ FOLIC ACID TABLET (FP) PO SCH (09:38)
[2018-12-29 13:22] LABS: EPI CELLS 0.9 /HPF (0-5/HPF); HYALINE CASTS 1 /lpf (0-8); URINE APPEARANCE CLEAR; URINE BACTERIA 30.1 /hpf (NEGATIVE); URINE BILIRUBIN NEGATIVE (NEGATIVE); URINE COLOR YELLOW; URINE GLUCOSE (UA) 3+ (NEGATIVE); URINE KETONE NEGATIVE (NEGATIVE); URINE LEUK ESTERASE NEGATIVE (NEGATIVE); URINE NITRITE NEGATIVE (NEGATIVE); URINE PROTEIN 1+ (NEGATIVE); URINE RBC 1 /hpf (0-4); URINE UROBILINOGEN 0.2 mg/dL (0.2-1.0); URINE WBC 1 /hpf (0-5)
[2018-12-29] MEDS: METHYL SALICYLATE/MENTHOL OINT 30 GM TUBE TP SCH (13:25)
[2018-12-29] MEDS: THIAMINE HCL 100 MG TABLET (FP) PO SCH (21:42)
[2018-12-30] MEDS: INSULIN (NOVOLOG) ASPART 100 UNITS/ML 10ML VIAL SQ SCH ×4 (06:35→21:22)
[2018-12-30] MEDS: PRENATAL VITAMINS W/ FOLIC ACID TABLET (FP) PO SCH (09:41)
[2018-12-30] MEDS: METHYL SALICYLATE/MENTHOL OINT 30 GM TUBE TP SCH (09:41)
[2018-12-30] MEDS: HYDROCHLOROTHIAZIDE 25 MG TABLET (FP) PO SCH (09:42)
[2018-12-30] MEDS: NIFEdipine E.R. 90 MG TABLET (FP) PO SCH (09:42)
[2018-12-30] MEDS: LISINOPRIL 20 MG TABLET (FP) PO SCH (09:42)
[2018-12-30] MEDS ORDERED: INSULIN (NOVOLOG) ASPART 100 UNITS/ML 10ML VIAL ONE (11:47)
[2018-12-30] MEDS: THIAMINE HCL 100 MG TABLET (FP) PO SCH (21:19)
[2018-12-31] MEDS: INSULIN (NOVOLOG) ASPART 100 UNITS/ML 10ML VIAL SQ SCH ×4 (06:31→22:01)
[2018-12-31] MEDS: HYDROCHLOROTHIAZIDE 25 MG TABLET (FP) PO SCH (10:32)
[2018-12-31] MEDS: NIFEdipine E.R. 90 MG TABLET (FP) PO SCH (10:32)
[2018-12-31] MEDS: PRENATAL VITAMINS W/ FOLIC ACID TABLET (FP) PO SCH (10:32)
[2018-12-31] MEDS: METHYL SALICYLATE/MENTHOL OINT 30 GM TUBE TP SCH (10:32)
[2018-12-31] MEDS: LISINOPRIL 20 MG TABLET (FP) PO SCH (10:32)
[2018-12-31] MEDS ORDERED: INSULIN (NOVOLOG) ASPART 100 UNITS/ML 10ML VIAL ONE ×2 (11:17→16:32)
[2018-12-31] MEDS: THIAMINE HCL 100 MG TABLET (FP) PO SCH (22:02)
[2019-01-01] MEDS: INSULIN (NOVOLOG) ASPART 100 UNITS/ML 10ML VIAL SQ SCH ×4 (06:38→22:15)
[2019-01-01] MEDS: METHYL SALICYLATE/MENTHOL OINT 30 GM TUBE TP SCH (09:32)
[2019-01-01] MEDS: PRENATAL VITAMINS W/ FOLIC ACID TABLET (FP) PO SCH (09:33)
[2019-01-01] MEDS: HYDROCHLOROTHIAZIDE 25 MG TABLET (FP) PO SCH (09:33)
[2019-01-01] MEDS: LISINOPRIL 20 MG TABLET (FP) PO SCH (09:33)
[2019-01-01] MEDS: NIFEdipine E.R. 90 MG TABLET (FP) PO SCH (09:33)
[2019-01-01] MEDS: THIAMINE HCL 100 MG TABLET (FP) PO SCH (22:15)
[2019-01-02] MEDS: INSULIN (NOVOLOG) ASPART 100 UNITS/ML 10ML VIAL SQ SCH ×4 (07:03→21:15)
[2019-01-02] MEDS ORDERED: INSULIN (NOVOLOG) ASPART 100 UNITS/ML 10ML VIAL ONE ×4 (07:03→22:30)
[2019-01-02] MEDS: NIFEdipine E.R. 90 MG TABLET (FP) PO SCH (10:38)
[2019-01-02] MEDS: HYDROCHLOROTHIAZIDE 25 MG TABLET (FP) PO SCH (10:39)
[2019-01-02] MEDS: METHYL SALICYLATE/MENTHOL OINT 30 GM TUBE TP SCH (10:39)
[2019-01-02] MEDS: PRENATAL VITAMINS W/ FOLIC ACID TABLET (FP) PO SCH (10:39)
[2019-01-02] MEDS: LISINOPRIL 20 MG TABLET (FP) PO SCH (10:39)
[2019-01-02] MEDS: THIAMINE HCL 100 MG TABLET (FP) PO SCH (21:15)
[2019-01-03] MEDS: INSULIN (NOVOLOG) ASPART 100 UNITS/ML 10ML VIAL SQ SCH ×4 (07:07→21:21)
[2019-01-03] MEDS ORDERED: INSULIN (NOVOLOG) ASPART 100 UNITS/ML 10ML VIAL ONE ×2 (07:07→11:55)
[2019-01-03] MEDS: NIFEdipine E.R. 90 MG TABLET (FP) PO SCH (09:46)
[2019-01-03] MEDS: PRENATAL VITAMINS W/ FOLIC ACID TABLET (FP) PO SCH (09:46)
[2019-01-03] MEDS: HYDROCHLOROTHIAZIDE 25 MG TABLET (FP) PO SCH (09:46)
[2019-01-03] MEDS: LISINOPRIL 20 MG TABLET (FP) PO SCH (09:46)
[2019-01-03] MEDS ORDERED: PT OWN MED DRAWER 7, Y5N ONE (09:48)
[2019-01-03] MEDS: METHYL SALICYLATE/MENTHOL OINT 30 GM TUBE TP SCH (09:48)
[2019-01-03] MEDS: THIAMINE HCL 100 MG TABLET (FP) PO SCH (21:17)
[2019-01-04] MEDS ORDERED: INSULIN (NOVOLOG) ASPART 100 UNITS/ML 10ML VIAL ONE ×2 (07:03→11:36)
[2019-01-04] MEDS: INSULIN (NOVOLOG) ASPART 100 UNITS/ML 10ML VIAL SQ SCH ×4 (07:03→21:36)
[2019-01-04] MEDS: METHYL SALICYLATE/MENTHOL OINT 30 GM TUBE TP SCH (09:39)
[2019-01-04] MEDS: HYDROCHLOROTHIAZIDE 25 MG TABLET (FP) PO SCH (09:39)
[2019-01-04] MEDS: NIFEdipine E.R. 90 MG TABLET (FP) PO SCH (09:39)
[2019-01-04] MEDS: PRENATAL VITAMINS W/ FOLIC ACID TABLET (FP) PO SCH (09:39)
[2019-01-04] MEDS: LISINOPRIL 20 MG TABLET (FP) PO SCH (09:39)
[2019-01-04] MEDS: THIAMINE HCL 100 MG TABLET (FP) PO SCH (21:35)
[2019-01-05] MEDS ORDERED: INSULIN (NOVOLOG) ASPART 100 UNITS/ML 10ML VIAL ONE ×2 (06:49→12:01)
[2019-01-05] MEDS: INSULIN (NOVOLOG) ASPART 100 UNITS/ML 10ML VIAL SQ SCH ×4 (07:54→21:22)
[2019-01-05] MEDS: PRENATAL VITAMINS W/ FOLIC ACID TABLET (FP) PO SCH (09:49)
[2019-01-05] MEDS: NIFEdipine E.R. 90 MG TABLET (FP) PO SCH (09:49)
[2019-01-05] MEDS: LISINOPRIL 20 MG TABLET (FP) PO SCH (09:50)
[2019-01-05] MEDS: METHYL SALICYLATE/MENTHOL OINT 30 GM TUBE TP SCH (09:50)
[2019-01-05] MEDS: HYDROCHLOROTHIAZIDE 25 MG TABLET (FP) PO SCH (09:50)
[2019-01-05] MEDS: THIAMINE HCL 100 MG TABLET (FP) PO SCH (21:21)
[2019-01-06] MEDS ORDERED: INSULIN (NOVOLOG) ASPART 100 UNITS/ML 10ML VIAL ONE ×4 (06:58→20:45)
[2019-01-06] MEDS: INSULIN (NOVOLOG) ASPART 100 UNITS/ML 10ML VIAL SQ SCH ×4 (06:59→21:30)
[2019-01-06] MEDS: LISINOPRIL 20 MG TABLET (FP) PO SCH (09:48)
[2019-01-06] MEDS: NIFEdipine E.R. 90 MG TABLET (FP) PO SCH (09:48)
[2019-01-06] MEDS: HYDROCHLOROTHIAZIDE 25 MG TABLET (FP) PO SCH (09:48)
[2019-01-06] MEDS: PRENATAL VITAMINS W/ FOLIC ACID TABLET (FP) PO SCH (09:48)
[2019-01-06] MEDS: METHYL SALICYLATE/MENTHOL OINT 30 GM TUBE TP SCH (09:50)
[2019-01-06] MEDS: THIAMINE HCL 100 MG TABLET (FP) PO SCH (21:30)
[2019-01-07] MEDS ORDERED: INSULIN (NOVOLOG) ASPART 100 UNITS/ML 10ML VIAL ONE ×4 (06:49→21:01)
[2019-01-07] MEDS: INSULIN (NOVOLOG) ASPART 100 UNITS/ML 10ML VIAL SQ SCH ×4 (06:50→21:01)
[2019-01-07] MEDS: PRENATAL VITAMINS W/ FOLIC ACID TABLET (FP) PO SCH (09:30)
[2019-01-07] MEDS: NIFEdipine E.R. 90 MG TABLET (FP) PO SCH (09:31)
[2019-01-07] MEDS: LISINOPRIL 20 MG TABLET (FP) PO SCH (09:31)
[2019-01-07] MEDS: METHYL SALICYLATE/MENTHOL OINT 30 GM TUBE TP SCH (09:31)
[2019-01-07] MEDS: HYDROCHLOROTHIAZIDE 25 MG TABLET (FP) PO SCH (09:31)
[2019-01-07] MEDS: THIAMINE HCL 100 MG TABLET (FP) PO SCH (21:01)
[2019-01-08] MEDS ORDERED: INSULIN (NOVOLOG) ASPART 100 UNITS/ML 10ML VIAL ONE ×3 (06:34→16:41)
[2019-01-08] MEDS: INSULIN (NOVOLOG) ASPART 100 UNITS/ML 10ML VIAL SQ SCH ×4 (07:04→23:10)
[2019-01-08] MEDS: METHYL SALICYLATE/MENTHOL OINT 30 GM TUBE TP SCH (10:01)
[2019-01-08] MEDS: LISINOPRIL 20 MG TABLET (FP) PO SCH (10:01)
[2019-01-08] MEDS: HYDROCHLOROTHIAZIDE 25 MG TABLET (FP) PO SCH (10:01)
[2019-01-08] MEDS: NIFEdipine E.R. 90 MG TABLET (FP) PO SCH (10:01)
[2019-01-08] MEDS: PRENATAL VITAMINS W/ FOLIC ACID TABLET (FP) PO SCH (10:01)
[2019-01-08] MEDS: THIAMINE HCL 100 MG TABLET (FP) PO SCH (23:41)
[2019-01-09] MEDS: INSULIN (NOVOLOG) ASPART 100 UNITS/ML 10ML VIAL SQ SCH ×4 (06:33→21:31)
[2019-01-09] MEDS: NIFEdipine E.R. 90 MG TABLET (FP) PO SCH (09:40)
[2019-01-09] MEDS: PRENATAL VITAMINS W/ FOLIC ACID TABLET (FP) PO SCH (09:40)
[2019-01-09] MEDS: LISINOPRIL 20 MG TABLET (FP) PO SCH (09:40)
[2019-01-09] MEDS: HYDROCHLOROTHIAZIDE 25 MG TABLET (FP) PO SCH (09:40)
[2019-01-09] MEDS: METHYL SALICYLATE/MENTHOL OINT 30 GM TUBE TP SCH (09:40)
[2019-01-09] MEDS ORDERED: INSULIN (NOVOLOG) ASPART 100 UNITS/ML 10ML VIAL ONE (11:48)
[2019-01-09] MEDS: THIAMINE HCL 100 MG TABLET (FP) PO SCH (21:31)
[2019-01-10] MEDS: INSULIN (NOVOLOG) ASPART 100 UNITS/ML 10ML VIAL SQ SCH ×4 (06:20→21:43)
[2019-01-10] MEDS: PRENATAL VITAMINS W/ FOLIC ACID TABLET (FP) PO SCH (09:34)
[2019-01-10] MEDS: METHYL SALICYLATE/MENTHOL OINT 30 GM TUBE TP SCH (09:34)
[2019-01-10] MEDS: HYDROCHLOROTHIAZIDE 25 MG TABLET (FP) PO SCH (09:34)
[2019-01-10] MEDS: LISINOPRIL 20 MG TABLET (FP) PO SCH (09:34)
[2019-01-10] MEDS: NIFEdipine E.R. 90 MG TABLET (FP) PO SCH (09:34)
[2019-01-10 09:48] VITALS: PULSE 92
[2019-01-10] MEDS ORDERED: INSULIN (NOVOLOG) ASPART 100 UNITS/ML 10ML VIAL ONE (11:29)
[2019-01-10] MEDS: THIAMINE HCL 100 MG TABLET (FP) PO SCH (21:43)
[2019-01-11 06:53] VITALS: BP 159/89; TEMP 98.1
[2019-01-11] MEDS ORDERED: INSULIN (NOVOLOG) ASPART 100 UNITS/ML 10ML VIAL ONE (07:13)
[2019-01-11] MEDS: INSULIN (NOVOLOG) ASPART 100 UNITS/ML 10ML VIAL SQ SCH (07:37)
--- NOTE | 2019-01-11 08:41 | DS ---
[facility] Rehab Discharge Summary - [facility] Rehab Discharge Summary Admission Date: 12/28/18 Discharge Date: 01/11/19 - History Present History: Alcohol dependence, Cocaine dependence, Opioid dependence Pertinent Past History: this 43 years old male with alcohol,crack and cocaine dependence completed detox [facility] from 12/25/18 to multiple admissions in detox and rehab history of hypertension,type 2 dm,asthma,hiv since 2008; has not take HIV medications for 1 month prior to admission to rehab syncope.denied seizure longest period of sobriety 3 months - Discharge Physical Exam Vital Signs: Vital Signs Temperature 98.1 F 01/11/19 06:53 Pulse Rate 92 H 01/11/19 06:53 Respiratory Rate 20 01/11/19 06:53 Blood Pressure 159/89 01/11/19 06:53 O2 Sat by Pulse Oximetry (%) Pertinent Admission Physical Exam Findings: General Appearance: No apparent distress HEENTM: MAISHA, Respiratory:Lungs Clear, Neck: Supple, Trachea in good position Cardiology: S1, S2 Abdominal: +Bowel Sounds, Non Tender, Soft, Morbidly Obese Musculoskeletal: full weight bearing, ROM limited by weight, steady gait 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: CN 2-12 intact; muscle strength 5/5 Integumentary: color consistent throughout trunk and extremities, no rashes noted Lymphatic: No palpable lymph nodes - Treatment Discharge Condition: Outpatient referral accepted (patient will be going to [facility] outpatient program.) - Medication Discharge Medications: Ambulatory Orders Folic Acid 1 mg PO DAILY 12/28/18 Multivitamins [Tab-A-Vit -] 1 tab PO DAILY 12/28/18 Albuterol Sulfate [Proventil HFA Inhaler -] 2 inh PO Q4H PRN #1 hfa.aer.ad 01/11 Emtricitab/Rilpiviri/Tenof Ala [Odefsey Tablet] 1 each PO DAILY #30 tablet 01/11 Hydrochlorothiazide [Hctz -] 25 mg PO DAILY #30 tablet 01/11/19 Lisinopril [Zestril] 20 mg PO DAILY #30 tablet 01/11/19 Nifedipine 90 mg PO DAILY #90 capsule 01/11/19 metFORMIN HCL [Metformin HCl] 500 mg PO BID #60 tablet 01/11/19 - Medication-Assisted Treatment (MAT) Medication-Assisted Treatment (MAT): No - Discharge Instructions Diet, activity, other medical instructions: Diet: as tolerated, recommend low fat, no sugar diet Activity: as tolerated Other medical instructions: Please follow up with referral to [facility] outpatient substance abuse treatment; please follow up with primary care and HIV care at [facility]. Please take medications as prescribed. - Diagnosis (1) Alcohol use disorder Current Visit: No Status: Suspected (2) Cocaine use disorder Current Visit: No Status: Suspected (3) Cocaine dependence Current Visit: No Status: Suspected Qualifiers: Substance use status: uncomplicated Qualified Code(s): F14.20 - Cocaine dependence, uncomplicated (4) HIV (human immunodeficiency virus infection) Current Visit: No Status: Chronic Qualifiers: HIV symptom status: asymptomatic Qualified Code(s): Z21 - Asymptomatic human immunodeficiency virus [HIV] infection status (5) Obese Current Visit: No Status: Chronic Qualifiers: Obesity type: unspecified obesity type Obesity classification: adult class 3 (BMI >= 40) Serious obesity comorbidity presence: unspecified whether serious comorbidity present Body mass index: BMI 50.0-59.9 Qualified Code(s) : E66.01 - Morbid (severe) obesity due to excess calories; Z68.43 - Body mass index (BMI) 50-59.9, adult - Follow-up Referral Minutes to complete discharge: 20 - AMA Did Patient Leave Against Medical Advice: No
[2019-01-11] MEDS: NIFEdipine E.R. 90 MG TABLET (FP) PO SCH (09:15)
[2019-01-11] MEDS: METHYL SALICYLATE/MENTHOL OINT 30 GM TUBE TP SCH (09:16)
[2019-01-11] MEDS: PRENATAL VITAMINS W/ FOLIC ACID TABLET (FP) PO SCH (09:16)
[2019-01-11] MEDS: LISINOPRIL 20 MG TABLET (FP) PO SCH (09:16)
[2019-01-11] MEDS: HYDROCHLOROTHIAZIDE 25 MG TABLET (FP) PO SCH (09:16)
== END 2019-01-11 09:00 | disposition home or self-care (01) | DRG 772 ==
LOC: YASAS 10:45 → Y3W 12:38
PROVIDERS: ADMIT Neuromusculoskeletal Medicine & OMM; ATTEND Neuromusculoskeletal Medicine & OMM
PROC: HZ42ZZZ Group Counseling for Substance Abuse Treatment, Cognitive-Behavioral (ICD-10-PCS; principal; 2018-12-28)
DX: F10.20 Alcohol dependence, uncomplicated (principal); F14.20 Cocaine dependence, uncomplicated; Z21 Asymptomatic human immunodeficiency virus [HIV] infection status; I25.10 Atherosclerotic heart disease of native coronary artery without angina pectoris; I10 Essential (primary) hypertension; Z98.61 Coronary angioplasty status; E11.9 Type 2 diabetes mellitus without complications; Z79.84 Long term (current) use of oral hypoglycemic drugs; J45.909 Unspecified asthma, uncomplicated; E66.01 Morbid (severe) obesity due to excess calories; Z68.43 Body mass index [BMI] 50.0-59.9, adult; Z90.79 Acquired absence of other genital organ(s)
CPT/HCPCS: 36415; 80053; 81003; 82962; 85027; 86593

== ENCOUNTER 2019-02-08 17:00 | Inpatient (IN) | payer OTHER ==
[2019-02-08 21:39] VITALS: BMI 55.7
--- NOTE | 2019-02-08 23:50 | HP ---
CIWA Score Nausea/Vomitin-Mild Nausea/No Vomiting Muscle Tremors: 3 Anxiety: 3 Agitation: 2 Paroxysmal Sweats: 4-Forehead w/Sweat Beads Orientation: 0-Oriented Tacttile Disturbances: 0-None Auditory Disturbances: 0-None Visual Disturbances: 0-None Headache: 3-Moderate CIWA-Ar Total Score: 16 - Admission Criteria OASAS Guidelines: Admission for Medically Managed Detox: Requires at least one of the followin. CIWA greater than 12 2. Seizures within the past 24 hours 3. Delirium tremens within the past 24 hours 4. Hallucinations within the past 24 hours 5. Acute intervention needed for co occurring medical disorder 6. Acute intervention needed for co occurring psychiatric disorder 7. Severe withdrawal that cannot be handled at a lower level of care (continued vomiting, continued diarrhea, abnormal vital signs) requiring intravenous medication and/or fluids 8. Admitting History and Physical - Smoking History Aproximately how many cigarettes per day: 0 Admission ROS BHS - HPI Chief Complaint: Alcohol withdrawal symptoms Allergies/Adverse Reactions: Allergies Allergy/AdvReac Type Severity Reaction Status Date / Time No Known Allergies Allergy Verified 02/08/19 21:28 History of Present Illness: 43 years old male with a long history of alcohol dependence is seeking admission to detox. Patient has been in multiple detox therapy and reports insignificant period of sobriety. He has medical history of hypertension, CHF, Diabetes Type 2, asthma and HIV+. He denies suicidal ideation at this time Exam Limitations: No Limitations - Ebola screening Have you traveled outside of the country in the last 21 days: No (N) Have you had contact with anyone from an Ebola affected area: No Do you have a fever: No - Review of Systems Constitutional: Malaise, Night Sweats, Changes in sleep EENT: reports: No Symptoms Reported Respiratory: reports: No Symptoms reported Cardiac: reports: No Symptoms Reported GI: reports: Poor Appetite, Poor Fluid Intake : reports: No Symptoms Reported, Lesions Integumentary: reports: Dryness, Flushing Neuro: reports: Headache, Tremors Endocrine: reports: No Symptoms Reported Hematology: reports: No Symptoms Reported Psychiatric: reports: Mood/Affect Appropiate, Orientated x3, Anxious Other Systems: Reviewed and Negative Patient History - Patient Medical History Hx Anemia: No Hx Asthma: Yes (Albuterol) Hx Chronic Obstructive Pulmonary Disease (COPD): No Hx Cancer: No Hx Cardiac Disorders: Yes (CHF, Cardiac Cath 2011) Hx Congestive Heart Failure: Yes Hx Hypertension: Yes Hx Hypercholesterolemia: No Hx Pacemaker: No HX Cerebrovascular Accident: No Hx Seizures: No Hx Dementia: No Hx Diabetes: Yes (Type 2 on metformin 500 mgs po bid) Hx Gastrointestinal Disorders: No Hx Liver Disease: No Hx Genitourinary Disorders: No Hx Sexually Transmitted Disorders: Yes (HIV + 2008) Hx Renal Disease (ESRD): No Hx Thyroid Disease: No Hx Human Immunodeficiency Virus (HIV): Yes (since 2008 ) Hx Hepatitis C: No Hx Depression: No Hx Suicide Attempt: No Hx Bipolar Disorder: No Hx Schizophrenia: No - Patient Surgical History Past Surgical History: Yes Hx Neurologic Surgery: No Hx Cataract Extraction: No Hx Cardiac Surgery: Yes (CARDIAC CATHETERIZATION IN 09/2011.. NO BLOCKAGE) Hx Lung Surgery: No Hx Breast Surgery: No Hx Breast Biopsy: No Hx Abdominal Surgery: No Hx Appendectomy: No Hx Cholecystectomy: No Hx Genitourinary Surgery: No Hx Section: No Hx Orthopedic Surgery: No Hx Hysterectomy: No Other Surgical History: R Testicular Sx 2011 Anesthesia Reaction: No - PPD History Previous Implant?: Yes Documented Results: Negative w/proof Implanted On Prior R Admission?: Yes Date: 07/06/18 Results: 0.0mm PPD to be Administered?: No - Reproductive History Patient is a Female of Child Bearing Age (11 -55 yrs old): No (male) - Smoking Cessation Smoking history: Never smoked Have you smoked in the past 12 months: No Aproximately how many cigarettes per day: 0 Hx Chewing Tobacco Use: No Initiated information on smoking cessation: No - Substances abused Alcohol Substance route: Oral Frequency: Daily Amount used: 7 to 10 cans of 24 ounce of beers, 2 pints of vodka. Age of first use: 20 Date of last use: 02/08/19 Cocaine Substance route: Inhalation Frequency: 1-2 times per week Amount used: 5bags Age of first use: 24 Date of last use: 08/29/18 Crack Substance route: Smoking Frequency: 3-6 times per week Amount used: 4-6 bags Age of first use: 24 Date of last use: 02/07/19 Admission Physical Exam BHS - Vital Signs Vital Signs: Vital Signs - 24 hr 02/08/19 21:26 Temperature 99.3 F Pulse Rate 99 H Respiratory 16 Rate Blood Pressure 172/103 H - Physical General Appearance: Yes: Moderate Distress, Tremorous, Sweating, Anxious HEENTM: Yes: Within Normal Limits Respiratory: Yes: Lungs Clear, Normal Breath Sounds, No Respiratory Distress Neck: Yes: Supple Breast: Yes: Breast Exam Deferred Cardiology: Yes: Regular Rhythm Abdominal: Yes: Normal Bowel Sounds Genitourinary: Yes: Within Normal Limits Back: Yes: Normal Inspection Musculoskeletal: Yes: Back pain, Muscle Pain Extremities: Yes: Tremors 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: Yes: Within Normal Limits, Alert, Normal Mood/Affect Integumentary: Yes: Warm Lymphatic: Yes: Within Normal Limits - Diagnostic (1) Alcohol dependence with uncomplicated withdrawal Current Visit: Yes Status: Chronic (2) Asthma Current Visit: Yes Status: Chronic Qualifiers: Asthma severity: unspecified severity Asthma persistence: unspecified Asthma complication type: uncomplicated Qualified Code(s): J45.909 - Unspecified asthma, uncomplicated (3) Cocaine abuse, episodic Current Visit: Yes Status: Chronic (4) Congestive heart failure (CHF) Current Visit: Yes Status: Chronic Qualifiers: Heart failure type: unspecified Heart failure chronicity: chronic Qualified Code(s): I50.9 - Heart failure, unspecified (5) DM2 (diabetes mellitus, type 2) Current Visit: Yes Status: Chronic Qualifiers: Diabetes mellitus residential insulin use: without residential use Diabetes mellitus complication status: with other specified complication Qualified Code (s): E11.69 - Type 2 diabetes mellitus with other specified complication (6) HIV (human immunodeficiency virus infection) Current Visit: Yes Status: Chronic Qualifiers: HIV symptom status: asymptomatic Qualified Code(s): Z21 - Asymptomatic human immunodeficiency virus [HIV] infection status (7) History of CHF (congestive heart failure) Current Visit: Yes Status: Chronic (8) Hypertension Current Visit: Yes Status: Chronic Qualifiers: Hypertension type: essential hypertension Qualified Code(s): I10 - Essential (primary) hypertension (9) Obese Current Visit: No Status: Chronic Qualifiers: Obesity type: unspecified obesity type Obesity classification: adult class 3 (BMI >= 40) Serious obesity comorbidity presence: unspecified whether serious comorbidity present Body mass index: BMI 50.0-59.9 Qualified Code(s) : E66.01 - Morbid (severe) obesity due to excess calories; Z68.43 - Body mass index (BMI) 50.0-59.9, adult Cleared for Admission S - Detox or Rehab [facility] Level of Care: Medically Managed Detox Regimen/Protocol: Librium Breathalyzer - Breathalyzer Breathalyzer: 0 Urine Drug Screen - Test Device Lot number: [id number] Expiration date: 10/07/20 - Control Is test valid?: Yes - Results Drug screen NEGATIVE: No Urine drug screen results: TOMÁS-Cocaine, BZO-Benzodiazepines Inpatient Rehab Admission - Rehab Decision to Admit Inpatient rehab admission?: No
[2019-02-09] MEDS ORDERED: MAGNESIUM CITRATE 300 ML BOTTLE PO PRN (00:14)
[2019-02-09] MEDS ORDERED: BISMUTH SUBSALICYLATE 524 MG/30 ML UD PO PRN (00:14)
[2019-02-09] MEDS ORDERED: METHOCARBAMOL 500 MG TABLET PO PRN (00:14)
[2019-02-09] MEDS ORDERED: MAG HYDROX/AL HYDROX/SIMETH 30 ML UNIT-DOSE CUP PO PRN (00:14)
[2019-02-09] MEDS ORDERED: MENTHOL/PHENOL 1 EACH UD MM PRN (00:14)
[2019-02-09] MEDS ORDERED: hydrOXYzine PAMOATE 25 MG CAPSULE (FP) PO PRN (00:14)
[2019-02-09] MEDS ORDERED: MAGNESIUM HYDROX 2400MG/30ML ORAL SUSPENSION 30 ML CUP PO PRN (00:14)
[2019-02-09] MEDS ORDERED: chlordiazePOXIDE HCL 25 MG CAPSULE PO PRN (00:14)
[2019-02-09] MEDS ORDERED: MELATONIN 5 MG TABLETS PO PRN (00:14)
[2019-02-09] MEDS ORDERED: ACETAMINOPHEN 325 MG TABLET (FP) PO PRN ×2 (00:14)
[2019-02-09] MEDS ORDERED: ALBUTEROL SO4 8 GM HFA INHALER IH PRN (00:16)
[2019-02-09] MEDS ORDERED: cloNIDine HCL 0.1 MG TABLET PO ONE (02:40)
[2019-02-09] MEDS: chlordiazePOXIDE HCL 25 MG CAPSULE PO SCH ×4 (06:15→22:28)
[2019-02-09] MEDS: metFORMIN HCL 500 MG TABLET (FP) PO SCH ×2 (06:16→17:59)
[2019-02-09] MEDS: HYDROCHLOROTHIAZIDE 25 MG TABLET (FP) PO SCH (09:17)
[2019-02-09] MEDS: PRENATAL VITAMINS W/ FOLIC ACID TABLET (FP) PO SCH (09:17)
[2019-02-09] MEDS: LISINOPRIL 20 MG TABLET (FP) PO SCH (09:17)
--- NOTE | 2019-02-09 09:22 | PN ---
S CIWA - CIWA Score Nausea/Vomitin Muscle Tremors: 2 Anxiety: 3 Agitation: 1-Slight > Activity Paroxysmal Sweats: 2 Orientation: 0-Oriented Tacttile Disturbances: 0-None Auditory Disturbances: 0-None Visual Disturbances: 2-Mild Sensitivity Headache: 0-None Present CIWA-Ar Total Score: 12 S Progress Note (SOAP) Subjective: c/o chills, sweats, interrupted sleep Objective: 02/09/19 09:22 Vital Signs Temperature 97.3 F L 02/09/19 09:11 Pulse Rate 80 02/09/19 09:11 Respiratory Rate 18 02/09/19 09:11 Blood Pressure 174/102 H 02/09/19 09:11 O2 Sat by Pulse Oximetry (%) Laboratory Last Values POC Glucometer 311 UNITS (80-120) 02/09/19 06:17 labs pending Assessment: 02/09/19 09:22 Aox3 no distress no adventitious breath sounds full ROM no gait abnormality withdrawal sx 02/09/19 12:22 Plan: monitor v/s increase PO fluids continue detox patient will like to follow up with rehab post detox continue to monitor
[2019-02-09] MEDS: NIFEdipine E.R. 90 MG TABLET (FP) PO SCH (10:06)
[2019-02-09] MEDS: METHYL SALICYLATE/MENTHOL OINT 30 GM TUBE TP SCH ×2 (13:39→22:27)
[2019-02-09] MEDS: EMTRICITAB/RILPIVIRI/TENOF ALA (ODEFSEY) TABLET PO SCH (13:39)
--- NOTE | 2019-02-09 14:36 | EKG ---
Test Reason : Blood Pressure : / mmHG Vent. Rate : 090 BPM Atrial Rate : 090 BPM P-R Int : 134 ms QRS Dur : 096 ms QT Int : 400 ms P-R-T Axes : 058 018 035 degrees QTc Int : 489 ms NORMAL SINUS RHYTHM MINIMAL VOLTAGE CRITERIA FOR LVH, MAY BE NORMAL VARIANT PROLONGED QT ABNORMAL ECG WHEN COMPARED WITH ECG OF 04-JUL-2018 18:16, QT HAS LENGTHENED Confirmed by ZINA ZHAO, FELICITA ([id number]) on 02/09/2019 2:36:23 PM Referred By: Confirmed By:FELICITA IZAGUIRRE MD
[2019-02-09] MEDS: THIAMINE HCL 100 MG TABLET (FP) PO SCH (22:28)
[2019-02-10] MEDS: chlordiazePOXIDE HCL 25 MG CAPSULE PO SCH ×4 (07:55→22:11)
[2019-02-10] MEDS: metFORMIN HCL 500 MG TABLET (FP) PO SCH ×2 (07:56→16:55)
[2019-02-10] MEDS: EMTRICITAB/RILPIVIRI/TENOF ALA (ODEFSEY) TABLET PO SCH (07:56)
[2019-02-10] MEDS: INSULIN SLIDING SCALE (NOVOLOG) 1 VIAL SQ SCH ×2 (08:55→16:55)
[2019-02-10] MEDS: HYDROCHLOROTHIAZIDE 25 MG TABLET (FP) PO SCH (10:30)
[2019-02-10] MEDS: PRENATAL VITAMINS W/ FOLIC ACID TABLET (FP) PO SCH (10:30)
[2019-02-10] MEDS: NIFEdipine E.R. 90 MG TABLET (FP) PO SCH (10:30)
[2019-02-10] MEDS: LISINOPRIL 20 MG TABLET (FP) PO SCH (10:30)
[2019-02-10] MEDS: METHYL SALICYLATE/MENTHOL OINT 30 GM TUBE TP SCH ×2 (10:30→22:13)
[2019-02-10 10:33] LABS: HEMATOCRIT 41.2 % (35.4-49); HEMOGLOBIN 13.4 GM/dL (11.7-16.9); MCH 30.5 pg (25.7-33.7); MCHC 32.5 g/dl (32.0-35.9); MEAN CELL VOLUME 93.9 fl (80-96); MEAN PLT VOLUME 7.2 fl (7.5-11.1); PLATELET COUNT 239 K/MM3 (134-434); RBC 4.38 M/mm3 (4.00-5.60); WHITE BLOOD COUNT 7.5 K/mm3 (4.0-10.0)
[2019-02-10 10:55] LABS: ALBUMIN 3.5 g/dl (3.4-5.0); BILIRUBIN,TOTAL 0.7 mg/dL (0.2-1); BLOOD UREA NITROGEN 11.6 mg/dL (7-18); CALCIUM 8.6 mg/dL (8.5-10.1); CREATININE 0.9 mg/dL (0.55-1.3); POTASSIUM 3.5 mmol/L (3.5-5.1); TOT PROT 7.3 g/dl (6.4-8.2)
--- NOTE | 2019-02-10 12:16 | PN ---
S CIWA - CIWA Score Nausea/Vomitin-No Nausea/No Vomiting Muscle Tremors: None Anxiety: 3 Agitation: 3 Paroxysmal Sweats: 2 Orientation: 0-Oriented Tacttile Disturbances: 1-Very Mild Itch/Numbness Auditory Disturbances: 0-None Visual Disturbances: 0-None Headache: 0-None Present CIWA-Ar Total Score: 9 BHS Progress Note (SOAP) Subjective: Patient c/o mild headache, numbness and tingling to hands/feet, sweating and anxiety/restlessness Objective: 02/10/19 12:13 Vital Signs Temperature 99.7 F H 02/10/19 09:28 Pulse Rate 97 H 02/10/19 09:28 Respiratory Rate 18 02/10/19 09:28 Blood Pressure 162/99 02/10/19 09:28 O2 Sat by Pulse Oximetry (%) Laboratory Tests 02/09/19 02/09/19 02/10/19 06:17 16:21 08:00 WBC 7.5 RBC 4.38 Hgb 13.4 Hct 41.2 MCV 93.9 MCH 30.5 MCHC 32.5 RDW 15.0 Plt Count 239 MPV 7.2 L Sodium Potassium Chloride Carbon Dioxide Anion Gap BUN Creatinine Est GFR (CKD-EPI)AfAm Est GFR (CKD-EPI)NonAf POC Glucometer 311 322 Random Glucose Calcium Total Bilirubin AST ALT Alkaline Phosphatase Total Protein Albumin RPR Titer 02/10/19 02/10/19 08:00 08:00 WBC RBC Hgb Hct MCV MCH MCHC RDW Plt Count MPV Sodium 136 Potassium 3.5 Chloride 97 L Carbon Dioxide 31 Anion Gap 8 BUN 11.6 Creatinine 0.9 Est GFR (CKD-EPI)AfAm 121.67 Est GFR (CKD-EPI)NonAf 104.98 POC Glucometer Random Glucose 294 H Calcium 8.6 Total Bilirubin 0.7 AST 21 ALT 67 H Alkaline Phosphatase 104 Total Protein 7.3 Albumin 3.5 RPR Titer Nonreactive PE alert and oriented x 3 skin warm, mild facial moisture +perrla, eoms intact bl ext full rom, amb ad forrest no tremors mildly anxious, pacing in hallway Assessment: 02/10/19 12:14 ETOH withdrawal symptoms Plan: continue detox encourage fluids monitor clinically
[2019-02-10] MEDS: THIAMINE HCL 100 MG TABLET (FP) PO SCH (22:11)
[2019-02-11] MEDS ORDERED: chlordiazePOXIDE HCL 10 MG CAPSULE PO PRN
[2019-02-11] MEDS: chlordiazePOXIDE HCL 10 MG CAPSULE PO SCH ×4 (06:05→22:17)
[2019-02-11] MEDS: metFORMIN HCL 500 MG TABLET (FP) PO SCH ×2 (06:05→17:30)
[2019-02-11] MEDS: INSULIN SLIDING SCALE (NOVOLOG) 1 VIAL SQ SCH ×2 (06:07→17:30)
[2019-02-11] MEDS: EMTRICITAB/RILPIVIRI/TENOF ALA (ODEFSEY) TABLET PO SCH (07:19)
[2019-02-11] MEDS: PRENATAL VITAMINS W/ FOLIC ACID TABLET (FP) PO SCH (10:02)
[2019-02-11] MEDS: LISINOPRIL 20 MG TABLET (FP) PO SCH (10:02)
[2019-02-11] MEDS: HYDROCHLOROTHIAZIDE 25 MG TABLET (FP) PO SCH (10:02)
[2019-02-11] MEDS: NIFEdipine E.R. 90 MG TABLET (FP) PO SCH (10:03)
[2019-02-11] MEDS: METHYL SALICYLATE/MENTHOL OINT 30 GM TUBE TP SCH ×2 (10:05→22:17)
--- NOTE | 2019-02-11 16:11 | PN ---
[facility] CIWA - CIWA Score Nausea/Vomitin-No Nausea/No Vomiting Muscle Tremors: None Anxiety: 3 Agitation: 3 Paroxysmal Sweats: 3 Orientation: 0-Oriented Tacttile Disturbances: 2-Mild Itch/Numbness/Burn Auditory Disturbances: 0-None Visual Disturbances: 0-None Headache: 0-None Present CIWA-Ar Total Score: 11 S Progress Note (SOAP) Subjective: Body Aches, Anxious, Sweating. Objective: PATIENT A & O X 3, OBSERVED AMBULATING ON DETOX UNIT UNASSISTED. IN NO ACUTE DISTRESS. 02/11/19 16:09 Vital Signs Temperature 99.4 F 02/11/19 14:37 Pulse Rate 97 H 02/11/19 14:37 Respiratory Rate 20 02/11/19 14:37 Blood Pressure 148/84 02/11/19 14:37 O2 Sat by Pulse Oximetry (%) Laboratory Tests 02/09/19 02/09/19 02/10/19 06:17 16:21 08:00 WBC 7.5 RBC 4.38 Hgb 13.4 Hct 41.2 MCV 93.9 MCH 30.5 MCHC 32.5 RDW 15.0 Plt Count 239 MPV 7.2 L Sodium Potassium Chloride Carbon Dioxide Anion Gap BUN Creatinine Est GFR (CKD-EPI)AfAm Est GFR (CKD-EPI)NonAf POC Glucometer 311 322 Random Glucose Calcium Total Bilirubin AST ALT Alkaline Phosphatase Total Protein Albumin RPR Titer 02/10/19 02/10/19 02/10/19 08:00 08:00 16:31 WBC RBC Hgb Hct MCV MCH MCHC RDW Plt Count MPV Sodium 136 Potassium 3.5 Chloride 97 L Carbon Dioxide 31 Anion Gap 8 BUN 11.6 Creatinine 0.9 Est GFR (CKD-EPI)AfAm 121.67 Est GFR (CKD-EPI)NonAf 104.98 POC Glucometer 323 Random Glucose 294 H Calcium 8.6 Total Bilirubin 0.7 AST 21 ALT 67 H Alkaline Phosphatase 104 Total Protein 7.3 Albumin 3.5 RPR Titer Nonreactive 02/11/19 06:03 WBC RBC Hgb Hct MCV MCH MCHC RDW Plt Count MPV Sodium Potassium Chloride Carbon Dioxide Anion Gap BUN Creatinine Est GFR (CKD-EPI)AfAm Est GFR (CKD-EPI)NonAf POC Glucometer 314 Random Glucose Calcium Total Bilirubin AST ALT Alkaline Phosphatase Total Protein Albumin RPR Titer LABS NOTED. PATIENT HAS HAD ELEVATED AST LEVELS ON PREVIOUS ADMISSIONS. 02/11/19 16:11 Assessment: 02/11/19 16:10 WITHDRAWAL SYMPTOMS. HYPERGLYCEMIA. ELEVATED ALT LEVEL. Plan: CONTINUE DETOX. BP FLUCTUATING - CONTINUE TO MONITOR.
[2019-02-11] MEDS: THIAMINE HCL 100 MG TABLET (FP) PO SCH (22:17)
[2019-02-12] MEDS: chlordiazePOXIDE HCL 10 MG CAPSULE PO SCH ×2 (06:20→17:37)
[2019-02-12] MEDS: metFORMIN HCL 500 MG TABLET (FP) PO SCH ×2 (06:20→17:37)
[2019-02-12] MEDS ORDERED: INSULIN SLIDING SCALE (NOVOLOG) 1 VIAL SQ ONE (06:36)
[2019-02-12] MEDS: INSULIN SLIDING SCALE (NOVOLOG) 1 VIAL SQ SCH ×2 (06:36→17:30)
[2019-02-12] MEDS: EMTRICITAB/RILPIVIRI/TENOF ALA (ODEFSEY) TABLET PO SCH (07:17)
[2019-02-12] MEDS: IBUPROFEN 400 MG TABLET (FP) PO PRN (07:47)
[2019-02-12] MEDS: LISINOPRIL 20 MG TABLET (FP) PO SCH (10:14)
[2019-02-12] MEDS: PRENATAL VITAMINS W/ FOLIC ACID TABLET (FP) PO SCH (10:14)
[2019-02-12] MEDS: METHYL SALICYLATE/MENTHOL OINT 30 GM TUBE TP SCH ×2 (10:14→22:12)
[2019-02-12] MEDS: HYDROCHLOROTHIAZIDE 25 MG TABLET (FP) PO SCH (10:14)
[2019-02-12] MEDS: NIFEdipine E.R. 90 MG TABLET (FP) PO SCH (10:15)
--- NOTE | 2019-02-12 10:29 | PN ---
[facility] CIWA - CIWA Score Nausea/Vomitin-No Nausea/No Vomiting Muscle Tremors: 2 Anxiety: 2 Agitation: 2 Paroxysmal Sweats: 1-Minimal Palms Moist Orientation: 0-Oriented Tacttile Disturbances: 0-None Auditory Disturbances: 0-None Visual Disturbances: 0-None Headache: 0-None Present CIWA-Ar Total Score: 7 S Progress Note (SOAP) Subjective: doing well with librium detox regimen less tremor no headache discuss aftercare with staff aftercare [facility] Objective: 02/12/19 10:30 Vital Signs Temperature 97.1 F L 02/12/19 09:08 Pulse Rate 93 H 02/12/19 09:08 Respiratory Rate 20 02/12/19 09:08 Blood Pressure 163/98 02/12/19 09:08 O2 Sat by Pulse Oximetry (%) Laboratory Last Values WBC 7.5 K/mm3 (4.0-10.0) 02/10/19 08:00 RBC 4.38 M/mm3 (4.00-5.60) 02/10/19 08:00 Hgb 13.4 GM/dL (11.7-16.9) 02/10/19 08:00 Hct 41.2 % (35.4-49) 02/10/19 08:00 MCV 93.9 fl (80-96) 02/10/19 08:00 MCH 30.5 pg (25.7-33.7) 02/10/19 08:00 MCHC 32.5 g/dl (32.0-35.9) 02/10/19 08:00 RDW 15.0 % (11.9-15.9) 02/10/19 08:00 Plt Count 239 K/MM3 (134-434) 02/10/19 08:00 MPV 7.2 fl (7.5-11.1) L 02/10/19 08:00 Sodium 136 mmol/L (136-145) 02/10/19 08:00 Potassium 3.5 mmol/L (3.5-5.1) 02/10/19 08:00 Chloride 97 mmol/L (98-107) L 02/10/19 08:00 Carbon Dioxide 31 mmol/L (21-32) 02/10/19 08:00 Anion Gap 8 MMOL/L (8-16) 02/10/19 08:00 BUN 11.6 mg/dL (7-18) 02/10/19 08:00 Creatinine 0.9 mg/dL (0.55-1.3) 02/10/19 08:00 Est GFR (CKD-EPI)AfAm 121.67 02/10/19 08:00 Est GFR (CKD-EPI)NonAf 104.98 02/10/19 08:00 POC Glucometer 324 UNITS (80-120) 02/12/19 06:19 Random Glucose 294 mg/dL (74-106) H 02/10/19 08:00 Calcium 8.6 mg/dL (8.5-10.1) 02/10/19 08:00 Total Bilirubin 0.7 mg/dL (0.2-1) 02/10/19 08:00 AST 21 U/L (15-37) 02/10/19 08:00 ALT 67 U/L (13-61) H 02/10/19 08:00 Alkaline Phosphatase 104 U/L (45-117) 02/10/19 08:00 Total Protein 7.3 g/dl (6.4-8.2) 02/10/19 08:00 Albumin 3.5 g/dl (3.4-5.0) 02/10/19 08:00 RPR Titer Nonreactive (NONREACTIVE) 02/10/19 08:00 lab noted 02/12/19 10:34 bp elevation increase lisinopril to 20 mg po bid reconciliation medication completed Assessment: 02/12/19 10:34 alcohol withdrawal sx Plan: continue librium detox regimen
[2019-02-12] MEDS ORDERED: LISINOPRIL 20 MG TABLET (FP) PO SCH (22:00)
[2019-02-12] MEDS: THIAMINE HCL 100 MG TABLET (FP) PO SCH (22:13)
[2019-02-13] MEDS ORDERED: chlordiazePOXIDE HCL 10 MG CAPSULE PO ONE (05:00)
[2019-02-13] MEDS: chlordiazePOXIDE HCL 10 MG CAPSULE PO SCH (05:50)
[2019-02-13] MEDS: IBUPROFEN 400 MG TABLET (FP) PO PRN (05:50)
[2019-02-13] MEDS: EMTRICITAB/RILPIVIRI/TENOF ALA (ODEFSEY) TABLET PO SCH (07:06)
[2019-02-13] MEDS: metFORMIN HCL 500 MG TABLET (FP) PO SCH (07:06)
[2019-02-13] MEDS: INSULIN SLIDING SCALE (NOVOLOG) 1 VIAL SQ SCH (07:06)
[2019-02-13 07:25] VITALS: BP 183/123; PULSE 107; TEMP 97
--- NOTE | 2019-02-13 14:31 | DS ---
[facility] Detox Discharge Summary Admission Date: 02/09/19 Discharge Date: 02/13/19 - History Present History: Alcohol Dependence Additional Comments: 43 years old male admitted on 02/08/19 for alcohol withdrawal sx management left the detox unit due to detox completion discharged before medical writer arrived to the unit I have not assessed nore evaluated the patient before discharge - Physical Exam Results Vital Signs: Vital Signs Temperature 97.0 F L 02/13/19 07:24 Pulse Rate 107 H 02/13/19 07:24 Respiratory Rate 18 02/13/19 07:24 Blood Pressure 183/123 H 02/13/19 07:24 O2 Sat by Pulse Oximetry (%) Pertinent Admission Physical Exam Findings: alcohol withdrawal sx Laboratory Last Values WBC 7.5 K/mm3 (4.0-10.0) 02/10/19 08:00 RBC 4.38 M/mm3 (4.00-5.60) 02/10/19 08:00 Hgb 13.4 GM/dL (11.7-16.9) 02/10/19 08:00 Hct 41.2 % (35.4-49) 02/10/19 08:00 MCV 93.9 fl (80-96) 02/10/19 08:00 MCH 30.5 pg (25.7-33.7) 02/10/19 08:00 MCHC 32.5 g/dl (32.0-35.9) 02/10/19 08:00 RDW 15.0 % (11.9-15.9) 02/10/19 08:00 Plt Count 239 K/MM3 (134-434) 02/10/19 08:00 MPV 7.2 fl (7.5-11.1) L 02/10/19 08:00 Sodium 136 mmol/L (136-145) 02/10/19 08:00 Potassium 3.5 mmol/L (3.5-5.1) 02/10/19 08:00 Chloride 97 mmol/L (98-107) L 02/10/19 08:00 Carbon Dioxide 31 mmol/L (21-32) 02/10/19 08:00 Anion Gap 8 MMOL/L (8-16) 02/10/19 08:00 BUN 11.6 mg/dL (7-18) 02/10/19 08:00 Creatinine 0.9 mg/dL (0.55-1.3) 02/10/19 08:00 Est GFR (CKD-EPI)AfAm 121.67 02/10/19 08:00 Est GFR (CKD-EPI)NonAf 104.98 02/10/19 08:00 POC Glucometer 345 UNITS (80-120) 02/13/19 05:53 Random Glucose 294 mg/dL (74-106) H 02/10/19 08:00 Calcium 8.6 mg/dL (8.5-10.1) 02/10/19 08:00 Total Bilirubin 0.7 mg/dL (0.2-1) 02/10/19 08:00 AST 21 U/L (15-37) 02/10/19 08:00 ALT 67 U/L (13-61) H 02/10/19 08:00 Alkaline Phosphatase 104 U/L (45-117) 02/10/19 08:00 Total Protein 7.3 g/dl (6.4-8.2) 02/10/19 08:00 Albumin 3.5 g/dl (3.4-5.0) 02/10/19 08:00 RPR Titer Nonreactive (NONREACTIVE) 02/10/19 08:00 lab noted - Treatment Hospital Course: Detox Protocol Followed, Detoxed Safely, Responded well, Discharged Condition Good (nursing report), Rehab Referral Accepted Patient has Accepted a Rehab Referral to: community support approach - Medication Discharge Medications: Ambulatory Orders Folic Acid 1 mg PO DAILY 12/28/18 Multivitamins [Multivit ([facility] Formulary)] 1 tab PO DAILY 12/28/18 Emtricitab/Rilpiviri/Tenof Ala [Odefsey Tablet] 1 each PO DAILY #30 tablet 01/11 Albuterol Sulfate [Proventil HFA Inhaler -] 2 inh PO Q4H PRN #1 hfa.aer.[id number] 02/12 Hydrochlorothiazide [Hctz -] 25 mg PO DAILY #30 tablet 02/12/19 Lisinopril 20 mg PO BID 02/12/19 Lisinopril [Prinivil] 20 mg PO BID #60 tablet 02/12/19 Nifedipine 90 mg PO DAILY #90 capsule 02/12/19 metFORMIN HCL [Metformin HCl] 500 mg PO BID #60 tablet 02/12/19 - Diagnosis (1) Alcohol dependence with uncomplicated withdrawal Status: Acute (2) Asthma Status: Chronic Qualifiers: Asthma severity: mild Asthma persistence: intermittent Asthma complication type: uncomplicated Qualified Code(s): J45.20 - Mild intermittent asthma, uncomplicated (3) Congestive heart failure (CHF) Status: Chronic Qualifiers: Heart failure type: unspecified Heart failure chronicity: chronic Qualified Code(s): I50.9 - Heart failure, unspecified (4) DM2 (diabetes mellitus, type 2) Status: Chronic Qualifiers: Diabetes mellitus termite treater insulin use: without shelter use Diabetes mellitus complication status: with other specified complication Qualified Code (s): E11.69 - Type 2 diabetes mellitus with other specified complication (5) HIV (human immunodeficiency virus infection) Status: Chronic Qualifiers: HIV symptom status: asymptomatic Qualified Code(s): Z21 - Asymptomatic human immunodeficiency virus [HIV] infection status (6) Hypertension Status: Chronic Qualifiers: Hypertension type: essential hypertension Qualified Code(s): I10 - Essential (primary) hypertension (7) Nicotine dependence Status: Acute Qualifiers: Nicotine product type: cigarettes Substance use status: in withdrawal Qualified Code(s): F17.213 - Nicotine dependence, cigarettes, with withdrawal (8) Obese Status: Chronic Qualifiers: Obesity type: unspecified obesity type Obesity classification: adult class 3 (BMI >= 40) Serious obesity comorbidity presence: unspecified whether serious comorbidity present Body mass index: BMI 50.0-59.9 Qualified Code(s) : E66.01 - Morbid (severe) obesity due to excess calories; Z68.43 - Body mass index (BMI) 50.0-59.9, adult (9) Substance induced mood disorder Status: Suspected - AMA Did Patient Leave Against Medical Advice: No
== END 2019-02-13 07:59 | disposition home or self-care (01) | DRG 774 ==
LOC: YASAS 17:00 → Y3N 02-09 01:22
PROVIDERS: ADMIT Surgery; ATTEND Surgery
PROC: HZ2ZZZZ Detoxification Services for Substance Abuse Treatment (ICD-10-PCS; principal; 2019-02-09)
DX: F10.230 Alcohol dependence with withdrawal, uncomplicated (principal); F14.10 Cocaine abuse, uncomplicated; F17.213 Nicotine dependence, cigarettes, with withdrawal; F19.24 Other psychoactive substance dependence with psychoactive substance-induced mood disorder; Z21 Asymptomatic human immunodeficiency virus [HIV] infection status; I11.0 Hypertensive heart disease with heart failure; I50.9 Heart failure, unspecified; Z98.61 Coronary angioplasty status; E11.65 Type 2 diabetes mellitus with hyperglycemia; Z79.84 Long term (current) use of oral hypoglycemic drugs; J45.20 Mild intermittent asthma, uncomplicated; E66.01 Morbid (severe) obesity due to excess calories; Z68.43 Body mass index [BMI] 50.0-59.9, adult; R94.5 Abnormal results of liver function studies
CPT/HCPCS: 36415; 80053; 82962; 85027; 86593; 93005; 93010; J0735

== ENCOUNTER 2019-02-24 10:06 | Inpatient (IN) | payer OTHER ==
[2019-02-24 11:20] VITALS: BMI 55.7
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
[2019-02-24] MEDS ORDERED: ALBUTEROL SO4 8 GM HFA INHALER IH PRN (12:24)
[2019-02-24] MEDS ORDERED: chlordiazePOXIDE HCL 10 MG CAPSULE PO PRN (12:27)
[2019-02-24] MEDS ORDERED: MAGNESIUM HYDROX 2400MG/30ML ORAL SUSPENSION 30 ML CUP PO PRN (12:28)
[2019-02-24] MEDS ORDERED: MENTHOL/PHENOL 1 EACH UD MM PRN (12:28)
[2019-02-24] MEDS ORDERED: MAGNESIUM CITRATE 300 ML BOTTLE PO PRN (12:28)
[2019-02-24] MEDS ORDERED: MAG HYDROX/AL HYDROX/SIMETH 30 ML UNIT-DOSE CUP PO PRN (12:28)
[2019-02-24] MEDS ORDERED: MELATONIN 5 MG TABLETS PO PRN (12:28)
[2019-02-24] MEDS ORDERED: hydrOXYzine PAMOATE 25 MG CAPSULE (FP) PO PRN (12:28)
[2019-02-24] MEDS ORDERED: BISMUTH SUBSALICYLATE 524 MG/30 ML UD PO PRN (12:28)
[2019-02-24] MEDS ORDERED: ACETAMINOPHEN 325 MG TABLET (FP) PO PRN ×2 (12:28)
[2019-02-24] MEDS: chlordiazePOXIDE HCL 25 MG CAPSULE PO SCH ×2 (13:50→21:56)
[2019-02-24] MEDS: HYDROCHLOROTHIAZIDE 25 MG TABLET (FP) PO SCH (13:50)
[2019-02-24] MEDS: LISINOPRIL 20 MG TABLET (FP) PO SCH ×2 (13:50→21:56)
[2019-02-24] MEDS: metFORMIN HCL 500 MG TABLET (FP) PO SCH (17:56)
[2019-02-24] MEDS: NIFEdipine E.R. 90 MG TABLET (FP) PO SCH (17:56)
[2019-02-24] MEDS: METHYL SALICYLATE/MENTHOL OINT 30 GM TUBE TP SCH ×2 (17:57→21:57)
[2019-02-24] MEDS: INSULIN SLIDING SCALE (NOVOLOG) 1 VIAL SQ SCH ×2 (18:02→22:33)
[2019-02-24] MEDS: THIAMINE HCL 100 MG TABLET (FP) PO SCH (21:56)
[2019-02-25] MEDS: chlordiazePOXIDE HCL 25 MG CAPSULE PO SCH ×3 (07:26→22:03)
[2019-02-25] MEDS: metFORMIN HCL 500 MG TABLET (FP) PO SCH ×2 (07:26→16:42)
[2019-02-25] MEDS: INSULIN SLIDING SCALE (NOVOLOG) 1 VIAL SQ SCH ×4 (07:26→22:02)
[2019-02-25] MEDS: LISINOPRIL 20 MG TABLET (FP) PO SCH ×2 (10:42→22:03)
[2019-02-25] MEDS: HYDROCHLOROTHIAZIDE 25 MG TABLET (FP) PO SCH (10:42)
[2019-02-25] MEDS: PRENATAL VITAMINS W/ FOLIC ACID TABLET (FP) PO SCH (10:42)
[2019-02-25] MEDS: METHYL SALICYLATE/MENTHOL OINT 30 GM TUBE TP SCH ×2 (10:42→22:04)
[2019-02-25] MEDS: NIFEdipine E.R. 90 MG TABLET (FP) PO SCH (10:43)
[2019-02-25] MEDS ORDERED: FLU VACCINE QUAD 60 MCG/0.5 ML (MDV 19-20) IM ONE (12:00)
--- NOTE | 2019-02-25 12:17 | PN ---
S CIWA - CIWA Score Nausea/Vomitin-No Nausea/No Vomiting Muscle Tremors: 2 Anxiety: 3 Agitation: 0-Normal Activity Paroxysmal Sweats: 3 Orientation: 0-Oriented Tacttile Disturbances: 1-Very Mild Itch/Numbness Auditory Disturbances: 0-None Visual Disturbances: 0-None Headache: 2-Mild CIWA-Ar Total Score: 11 BHS Progress Note (SOAP) Subjective: c/o sweats, anxiety, headache, and muscle aches. Objective: 02/25/19 12:16 Vital Signs 02/25/19 02/25/19 02/25/19 06:00 06:30 09:38 Temperature 97.5 F L Pulse Rate 85 88 Respiratory 22 H 18 18 Rate Blood Pressure 147/97 159/89 Labs pending. Assessment: 02/25/19 12:16 AOX3, in no acute respiratory distress. Full ROM, ambulating in the unit. Withdrawal symptoms. Plan: continue detox.
[2019-02-25] MEDS ORDERED: INSULIN SLIDING SCALE (NOVOLOG) 1 VIAL SQ ONE ×2 (16:38→22:01)
[2019-02-25] MEDS: THIAMINE HCL 100 MG TABLET (FP) PO SCH (22:03)
[2019-02-26] MEDS: chlordiazePOXIDE 5 MG CAPSULE PO SCH ×3 (05:29→21:50)
[2019-02-26] MEDS: IBUPROFEN 400 MG TABLET (FP) PO PRN ×2 (05:32→19:14)
[2019-02-26] MEDS: metFORMIN HCL 500 MG TABLET (FP) PO SCH ×2 (06:11→17:00)
[2019-02-26] MEDS: INSULIN SLIDING SCALE (NOVOLOG) 1 VIAL SQ SCH ×4 (08:11→21:48)
[2019-02-26] MEDS: METHYL SALICYLATE/MENTHOL OINT 30 GM TUBE TP SCH ×2 (09:34→21:50)
[2019-02-26] MEDS: PRENATAL VITAMINS W/ FOLIC ACID TABLET (FP) PO SCH (09:35)
[2019-02-26] MEDS: HYDROCHLOROTHIAZIDE 25 MG TABLET (FP) PO SCH (09:35)
[2019-02-26] MEDS: NIFEdipine E.R. 90 MG TABLET (FP) PO SCH (09:35)
[2019-02-26] MEDS: LISINOPRIL 20 MG TABLET (FP) PO SCH ×2 (09:35→21:50)
--- NOTE | 2019-02-26 15:09 | PN ---
[facility] CIWA - CIWA Score Nausea/Vomitin-Mild Nausea/No Vomiting Muscle Tremors: 2 Anxiety: 2 Agitation: 2 Paroxysmal Sweats: 2 Orientation: 0-Oriented Tacttile Disturbances: 0-None Auditory Disturbances: 0-None Visual Disturbances: 0-None Headache: 0-None Present CIWA-Ar Total Score: 9 S Progress Note (SOAP) Subjective: Back pain, chills, sweating, anxious, interrupted sleep. Patient requesting a walker or cane for easier mobility (cane ordered, instructed to have PCP order walker for him or he can possibly purchase it at any pharmacy) Objective: 02/26/19 15:02 Last Vital Signs Temp Pulse Resp BP Pulse Ox 98.3 F 94 H 18 133/70 02/26/19 14:26 02/26/19 14:26 02/26/19 14:26 02/26/19 14:26 Laboratory Tests 02/24/19 02/24/19 02/24/19 12:57 17:54 22:27 POC Glucometer 362 392 331 02/25/19 02/25/19 02/25/19 10:47 16:20 21:55 POC Glucometer 391 292 324 02/26/19 04:54 POC Glucometer 283 Labs reviewed dated 02/10/19 Assessment: 02/26/19 15:03 Withdrawal sxs Plan: Continue detox Encouraged PO water intake Patient is morbid obese: educated on importance of lifestyle modification (diet and exercise as tolerated to lose weight) in preventing health related problems including heart disease and better controlling his DM. Instructed to follow up with PCP for referral to GI Specialist re: Bariatric surgery, patient encouraged to at least walk for 20-30 minutes for 4-5 days per week and to eat smaller portions instead of 3 large meals, also to eat more vegetables and fruits and decrease sugary and starchy food in diet. Patient verbalized understanding.
[2019-02-26] MEDS: THIAMINE HCL 100 MG TABLET (FP) PO SCH (21:50)
[2019-02-27] MEDS ORDERED: chlordiazePOXIDE HCL 10 MG CAPSULE PO PRN
[2019-02-27] MEDS: chlordiazePOXIDE HCL 10 MG CAPSULE PO SCH ×3 (06:48→21:50)
[2019-02-27] MEDS: metFORMIN HCL 500 MG TABLET (FP) PO SCH ×2 (06:48→17:06)
[2019-02-27] MEDS ORDERED: INSULIN SLIDING SCALE (NOVOLOG) 1 VIAL SQ ONE (06:51)
[2019-02-27] MEDS: INSULIN SLIDING SCALE (NOVOLOG) 1 VIAL SQ SCH ×4 (06:55→21:45)
[2019-02-27] MEDS: IBUPROFEN 400 MG TABLET (FP) PO PRN ×2 (07:50→18:31)
[2019-02-27] MEDS: LISINOPRIL 20 MG TABLET (FP) PO SCH ×2 (10:27→21:44)
[2019-02-27] MEDS: HYDROCHLOROTHIAZIDE 25 MG TABLET (FP) PO SCH (10:27)
[2019-02-27] MEDS: PRENATAL VITAMINS W/ FOLIC ACID TABLET (FP) PO SCH (10:27)
[2019-02-27] MEDS: METHYL SALICYLATE/MENTHOL OINT 30 GM TUBE TP SCH ×2 (10:28→21:45)
[2019-02-27] MEDS: NIFEdipine E.R. 90 MG TABLET (FP) PO SCH (10:28)
--- NOTE | 2019-02-27 11:17 | PN ---
S CIWA - CIWA Score Nausea/Vomitin-No Nausea/No Vomiting Muscle Tremors: 1-None Visible, but [place] Anxiety: 1-Mildly Anxious Agitation: 1-Slight > Activity Paroxysmal Sweats: 1-Minimal Palms Moist Orientation: 0-Oriented Tacttile Disturbances: 0-None Auditory Disturbances: 0-None Visual Disturbances: 0-None Headache: 0-None Present CIWA-Ar Total Score: 4 BHS Progress Note (SOAP) Subjective: sweats anxiety Objective: 02/27/19 11:16 Vital Signs Temperature 96.1 F L 02/27/19 09:37 Pulse Rate 93 H 02/27/19 09:37 Respiratory Rate 18 02/27/19 09:37 Blood Pressure 160/85 02/27/19 09:37 O2 Sat by Pulse Oximetry (%) aaox3 ambulating no acute distress Assessment: 02/27/19 11:16 mild withdrawals sx Plan: continue detox d/c in am
[2019-02-27] MEDS: THIAMINE HCL 100 MG TABLET (FP) PO SCH (21:44)
[2019-02-28] MEDS ORDERED: chlordiazePOXIDE HCL 10 MG CAPSULE PO ONE (05:00)
[2019-02-28] MEDS: metFORMIN HCL 500 MG TABLET (FP) PO SCH ×2 (06:32→16:52)
[2019-02-28] MEDS: INSULIN SLIDING SCALE (NOVOLOG) 1 VIAL SQ SCH ×2 (06:36→12:05)
[2019-02-28] MEDS: LISINOPRIL 20 MG TABLET (FP) PO SCH (09:42)
[2019-02-28] MEDS: METHYL SALICYLATE/MENTHOL OINT 30 GM TUBE TP SCH (09:42)
[2019-02-28] MEDS: PRENATAL VITAMINS W/ FOLIC ACID TABLET (FP) PO SCH (09:42)
[2019-02-28] MEDS: HYDROCHLOROTHIAZIDE 25 MG TABLET (FP) PO SCH (09:43)
[2019-02-28] MEDS: IBUPROFEN 400 MG TABLET (FP) PO PRN (09:43)
[2019-02-28] MEDS: NIFEdipine E.R. 90 MG TABLET (FP) PO SCH (09:43)
[2019-02-28] MEDS ORDERED: INSULIN SLIDING SCALE (NOVOLOG) 1 VIAL SQ SCH (11:42)
[2019-02-28] MEDS ORDERED: INSULIN (NOVOLOG) ASPART 100 UNITS/ML 10ML VIAL SQ ONE (11:43)
[2019-02-28] MEDS ORDERED: INSULIN SLIDING SCALE (NOVOLOG) 1 VIAL SQ ONE (12:41)
[2019-02-28 17:27] VITALS: BP 136/79; PULSE 88; TEMP 98.2
== END 2019-02-28 17:26 | disposition other institution (70) | DRG 774 ==
LOC: YASAS 10:06 → Y6N 13:03
PROVIDERS: ADMIT Allergy & Immunology; ATTEND Allergy & Immunology
PROC: HZ2ZZZZ Detoxification Services for Substance Abuse Treatment (ICD-10-PCS; principal; 2019-02-24)
DX: F10.230 Alcohol dependence with withdrawal, uncomplicated (principal); F14.10 Cocaine abuse, uncomplicated; Z21 Asymptomatic human immunodeficiency virus [HIV] infection status; I11.0 Hypertensive heart disease with heart failure; I50.9 Heart failure, unspecified; J45.909 Unspecified asthma, uncomplicated; R00.0 Tachycardia, unspecified; Z68.43 Body mass index [BMI] 50.0-59.9, adult; Z91.14 Patient's other noncompliance with medication regimen; Z98.61 Coronary angioplasty status
CPT/HCPCS: 82962; Q2036

== ENCOUNTER 2019-02-28 17:54 | Inpatient (IN) | payer OTHER ==
[2019-02-28] MEDS ORDERED: guaiFENesin 200 MG/10 ML 10 ML UNIT-DOSE CUPS PO PRN (18:48)
[2019-02-28] MEDS ORDERED: P-EPHED 60MG/TRIPROLIDI 2.5MG TABLET PO PRN (18:48)
[2019-02-28] MEDS ORDERED: MAGNESIUM CITRATE 300 ML BOTTLE PO PRN (18:48)
[2019-02-28] MEDS ORDERED: MAGNESIUM HYDROX 2400MG/30ML ORAL SUSPENSION 30 ML CUP PO PRN (18:48)
[2019-02-28] MEDS ORDERED: MAG HYDROX/AL HYDROX/SIMETH 30 ML UNIT-DOSE CUP PO PRN (18:48)
[2019-02-28] MEDS ORDERED: MENTHOL/PHENOL 1 EACH UD MM PRN (18:48)
[2019-02-28] MEDS ORDERED: MELATONIN 5 MG TABLETS PO PRN (22:00)
[2019-02-28] MEDS: THIAMINE HCL 100 MG TABLET (FP) PO SCH (22:23)
[2019-02-28] MEDS: INSULIN SLIDING SCALE (NOVOLOG) 1 VIAL SQ SCH (22:23)
[2019-02-28] MEDS: LISINOPRIL 20 MG TABLET (FP) PO SCH (22:23)
[2019-03-01] MEDS: IBUPROFEN 400 MG TABLET (FP) PO PRN ×2 (01:02→11:07)
[2019-03-01] MEDS: metFORMIN HCL 500 MG TABLET (FP) PO SCH ×2 (06:44→16:48)
[2019-03-01] MEDS ORDERED: INSULIN (NOVOLOG) ASPART 100 UNITS/ML 10ML VIAL ONE ×2 (07:48→11:44)
[2019-03-01] MEDS: INSULIN SLIDING SCALE (NOVOLOG) 1 VIAL SQ SCH ×4 (08:04→21:27)
[2019-03-01] MEDS: HYDROCHLOROTHIAZIDE 25 MG TABLET (FP) PO SCH (11:05)
[2019-03-01] MEDS: LISINOPRIL 20 MG TABLET (FP) PO SCH ×2 (11:05→21:28)
[2019-03-01] MEDS: PRENATAL VITAMINS W/ FOLIC ACID TABLET (FP) PO SCH (11:05)
[2019-03-01] MEDS: NIFEdipine E.R. 90 MG TABLET (FP) PO SCH (11:07)
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
[2019-03-01] MEDS: METHYL SALICYLATE/MENTHOL OINT 30 GM TUBE TP SCH ×2 (11:47→21:27)
[2019-03-01] MEDS: ACETAMINOPHEN 325 MG TABLET (FP) PO PRN (13:12)
[2019-03-01] MEDS: THIAMINE HCL 100 MG TABLET (FP) PO SCH (21:28)
[2019-03-02] MEDS: metFORMIN HCL 500 MG TABLET (FP) PO SCH ×2 (07:52→17:01)
[2019-03-02] MEDS: INSULIN SLIDING SCALE (NOVOLOG) 1 VIAL SQ SCH ×4 (07:53→22:07)
[2019-03-02] MEDS ORDERED: INSULIN (NOVOLOG) ASPART 100 UNITS/ML 10ML VIAL ONE ×2 (08:21→12:04)
[2019-03-02] MEDS: PRENATAL VITAMINS W/ FOLIC ACID TABLET (FP) PO SCH (09:12)
[2019-03-02] MEDS: HYDROCHLOROTHIAZIDE 25 MG TABLET (FP) PO SCH (09:12)
[2019-03-02] MEDS: METHYL SALICYLATE/MENTHOL OINT 30 GM TUBE TP SCH ×2 (09:12→22:04)
[2019-03-02] MEDS: LISINOPRIL 20 MG TABLET (FP) PO SCH ×2 (09:12→22:09)
[2019-03-02] MEDS: NIFEdipine E.R. 90 MG TABLET (FP) PO SCH (09:13)
[2019-03-02] MEDS: IBUPROFEN 400 MG TABLET (FP) PO PRN ×2 (09:13→22:06)
[2019-03-02] MEDS: THIAMINE HCL 100 MG TABLET (FP) PO SCH (22:06)
[2019-03-03] MEDS ORDERED: INSULIN (NOVOLOG) ASPART 100 UNITS/ML 10ML VIAL ONE ×4 (06:39→17:38)
[2019-03-03] MEDS: metFORMIN HCL 500 MG TABLET (FP) PO SCH ×2 (06:39→17:20)
[2019-03-03] MEDS: INSULIN SLIDING SCALE (NOVOLOG) 1 VIAL SQ SCH ×4 (06:39→21:33)
[2019-03-03] MEDS: LISINOPRIL 20 MG TABLET (FP) PO SCH ×2 (10:57→21:30)
[2019-03-03] MEDS: HYDROCHLOROTHIAZIDE 25 MG TABLET (FP) PO SCH (10:57)
[2019-03-03] MEDS: NIFEdipine E.R. 90 MG TABLET (FP) PO SCH (10:57)
[2019-03-03] MEDS: PRENATAL VITAMINS W/ FOLIC ACID TABLET (FP) PO SCH (10:57)
[2019-03-03] MEDS: METHYL SALICYLATE/MENTHOL OINT 30 GM TUBE TP SCH ×2 (10:59→21:30)
[2019-03-03] MEDS: IBUPROFEN 400 MG TABLET (FP) PO PRN ×2 (10:59→18:30)
[2019-03-03] MEDS: METHOCARBAMOL 500 MG TABLET PO PRN ×2 (11:31→18:29)
[2019-03-03] MEDS: THIAMINE HCL 100 MG TABLET (FP) PO SCH (21:30)
[2019-03-04] MEDS ORDERED: INSULIN (NOVOLOG) ASPART 100 UNITS/ML 10ML VIAL ONE ×2 (06:38→11:52)
[2019-03-04] MEDS: metFORMIN HCL 500 MG TABLET (FP) PO SCH ×2 (06:40→16:46)
[2019-03-04] MEDS: IBUPROFEN 400 MG TABLET (FP) PO PRN (06:41)
[2019-03-04] MEDS: INSULIN SLIDING SCALE (NOVOLOG) 1 VIAL SQ SCH ×4 (06:41→21:58)
[2019-03-04] MEDS: PRENATAL VITAMINS W/ FOLIC ACID TABLET (FP) PO SCH (10:23)
[2019-03-04] MEDS: LISINOPRIL 20 MG TABLET (FP) PO SCH ×2 (10:23→21:58)
[2019-03-04] MEDS: HYDROCHLOROTHIAZIDE 25 MG TABLET (FP) PO SCH (10:23)
[2019-03-04] MEDS: METHYL SALICYLATE/MENTHOL OINT 30 GM TUBE TP SCH ×2 (10:24→22:00)
[2019-03-04] MEDS: NIFEdipine E.R. 90 MG TABLET (FP) PO SCH (10:24)
[2019-03-04] MEDS: THIAMINE HCL 100 MG TABLET (FP) PO SCH (21:58)
[2019-03-05] MEDS ORDERED: INSULIN (NOVOLOG) ASPART 100 UNITS/ML 10ML VIAL ONE (06:38)
[2019-03-05] MEDS: INSULIN SLIDING SCALE (NOVOLOG) 1 VIAL SQ SCH ×5 (06:39→21:30)
[2019-03-05] MEDS: metFORMIN HCL 500 MG TABLET (FP) PO SCH ×2 (06:40→16:47)
[2019-03-05] MEDS: ACETAMINOPHEN 325 MG TABLET (FP) PO PRN (07:33)
[2019-03-05] MEDS: HYDROCHLOROTHIAZIDE 25 MG TABLET (FP) PO SCH (10:55)
[2019-03-05] MEDS: PRENATAL VITAMINS W/ FOLIC ACID TABLET (FP) PO SCH (10:55)
[2019-03-05] MEDS: NIFEdipine E.R. 90 MG TABLET (FP) PO SCH (10:55)
[2019-03-05] MEDS: METHYL SALICYLATE/MENTHOL OINT 30 GM TUBE TP SCH ×2 (10:56→21:27)
[2019-03-05] MEDS: LISINOPRIL 20 MG TABLET (FP) PO SCH ×2 (10:56→21:27)
[2019-03-05] MEDS: IBUPROFEN 400 MG TABLET (FP) PO PRN (17:48)
[2019-03-05] MEDS: METHOCARBAMOL 500 MG TABLET PO PRN (17:50)
[2019-03-05] MEDS: THIAMINE HCL 100 MG TABLET (FP) PO SCH (21:28)
[2019-03-06] MEDS ORDERED: INSULIN (NOVOLOG) ASPART 100 UNITS/ML 10ML VIAL ONE ×3 (07:16→22:23)
[2019-03-06] MEDS: metFORMIN HCL 500 MG TABLET (FP) PO SCH ×2 (07:17→16:49)
[2019-03-06] MEDS: IBUPROFEN 400 MG TABLET (FP) PO PRN ×3 (07:18→22:12)
[2019-03-06] MEDS: INSULIN SLIDING SCALE (NOVOLOG) 1 VIAL SQ SCH ×4 (07:20→22:10)
[2019-03-06] MEDS: LISINOPRIL 20 MG TABLET (FP) PO SCH ×2 (10:43→22:10)
[2019-03-06] MEDS: NIFEdipine E.R. 90 MG TABLET (FP) PO SCH (10:43)
[2019-03-06] MEDS: PRENATAL VITAMINS W/ FOLIC ACID TABLET (FP) PO SCH (10:43)
[2019-03-06] MEDS: HYDROCHLOROTHIAZIDE 25 MG TABLET (FP) PO SCH (10:43)
[2019-03-06] MEDS: METHYL SALICYLATE/MENTHOL OINT 30 GM TUBE TP SCH ×2 (10:43→22:11)
[2019-03-06] MEDS: CHLORHEXIDINE GLUCONATE 118 ML MOUTHWASH MM SCH ×2 (12:26→22:12)
--- NOTE | 2019-03-06 12:27 | PN ---
[facility] Progress Note Note: Pt c/o bumps with numbness to tip of tongue since yesterday and tastelessness to food. Denies cough, runny nose or fever. Vital Signs (72 hours) 03/03/19 03/04/19 03/04/19 21:00 03:27 07:34 Temperature 98.7 F Pulse Rate 80 90 Respiratory 18 20 20 Rate Blood Pressure 144/88 156/92 03/05/19 03/05/19 03/05/19 00:30 03:30 07:57 Temperature 98 F Pulse Rate 97 H Respiratory 18 18 20 Rate Blood Pressure 168/104 H 03/05/19 03/06/19 03/06/19 09:40 00:30 03:30 Temperature 99 F Pulse Rate 95 H Respiratory 20 19 20 Rate Blood Pressure 190/98 H 03/06/19 07:25 Temperature Pulse Rate Respiratory 20 Rate Blood Pressure Oral Exam:No redness or swelling to oropharyngeal areas Tongue with blister-like lesions at tip, no redness or swelling. Tongue ROM wnl- no deficit. A/P Blister on tongue Peridex oral rinse BID
[2019-03-06] MEDS: THIAMINE HCL 100 MG TABLET (FP) PO SCH (22:10)
[2019-03-07] MEDS: metFORMIN HCL 500 MG TABLET (FP) PO SCH ×2 (07:05→16:35)
[2019-03-07] MEDS: INSULIN SLIDING SCALE (NOVOLOG) 1 VIAL SQ SCH ×4 (07:05→21:52)
[2019-03-07] MEDS: IBUPROFEN 400 MG TABLET (FP) PO PRN ×2 (07:08→21:54)
[2019-03-07] MEDS: PRENATAL VITAMINS W/ FOLIC ACID TABLET (FP) PO SCH (10:24)
[2019-03-07] MEDS: NIFEdipine E.R. 90 MG TABLET (FP) PO SCH (10:24)
[2019-03-07] MEDS: HYDROCHLOROTHIAZIDE 25 MG TABLET (FP) PO SCH (10:24)
[2019-03-07] MEDS: METHOCARBAMOL 500 MG TABLET PO PRN (10:24)
[2019-03-07] MEDS: LISINOPRIL 20 MG TABLET (FP) PO SCH ×2 (10:24→21:49)
[2019-03-07] MEDS: CHLORHEXIDINE GLUCONATE 118 ML MOUTHWASH MM SCH ×2 (10:27→21:50)
[2019-03-07] MEDS: METHYL SALICYLATE/MENTHOL OINT 30 GM TUBE TP SCH ×2 (10:27→21:50)
[2019-03-07] MEDS ORDERED: INSULIN (NOVOLOG) ASPART 100 UNITS/ML 10ML VIAL ONE ×2 (11:43→22:13)
[2019-03-07] MEDS: THIAMINE HCL 100 MG TABLET (FP) PO SCH (21:50)
[2019-03-08] MEDS: metFORMIN HCL 500 MG TABLET (FP) PO SCH ×2 (07:27→17:16)
[2019-03-08] MEDS: INSULIN SLIDING SCALE (NOVOLOG) 1 VIAL SQ SCH ×4 (07:28→21:54)
[2019-03-08] MEDS: IBUPROFEN 400 MG TABLET (FP) PO PRN (07:31)
[2019-03-08] MEDS: PRENATAL VITAMINS W/ FOLIC ACID TABLET (FP) PO SCH (11:14)
[2019-03-08] MEDS: CHLORHEXIDINE GLUCONATE 118 ML MOUTHWASH MM SCH ×2 (11:14→21:54)
[2019-03-08] MEDS: METHYL SALICYLATE/MENTHOL OINT 30 GM TUBE TP SCH ×2 (11:14→21:53)
[2019-03-08] MEDS: HYDROCHLOROTHIAZIDE 25 MG TABLET (FP) PO SCH (11:14)
[2019-03-08] MEDS: LISINOPRIL 20 MG TABLET (FP) PO SCH ×2 (11:14→21:55)
[2019-03-08] MEDS: NIFEdipine E.R. 90 MG TABLET (FP) PO SCH (11:15)
[2019-03-08] MEDS: THIAMINE HCL 100 MG TABLET (FP) PO SCH (21:56)
[2019-03-09] MEDS: metFORMIN HCL 500 MG TABLET (FP) PO SCH ×2 (06:42→16:57)
[2019-03-09] MEDS ORDERED: INSULIN (NOVOLOG) ASPART 100 UNITS/ML 10ML VIAL ONE ×2 (06:43→12:01)
[2019-03-09] MEDS: IBUPROFEN 400 MG TABLET (FP) PO PRN (06:44)
[2019-03-09] MEDS: INSULIN SLIDING SCALE (NOVOLOG) 1 VIAL SQ SCH ×4 (06:44→22:06)
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
[2019-03-09] MEDS: NIFEdipine E.R. 90 MG TABLET (FP) PO SCH (11:18)
[2019-03-09] MEDS: LISINOPRIL 20 MG TABLET (FP) PO SCH ×2 (11:18→22:06)
[2019-03-09] MEDS: PRENATAL VITAMINS W/ FOLIC ACID TABLET (FP) PO SCH (11:18)
[2019-03-09] MEDS: HYDROCHLOROTHIAZIDE 25 MG TABLET (FP) PO SCH (11:18)
[2019-03-09] MEDS: METHYL SALICYLATE/MENTHOL OINT 30 GM TUBE TP SCH ×2 (11:19→22:05)
[2019-03-09] MEDS: VITAMINS A AND D TOPICAL OINTMENT 60 GM TUBE TP SCH ×2 (11:19→22:06)
[2019-03-09] MEDS: CHLORHEXIDINE GLUCONATE 118 ML MOUTHWASH MM SCH ×2 (11:19→22:05)
[2019-03-09] MEDS: THIAMINE HCL 100 MG TABLET (FP) PO SCH (22:07)
[2019-03-10] MEDS: metFORMIN HCL 500 MG TABLET (FP) PO SCH (06:09)
[2019-03-10] MEDS ORDERED: INSULIN (NOVOLOG) ASPART 100 UNITS/ML 10ML VIAL ONE (06:11)
[2019-03-10] MEDS: IBUPROFEN 400 MG TABLET (FP) PO PRN (06:12)
[2019-03-10] MEDS: INSULIN SLIDING SCALE (NOVOLOG) 1 VIAL SQ SCH (06:13)
[2019-03-10 07:34] VITALS: TEMP 98.4
[2019-03-10] MEDS: NIFEdipine E.R. 90 MG TABLET (FP) PO SCH (09:17)
[2019-03-10] MEDS: HYDROCHLOROTHIAZIDE 25 MG TABLET (FP) PO SCH (09:17)
[2019-03-10] MEDS: LISINOPRIL 20 MG TABLET (FP) PO SCH (09:17)
[2019-03-10] MEDS: PRENATAL VITAMINS W/ FOLIC ACID TABLET (FP) PO SCH (09:17)
[2019-03-10] MEDS: CHLORHEXIDINE GLUCONATE 118 ML MOUTHWASH MM SCH (09:18)
[2019-03-10] MEDS: METHYL SALICYLATE/MENTHOL OINT 30 GM TUBE TP SCH (09:18)
[2019-03-10] MEDS: VITAMINS A AND D TOPICAL OINTMENT 60 GM TUBE TP SCH (09:19)
[2019-03-10 09:46] VITALS: BP 140/78; PULSE 87
--- NOTE | 2019-03-10 11:56 | PN ---
[facility] Progress Note Note: Pt is discharged today as scheduled. Pt did not follow up with plan to call his insurance as discussed yesterday. pt;s counselor Ms Chico Reddy was made aware of his reluctance to follow up with his medical care needs. Pt was spoken to and encouraged by nursing and counselling staff. Pt is Alert o x 3, oob ambulating with steady gait. Denies s/h/i Vital Signs - 24 hr 03/09/19 03/10/19 03/10/19 22:15 00:30 03:30 Temperature Pulse Rate 86 Respiratory 20 20 Rate Blood Pressure 138/72 03/10/19 03/10/19 07:33 09:15 Temperature 98.4 F Pulse Rate 101 H 87 Respiratory 20 18 Rate Blood Pressure 144/95 140/78 D/w pt and reminded him again to call his insurance company for information on his restricted pharmacy site and/or medical provider(s). All discharge information on follow up care has been provided to patient in D/C package upon discharge. Pt was agreeable to explanations of poc.
== END 2019-03-10 09:45 | disposition home or self-care (01) | DRG 772 ==
LOC: YASAS 17:54 → Y5N 17:55
PROVIDERS: ADMIT Neuromusculoskeletal Medicine & OMM; ATTEND Neuromusculoskeletal Medicine & OMM
PROC: HZ42ZZZ Group Counseling for Substance Abuse Treatment, Cognitive-Behavioral (ICD-10-PCS; principal; 2019-02-28)
DX: F10.20 Alcohol dependence, uncomplicated (principal); F14.20 Cocaine dependence, uncomplicated; F17.210 Nicotine dependence, cigarettes, uncomplicated; Z21 Asymptomatic human immunodeficiency virus [HIV] infection status; I11.0 Hypertensive heart disease with heart failure; I50.9 Heart failure, unspecified; L51.9 Erythema multiforme, unspecified; J45.909 Unspecified asthma, uncomplicated; E11.65 Type 2 diabetes mellitus with hyperglycemia; Z79.84 Long term (current) use of oral hypoglycemic drugs; G60.0 Hereditary motor and sensory neuropathy; I99.8 Other disorder of circulatory system; E66.01 Morbid (severe) obesity due to excess calories; Z68.43 Body mass index [BMI] 50.0-59.9, adult; Z90.79 Acquired absence of other genital organ(s); Z91.19 Patient's noncompliance with other medical treatment and regimen
CPT/HCPCS: 82962

== ENCOUNTER 2019-03-30 09:56 | Inpatient (IN) | payer OTHER ==
[2019-03-30 11:18] VITALS: BMI 55.4
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
[2019-03-30] MEDS ORDERED: ALBUTEROL SO4 8 GM HFA INHALER IH PRN (12:00)
[2019-03-30] MEDS ORDERED: ACETAMINOPHEN 325 MG TABLET (FP) PO PRN ×2 (12:49)
[2019-03-30] MEDS ORDERED: MAGNESIUM HYDROX 2400MG/30ML ORAL SUSPENSION 30 ML CUP PO PRN (12:49)
[2019-03-30] MEDS ORDERED: MELATONIN 5 MG TABLETS PO PRN (12:49)
[2019-03-30] MEDS ORDERED: hydrOXYzine PAMOATE 25 MG CAPSULE (FP) PO PRN (12:49)
[2019-03-30] MEDS ORDERED: BISMUTH SUBSALICYLATE 262 MG/15 ML BTL PO PRN (12:49)
[2019-03-30] MEDS ORDERED: MENTHOL/PHENOL 1 EACH UD MM PRN (12:49)
[2019-03-30] MEDS ORDERED: MAGNESIUM CITRATE 300 ML BOTTLE PO PRN (12:49)
[2019-03-30] MEDS ORDERED: MAG HYDROX/AL HYDROX/SIMETH 30 ML UNIT-DOSE CUP PO PRN (12:49)
[2019-03-30] MEDS ORDERED: diazePAM 5 MG TABLET PO PRN (12:50)
[2019-03-30] MEDS: diazePAM 5 MG TABLET PO SCH ×2 (13:57→23:32)
[2019-03-30] MEDS: metFORMIN HCL 500 MG TABLET (FP) PO SCH ×2 (13:57→17:01)
[2019-03-30] MEDS: LISINOPRIL 20 MG TABLET (FP) PO SCH ×2 (13:58→23:32)
[2019-03-30] MEDS: HYDROCHLOROTHIAZIDE 25 MG TABLET (FP) PO SCH (13:58)
[2019-03-30] MEDS: NIFEdipine E.R. 90 MG TABLET (FP) PO SCH (14:00)
[2019-03-30 15:09] LABS: HEMATOCRIT 38.9 % (35.4-49); HEMOGLOBIN 12.5 GM/dL (11.7-16.9); MCH 29.8 pg (25.7-33.7); MEAN CELL VOLUME 92.9 fl (80-96); MEAN PLT VOLUME 6.9 fl (7.5-11.1); PLATELET COUNT 272 K/MM3 (134-434); RBC 4.18 M/mm3 (4.00-5.60)
[2019-03-30 15:28] LABS: ALBUMIN 3.8 g/dl (3.4-5.0); BILIRUBIN,TOTAL 0.7 mg/dL (0.2-1); CALCIUM 8.6 mg/dL (8.5-10.1); CREATININE 0.9 mg/dL (0.55-1.3); POTASSIUM 3.3 mmol/L (3.5-5.1); TOT PROT 7.7 g/dl (6.4-8.2)
[2019-03-30] MEDS: INSULIN SLIDING SCALE (NOVOLOG) 1 VIAL SQ SCH (17:02)
[2019-03-30] MEDS: IBUPROFEN 400 MG TABLET (FP) PO PRN (17:47)
[2019-03-30] MEDS: METHOCARBAMOL 500 MG TABLET PO PRN (17:47)
[2019-03-30] MEDS: METHYL SALICYLATE/MENTHOL OINT 30 GM TUBE TP SCH (20:18)
[2019-03-30] MEDS: THIAMINE HCL 100 MG TABLET (FP) PO SCH (23:32)
[2019-03-31] MEDS ORDERED: diazePAM 5 MG TABLET PO SCH (06:00)
[2019-03-31] MEDS: INSULIN SLIDING SCALE (NOVOLOG) 1 VIAL SQ SCH ×2 (06:17→16:45)
[2019-03-31] MEDS: metFORMIN HCL 500 MG TABLET (FP) PO SCH ×2 (06:17→16:45)
[2019-03-31] MEDS ORDERED: INSULIN SLIDING SCALE (NOVOLOG) 1 VIAL SQ ONE (06:29)
[2019-03-31] MEDS: NIFEdipine E.R. 90 MG TABLET (FP) PO SCH (10:07)
[2019-03-31] MEDS: PRENATAL VITAMINS W/ FOLIC ACID TABLET (FP) PO SCH (10:08)
[2019-03-31] MEDS: METHYL SALICYLATE/MENTHOL OINT 30 GM TUBE TP SCH (10:08)
[2019-03-31] MEDS: HYDROCHLOROTHIAZIDE 25 MG TABLET (FP) PO SCH (10:08)
[2019-03-31] MEDS: LISINOPRIL 20 MG TABLET (FP) PO SCH ×2 (10:08→22:08)
[2019-03-31] MEDS ORDERED: LORazepam 1 MG TABLET PO PRN (10:48)
--- NOTE | 2019-03-31 14:12 | PN ---
[facility] CIWA - CIWA Score Nausea/Vomitin-Mild Nausea/No Vomiting Muscle Tremors: 2 Anxiety: 3 Agitation: 3 Paroxysmal Sweats: No Perspiration Orientation: 0-Oriented Tacttile Disturbances: 1-Very Mild Itch/Numbness Auditory Disturbances: 0-None Visual Disturbances: 0-None Headache: 2-Mild CIWA-Ar Total Score: 12 S Progress Note (SOAP) Subjective: alert,irritable,anxious,interrupted sleep,pain in the body Objective: 03/31/19 14:10 Vital Signs Temperature 97.2 F L 03/31/19 13:38 Pulse Rate 92 H 03/31/19 13:38 Respiratory Rate 18 03/31/19 13:38 Blood Pressure 142/84 03/31/19 13:38 O2 Sat by Pulse Oximetry (%) 03/31/19 14:10 Laboratory Last Values WBC 7.0 K/mm3 (4.0-10.0) 03/30/19 12:59 RBC 4.18 M/mm3 (4.00-5.60) 03/30/19 12:59 Hgb 12.5 GM/dL (11.7-16.9) 03/30/19 12:59 Hct 38.9 % (35.4-49) 03/30/19 12:59 MCV 92.9 fl (80-96) 03/30/19 12:59 MCH 29.8 pg (25.7-33.7) 03/30/19 12:59 MCHC 32.0 g/dl (32.0-35.9) 03/30/19 12:59 RDW 15.0 % (11.9-15.9) 03/30/19 12:59 Plt Count 272 K/MM3 (134-434) 03/30/19 12:59 MPV 6.9 fl (7.5-11.1) L 03/30/19 12:59 Sodium 137 mmol/L (136-145) 03/30/19 12:59 Potassium 3.3 mmol/L (3.5-5.1) L 03/30/19 12:59 Chloride 100 mmol/L (98-107) 03/30/19 12:59 Carbon Dioxide 31 mmol/L (21-32) 03/30/19 12:59 Anion Gap 5 MMOL/L (8-16) L 03/30/19 12:59 BUN 13.0 mg/dL (7-18) 03/30/19 12:59 Creatinine 0.9 mg/dL (0.55-1.3) 03/30/19 12:59 Est GFR (CKD-EPI)AfAm 121.67 03/30/19 12:59 Est GFR (CKD-EPI)NonAf 104.98 03/30/19 12:59 POC Glucometer 233 UNITS (80-120) 03/31/19 05:48 Random Glucose 242 mg/dL (74-106) H 03/30/19 12:59 Calcium 8.6 mg/dL (8.5-10.1) 03/30/19 12:59 Total Bilirubin 0.7 mg/dL (0.2-1) 03/30/19 12:59 AST 45 U/L (15-37) H 03/30/19 12:59 ALT 94 U/L (13-61) H 03/30/19 12:59 Alkaline Phosphatase 93 U/L (45-117) 03/30/19 12:59 Total Protein 7.7 g/dl (6.4-8.2) 03/30/19 12:59 Albumin 3.8 g/dl (3.4-5.0) 03/30/19 12:59 Assessment: 03/31/19 14:11 withdrawal symptom Plan: continue detox,k dur 20 meq po daily for hypokalemia k is 3.3,bgm monitoring with metformin
--- NOTE | 2019-03-31 14:14 | PN ---
[facility] Progress Note Note: patient would like regimen to change to ativan regimen
[2019-03-31] MEDS: POTASSIUM CHLORIDE TABS 20 MEQ TABLET.ER (FP) PO SCH (15:32)
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
[2019-03-31] MEDS: LORazepam 2 MG TABLET PO SCH ×2 (16:45→22:08)
[2019-03-31] MEDS: THIAMINE HCL 100 MG TABLET (FP) PO SCH (22:08)
[2019-04-01] MEDS ORDERED: diazePAM 5 MG TABLET PO ONE (06:00)
[2019-04-01] MEDS: LORazepam 2 MG TABLET PO SCH ×4 (06:43→22:21)
[2019-04-01] MEDS: INSULIN SLIDING SCALE (NOVOLOG) 1 VIAL SQ SCH ×2 (06:45→16:54)
[2019-04-01] MEDS: metFORMIN HCL 500 MG TABLET (FP) PO SCH ×2 (06:46→16:52)
[2019-04-01] MEDS: LISINOPRIL 20 MG TABLET (FP) PO SCH ×2 (10:54→21:46)
[2019-04-01 10:57] LABS: BLOOD UREA NITROGEN 12.1 mg/dL (7-18); CALCIUM 8.7 mg/dL (8.5-10.1); CREATININE 0.8 mg/dL (0.55-1.3); POTASSIUM 3.1 mmol/L (3.5-5.1)
[2019-04-01] MEDS: HYDROCHLOROTHIAZIDE 25 MG TABLET (FP) PO SCH (10:57)
[2019-04-01] MEDS: METHYL SALICYLATE/MENTHOL OINT 30 GM TUBE TP SCH (10:58)
[2019-04-01] MEDS: POTASSIUM CHLORIDE TABS 20 MEQ TABLET.ER (FP) PO SCH (10:58)
[2019-04-01] MEDS: PRENATAL VITAMINS W/ FOLIC ACID TABLET (FP) PO SCH (11:00)
[2019-04-01] MEDS: NIFEdipine E.R. 90 MG TABLET (FP) PO SCH (11:01)
--- NOTE | 2019-04-01 11:54 | PN ---
S CIWA - CIWA Score Nausea/Vomitin-No Nausea/No Vomiting Muscle Tremors: None Anxiety: 3 Agitation: 0-Normal Activity Paroxysmal Sweats: 3 Orientation: 0-Oriented Tacttile Disturbances: 0-None Auditory Disturbances: 0-None Visual Disturbances: 0-None Headache: 2-Mild CIWA-Ar Total Score: 8 [facility] Progress Note (SOAP) Subjective: c/o sweats, anxiety, and headache. Objective: 04/01/19 11:49 Vital Signs 04/01/19 04/01/19 06:37 10:55 Temperature 99.0 F 97.4 F L Pulse Rate 87 109 H Respiratory 20 20 Rate Blood Pressure 167/87 165/95 Laboratory Last Values WBC 7.0 K/mm3 (4.0-10.0) 03/30/19 12:59 RBC 4.18 M/mm3 (4.00-5.60) 03/30/19 12:59 Hgb 12.5 GM/dL (11.7-16.9) 03/30/19 12:59 Hct 38.9 % (35.4-49) 03/30/19 12:59 MCV 92.9 fl (80-96) 03/30/19 12:59 MCH 29.8 pg (25.7-33.7) 03/30/19 12:59 MCHC 32.0 g/dl (32.0-35.9) 03/30/19 12:59 RDW 15.0 % (11.9-15.9) 03/30/19 12:59 Plt Count 272 K/MM3 (134-434) 03/30/19 12:59 MPV 6.9 fl (7.5-11.1) L 03/30/19 12:59 Sodium 136 mmol/L (136-145) 04/01/19 07:40 Potassium 3.1 mmol/L (3.5-5.1) L 04/01/19 07:40 Chloride 95 mmol/L (98-107) L 04/01/19 07:40 Carbon Dioxide 34 mmol/L (21-32) H 04/01/19 07:40 Anion Gap 7 MMOL/L (8-16) L 04/01/19 07:40 BUN 12.1 mg/dL (7-18) 04/01/19 07:40 Creatinine 0.8 mg/dL (0.55-1.3) 04/01/19 07:40 Est GFR (CKD-EPI)AfAm 127.70 04/01/19 07:40 Est GFR (CKD-EPI)NonAf 110.18 04/01/19 07:40 POC Glucometer 279 UNITS (80-120) 04/01/19 06:44 Random Glucose 239 mg/dL (74-106) H 04/01/19 07:40 Calcium 8.7 mg/dL (8.5-10.1) 04/01/19 07:40 Total Bilirubin 0.7 mg/dL (0.2-1) 03/30/19 12:59 AST 45 U/L (15-37) H 03/30/19 12:59 ALT 94 U/L (13-61) H 03/30/19 12:59 Alkaline Phosphatase 93 U/L (45-117) 03/30/19 12:59 Total Protein 7.7 g/dl (6.4-8.2) 03/30/19 12:59 Albumin 3.8 g/dl (3.4-5.0) 03/30/19 12:59 Abnormal Lab Results 04/01/19 07:40 Potassium 3.1 L Chloride 95 L Carbon Dioxide 34 H Anion Gap 7 L Random Glucose 239 H Labs noted with potassium level of 3.1. 04/01/19 11:51 Assessment: 04/01/19 11:50 AOX3, in no acute respiratory distress. Full ROM, ambulating in the unit. Withdrawal symptoms. Hypokalemia. Plan: continue detox. change kcl 20meq po daily to 20meq kcl x1 dose now and 40meq kcl 4hrs apart. Repeat k+ level in AM.
[2019-04-01] MEDS ORDERED: POTASSIUM CHLORIDE TABS 20 MEQ TABLET.ER (FP) PO ONE ×2 (13:00→17:00)
[2019-04-01] MEDS: THIAMINE HCL 100 MG TABLET (FP) PO SCH (21:47)
[2019-04-02] MEDS: LORazepam 1 MG TABLET PO SCH ×4 (05:46→23:14)
[2019-04-02] MEDS: metFORMIN HCL 500 MG TABLET (FP) PO SCH ×2 (06:48→16:35)
[2019-04-02] MEDS ORDERED: INSULIN SLIDING SCALE (NOVOLOG) 1 VIAL SQ ONE (06:53)
[2019-04-02] MEDS: INSULIN SLIDING SCALE (NOVOLOG) 1 VIAL SQ SCH ×2 (06:57→16:35)
[2019-04-02] MEDS: HYDROCHLOROTHIAZIDE 25 MG TABLET (FP) PO SCH (10:06)
[2019-04-02] MEDS: PRENATAL VITAMINS W/ FOLIC ACID TABLET (FP) PO SCH (10:06)
[2019-04-02] MEDS: LISINOPRIL 20 MG TABLET (FP) PO SCH ×2 (10:06→21:42)
[2019-04-02] MEDS: NIFEdipine E.R. 90 MG TABLET (FP) PO SCH (10:07)
[2019-04-02] MEDS: METHYL SALICYLATE/MENTHOL OINT 30 GM TUBE TP SCH (10:08)
--- NOTE | 2019-04-02 13:52 | PN ---
S CIWA - CIWA Score Nausea/Vomitin-No Nausea/No Vomiting Muscle Tremors: 2 Anxiety: 1-Mildly Anxious Agitation: 1-Slight > Activity Paroxysmal Sweats: No Perspiration Orientation: 0-Oriented Tacttile Disturbances: 0-None Auditory Disturbances: 0-None Visual Disturbances: 0-None Headache: 0-None Present CIWA-Ar Total Score: 4 [facility] Progress Note (SOAP) Subjective: 43 years old male admitted on 03/30/19 for alcohol withdrawal sx management treated wt ativan detox regimen obese ambulating on hallway social with peers in day room Objective: 04/02/19 13:51 alcohol withdrawal sx Assessment: 04/02/19 13:52 Vital Signs Temperature 97 F L 04/02/19 09:32 Pulse Rate 92 H 04/02/19 09:32 Respiratory Rate 20 04/02/19 09:32 Blood Pressure 156/102 H 04/02/19 09:32 O2 Sat by Pulse Oximetry (%) Laboratory Last Values WBC 7.0 K/mm3 (4.0-10.0) 03/30/19 12:59 RBC 4.18 M/mm3 (4.00-5.60) 03/30/19 12:59 Hgb 12.5 GM/dL (11.7-16.9) 03/30/19 12:59 Hct 38.9 % (35.4-49) 03/30/19 12:59 MCV 92.9 fl (80-96) 03/30/19 12:59 MCH 29.8 pg (25.7-33.7) 03/30/19 12:59 MCHC 32.0 g/dl (32.0-35.9) 03/30/19 12:59 RDW 15.0 % (11.9-15.9) 03/30/19 12:59 Plt Count 272 K/MM3 (134-434) 03/30/19 12:59 MPV 6.9 fl (7.5-11.1) L 03/30/19 12:59 Sodium 136 mmol/L (136-145) 04/01/19 07:40 Potassium 3.6 mmol/L (3.5-5.1) 04/02/19 07:35 Chloride 95 mmol/L (98-107) L 04/01/19 07:40 Carbon Dioxide 34 mmol/L (21-32) H 04/01/19 07:40 Anion Gap 7 MMOL/L (8-16) L 04/01/19 07:40 BUN 12.1 mg/dL (7-18) 04/01/19 07:40 Creatinine 0.8 mg/dL (0.55-1.3) 04/01/19 07:40 Est GFR (CKD-EPI)AfAm 127.70 04/01/19 07:40 Est GFR (CKD-EPI)NonAf 110.18 04/01/19 07:40 POC Glucometer 238 UNITS (80-120) 04/02/19 05:48 Random Glucose 239 mg/dL (74-106) H 04/01/19 07:40 Calcium 8.7 mg/dL (8.5-10.1) 04/01/19 07:40 Total Bilirubin 0.7 mg/dL (0.2-1) 03/30/19 12:59 AST 45 U/L (15-37) H 03/30/19 12:59 ALT 94 U/L (13-61) H 03/30/19 12:59 Alkaline Phosphatase 93 U/L (45-117) 03/30/19 12:59 Total Protein 7.7 g/dl (6.4-8.2) 03/30/19 12:59 Albumin 3.8 g/dl (3.4-5.0) 03/30/19 12:59 lab noted 04/02/19 13:52 long history of diabetes strong recommend diabetes diet and weight loss as well as adherence with medications Plan: continue ativan detox regimen
[2019-04-02] MEDS: METHOCARBAMOL 500 MG TABLET PO PRN (18:44)
[2019-04-02] MEDS: IBUPROFEN 400 MG TABLET (FP) PO PRN (18:44)
[2019-04-02] MEDS: THIAMINE HCL 100 MG TABLET (FP) PO SCH (21:42)
[2019-04-03] MEDS ORDERED: LORazepam 0.5 MG TABLET PO PRN
[2019-04-03] MEDS: LORazepam 0.5 MG TABLET PO SCH ×4 (05:46→22:11)
[2019-04-03] MEDS: metFORMIN HCL 500 MG TABLET (FP) PO SCH ×2 (06:42→17:31)
[2019-04-03] MEDS: INSULIN SLIDING SCALE (NOVOLOG) 1 VIAL SQ SCH ×2 (06:42→17:31)
[2019-04-03] MEDS ORDERED: INSULIN SLIDING SCALE (NOVOLOG) 1 VIAL SQ ONE ×2 (07:23→17:14)
[2019-04-03] MEDS: HYDROCHLOROTHIAZIDE 25 MG TABLET (FP) PO SCH (10:26)
[2019-04-03] MEDS: METHYL SALICYLATE/MENTHOL OINT 30 GM TUBE TP SCH (10:26)
[2019-04-03] MEDS: LISINOPRIL 20 MG TABLET (FP) PO SCH ×2 (10:26→22:10)
[2019-04-03] MEDS: NIFEdipine E.R. 90 MG TABLET (FP) PO SCH (10:26)
[2019-04-03] MEDS: PRENATAL VITAMINS W/ FOLIC ACID TABLET (FP) PO SCH (10:26)
--- NOTE | 2019-04-03 11:42 | PN ---
[facility] CIWA - CIWA Score Nausea/Vomitin-No Nausea/No Vomiting Muscle Tremors: 1-None Visible, but [place] Anxiety: 1-Mildly Anxious Agitation: 0-Normal Activity Paroxysmal Sweats: No Perspiration Orientation: 0-Oriented Tacttile Disturbances: 0-None Auditory Disturbances: 0-None Visual Disturbances: 0-None Headache: 0-None Present CIWA-Ar Total Score: 2 S Progress Note (SOAP) Subjective: 43 years old male admitted on 03/30/19 for alcohol withdrawal sx management treated with ativan detox regimen feeling better today resting on bed ate breakfast limited participation to unit activities encourage to discuss aftercare with staff Objective: 04/03/19 11:36 Vital Signs Temperature 98.2 F 04/03/19 09:20 Pulse Rate 94 H 04/03/19 09:20 Respiratory Rate 16 04/03/19 09:20 Blood Pressure 152/93 04/03/19 09:20 O2 Sat by Pulse Oximetry (%) Laboratory Last Values WBC 7.0 K/mm3 (4.0-10.0) 03/30/19 12:59 RBC 4.18 M/mm3 (4.00-5.60) 03/30/19 12:59 Hgb 12.5 GM/dL (11.7-16.9) 03/30/19 12:59 Hct 38.9 % (35.4-49) 03/30/19 12:59 MCV 92.9 fl (80-96) 03/30/19 12:59 MCH 29.8 pg (25.7-33.7) 03/30/19 12:59 MCHC 32.0 g/dl (32.0-35.9) 03/30/19 12:59 RDW 15.0 % (11.9-15.9) 03/30/19 12:59 Plt Count 272 K/MM3 (134-434) 03/30/19 12:59 MPV 6.9 fl (7.5-11.1) L 03/30/19 12:59 Sodium 136 mmol/L (136-145) 04/01/19 07:40 Potassium 3.6 mmol/L (3.5-5.1) 04/02/19 07:35 Chloride 95 mmol/L (98-107) L 04/01/19 07:40 Carbon Dioxide 34 mmol/L (21-32) H 04/01/19 07:40 Anion Gap 7 MMOL/L (8-16) L 04/01/19 07:40 BUN 12.1 mg/dL (7-18) 04/01/19 07:40 Creatinine 0.8 mg/dL (0.55-1.3) 04/01/19 07:40 Est GFR (CKD-EPI)AfAm 127.70 04/01/19 07:40 Est GFR (CKD-EPI)NonAf 110.18 04/01/19 07:40 POC Glucometer 316 UNITS (80-120) 04/03/19 05:48 Random Glucose 239 mg/dL (74-106) H 04/01/19 07:40 Calcium 8.7 mg/dL (8.5-10.1) 04/01/19 07:40 Total Bilirubin 0.7 mg/dL (0.2-1) 03/30/19 12:59 AST 45 U/L (15-37) H 03/30/19 12:59 ALT 94 U/L (13-61) H 03/30/19 12:59 Alkaline Phosphatase 93 U/L (45-117) 03/30/19 12:59 Total Protein 7.7 g/dl (6.4-8.2) 03/30/19 12:59 Albumin 3.8 g/dl (3.4-5.0) 03/30/19 12:59 lab noted 04/03/19 11:36 hiv htn diabetes Assessment: 04/03/19 11:42 alcohol withdrawal sx Plan: continue ativan detox regimen encourage weight loss dietary regimen compliance
[2019-04-03] MEDS ORDERED: METOPROLOL TARTRATE 25 MG TABLET (FP) PO SCH (22:00)
[2019-04-03] MEDS: THIAMINE HCL 100 MG TABLET (FP) PO SCH (22:09)
[2019-04-03] MEDS: IBUPROFEN 400 MG TABLET (FP) PO PRN (22:12)
[2019-04-04] MEDS ORDERED: LORazepam 0.5 MG TABLET PO ONE (05:00)
[2019-04-04] MEDS: metFORMIN HCL 500 MG TABLET (FP) PO SCH (06:02)
[2019-04-04] MEDS: INSULIN SLIDING SCALE (NOVOLOG) 1 VIAL SQ SCH (06:30)
[2019-04-04] MEDS ORDERED: INSULIN SLIDING SCALE (NOVOLOG) 1 VIAL SQ ONE (06:31)
[2019-04-04 09:22] VITALS: BP 143/88; PULSE 107; TEMP 97
[2019-04-04] MEDS: PRENATAL VITAMINS W/ FOLIC ACID TABLET (FP) PO SCH (10:04)
[2019-04-04] MEDS: METHYL SALICYLATE/MENTHOL OINT 30 GM TUBE TP SCH (10:04)
[2019-04-04] MEDS: NIFEdipine E.R. 90 MG TABLET (FP) PO SCH (10:04)
[2019-04-04] MEDS: LISINOPRIL 20 MG TABLET (FP) PO SCH (10:04)
[2019-04-04] MEDS: HYDROCHLOROTHIAZIDE 25 MG TABLET (FP) PO SCH (10:04)
--- NOTE | 2019-04-04 11:10 | DS ---
[facility] Detox Discharge Summary Admission Date: 03/30/19 Discharge Date: 04/04/19 - History Present History: Alcohol Dependence Additional Comments: 43 years old male admitted on 03/30/19 for alcohol withdrawl sx management treated with ativan detox regimen patient is alert oriented x 3 cardiac s1s2 regular rate rhythm respiratory clear lung bilaterally on auscultation abdomen soft obese round no rebound tenderness - Physical Exam Results Vital Signs: Vital Signs Temperature 97.0 F L 04/04/19 09:22 Pulse Rate 107 H 04/04/19 09:22 Respiratory Rate 20 04/04/19 09:22 Blood Pressure 143/88 04/04/19 09:22 O2 Sat by Pulse Oximetry (%) Pertinent Admission Physical Exam Findings: alcohol withdrawal sx Laboratory Last Values WBC 7.0 K/mm3 (4.0-10.0) 03/30/19 12:59 RBC 4.18 M/mm3 (4.00-5.60) 03/30/19 12:59 Hgb 12.5 GM/dL (11.7-16.9) 03/30/19 12:59 Hct 38.9 % (35.4-49) 03/30/19 12:59 MCV 92.9 fl (80-96) 03/30/19 12:59 MCH 29.8 pg (25.7-33.7) 03/30/19 12:59 MCHC 32.0 g/dl (32.0-35.9) 03/30/19 12:59 RDW 15.0 % (11.9-15.9) 03/30/19 12:59 Plt Count 272 K/MM3 (134-434) 03/30/19 12:59 MPV 6.9 fl (7.5-11.1) L 03/30/19 12:59 Sodium 136 mmol/L (136-145) 04/01/19 07:40 Potassium 3.6 mmol/L (3.5-5.1) 04/02/19 07:35 Chloride 95 mmol/L (98-107) L 04/01/19 07:40 Carbon Dioxide 34 mmol/L (21-32) H 04/01/19 07:40 Anion Gap 7 MMOL/L (8-16) L 04/01/19 07:40 BUN 12.1 mg/dL (7-18) 04/01/19 07:40 Creatinine 0.8 mg/dL (0.55-1.3) 04/01/19 07:40 Est GFR (CKD-EPI)AfAm 127.70 04/01/19 07:40 Est GFR (CKD-EPI)NonAf 110.18 04/01/19 07:40 POC Glucometer 289 UNITS (80-120) 04/04/19 06:01 Random Glucose 239 mg/dL (74-106) H 04/01/19 07:40 Calcium 8.7 mg/dL (8.5-10.1) 04/01/19 07:40 Total Bilirubin 0.7 mg/dL (0.2-1) 03/30/19 12:59 AST 45 U/L (15-37) H 03/30/19 12:59 ALT 94 U/L (13-61) H 03/30/19 12:59 Alkaline Phosphatase 93 U/L (45-117) 03/30/19 12:59 Total Protein 7.7 g/dl (6.4-8.2) 03/30/19 12:59 Albumin 3.8 g/dl (3.4-5.0) 03/30/19 12:59 long history of diabetes lab noted - Treatment Hospital Course: Detox Protocol Followed, Detoxed Safely, Responded well, Discharged Condition Good, Rehab Referral Accepted Patient has Accepted [facility] - Medication Discharge Medications: Ambulatory Orders Albuterol Sulfate [Proventil HFA Inhaler -] 2 inh PO Q4H PRN #1 hfa.aer.[email or web address] 02/12 Lisinopril [Prinivil] 20 mg PO BID #60 tablet 02/12/19 Emtricitab/Rilpiviri/Tenof Ala [Odefsey Tablet] 1 each PO DAILY 03/30/19 Hydrochlorothiazide [Hctz -] 25 mg PO DAILY 03/30/19 Nifedipine 90 mg PO DAILY 03/30/19 metFORMIN HCL [Metformin HCl] 500 mg PO BID 03/30/19 Metoprolol Tartrate 25 mg PO DAILY #30 tablet 04/03/19 - Diagnosis (1) Alcohol dependence with uncomplicated withdrawal Current Visit: Yes Status: Acute (2) Asthma Current Visit: Yes Status: Chronic Qualifiers: Asthma severity: mild Asthma persistence: intermittent Asthma complication type: uncomplicated Qualified Code(s): J45.20 - Mild intermittent asthma, uncomplicated (3) DM2 (diabetes mellitus, type 2) Current Visit: Yes Status: Chronic Qualifiers: Diabetes mellitus watermelon inspector insulin use: without custodial use Diabetes mellitus complication status: with other specified complication Qualified Code (s): E11.69 - Type 2 diabetes mellitus with other specified complication (4) HIV (human immunodeficiency virus infection) Current Visit: Yes Status: Chronic Qualifiers: HIV symptom status: asymptomatic Qualified Code(s): Z21 - Asymptomatic human immunodeficiency virus [HIV] infection status (5) Hypertension Current Visit: No Status: Chronic Qualifiers: Hypertension type: essential hypertension Qualified Code(s): I10 - Essential (primary) hypertension (6) Obese Current Visit: Yes Status: Chronic Qualifiers: Obesity type: unspecified obesity type Obesity classification: adult class 3 (BMI >= 40) Serious obesity comorbidity presence: unspecified whether serious comorbidity present Body mass index: BMI 50.0-59.9 Qualified Code(s) : E66.01 - Morbid (severe) obesity due to excess calories; Z68.43 - Body mass index (BMI) 50.0-59.9, adult (7) Alcohol use disorder Current Visit: Yes Status: Acute (8) Substance induced mood disorder Current Visit: Yes Status: Suspected - AMA Did Patient Leave Against Medical Advice: No CIWA Score - CIWA Score Nausea/Vomitin-No Nausea/No Vomiting Muscle Tremors: None Anxiety: 0-No Anxiety, at Ease Agitation: 0-Normal Activity Paroxysmal Sweats: No Perspiration Orientation: 0-Oriented Tacttile Disturbances: 0-None Auditory Disturbances: 0-None Visual Disturbances: 0-None Headache: 0-None Present CIWA-Ar Total Score: 0
== END 2019-04-04 14:00 | disposition home or self-care (01) | DRG 774 ==
LOC: YASAS 09:56 → Y3N 12:23
PROVIDERS: ADMIT Allergy & Immunology; ATTEND Allergy & Immunology
PROC: HZ2ZZZZ Detoxification Services for Substance Abuse Treatment (ICD-10-PCS; principal; 2019-03-30)
DX: F10.230 Alcohol dependence with withdrawal, uncomplicated (principal); F14.20 Cocaine dependence, uncomplicated; F19.24 Other psychoactive substance dependence with psychoactive substance-induced mood disorder; Z21 Asymptomatic human immunodeficiency virus [HIV] infection status; I25.10 Atherosclerotic heart disease of native coronary artery without angina pectoris; I11.0 Hypertensive heart disease with heart failure; I50.9 Heart failure, unspecified; J45.20 Mild intermittent asthma, uncomplicated; E11.9 Type 2 diabetes mellitus without complications; Z79.84 Long term (current) use of oral hypoglycemic drugs; E87.6 Hypokalemia; E66.01 Morbid (severe) obesity due to excess calories; Z68.43 Body mass index [BMI] 50.0-59.9, adult; Z90.79 Acquired absence of other genital organ(s)
CPT/HCPCS: 36415; 80048; 80053; 82962; 84132; 85027

== ENCOUNTER 2019-04-26 10:05 | Inpatient (IN) | payer OTHER ==
[2019-04-26 10:40] VITALS: BMI 56.5
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
[2019-04-26] MEDS ORDERED: BISMUTH SUBSALICYLATE 524 MG/30 ML UD PO PRN (11:33)
[2019-04-26] MEDS ORDERED: MENTHOL/PHENOL 1 EACH UD MM PRN (11:33)
[2019-04-26] MEDS ORDERED: METHOCARBAMOL 500 MG TABLET PO PRN (11:33)
[2019-04-26] MEDS ORDERED: hydrOXYzine PAMOATE 25 MG CAPSULE (FP) PO PRN (11:33)
[2019-04-26] MEDS ORDERED: MAGNESIUM CITRATE 300 ML BOTTLE PO PRN (11:33)
[2019-04-26] MEDS ORDERED: MAGNESIUM HYDROX 2400MG/30ML ORAL SUSPENSION 30 ML CUP PO PRN (11:33)
[2019-04-26] MEDS ORDERED: MAG HYDROX/AL HYDROX/SIMETH 30 ML UNIT-DOSE CUP PO PRN (11:33)
[2019-04-26] MEDS ORDERED: diazePAM 5 MG TABLET PO PRN (11:33)
[2019-04-26] MEDS ORDERED: IBUPROFEN 400 MG TABLET (FP) PO PRN (11:33)
[2019-04-26] MEDS ORDERED: ACETAMINOPHEN 325 MG TABLET (FP) PO PRN ×2 (11:33)
[2019-04-26] MEDS ORDERED: MELATONIN 5 MG TABLETS PO PRN (11:33)
[2019-04-26] MEDS ORDERED: MINERAL OIL/PETROLAT/WATER TOPICAL CREAM 113 GM JAR TP PRN (11:40)
[2019-04-26] MEDS: diazePAM 5 MG TABLET PO SCH ×2 (13:28→21:07)
[2019-04-26 14:11] LABS: HEMATOCRIT 39.6 % (35.4-49); HEMOGLOBIN 12.9 GM/dL (11.7-16.9); MCH 29.7 pg (25.7-33.7); MCHC 32.5 g/dl (32.0-35.9); MEAN CELL VOLUME 91.5 fl (80-96); MEAN PLT VOLUME 7.1 fl (7.5-11.1); PLATELET COUNT 225 K/MM3 (134-434); RBC 4.33 M/mm3 (4.00-5.60); RDW 14.9 % (11.9-15.9); WHITE BLOOD COUNT 5.8 K/mm3 (4.0-10.0)
[2019-04-26 14:26] LABS: ALBUMIN 3.4 g/dl (3.4-5.0); BILIRUBIN,TOTAL 0.5 mg/dL (0.2-1); BLOOD UREA NITROGEN 15.9 mg/dL (7-18); CREATININE 1.1 mg/dL (0.55-1.3); POTASSIUM 3.3 mmol/L (3.5-5.1); TOT PROT 7.3 g/dl (6.4-8.2)
[2019-04-26] MEDS: metFORMIN HCL 500 MG TABLET (FP) PO SCH (17:04)
[2019-04-26] MEDS ORDERED: cloNIDine HCL 0.1 MG TABLET PO ONE (17:14)
[2019-04-26] MEDS: THIAMINE HCL 100 MG TABLET (FP) PO SCH (21:07)
[2019-04-26] MEDS: POTASSIUM CHLORIDE TABS 20 MEQ TABLET.ER (FP) PO SCH (21:07)
[2019-04-26] MEDS: METHYL SALICYLATE/MENTHOL OINT 30 GM TUBE TP SCH (22:38)
[2019-04-27] MEDS: diazePAM 5 MG TABLET PO SCH ×3 (05:37→22:23)
[2019-04-27] MEDS: metFORMIN HCL 500 MG TABLET (FP) PO SCH ×2 (06:48→17:26)
--- NOTE | 2019-04-27 10:37 | PN ---
S CIWA - CIWA Score Nausea/Vomitin-No Nausea/No Vomiting Muscle Tremors: 2 Anxiety: 1-Mildly Anxious Agitation: 1-Slight > Activity Paroxysmal Sweats: 2 Orientation: 0-Oriented Tacttile Disturbances: 0-None Auditory Disturbances: 0-None Visual Disturbances: 0-None Headache: 0-None Present CIWA-Ar Total Score: 6 [facility] Progress Note (SOAP) Subjective: sweats tired interrupted sleep Objective: 04/27/19 10:34 Vital Signs Temperature 98.2 F 04/27/19 09:50 Pulse Rate 97 H 04/27/19 09:50 Respiratory Rate 20 04/27/19 09:50 Blood Pressure 153/94 04/27/19 09:50 O2 Sat by Pulse Oximetry (%) Laboratory Tests 04/26/19 04/26/19 04/26/19 11:50 11:50 16:37 WBC 5.8 RBC 4.33 Hgb 12.9 Hct 39.6 MCV 91.5 MCH 29.7 MCHC 32.5 RDW 14.9 Plt Count 225 MPV 7.1 L Sodium 139 Potassium 3.3 L Chloride 103 Carbon Dioxide 28 Anion Gap 8 BUN 15.9 Creatinine 1.1 Est GFR (CKD-EPI)AfAm 95.46 Est GFR (CKD-EPI)NonAf 82.36 POC Glucometer 258 Random Glucose 234 H Calcium 8.0 L Total Bilirubin 0.5 AST 23 ALT 61 Alkaline Phosphatase 107 Total Protein 7.3 Albumin 3.4 04/27/19 05:34 WBC RBC Hgb Hct MCV MCH MCHC RDW Plt Count MPV Sodium Potassium Chloride Carbon Dioxide Anion Gap BUN Creatinine Est GFR (CKD-EPI)AfAm Est GFR (CKD-EPI)NonAf POC Glucometer 253 Random Glucose Calcium Total Bilirubin AST ALT Alkaline Phosphatase Total Protein Albumin labs noted pt is currently taking potassium bid aaox3 ambulating no acute distress pt teaching on managing his glucose with diet/exercise..pt in agreement Assessment: 04/27/19 10:37 mild withdrawals Plan: continue with detox increase water intake d/c in am
[2019-04-27] MEDS: METHYL SALICYLATE/MENTHOL OINT 30 GM TUBE TP SCH ×2 (11:05→22:25)
[2019-04-27] MEDS: POTASSIUM CHLORIDE TABS 20 MEQ TABLET.ER (FP) PO SCH ×2 (11:06→22:23)
[2019-04-27] MEDS: HYDROCHLOROTHIAZIDE 25 MG TABLET (FP) PO SCH (11:06)
[2019-04-27] MEDS: LISINOPRIL 20 MG TABLET (FP) PO SCH (11:11)
[2019-04-27] MEDS: PRENATAL VITAMINS W/ FOLIC ACID TABLET (FP) PO SCH (11:11)
[2019-04-27] MEDS: NICOTINE 14 MG/24 HOURS TOPICAL PATCH TD SCH (11:11)
[2019-04-27] MEDS: THIAMINE HCL 100 MG TABLET (FP) PO SCH (22:23)
[2019-04-28] MEDS ORDERED: diazePAM 5 MG TABLET PO ONE (05:00)
[2019-04-28] MEDS ORDERED: diazePAM 5 MG TABLET PO SCH (06:00)
[2019-04-28] MEDS: metFORMIN HCL 500 MG TABLET (FP) PO SCH ×2 (06:44→16:43)
--- NOTE | 2019-04-28 09:30 | PN ---
[facility] CIWA - CIWA Score Nausea/Vomitin-No Nausea/No Vomiting Muscle Tremors: 1-None Visible, but [place] Anxiety: 1-Mildly Anxious Agitation: 0-Normal Activity Paroxysmal Sweats: 1-Minimal Palms Moist Orientation: 0-Oriented Tacttile Disturbances: 0-None Auditory Disturbances: 0-None Visual Disturbances: 0-None Headache: 0-None Present CIWA-Ar Total Score: 3 [facility] Progress Note (SOAP) Subjective: sweats Objective: 04/28/19 09:58 Vital Signs Temperature 98.1 F 04/28/19 07:26 Pulse Rate 101 H 04/28/19 07:26 Respiratory Rate 18 04/28/19 07:26 Blood Pressure 187/97 H 04/28/19 07:26 O2 Sat by Pulse Oximetry (%) aaox3 ambulating no acute distress Assessment: 04/28/19 09:58 mild withdrawals Plan: d/c today
--- NOTE | 2019-04-28 10:01 | DS ---
[facility] Detox Discharge Summary Admission Date: 04/26/19 Discharge Date: 04/28/19 - History Present History: Alcohol Dependence, Cocaine Dependence - Physical Exam Results Vital Signs: Vital Signs Temperature 98.1 F 04/28/19 07:26 Pulse Rate 101 H 04/28/19 07:26 Respiratory Rate 18 04/28/19 07:26 Blood Pressure 187/97 H 04/28/19 07:26 O2 Sat by Pulse Oximetry (%) Pertinent Admission Physical Exam Findings: Vital Signs Temperature 98.1 F 04/28/19 07:26 Pulse Rate 101 H 04/28/19 07:26 Respiratory Rate 18 04/28/19 07:26 Blood Pressure 187/97 H 04/28/19 07:26 O2 Sat by Pulse Oximetry (%) Laboratory Last Values WBC 5.8 K/mm3 (4.0-10.0) 04/26/19 11:50 RBC 4.33 M/mm3 (4.00-5.60) 04/26/19 11:50 Hgb 12.9 GM/dL (11.7-16.9) 04/26/19 11:50 Hct 39.6 % (35.4-49) 04/26/19 11:50 MCV 91.5 fl (80-96) 04/26/19 11:50 MCH 29.7 pg (25.7-33.7) 04/26/19 11:50 MCHC 32.5 g/dl (32.0-35.9) 04/26/19 11:50 RDW 14.9 % (11.9-15.9) 04/26/19 11:50 Plt Count 225 K/MM3 (134-434) 04/26/19 11:50 MPV 7.1 fl (7.5-11.1) L 04/26/19 11:50 Sodium 139 mmol/L (136-145) 04/26/19 11:50 Potassium 3.3 mmol/L (3.5-5.1) L 04/26/19 11:50 Chloride 103 mmol/L (98-107) 04/26/19 11:50 Carbon Dioxide 28 mmol/L (21-32) 04/26/19 11:50 Anion Gap 8 MMOL/L (8-16) 04/26/19 11:50 BUN 15.9 mg/dL (7-18) 04/26/19 11:50 Creatinine 1.1 mg/dL (0.55-1.3) 04/26/19 11:50 Est GFR (CKD-EPI)AfAm 95.46 04/26/19 11:50 Est GFR (CKD-EPI)NonAf 82.36 04/26/19 11:50 POC Glucometer 239 UNITS (80-120) 04/27/19 16:33 Random Glucose 234 mg/dL (74-106) H 04/26/19 11:50 Calcium 8.0 mg/dL (8.5-10.1) L 04/26/19 11:50 Total Bilirubin 0.5 mg/dL (0.2-1) 04/26/19 11:50 AST 23 U/L (15-37) 04/26/19 11:50 ALT 61 U/L (13-61) 04/26/19 11:50 Alkaline Phosphatase 107 U/L (45-117) 04/26/19 11:50 Total Protein 7.3 g/dl (6.4-8.2) 04/26/19 11:50 Albumin 3.4 g/dl (3.4-5.0) 04/26/19 11:50 RPR Titer Nonreactive (NONREACTIVE) 04/26/19 11:50 aaox3 ambulating no acute distress - Treatment Hospital Course: Detox Protocol Followed, Detoxed Safely, Responded well, Discharged Condition Good, Rehab Referral Accepted Patient has Accepted a Rehab Referral to: pt referred to inpatient rehab - Medication Discharge Medications: Ambulatory Orders Albuterol Sulfate [Proventil HFA Inhaler -] 2 inh PO Q4H PRN #1 hfa.aer.ad 02/12 Emtricitab/Rilpiviri/Tenof Ala [Odefsey Tablet] 1 each PO DAILY 03/30/19 Hydrochlorothiazide [Hctz -] 25 mg PO DAILY 03/30/19 Nifedipine 90 mg PO DAILY 03/30/19 metFORMIN HCL [Metformin HCl] 500 mg PO BID 03/30/19 Lisinopril [Prinivil] 20 mg PO DAILY 04/26/19 - Diagnosis (1) Alcohol dependence with uncomplicated withdrawal Current Visit: Yes Status: Acute (2) Sleep apnea Current Visit: Yes Status: Acute (3) Asthma Current Visit: Yes Status: Chronic Qualifiers: Asthma severity: mild Asthma persistence: intermittent Asthma complication type: uncomplicated Qualified Code(s): J45.20 - Mild intermittent asthma, uncomplicated (4) Cocaine use disorder Current Visit: Yes Status: Chronic (5) Congestive heart failure (CHF) Current Visit: Yes Status: Chronic Qualifiers: Heart failure type: unspecified Heart failure chronicity: chronic Qualified Code(s): I50.9 - Heart failure, unspecified (6) DM2 (diabetes mellitus, type 2) Current Visit: Yes Status: Chronic Qualifiers: Diabetes mellitus ad terminal makeup 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 insulin use: without senior care use Diabetes mellitus complication status: with other specified complication Qualified Code (s): E11.69 - Type 2 diabetes mellitus with other specified complication (7) HIV (human immunodeficiency virus infection) Current Visit: Yes Status: Chronic Qualifiers: HIV symptom status: asymptomatic Qualified Code(s): Z21 - Asymptomatic human immunodeficiency virus [HIV] infection status (8) Hypertension Current Visit: Yes Status: Chronic Qualifiers: Hypertension type: essential hypertension Qualified Code(s): I10 - Essential (primary) hypertension (9) Obese Current Visit: Yes Status: Chronic Qualifiers: Obesity type: unspecified obesity type Obesity classification: adult class 3 (BMI >= 40) Serious obesity comorbidity presence: unspecified whether serious comorbidity present Body mass index: BMI 50.0-59.9 Qualified Code(s) : E66.01 - Morbid (severe) obesity due to excess calories; Z68.43 - Body mass index (BMI) 50.0-59.9, adult (10) Substance induced mood disorder Current Visit: Yes Status: Suspected (11) Alcohol use disorder Current Visit: No Status: Acute (12) Elevated liver enzymes Current Visit: No Status: Acute (13) Heroin use disorder, mild Current Visit: No Status: Acute (14) Hyperglycemia Current Visit: No Status: Acute (15) Hypertensive urgency Current Visit: No Status: Acute (16) Hypokalemia Current Visit: No Status: Acute (17) Metacarpophalangeal joint pain of left hand Current Visit: No Status: Acute (18) Chronic edema Current Visit: No Status: Chronic (19) Cocaine abuse, episodic Current Visit: No Status: Chronic (20) History of CHF (congestive heart failure) Current Visit: No Status: Chronic (21) Hyperpigmented skin lesion Current Visit: No Status: Chronic (22) Vascular insufficiency of extremity Current Visit: No Status: Chronic (23) Cocaine dependence Current Visit: No Status: Suspected Qualifiers: Substance use status: uncomplicated Qualified Code(s): F14.20 - Cocaine dependence, uncomplicated - AMA Did Patient Leave Against Medical Advice: No
[2019-04-28] MEDS: NICOTINE 14 MG/24 HOURS TOPICAL PATCH TD SCH (10:27)
[2019-04-28] MEDS: LISINOPRIL 20 MG TABLET (FP) PO SCH (10:27)
[2019-04-28] MEDS: PRENATAL VITAMINS W/ FOLIC ACID TABLET (FP) PO SCH (10:27)
[2019-04-28] MEDS: HYDROCHLOROTHIAZIDE 25 MG TABLET (FP) PO SCH (10:27)
[2019-04-28] MEDS: POTASSIUM CHLORIDE TABS 20 MEQ TABLET.ER (FP) PO SCH (10:27)
[2019-04-28] MEDS: METHYL SALICYLATE/MENTHOL OINT 30 GM TUBE TP SCH (10:27)
[2019-04-28 14:12] VITALS: BP 182/82; PULSE 94; TEMP 98.6
[2019-04-29] MEDS ORDERED: diazePAM 5 MG TABLET PO ONE (06:00)
== END 2019-04-28 15:26 | disposition other institution (70) | DRG 773 ==
LOC: YASAS 10:05 → Y6N 11:47
PROVIDERS: ADMIT Allergy & Immunology; ATTEND Allergy & Immunology
PROC: HZ2ZZZZ Detoxification Services for Substance Abuse Treatment (ICD-10-PCS; principal; 2019-04-26)
DX: F10.230 Alcohol dependence with withdrawal, uncomplicated (principal); F14.10 Cocaine abuse, uncomplicated; F11.10 Opioid abuse, uncomplicated; F19.24 Other psychoactive substance dependence with psychoactive substance-induced mood disorder; I11.0 Hypertensive heart disease with heart failure; I50.9 Heart failure, unspecified; G47.30 Sleep apnea, unspecified; J45.20 Mild intermittent asthma, uncomplicated; E11.65 Type 2 diabetes mellitus with hyperglycemia; Z21 Asymptomatic human immunodeficiency virus [HIV] infection status; E87.6 Hypokalemia; M25.542 Pain in joints of left hand; R60.0 Localized edema; I99.8 Other disorder of circulatory system; L81.8 Other specified disorders of pigmentation; E66.01 Morbid (severe) obesity due to excess calories; Z68.43 Body mass index [BMI] 50.0-59.9, adult; Z98.61 Coronary angioplasty status
CPT/HCPCS: 36415; 80053; 82962; 85027; 86593; J0735

== ENCOUNTER 2019-04-28 17:30 | Inpatient (IN) | payer OTHER ==
--- NOTE | 2019-04-28 18:14 | HP ---
[facility] Rehab Assess/Revision - Admission History Ad[facility] to Re[facility] (43 yo presents post detox for alcohol use disorder. Co-occuring cocaine use disorder. Patient w/ hx HTN, HIV+, DM, Asthma and morbid obesity. Patient w/ low potassium level noted in detox and will be monitored while in rehab.) Date of Admission to Rehab: 04/28/2019 - Vital signs Vital Signs: Vital Signs Period Temp Pulse Resp BP Sys/Jones Pulse Ox Last 24 Hr 98.3 F 88 18 155/95 - Findings Detox History & Physical reviewed: Yes Concur with findings: Yes Inpatient Rehab Admission - Rehab Decision to Admit Inpatient rehab admission?: Yes - Initial Determination Are CD services needed?: Yes Free of communicable disease: Yes Not in need of hospitalization: Yes - Rehab Admission Criteria Previous failed treatment: Yes Poor recovery environment: Yes Comorbidities: Yes Lacks judgement: No Patient is meeting Inpatient Rehab admission criteria:: Yes
[2019-04-28] MEDS ORDERED: ACETAMINOPHEN 325 MG TABLET (FP) PO PRN (18:19)
[2019-04-28] MEDS ORDERED: P-EPHED 60MG/TRIPROLIDI 2.5MG TABLET PO PRN (18:19)
[2019-04-28] MEDS ORDERED: NICOTINE POLACRILEX 2 MG GUM BUC PRN (18:19)
[2019-04-28] MEDS ORDERED: MAG HYDROX/AL HYDROX/SIMETH 30 ML UNIT-DOSE CUP PO PRN (18:19)
[2019-04-28] MEDS ORDERED: MAGNESIUM CITRATE 300 ML BOTTLE PO PRN (18:19)
[2019-04-28] MEDS ORDERED: MAGNESIUM HYDROX 2400MG/30ML ORAL SUSPENSION 30 ML CUP PO PRN (18:19)
[2019-04-28] MEDS ORDERED: hydrOXYzine PAMOATE 25 MG CAPSULE (FP) PO PRN (18:19)
[2019-04-28] MEDS ORDERED: LOPERAMIDE HCL 2 MG CAPSULE PO PRN (18:19)
[2019-04-28] MEDS ORDERED: guaiFENesin 200 MG/10 ML 10 ML UNIT-DOSE CUPS PO PRN (18:19)
[2019-04-28] MEDS ORDERED: MENTHOL/PHENOL 1 EACH UD MM PRN (18:19)
[2019-04-28] MEDS ORDERED: ALBUTEROL SO4 8 GM HFA INHALER IH PRN (18:25)
[2019-04-28] MEDS ORDERED: LISINOPRIL 20 MG TABLET (FP) PO ONE (19:25)
[2019-04-28] MEDS ORDERED: metFORMIN HCL 500 MG TABLET (FP) PO ONE (19:25)
[2019-04-28] MEDS: THIAMINE HCL 100 MG TABLET (FP) PO SCH (21:42)
[2019-04-28] MEDS: IBUPROFEN 400 MG TABLET (FP) PO PRN (21:43)
[2019-04-29] MEDS: IBUPROFEN 400 MG TABLET (FP) PO PRN ×2 (06:37→21:43)
[2019-04-29] MEDS: metFORMIN HCL 500 MG TABLET (FP) PO SCH ×2 (06:37→16:53)
[2019-04-29] MEDS ORDERED: NICOTINE 14 MG/24 HOURS TOPICAL PATCH TD SCH (10:00)
[2019-04-29] MEDS: PRENATAL VITAMINS W/ FOLIC ACID TABLET (FP) PO SCH (11:03)
[2019-04-29] MEDS: POTASSIUM CHLORIDE TABS 20 MEQ TABLET.ER (FP) PO SCH (11:03)
[2019-04-29] MEDS: LISINOPRIL 20 MG TABLET (FP) PO SCH (11:03)
[2019-04-29] MEDS: NIFEdipine E.R. 90 MG TABLET (FP) PO SCH (11:03)
[2019-04-29] MEDS: HYDROCHLOROTHIAZIDE 25 MG TABLET (FP) PO SCH (11:03)
--- NOTE | 2019-04-29 11:32 | PN ---
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
[2019-04-29 21:36] LABS: BLOOD UREA NITROGEN 13.6 mg/dL (7-18); CALCIUM 8.8 mg/dL (8.5-10.1); CREATININE 1.1 mg/dL (0.55-1.3); POTASSIUM 3.5 mmol/L (3.5-5.1)
[2019-04-29] MEDS: THIAMINE HCL 100 MG TABLET (FP) PO SCH (21:42)
[2019-04-30] MEDS: IBUPROFEN 400 MG TABLET (FP) PO PRN ×2 (06:33→22:57)
[2019-04-30] MEDS: metFORMIN HCL 500 MG TABLET (FP) PO SCH ×2 (07:05→17:17)
[2019-04-30] MEDS ORDERED: INSULIN (NOVOLOG) ASPART 100 UNITS/ML 10ML VIAL ONE ×4 (07:31→22:56)
[2019-04-30] MEDS: INSULIN SLIDING SCALE (NOVOLOG) 1 VIAL SQ SCH ×4 (07:58→22:56)
[2019-04-30] MEDS: NIFEdipine E.R. 90 MG TABLET (FP) PO SCH (09:54)
[2019-04-30] MEDS: PRENATAL VITAMINS W/ FOLIC ACID TABLET (FP) PO SCH (09:54)
[2019-04-30] MEDS: HYDROCHLOROTHIAZIDE 25 MG TABLET (FP) PO SCH (09:55)
[2019-04-30] MEDS: LISINOPRIL 20 MG TABLET (FP) PO SCH (09:55)
[2019-04-30] MEDS: POTASSIUM CHLORIDE TABS 20 MEQ TABLET.ER (FP) PO SCH (09:55)
[2019-04-30] MEDS ORDERED: INSULIN SLIDING SCALE (NOVOLOG) 1 VIAL SQ SCH ×2 (11:00)
[2019-04-30] MEDS: THIAMINE HCL 100 MG TABLET (FP) PO SCH (22:50)
[2019-05-01] MEDS: metFORMIN HCL 500 MG TABLET (FP) PO SCH ×2 (06:24→16:37)
[2019-05-01] MEDS: INSULIN SLIDING SCALE (NOVOLOG) 1 VIAL SQ SCH ×4 (06:25→21:30)
[2019-05-01] MEDS ORDERED: IBUPROFEN 600 MG TABLET (FP) PO PRN (08:44)
[2019-05-01] MEDS: HYDROCHLOROTHIAZIDE 25 MG TABLET (FP) PO SCH (09:41)
[2019-05-01] MEDS: NIFEdipine E.R. 90 MG TABLET (FP) PO SCH (09:41)
[2019-05-01] MEDS: LISINOPRIL 20 MG TABLET (FP) PO SCH (09:41)
[2019-05-01] MEDS: PRENATAL VITAMINS W/ FOLIC ACID TABLET (FP) PO SCH (09:41)
[2019-05-01] MEDS: POTASSIUM CHLORIDE TABS 20 MEQ TABLET.ER (FP) PO SCH (09:41)
[2019-05-01] MEDS ORDERED: INSULIN (NOVOLOG) ASPART 100 UNITS/ML 10ML VIAL ONE ×2 (11:45→16:35)
[2019-05-01] MEDS: METHYL SALICYLATE/MENTHOL OINT 30 GM TUBE TP SCH (14:05)
[2019-05-01] MEDS: THIAMINE HCL 100 MG TABLET (FP) PO SCH (21:27)
[2019-05-01] MEDS: MELATONIN 5 MG TABLETS PO PRN (21:27)
[2019-05-02] MEDS ORDERED: INSULIN (NOVOLOG) ASPART 100 UNITS/ML 10ML VIAL ONE ×3 (05:46→16:22)
[2019-05-02] MEDS: metFORMIN HCL 500 MG TABLET (FP) PO SCH ×2 (06:06→16:22)
[2019-05-02] MEDS: INSULIN SLIDING SCALE (NOVOLOG) 1 VIAL SQ SCH ×4 (06:06→21:41)
[2019-05-02] MEDS: POTASSIUM CHLORIDE TABS 20 MEQ TABLET.ER (FP) PO SCH (09:35)
[2019-05-02] MEDS: METHYL SALICYLATE/MENTHOL OINT 30 GM TUBE TP SCH (09:35)
[2019-05-02] MEDS: NIFEdipine E.R. 90 MG TABLET (FP) PO SCH (09:35)
[2019-05-02] MEDS: HYDROCHLOROTHIAZIDE 25 MG TABLET (FP) PO SCH (09:35)
[2019-05-02] MEDS: PRENATAL VITAMINS W/ FOLIC ACID TABLET (FP) PO SCH (09:35)
[2019-05-02] MEDS: LISINOPRIL 20 MG TABLET (FP) PO SCH (09:35)
--- NOTE | 2019-05-02 10:55 | PN ---
S Progress Note (SOAP) Subjective: Reports pain and swelling, left great toe, states "pus is coming out of it." Objective: 05/02/19 10:52 Vital Signs Period Temp Pulse Resp BP Sys/Jones Pulse Ox Last 24 Hr 97.9 F 100-100 18-20 144-154/87-87 General: No apparent distress Lungs: clear Heart: s1 s2 Abd: +BS, obese Extremities: Left great toe, raised, red area with central punctum on side between 1at and 2nd toes. Malodorous. Assessment: cellulitis 05/02/19 10:54 Plan: Advised patient to wash his feet, apply bacitracin BID Bactrim ordered.
[2019-05-02] MEDS: CEPHALEXIN MONOHYDRATE 500 MG CAPSULE (UD) PO SCH ×2 (11:45→21:41)
[2019-05-02] MEDS: BACITRACIN 15 GM TUBE TOPICAL OINTMENT TP SCH ×2 (11:45→21:42)
[2019-05-02] MEDS: MELATONIN 5 MG TABLETS PO PRN (21:41)
[2019-05-02] MEDS: THIAMINE HCL 100 MG TABLET (FP) PO SCH (21:41)
[2019-05-03] MEDS: metFORMIN HCL 500 MG TABLET (FP) PO SCH ×2 (06:03→16:45)
[2019-05-03] MEDS ORDERED: INSULIN (NOVOLOG) ASPART 100 UNITS/ML 10ML VIAL ONE ×2 (06:05→11:49)
[2019-05-03] MEDS: INSULIN SLIDING SCALE (NOVOLOG) 1 VIAL SQ SCH ×4 (06:20→21:40)
[2019-05-03] MEDS: POTASSIUM CHLORIDE TABS 20 MEQ TABLET.ER (FP) PO SCH (09:41)
[2019-05-03] MEDS: PRENATAL VITAMINS W/ FOLIC ACID TABLET (FP) PO SCH (09:41)
[2019-05-03] MEDS: LISINOPRIL 20 MG TABLET (FP) PO SCH (09:41)
[2019-05-03] MEDS: HYDROCHLOROTHIAZIDE 25 MG TABLET (FP) PO SCH (09:41)
[2019-05-03] MEDS: NIFEdipine E.R. 90 MG TABLET (FP) PO SCH (09:41)
[2019-05-03] MEDS: CEPHALEXIN MONOHYDRATE 500 MG CAPSULE (UD) PO SCH ×2 (09:41→21:35)
[2019-05-03] MEDS: METHYL SALICYLATE/MENTHOL OINT 30 GM TUBE TP SCH (09:43)
[2019-05-03] MEDS: BACITRACIN 15 GM TUBE TOPICAL OINTMENT TP SCH ×2 (09:43→21:40)
[2019-05-03] MEDS: THIAMINE HCL 100 MG TABLET (FP) PO SCH (21:35)
[2019-05-03] MEDS: MELATONIN 5 MG TABLETS PO PRN (21:35)
[2019-05-03] MEDS: IBUPROFEN 600 MG TABLET (FP) PO PRN (21:39)
[2019-05-04] MEDS: IBUPROFEN 600 MG TABLET (FP) PO PRN ×2 (05:57→21:45)
[2019-05-04] MEDS ORDERED: INSULIN (NOVOLOG) ASPART 100 UNITS/ML 10ML VIAL ONE ×3 (06:09→21:44)
[2019-05-04] MEDS: INSULIN SLIDING SCALE (NOVOLOG) 1 VIAL SQ SCH ×4 (06:44→21:43)
[2019-05-04] MEDS: metFORMIN HCL 500 MG TABLET (FP) PO SCH ×2 (06:44→17:02)
[2019-05-04] MEDS: LISINOPRIL 20 MG TABLET (FP) PO SCH (09:30)
[2019-05-04] MEDS: CEPHALEXIN MONOHYDRATE 500 MG CAPSULE (UD) PO SCH ×2 (09:30→21:43)
[2019-05-04] MEDS: HYDROCHLOROTHIAZIDE 25 MG TABLET (FP) PO SCH (09:30)
[2019-05-04] MEDS: POTASSIUM CHLORIDE TABS 20 MEQ TABLET.ER (FP) PO SCH (09:30)
[2019-05-04] MEDS: PRENATAL VITAMINS W/ FOLIC ACID TABLET (FP) PO SCH (09:30)
[2019-05-04] MEDS: NIFEdipine E.R. 90 MG TABLET (FP) PO SCH (09:30)
[2019-05-04] MEDS: METHYL SALICYLATE/MENTHOL OINT 30 GM TUBE TP SCH (09:58)
[2019-05-04] MEDS: BACITRACIN 15 GM TUBE TOPICAL OINTMENT TP SCH ×2 (09:58→21:43)
[2019-05-04] MEDS: THIAMINE HCL 100 MG TABLET (FP) PO SCH (21:42)
--- NOTE | 2019-05-05 01:22 | PN ---
[facility] Progress Note Note: Patient spoken to earlier @ 2215 hr and wanting to sign out. Discussed patient's current medications and importance of remaining until a.m. so that correct home pharmacy is identified to allow for discharge medications to be ordered. Patient agreed to stay until a.m.
[2019-05-05] MEDS: IBUPROFEN 600 MG TABLET (FP) PO PRN (06:30)
[2019-05-05 06:34] VITALS: TEMP 97.7
[2019-05-05] MEDS: metFORMIN HCL 500 MG TABLET (FP) PO SCH ×2 (07:03→16:42)
[2019-05-05] MEDS ORDERED: INSULIN (NOVOLOG) ASPART 100 UNITS/ML 10ML VIAL ONE ×2 (07:03→11:37)
[2019-05-05] MEDS: INSULIN SLIDING SCALE (NOVOLOG) 1 VIAL SQ SCH ×3 (07:04→16:46)
[2019-05-05 09:41] VITALS: BP 138/79; PULSE 91
[2019-05-05] MEDS: HYDROCHLOROTHIAZIDE 25 MG TABLET (FP) PO SCH (10:01)
[2019-05-05] MEDS: PRENATAL VITAMINS W/ FOLIC ACID TABLET (FP) PO SCH (10:01)
[2019-05-05] MEDS: CEPHALEXIN MONOHYDRATE 500 MG CAPSULE (UD) PO SCH (10:01)
[2019-05-05] MEDS: LISINOPRIL 20 MG TABLET (FP) PO SCH (10:01)
[2019-05-05] MEDS: POTASSIUM CHLORIDE TABS 20 MEQ TABLET.ER (FP) PO SCH (10:01)
[2019-05-05] MEDS: NIFEdipine E.R. 90 MG TABLET (FP) PO SCH (10:01)
[2019-05-05] MEDS: METHYL SALICYLATE/MENTHOL OINT 30 GM TUBE TP SCH (10:02)
[2019-05-05] MEDS: BACITRACIN 15 GM TUBE TOPICAL OINTMENT TP SCH (10:03)
--- NOTE | 2019-05-05 17:11 | DS ---
[facility] Rehab Discharge Summary - [facility] Rehab Discharge Summary Admission Date: 04/28/19 Discharge Date: 05/06/19 - History Present History: Alcohol dependence, Cocaine dependence Pertinent Past History: Post detox for alcohol use disorder. Co-occurring cocaine use disorder. Patient w/ hx HTN, HIV+, DM, Asthma and morbid obesity. Patient w/ low potassium level noted in detox. - Discharge Physical Exam Vital Signs: Vital Signs Temperature 97.7 F 05/05/19 06:33 Pulse Rate 91 H 05/05/19 09:40 Respiratory Rate 20 05/05/19 06:33 Blood Pressure 138/79 05/05/19 09:40 O2 Sat by Pulse Oximetry (%) - Treatment Discharge Condition: Discharge condition good Hospital Course: Laboratory Last Values Sodium 137 mmol/L (136-145) 04/29/19 09:45 Potassium 3.5 mmol/L (3.5-5.1) 04/29/19 09:45 Chloride 98 mmol/L (98-107) 04/29/19 09:45 Carbon Dioxide 32 mmol/L (21-32) 04/29/19 09:45 Anion Gap 8 MMOL/L (8-16) 04/29/19 09:45 BUN 13.6 mg/dL (7-18) 04/29/19 09:45 Creatinine 1.1 mg/dL (0.55-1.3) 04/29/19 09:45 Est GFR (CKD-EPI)AfAm 95.46 04/29/19 09:45 Est GFR (CKD-EPI)NonAf 82.36 04/29/19 09:45 POC Glucometer 275 UNITS (80-120) 05/05/19 16:43 Random Glucose 375 mg/dL (74-106) H 04/29/19 09:45 Calcium 8.8 mg/dL (8.5-10.1) 04/29/19 09:45 Labs reviewed. - Medication Discharge Medications: Ambulatory Orders Albuterol Sulfate [Proventil HFA Inhaler -] 2 inh PO Q4H PRN #1 hfa.aer.ad 02/12 Emtricitab/Rilpiviri/Tenof Ala [Odefsey Tablet] 1 each PO DAILY 03/30/19 Hydrochlorothiazide [Hctz -] 25 mg PO DAILY 03/30/19 Nifedipine 90 mg PO DAILY 03/30/19 metFORMIN HCL [Metformin HCl] 500 mg PO BID 03/30/19 Lisinopril [Prinivil] 20 mg PO DAILY 04/26/19 - Medication-Assisted Treatment (MAT) Medication-Assisted Treatment (MAT): No - Discharge Instructions Diet, activity, other medical instructions: Diet: Activity: Other medical instructions: - Diagnosis (1) Alcohol use disorder Status: Chronic (2) Heroin use disorder, mild Status: Chronic (3) Hypokalemia Status: Resolved (4) Asthma Status: Chronic Qualifiers: Asthma severity: mild Asthma persistence: intermittent Asthma complication type: uncomplicated Qualified Code(s): J45.20 - Mild intermittent asthma, uncomplicated (5) Cocaine use disorder Status: Chronic (6) DM2 (diabetes mellitus, type 2) Status: Chronic Qualifiers: Diabetes mellitus group home insulin use: without group home use Diabetes mellitus complication status: with other specified complication Qualified Code (s): E11.69 - Type 2 diabetes mellitus with other specified complication (7) HIV (human immunodeficiency virus infection) Status: Chronic Qualifiers: HIV symptom status: asymptomatic Qualified Code(s): Z21 - Asymptomatic human immunodeficiency virus [HIV] infection status (8) Hypertension Status: Chronic Qualifiers: Hypertension type: essential hypertension Qualified Code(s): I10 - Essential (primary) hypertension (9) Obese Status: Chronic Qualifiers: Obesity type: unspecified obesity type Obesity classification: adult class 3 (BMI >= 40) Serious obesity comorbidity presence: unspecified whether serious comorbidity present Body mass index: BMI 50.0-59.9 Qualified Code(s) : E66.01 - Morbid (severe) obesity due to excess calories; Z68.43 - Body mass index (BMI) 50.0-59.9, adult - Follow-up Referral Minutes to complete discharge: 15 - AMA Did Patient Leave Against Medical Advice: No
--- NOTE | 2019-05-05 17:13 | PN ---
[facility] Progress Note Note: Patient states will f/u w/ PCP for home medications and just wants to leave.
== END 2019-05-05 17:55 | disposition home or self-care (01) | DRG 772 ==
LOC: YASAS 17:30 → Y5N 17:32 → Y3W 04-29 11:54
PROVIDERS: ADMIT Neuromusculoskeletal Medicine & OMM; ATTEND Neuromusculoskeletal Medicine & OMM
PROC: HZ42ZZZ Group Counseling for Substance Abuse Treatment, Cognitive-Behavioral (ICD-10-PCS; principal; 2019-04-28)
DX: F10.20 Alcohol dependence, uncomplicated (principal); F11.20 Opioid dependence, uncomplicated; F14.20 Cocaine dependence, uncomplicated; Z21 Asymptomatic human immunodeficiency virus [HIV] infection status; I10 Essential (primary) hypertension; E11.69 Type 2 diabetes mellitus with other specified complication; Z79.84 Long term (current) use of oral hypoglycemic drugs; J45.20 Mild intermittent asthma, uncomplicated; L03.032 Cellulitis of left toe; E66.01 Morbid (severe) obesity due to excess calories; Z68.43 Body mass index [BMI] 50.0-59.9, adult
CPT/HCPCS: 36415; 80048; 82962

== ENCOUNTER 2019-10-27 15:03 | Inpatient (IN) | payer OTHER ==
--- NOTE | 2019-10-27 15:20 | HP ---
[facility] Rehab Assess/Revision - Admission History Admitted to Rehab from: [facility] Date of Admission to Rehab: 10/27/2019 - Vital signs Vital Signs: Vital Signs Period Temp Pulse Resp BP Sys/Jones Pulse Ox Last 24 Hr 98.3 F 105 18 139/77 - Findings Detox History & Physical reviewed: Yes Concur with findings: Yes Inpatient Rehab Admission - Rehab Decision to Admit Inpatient rehab admission?: Yes - Initial Determination Are CD services needed?: Yes Free of communicable disease: Yes Not in need of hospitalization: Yes - Rehab Admission Criteria Previous failed treatment: Yes Poor recovery environment: Yes Comorbidities: Yes Lacks judgement: No Patient is meeting Inpatient Rehab admission criteria:: Yes
[2019-10-27] MEDS ORDERED: LOPERAMIDE HCL 2 MG CAPSULE PO PRN (15:21)
[2019-10-27] MEDS ORDERED: IBUPROFEN 400 MG TABLET (FP) PO PRN (15:21)
[2019-10-27] MEDS ORDERED: P-EPHED 60MG/TRIPROLIDI 2.5MG TABLET PO PRN (15:21)
[2019-10-27] MEDS ORDERED: MAGNESIUM HYDROX 2400MG/30ML ORAL SUSPENSION 30 ML CUP PO PRN (15:21)
[2019-10-27] MEDS ORDERED: MAG HYDROX/AL HYDROX/SIMETH 30 ML UNIT-DOSE CUP PO PRN (15:21)
[2019-10-27] MEDS ORDERED: ACETAMINOPHEN 325 MG TABLET (FP) PO PRN (15:21)
[2019-10-27] MEDS ORDERED: MAGNESIUM CITRATE 300 ML BOTTLE PO PRN (15:21)
[2019-10-27] MEDS ORDERED: guaiFENesin 200 MG/10 ML 10 ML UNIT-DOSE CUPS PO PRN (15:21)
[2019-10-27] MEDS ORDERED: MENTHOL/PHENOL 1 EACH UD MM PRN (15:21)
[2019-10-27] MEDS ORDERED: ALBUTEROL SO4 HFA INHALER IH PRN (15:22)
--- NOTE | 2019-10-27 15:24 | PN ---
S Progress Note Note: pt is a 44 y/o male known to this facility with multiple admissions to detox and rehab and referred today to [facility] after completing detox. Pt reports he has no PCP and gets all his medications from hospitals that he goes to. PMHx: HTN CHF HIV+ Cardiac Cath 2012 Testicular Sx 2011 Vital Signs - 24 hr 10/27/19 14:46 Temperature 98.3 F Pulse Rate 105 H Respiratory 18 Rate Blood Pressure 139/77 Alert o x 3 nad oob ambulating with steady gait new rehab patient Cont rehab maintain safety
[2019-10-27] MEDS: metFORMIN HCL 500 MG TABLET (FP) PO SCH (17:13)
[2019-10-27] MEDS: INSULIN (NOVOLOG) ASPART 100 UNITS/ML 10ML VIAL SQ SCH ×2 (17:15→21:28)
[2019-10-27] MEDS: hydrOXYzine PAMOATE 25 MG CAPSULE (FP) PO SCH ×2 (19:14→21:25)
[2019-10-27] MEDS: MELATONIN 5 MG TABLETS PO SCH (21:24)
[2019-10-27] MEDS: THIAMINE HCL 100 MG TABLET (FP) PO SCH (21:24)
[2019-10-28] MEDS: hydrOXYzine PAMOATE 25 MG CAPSULE (FP) PO SCH ×5 (06:25→21:55)
[2019-10-28] MEDS: INSULIN (NOVOLOG) ASPART 100 UNITS/ML 10ML VIAL SQ SCH ×4 (07:08→21:53)
[2019-10-28] MEDS: metFORMIN HCL 500 MG TABLET (FP) PO SCH ×2 (07:08→16:58)
[2019-10-28] MEDS ORDERED: INSULIN SLIDING SCALE (NOVOLOG) 1 VIAL SQ ONE ×4 (07:08→22:11)
[2019-10-28] MEDS: EMTRICITAB/RILPIVIRI/TENOF ALA (ODEFSEY) TABLET PO SCH (07:08)
[2019-10-28] MEDS ORDERED: PT OWN MED DRAWER 7, Y5N ONE (09:07)
[2019-10-28] MEDS: PRENATAL VITAMINS W/ FOLIC ACID TABLET (FP) PO SCH (10:15)
[2019-10-28] MEDS: NIFEdipine E.R. 90 MG TABLET PO SCH (10:15)
[2019-10-28] MEDS: HYDROCHLOROTHIAZIDE 25 MG TABLET (FP) PO SCH (10:15)
[2019-10-28] MEDS: LISINOPRIL 20 MG TABLET (FP) PO SCH (10:15)
[2019-10-28] MEDS: MELATONIN 5 MG TABLETS PO SCH (21:54)
[2019-10-28] MEDS: THIAMINE HCL 100 MG TABLET (FP) PO SCH (21:54)
[2019-10-29] MEDS ORDERED: MASKS NR ONE (04:00)
[2019-10-29] MEDS: hydrOXYzine PAMOATE 25 MG CAPSULE (FP) PO SCH ×5 (06:00→21:38)
[2019-10-29] MEDS: metFORMIN HCL 500 MG TABLET (FP) PO SCH ×2 (07:17→16:49)
[2019-10-29] MEDS: EMTRICITAB/RILPIVIRI/TENOF ALA (ODEFSEY) TABLET PO SCH (07:17)
[2019-10-29] MEDS ORDERED: INSULIN SLIDING SCALE (NOVOLOG) 1 VIAL SQ ONE ×4 (07:17→22:04)
[2019-10-29] MEDS: INSULIN (NOVOLOG) ASPART 100 UNITS/ML 10ML VIAL SQ SCH ×4 (07:17→21:38)
[2019-10-29] MEDS: LISINOPRIL 20 MG TABLET (FP) PO SCH (09:42)
[2019-10-29] MEDS: PRENATAL VITAMINS W/ FOLIC ACID TABLET (FP) PO SCH (09:42)
[2019-10-29] MEDS: HYDROCHLOROTHIAZIDE 25 MG TABLET (FP) PO SCH (09:42)
[2019-10-29] MEDS ORDERED: PT OWN MED DRAWER 7, Y5N ONE (09:42)
[2019-10-29] MEDS: NIFEdipine E.R. 90 MG TABLET PO SCH (09:42)
[2019-10-29] MEDS: THIAMINE HCL 100 MG TABLET (FP) PO SCH (21:38)
[2019-10-29] MEDS: MELATONIN 5 MG TABLETS PO SCH (21:38)
[2019-10-30] MEDS: hydrOXYzine PAMOATE 25 MG CAPSULE (FP) PO SCH ×5 (06:47→21:04)
[2019-10-30] MEDS: metFORMIN HCL 500 MG TABLET (FP) PO SCH ×2 (06:47→17:00)
[2019-10-30] MEDS: INSULIN (NOVOLOG) ASPART 100 UNITS/ML 10ML VIAL SQ SCH ×4 (06:54→21:04)
[2019-10-30] MEDS: EMTRICITAB/RILPIVIRI/TENOF ALA (ODEFSEY) TABLET PO SCH (07:05)
[2019-10-30] MEDS ORDERED: INSULIN SLIDING SCALE (NOVOLOG) 1 VIAL SQ ONE ×3 (07:56→21:56)
[2019-10-30] MEDS: NIFEdipine E.R. 90 MG TABLET PO SCH (09:58)
[2019-10-30] MEDS: HYDROCHLOROTHIAZIDE 25 MG TABLET (FP) PO SCH (09:58)
[2019-10-30] MEDS: PRENATAL VITAMINS W/ FOLIC ACID TABLET (FP) PO SCH (09:58)
[2019-10-30] MEDS: LISINOPRIL 20 MG TABLET (FP) PO SCH (09:58)
[2019-10-30] MEDS ORDERED: PT OWN MED DRAWER 7, Y5N ONE (13:20)
[2019-10-30] MEDS: THIAMINE HCL 100 MG TABLET (FP) PO SCH (21:04)
[2019-10-30] MEDS: MELATONIN 5 MG TABLETS PO SCH (21:04)
[2019-10-31] MEDS: metFORMIN HCL 500 MG TABLET (FP) PO SCH ×2 (06:29→16:54)
[2019-10-31] MEDS: hydrOXYzine PAMOATE 25 MG CAPSULE (FP) PO SCH ×5 (06:29→21:43)
[2019-10-31] MEDS: EMTRICITAB/RILPIVIRI/TENOF ALA (ODEFSEY) TABLET PO SCH (07:07)
[2019-10-31] MEDS: INSULIN (NOVOLOG) ASPART 100 UNITS/ML 10ML VIAL SQ SCH ×4 (07:07→21:45)
[2019-10-31] MEDS ORDERED: PT OWN MED DRAWER 7, Y5N ONE (09:01)
[2019-10-31] MEDS: NIFEdipine E.R. 90 MG TABLET PO SCH (10:07)
[2019-10-31] MEDS: PRENATAL VITAMINS W/ FOLIC ACID TABLET (FP) PO SCH (10:07)
[2019-10-31] MEDS: LISINOPRIL 20 MG TABLET (FP) PO SCH (10:07)
[2019-10-31] MEDS: HYDROCHLOROTHIAZIDE 25 MG TABLET (FP) PO SCH (10:07)
--- NOTE | 2019-10-31 10:33 | PN ---
[facility] Progress Note Note: Elevated BGMs, asymptomatic. On Metformin 500mg BID and insulin sliding scale. Laboratory Last Values POC Glucometer 318 UNITS (80-120) 10/31/19 06:29
[2019-10-31] MEDS ORDERED: INSULIN SLIDING SCALE (NOVOLOG) 1 VIAL SQ ONE (11:49)
[2019-10-31] MEDS: THIAMINE HCL 100 MG TABLET (FP) PO SCH (21:43)
[2019-10-31] MEDS: MELATONIN 5 MG TABLETS PO SCH (21:43)
[2019-11-01] MEDS: hydrOXYzine PAMOATE 25 MG CAPSULE (FP) PO SCH ×5 (05:59→21:24)
[2019-11-01] MEDS: INSULIN (NOVOLOG) ASPART 100 UNITS/ML 10ML VIAL SQ SCH ×4 (07:13→21:27)
[2019-11-01] MEDS ORDERED: INSULIN SLIDING SCALE (NOVOLOG) 1 VIAL SQ ONE ×2 (07:13→16:33)
[2019-11-01] MEDS: metFORMIN HCL 500 MG TABLET (FP) PO SCH ×2 (07:14→16:32)
[2019-11-01] MEDS: EMTRICITAB/RILPIVIRI/TENOF ALA (ODEFSEY) TABLET PO SCH (07:14)
[2019-11-01] MEDS: LISINOPRIL 20 MG TABLET (FP) PO SCH (09:55)
[2019-11-01] MEDS: HYDROCHLOROTHIAZIDE 25 MG TABLET (FP) PO SCH (09:55)
[2019-11-01] MEDS: PRENATAL VITAMINS W/ FOLIC ACID TABLET (FP) PO SCH (09:55)
[2019-11-01] MEDS: NIFEdipine E.R. 90 MG TABLET PO SCH (09:56)
[2019-11-01] MEDS ORDERED: PT OWN MED DRAWER 7, Y5N ONE (09:56)
[2019-11-01] MEDS: THIAMINE HCL 100 MG TABLET (FP) PO SCH (21:24)
[2019-11-01] MEDS: MELATONIN 5 MG TABLETS PO SCH (21:24)
[2019-11-02] MEDS: hydrOXYzine PAMOATE 25 MG CAPSULE (FP) PO SCH ×5 (06:14→21:17)
[2019-11-02] MEDS: metFORMIN HCL 500 MG TABLET (FP) PO SCH ×2 (07:15→16:30)
[2019-11-02] MEDS ORDERED: INSULIN SLIDING SCALE (NOVOLOG) 1 VIAL SQ ONE ×2 (07:15→16:30)
[2019-11-02] MEDS: EMTRICITAB/RILPIVIRI/TENOF ALA (ODEFSEY) TABLET PO SCH (07:15)
[2019-11-02] MEDS: INSULIN (NOVOLOG) ASPART 100 UNITS/ML 10ML VIAL SQ SCH ×4 (07:15→21:16)
[2019-11-02] MEDS ORDERED: PT OWN MED DRAWER 7, Y5N ONE (09:17)
[2019-11-02] MEDS: NIFEdipine E.R. 90 MG TABLET PO SCH (09:34)
[2019-11-02] MEDS: LISINOPRIL 20 MG TABLET (FP) PO SCH (09:34)
[2019-11-02] MEDS: HYDROCHLOROTHIAZIDE 25 MG TABLET (FP) PO SCH (09:34)
[2019-11-02] MEDS: PRENATAL VITAMINS W/ FOLIC ACID TABLET (FP) PO SCH (09:34)
[2019-11-02] MEDS: MELATONIN 5 MG TABLETS PO SCH (21:16)
[2019-11-02] MEDS: THIAMINE HCL 100 MG TABLET (FP) PO SCH (21:17)
[2019-11-03] MEDS: hydrOXYzine PAMOATE 25 MG CAPSULE (FP) PO SCH ×3 (06:25→14:12)
[2019-11-03] MEDS: metFORMIN HCL 500 MG TABLET (FP) PO SCH ×2 (07:06→16:36)
[2019-11-03] MEDS: INSULIN (NOVOLOG) ASPART 100 UNITS/ML 10ML VIAL SQ SCH ×4 (07:06→21:02)
[2019-11-03] MEDS: EMTRICITAB/RILPIVIRI/TENOF ALA (ODEFSEY) TABLET PO SCH (07:06)
[2019-11-03] MEDS ORDERED: INSULIN SLIDING SCALE (NOVOLOG) 1 VIAL SQ ONE ×2 (07:06→21:59)
[2019-11-03] MEDS ORDERED: PT OWN MED DRAWER 7, Y5N ONE (09:20)
[2019-11-03] MEDS: NIFEdipine E.R. 90 MG TABLET PO SCH (09:40)
[2019-11-03] MEDS: HYDROCHLOROTHIAZIDE 25 MG TABLET (FP) PO SCH (09:40)
[2019-11-03] MEDS: LISINOPRIL 20 MG TABLET (FP) PO SCH (09:40)
[2019-11-03] MEDS: PRENATAL VITAMINS W/ FOLIC ACID TABLET (FP) PO SCH (09:40)
[2019-11-03] MEDS ORDERED: HYDROCHLOROTHIAZIDE 25 MG TABLET (FP) PO SCH (10:30)
[2019-11-03] MEDS: TOLNAFTATE 1% CREAM 15 GM TUBE TP SCH ×2 (11:02→21:02)
--- NOTE | 2019-11-03 11:30 | PN ---
[facility] Progress Note Note: PATIENT SEEN FOR C/O SWELLING TO BLE. PATIENT HAS HX OF PVD, DM AND ALCOHOL DEPENDENCE. EDEMA OF BLE CHRONIC AND TREATED WITH HCTZ. Laboratory Tests 10/27/19 10/27/19 10/28/19 17:12 21:26 06:25 POC Glucometer 323 264 245 10/28/19 10/28/19 10/28/19 11:42 16:58 21:53 POC Glucometer 355 307 271 10/29/19 10/29/19 10/29/19 05:50 11:36 16:49 POC Glucometer 279 334 277 10/29/19 10/30/19 10/30/19 20:58 06:46 11:39 POC Glucometer 260 288 262 10/30/19 10/30/19 10/31/19 17:00 21:02 06:29 POC Glucometer 260 328 318 10/31/19 10/31/19 10/31/19 11:45 16:55 21:44 POC Glucometer 250 229 308 11/01/19 11/01/19 11/01/19 05:59 11:33 16:32 POC Glucometer 289 278 338 11/01/19 11/02/19 11/02/19 21:25 06:12 11:27 POC Glucometer 239 283 313 11/02/19 11/02/19 11/03/19 16:28 20:46 06:24 POC Glucometer 225 288 297 Vital Signs Temperature 98.0 F 11/03/19 08:22 Pulse Rate 105 H 11/03/19 08:22 Respiratory Rate 18 11/03/19 08:22 Blood Pressure 149/83 11/03/19 08:22 O2 Sat by Pulse Oximetry (%) 98 11/03/19 08:10 PE ALERT AND ORIENTED X 3 SKIN WARM AND DRY +PERRLA EOMS INTACT BL GI OBESE EXT FULL ROM, RLE +3 PITTING EDEMA, LLE + 2 PITTING EDEMA DRY CRACKED SKIN ON PLANTAR ASPECT OF FEET A/P: CHRONIC PITTING EDEMA ATHLETES FOOT LEG ELEVATION WHILE IN BED ENCOURAGED INCREASE HCTZ TO 50MG DAILY TINACTIN CR TO FEET BID MONITOR CLINICALLY
[2019-11-03] MEDS: MELATONIN 5 MG TABLETS PO SCH (21:00)
[2019-11-03] MEDS: THIAMINE HCL 100 MG TABLET (FP) PO SCH (21:00)
[2019-11-04] MEDS: metFORMIN HCL 500 MG TABLET (FP) PO SCH ×2 (06:17→16:42)
[2019-11-04] MEDS: EMTRICITAB/RILPIVIRI/TENOF ALA (ODEFSEY) TABLET PO SCH (07:23)
[2019-11-04] MEDS: INSULIN (NOVOLOG) ASPART 100 UNITS/ML 10ML VIAL SQ SCH ×4 (07:23→21:10)
[2019-11-04] MEDS ORDERED: PT OWN MED DRAWER 7, Y5N ONE (09:05)
[2019-11-04] MEDS: HYDROCHLOROTHIAZIDE 25 MG TABLET (FP) PO SCH (10:05)
[2019-11-04] MEDS: NIFEdipine E.R. 90 MG TABLET PO SCH (10:05)
[2019-11-04] MEDS: PRENATAL VITAMINS W/ FOLIC ACID TABLET (FP) PO SCH (10:05)
[2019-11-04] MEDS: TOLNAFTATE 1% CREAM 15 GM TUBE TP SCH ×2 (10:05→21:10)
[2019-11-04] MEDS: LISINOPRIL 20 MG TABLET (FP) PO SCH (10:06)
[2019-11-04] MEDS: hydrOXYzine PAMOATE 25 MG CAPSULE (FP) PO PRN ×2 (10:06→14:08)
[2019-11-04] MEDS ORDERED: INSULIN SLIDING SCALE (NOVOLOG) 1 VIAL SQ ONE ×2 (11:23→21:54)
[2019-11-04] MEDS: THIAMINE HCL 100 MG TABLET (FP) PO SCH (21:07)
[2019-11-04] MEDS: MELATONIN 5 MG TABLETS PO SCH (21:07)
[2019-11-05] MEDS ORDERED: PT OWN MED DRAWER 7, Y5N ONE ×2 (06:07→09:03)
[2019-11-05] MEDS: metFORMIN HCL 500 MG TABLET (FP) PO SCH ×2 (06:08→16:44)
[2019-11-05] MEDS: EMTRICITAB/RILPIVIRI/TENOF ALA (ODEFSEY) TABLET PO SCH (07:24)
[2019-11-05] MEDS: INSULIN (NOVOLOG) ASPART 100 UNITS/ML 10ML VIAL SQ SCH ×4 (07:24→21:11)
[2019-11-05] MEDS: TOLNAFTATE 1% CREAM 15 GM TUBE TP SCH ×2 (09:28→21:11)
[2019-11-05] MEDS: LISINOPRIL 20 MG TABLET (FP) PO SCH (09:28)
[2019-11-05] MEDS: HYDROCHLOROTHIAZIDE 25 MG TABLET (FP) PO SCH (09:28)
[2019-11-05] MEDS: PRENATAL VITAMINS W/ FOLIC ACID TABLET (FP) PO SCH (09:28)
[2019-11-05] MEDS: NIFEdipine E.R. 90 MG TABLET PO SCH (09:28)
[2019-11-05] MEDS: hydrOXYzine PAMOATE 25 MG CAPSULE (FP) PO PRN (09:29)
[2019-11-05] MEDS ORDERED: INSULIN SLIDING SCALE (NOVOLOG) 1 VIAL SQ ONE ×2 (11:40→16:49)
[2019-11-05] MEDS: MELATONIN 5 MG TABLETS PO SCH (21:09)
[2019-11-05] MEDS: THIAMINE HCL 100 MG TABLET (FP) PO SCH (21:09)
[2019-11-06] MEDS: metFORMIN HCL 500 MG TABLET (FP) PO SCH ×2 (07:09→17:08)
[2019-11-06] MEDS: EMTRICITAB/RILPIVIRI/TENOF ALA (ODEFSEY) TABLET PO SCH (07:09)
[2019-11-06] MEDS: INSULIN (NOVOLOG) ASPART 100 UNITS/ML 10ML VIAL SQ SCH ×4 (07:09→22:14)
[2019-11-06] MEDS: hydrOXYzine PAMOATE 25 MG CAPSULE (FP) PO PRN ×3 (09:50→22:12)
[2019-11-06] MEDS: NIFEdipine E.R. 90 MG TABLET PO SCH (09:50)
[2019-11-06] MEDS: LISINOPRIL 20 MG TABLET (FP) PO SCH (09:51)
[2019-11-06] MEDS: HYDROCHLOROTHIAZIDE 25 MG TABLET (FP) PO SCH (09:51)
[2019-11-06] MEDS: PRENATAL VITAMINS W/ FOLIC ACID TABLET (FP) PO SCH (09:51)
[2019-11-06] MEDS: TOLNAFTATE 1% CREAM 15 GM TUBE TP SCH ×2 (09:52→22:11)
[2019-11-06] MEDS: MELATONIN 5 MG TABLETS PO SCH (22:11)
[2019-11-06] MEDS: THIAMINE HCL 100 MG TABLET (FP) PO SCH (22:12)
[2019-11-07] MEDS ORDERED: INSULIN SLIDING SCALE (NOVOLOG) 1 VIAL SQ ONE (07:23)
[2019-11-07] MEDS: INSULIN (NOVOLOG) ASPART 100 UNITS/ML 10ML VIAL SQ SCH ×2 (07:24→16:41)
[2019-11-07] MEDS: EMTRICITAB/RILPIVIRI/TENOF ALA (ODEFSEY) TABLET PO SCH (07:24)
[2019-11-07] MEDS: metFORMIN HCL 500 MG TABLET (FP) PO SCH (07:24)
[2019-11-07] MEDS ORDERED: PT OWN MED DRAWER 7, Y5N ONE (09:32)
[2019-11-07] MEDS: PRENATAL VITAMINS W/ FOLIC ACID TABLET (FP) PO SCH (10:29)
[2019-11-07] MEDS: LISINOPRIL 20 MG TABLET (FP) PO SCH (10:29)
[2019-11-07] MEDS: HYDROCHLOROTHIAZIDE 25 MG TABLET (FP) PO SCH (10:29)
[2019-11-07] MEDS: hydrOXYzine PAMOATE 25 MG CAPSULE (FP) PO PRN (10:29)
[2019-11-07] MEDS: NIFEdipine E.R. 90 MG TABLET PO SCH (10:30)
[2019-11-07] MEDS: TOLNAFTATE 1% CREAM 15 GM TUBE TP SCH ×2 (10:30→21:21)
[2019-11-07] MEDS: MELATONIN 5 MG TABLETS PO SCH (21:20)
[2019-11-07] MEDS: THIAMINE HCL 100 MG TABLET (FP) PO SCH (21:20)
[2019-11-08] MEDS: INSULIN (NOVOLOG) ASPART 100 UNITS/ML 10ML VIAL SQ SCH ×2 (06:16→16:37)
[2019-11-08] MEDS ORDERED: INSULIN SLIDING SCALE (NOVOLOG) 1 VIAL SQ ONE (06:16)
[2019-11-08] MEDS: EMTRICITAB/RILPIVIRI/TENOF ALA (ODEFSEY) TABLET PO SCH (07:51)
[2019-11-08] MEDS: TOLNAFTATE 1% CREAM 15 GM TUBE TP SCH ×2 (10:16→21:49)
[2019-11-08] MEDS: PRENATAL VITAMINS W/ FOLIC ACID TABLET (FP) PO SCH (10:16)
[2019-11-08] MEDS: HYDROCHLOROTHIAZIDE 25 MG TABLET (FP) PO SCH (10:16)
[2019-11-08] MEDS: LISINOPRIL 20 MG TABLET (FP) PO SCH (10:16)
[2019-11-08] MEDS: NIFEdipine E.R. 90 MG TABLET PO SCH (10:18)
[2019-11-08] MEDS: MELATONIN 5 MG TABLETS PO SCH (21:49)
[2019-11-08] MEDS: THIAMINE HCL 100 MG TABLET (FP) PO SCH (21:49)
[2019-11-09] MEDS: INSULIN (NOVOLOG) ASPART 100 UNITS/ML 10ML VIAL SQ SCH ×2 (06:05→16:31)
[2019-11-09] MEDS: EMTRICITAB/RILPIVIRI/TENOF ALA (ODEFSEY) TABLET PO SCH (07:27)
[2019-11-09] MEDS: HYDROCHLOROTHIAZIDE 25 MG TABLET (FP) PO SCH (10:28)
[2019-11-09] MEDS: PRENATAL VITAMINS W/ FOLIC ACID TABLET (FP) PO SCH (10:28)
[2019-11-09] MEDS: LISINOPRIL 20 MG TABLET (FP) PO SCH (10:28)
[2019-11-09] MEDS: TOLNAFTATE 1% CREAM 15 GM TUBE TP SCH ×2 (10:28→21:29)
[2019-11-09] MEDS: NIFEdipine E.R. 90 MG TABLET PO SCH (10:28)
[2019-11-09] MEDS: hydrOXYzine PAMOATE 25 MG CAPSULE (FP) PO PRN ×2 (10:53→21:29)
[2019-11-09] MEDS ORDERED: PT OWN MED DRAWER 7, Y5N ONE (14:26)
[2019-11-09] MEDS: MELATONIN 5 MG TABLETS PO SCH (21:28)
[2019-11-09] MEDS: THIAMINE HCL 100 MG TABLET (FP) PO SCH (21:28)
[2019-11-10] MEDS ORDERED: INSULIN SLIDING SCALE (NOVOLOG) 1 VIAL SQ ONE (07:10)
[2019-11-10] MEDS: INSULIN (NOVOLOG) ASPART 100 UNITS/ML 10ML VIAL SQ SCH ×2 (07:10→16:44)
[2019-11-10] MEDS: EMTRICITAB/RILPIVIRI/TENOF ALA (ODEFSEY) TABLET PO SCH (07:11)
[2019-11-10] MEDS: NIFEdipine E.R. 90 MG TABLET PO SCH (10:06)
[2019-11-10] MEDS: PRENATAL VITAMINS W/ FOLIC ACID TABLET (FP) PO SCH (10:06)
[2019-11-10] MEDS: LISINOPRIL 20 MG TABLET (FP) PO SCH (10:06)
[2019-11-10] MEDS: HYDROCHLOROTHIAZIDE 25 MG TABLET (FP) PO SCH (10:06)
[2019-11-10] MEDS: TOLNAFTATE 1% CREAM 15 GM TUBE TP SCH ×2 (10:07→21:33)
[2019-11-10] MEDS: hydrOXYzine PAMOATE 25 MG CAPSULE (FP) PO PRN (10:07)
[2019-11-10] MEDS: THIAMINE HCL 100 MG TABLET (FP) PO SCH (21:32)
[2019-11-10] MEDS: MELATONIN 5 MG TABLETS PO SCH (21:32)
[2019-11-11] MEDS: INSULIN (NOVOLOG) ASPART 100 UNITS/ML 10ML VIAL SQ SCH ×2 (07:02→16:57)
[2019-11-11] MEDS ORDERED: INSULIN SLIDING SCALE (NOVOLOG) 1 VIAL SQ ONE ×2 (07:02→16:55)
[2019-11-11] MEDS: EMTRICITAB/RILPIVIRI/TENOF ALA (ODEFSEY) TABLET PO SCH (07:02)
[2019-11-11] MEDS: TOLNAFTATE 1% CREAM 15 GM TUBE TP SCH ×2 (10:10→21:39)
[2019-11-11] MEDS: LISINOPRIL 20 MG TABLET (FP) PO SCH (10:10)
[2019-11-11] MEDS: NIFEdipine E.R. 90 MG TABLET PO SCH (10:10)
[2019-11-11] MEDS: PRENATAL VITAMINS W/ FOLIC ACID TABLET (FP) PO SCH (10:10)
[2019-11-11] MEDS: HYDROCHLOROTHIAZIDE 25 MG TABLET (FP) PO SCH (10:10)
[2019-11-11] MEDS: hydrOXYzine PAMOATE 25 MG CAPSULE (FP) PO PRN ×2 (10:10→21:38)
[2019-11-11] MEDS: MELATONIN 5 MG TABLETS PO SCH (21:38)
[2019-11-11] MEDS: THIAMINE HCL 100 MG TABLET (FP) PO SCH (21:38)
[2019-11-12] MEDS ORDERED: INSULIN SLIDING SCALE (NOVOLOG) 1 VIAL SQ ONE (07:06)
[2019-11-12] MEDS: INSULIN (NOVOLOG) ASPART 100 UNITS/ML 10ML VIAL SQ SCH ×2 (07:06→17:09)
[2019-11-12] MEDS: EMTRICITAB/RILPIVIRI/TENOF ALA (ODEFSEY) TABLET PO SCH (07:07)
[2019-11-12] MEDS: hydrOXYzine PAMOATE 25 MG CAPSULE (FP) PO PRN (09:26)
[2019-11-12] MEDS: HYDROCHLOROTHIAZIDE 25 MG TABLET (FP) PO SCH (09:26)
[2019-11-12] MEDS: LISINOPRIL 20 MG TABLET (FP) PO SCH (09:26)
[2019-11-12] MEDS: NIFEdipine E.R. 90 MG TABLET PO SCH (09:26)
[2019-11-12] MEDS: PRENATAL VITAMINS W/ FOLIC ACID TABLET (FP) PO SCH (09:26)
[2019-11-12] MEDS: TOLNAFTATE 1% CREAM 15 GM TUBE TP SCH ×2 (09:27→22:11)
[2019-11-12] MEDS: THIAMINE HCL 100 MG TABLET (FP) PO SCH (22:11)
[2019-11-12] MEDS: MELATONIN 5 MG TABLETS PO SCH (22:11)
[2019-11-13] MEDS: INSULIN (NOVOLOG) ASPART 100 UNITS/ML 10ML VIAL SQ SCH ×2 (06:55→16:33)
[2019-11-13] MEDS: EMTRICITAB/RILPIVIRI/TENOF ALA (ODEFSEY) TABLET PO SCH (07:01)
[2019-11-13] MEDS: LISINOPRIL 20 MG TABLET (FP) PO SCH (10:01)
[2019-11-13] MEDS: TOLNAFTATE 1% CREAM 15 GM TUBE TP SCH ×2 (10:01→21:17)
[2019-11-13] MEDS: PRENATAL VITAMINS W/ FOLIC ACID TABLET (FP) PO SCH (10:01)
[2019-11-13] MEDS: NIFEdipine E.R. 90 MG TABLET PO SCH (10:01)
[2019-11-13] MEDS: HYDROCHLOROTHIAZIDE 25 MG TABLET (FP) PO SCH (10:01)
[2019-11-13] MEDS: hydrOXYzine PAMOATE 25 MG CAPSULE (FP) PO PRN (10:02)
[2019-11-13] MEDS ORDERED: INSULIN SLIDING SCALE (NOVOLOG) 1 VIAL SQ ONE (16:30)
[2019-11-13] MEDS: THIAMINE HCL 100 MG TABLET (FP) PO SCH (21:17)
[2019-11-13] MEDS: MELATONIN 5 MG TABLETS PO SCH (21:17)
[2019-11-14] MEDS: INSULIN (NOVOLOG) ASPART 100 UNITS/ML 10ML VIAL SQ SCH ×2 (07:15→17:33)
[2019-11-14] MEDS: EMTRICITAB/RILPIVIRI/TENOF ALA (ODEFSEY) TABLET PO SCH (07:15)
[2019-11-14] MEDS: PRENATAL VITAMINS W/ FOLIC ACID TABLET (FP) PO SCH (09:42)
[2019-11-14] MEDS: HYDROCHLOROTHIAZIDE 25 MG TABLET (FP) PO SCH (09:42)
[2019-11-14] MEDS: NIFEdipine E.R. 90 MG TABLET PO SCH (09:42)
[2019-11-14] MEDS: hydrOXYzine PAMOATE 25 MG CAPSULE (FP) PO PRN (09:42)
[2019-11-14] MEDS: LISINOPRIL 20 MG TABLET (FP) PO SCH (09:42)
[2019-11-14] MEDS: TOLNAFTATE 1% CREAM 15 GM TUBE TP SCH ×2 (09:43→21:21)
[2019-11-14] MEDS: THIAMINE HCL 100 MG TABLET (FP) PO SCH (21:20)
[2019-11-14] MEDS: MELATONIN 5 MG TABLETS PO SCH (21:20)
[2019-11-15] MEDS: INSULIN (NOVOLOG) ASPART 100 UNITS/ML 10ML VIAL SQ SCH ×2 (07:44→16:50)
[2019-11-15] MEDS ORDERED: INSULIN SLIDING SCALE (NOVOLOG) 1 VIAL SQ ONE (07:44)
[2019-11-15] MEDS: EMTRICITAB/RILPIVIRI/TENOF ALA (ODEFSEY) TABLET PO SCH (07:45)
[2019-11-15] MEDS: PRENATAL VITAMINS W/ FOLIC ACID TABLET (FP) PO SCH (09:52)
[2019-11-15] MEDS: TOLNAFTATE 1% CREAM 15 GM TUBE TP SCH ×2 (09:52→21:23)
[2019-11-15] MEDS: HYDROCHLOROTHIAZIDE 25 MG TABLET (FP) PO SCH (09:52)
[2019-11-15] MEDS: LISINOPRIL 20 MG TABLET (FP) PO SCH (09:52)
[2019-11-15] MEDS: NIFEdipine E.R. 90 MG TABLET PO SCH (09:52)
[2019-11-15] MEDS: hydrOXYzine PAMOATE 25 MG CAPSULE (FP) PO PRN (09:52)
[2019-11-15] MEDS: THIAMINE HCL 100 MG TABLET (FP) PO SCH (21:23)
[2019-11-15] MEDS: MELATONIN 5 MG TABLETS PO SCH (21:23)
[2019-11-16] MEDS ORDERED: INSULIN SLIDING SCALE (NOVOLOG) 1 VIAL SQ ONE ×2 (06:50→16:24)
[2019-11-16] MEDS: INSULIN (NOVOLOG) ASPART 100 UNITS/ML 10ML VIAL SQ SCH ×2 (06:50→16:42)
[2019-11-16] MEDS: EMTRICITAB/RILPIVIRI/TENOF ALA (ODEFSEY) TABLET PO SCH (07:09)
[2019-11-16] MEDS: hydrOXYzine PAMOATE 25 MG CAPSULE (FP) PO PRN (09:48)
[2019-11-16] MEDS: LISINOPRIL 20 MG TABLET (FP) PO SCH (09:48)
[2019-11-16] MEDS: NIFEdipine E.R. 90 MG TABLET PO SCH (09:48)
[2019-11-16] MEDS: HYDROCHLOROTHIAZIDE 25 MG TABLET (FP) PO SCH (09:48)
[2019-11-16] MEDS: PRENATAL VITAMINS W/ FOLIC ACID TABLET (FP) PO SCH (09:49)
[2019-11-16] MEDS: TOLNAFTATE 1% CREAM 15 GM TUBE TP SCH ×2 (09:49→21:27)
[2019-11-16] MEDS: THIAMINE HCL 100 MG TABLET (FP) PO SCH (21:28)
[2019-11-16] MEDS: MELATONIN 5 MG TABLETS PO SCH (21:28)
[2019-11-17] MEDS ORDERED: INSULIN SLIDING SCALE (NOVOLOG) 1 VIAL SQ ONE ×2 (06:39→16:29)
[2019-11-17] MEDS: INSULIN (NOVOLOG) ASPART 100 UNITS/ML 10ML VIAL SQ SCH ×2 (06:39→16:31)
[2019-11-17] MEDS: EMTRICITAB/RILPIVIRI/TENOF ALA (ODEFSEY) TABLET PO SCH (07:30)
[2019-11-17] MEDS: PRENATAL VITAMINS W/ FOLIC ACID TABLET (FP) PO SCH (09:57)
[2019-11-17] MEDS: NIFEdipine E.R. 90 MG TABLET PO SCH (09:58)
[2019-11-17] MEDS: hydrOXYzine PAMOATE 25 MG CAPSULE (FP) PO PRN (09:58)
[2019-11-17] MEDS: LISINOPRIL 20 MG TABLET (FP) PO SCH (09:58)
[2019-11-17] MEDS: HYDROCHLOROTHIAZIDE 25 MG TABLET (FP) PO SCH (09:58)
[2019-11-17] MEDS: TOLNAFTATE 1% CREAM 15 GM TUBE TP SCH ×2 (09:59→21:22)
--- NOTE | 2019-11-17 12:15 | PN ---
S Progress Note Note: Vital Signs Temperature 97.3 F L 11/17/19 08:32 Pulse Rate 95 H 11/17/19 08:32 Respiratory Rate 18 11/17/19 08:32 Blood Pressure 157/90 11/17/19 08:32 O2 Sat by Pulse Oximetry (%) 99 11/17/19 07:05 BGM Results Entire Visit 10/27/19 10/27/19 10/28/19 17:12 21:26 06:25 POC Glucometer 323 UNITS UNITS 264 UNITS UNITS 245 UNITS UNITS (80-120) (80-120) (80-120) 10/28/19 10/28/19 10/28/19 11:42 16:58 21:53 POC Glucometer 355 UNITS UNITS 307 UNITS UNITS 271 UNITS UNITS (80-120) (80-120) (80-120) 10/29/19 10/29/19 10/29/19 05:50 11:36 16:49 POC Glucometer 279 UNITS UNITS 334 UNITS UNITS 277 UNITS UNITS (80-120) (80-120) (80-120) 10/29/19 10/30/19 10/30/19 20:58 06:46 11:39 POC Glucometer 260 UNITS UNITS 288 UNITS UNITS 262 UNITS UNITS (80-120) (80-120) (80-120) 10/30/19 10/30/19 10/31/19 17:00 21:02 06:29 POC Glucometer 260 UNITS UNITS 328 UNITS UNITS 318 UNITS UNITS (80-120) (80-120) (80-120) 10/31/19 10/31/19 10/31/19 11:45 16:55 21:44 POC Glucometer 250 UNITS UNITS 229 UNITS UNITS 308 UNITS UNITS (80-120) (80-120) (80-120) 11/01/19 11/01/19 11/01/19 05:59 11:33 16:32 POC Glucometer 289 UNITS UNITS 278 UNITS UNITS 338 UNITS UNITS (80-120) (80-120) (80-120) 11/01/19 11/02/19 11/02/19 21:25 06:12 11:27 POC Glucometer 239 UNITS UNITS 283 UNITS UNITS 313 UNITS UNITS (80-120) (80-120) (80-120) 11/02/19 11/02/19 11/03/19 16:28 20:46 06:24 POC Glucometer 225 UNITS UNITS 288 UNITS UNITS 297 UNITS UNITS (80-120) (80-120) (80-120) 11/03/19 11/03/19 11/03/19 11:52 16:37 20:59 POC Glucometer 381 UNITS UNITS 240 UNITS UNITS 285 UNITS UNITS (80-120) (80-120) (80-120) 11/04/19 11/04/19 11/04/19 06:16 11:21 16:43 POC Glucometer 274 UNITS UNITS 286 UNITS UNITS 259 UNITS UNITS (80-120) (80-120) (80-120) 11/04/19 11/05/19 11/05/19 21:09 05:54 11:38 POC Glucometer 308 UNITS UNITS 280 UNITS UNITS 248 UNITS UNITS (80-120) (80-120) (80-120) 11/05/19 11/05/19 11/06/19 16:45 21:10 05:52 POC Glucometer 269 UNITS UNITS 290 UNITS UNITS 291 UNITS UNITS (80-120) (80-120) (80-120) 11/06/19 11/06/19 11/06/19 11:40 17:05 20:24 POC Glucometer 249 UNITS UNITS 244 UNITS UNITS 278 UNITS UNITS (80-120) (80-120) (80-120) 11/07/19 11/07/19 11/08/19 05:56 16:40 05:47 POC Glucometer 279 UNITS UNITS 252 UNITS UNITS 271 UNITS UNITS (80-120) (80-120) (80-120) 11/08/19 11/09/19 11/09/19 16:35 05:44 16:29 POC Glucometer 263 UNITS UNITS 269 UNITS UNITS 226 UNITS UNITS (80-120) (80-120) (80-120) 11/10/19 11/10/19 11/11/19 06:12 16:42 05:48 POC Glucometer 245 UNITS UNITS 222 UNITS UNITS 266 UNITS UNITS (80-120) (80-120) (80-120) 11/11/19 11/12/19 11/12/19 16:46 05:50 16:21 POC Glucometer 157 UNITS UNITS 265 UNITS UNITS 273 UNITS UNITS (80-120) (80-120) (80-120) 0711/13/19 11/14/19 06:19 16:31 05:46 POC Glucometer 239 UNITS UNITS 271 UNITS UNITS 244 UNITS UNITS (80-120) (80-120) (80-120) 11/14/19 11/15/19 11/15/19 16:23 06:15 16:48 POC Glucometer 256 UNITS UNITS 254 UNITS UNITS 223 UNITS UNITS (80-120) (80-120) (80-120) 11/16/19 11/16/19 11/17/19 06:02 16:23 06:01 POC Glucometer 272 UNITS UNITS 373 UNITS UNITS 232 UNITS UNITS (80-120) (80-120) (80-120) PATIENT EVALUATED REGARDING BGM RESULTS. ROS: DENIES DYSRUIA, FREQUENCY, URGENCY AND POLYDIPSIA/POLYPHAGIA PE: ALERT AND ORIENTED X 3 SKIN WARM AND DRY +PERRLA,EOMS INTACT BL NECK SUPPLE, NO JVD GI OBESE,NT EXT FULL ROM, AMB AD DONELL A/P: DM HYPERGLYCEMIA WILL INCREASE METFROMIN TO 1000MG PO BID CONTINUE BGM MONITORING ORDERED AND DIET RESTRICTIONS ENCOURAGE ORAL FLUIDS MONITOR CLINICALLY
[2019-11-17] MEDS: metFORMIN HCL 500 MG TABLET (FP) PO SCH (16:27)
[2019-11-17] MEDS: MELATONIN 5 MG TABLETS PO SCH (21:22)
[2019-11-17] MEDS: THIAMINE HCL 100 MG TABLET (FP) PO SCH (21:22)
[2019-11-18] MEDS ORDERED: PT OWN MED DRAWER 7, Y5N ONE (03:42)
[2019-11-18] MEDS ORDERED: INSULIN SLIDING SCALE (NOVOLOG) 1 VIAL SQ ONE ×2 (07:00→21:45)
[2019-11-18] MEDS: metFORMIN HCL 500 MG TABLET (FP) PO SCH ×2 (07:01→16:42)
[2019-11-18] MEDS: EMTRICITAB/RILPIVIRI/TENOF ALA (ODEFSEY) TABLET PO SCH (07:01)
[2019-11-18] MEDS: INSULIN (NOVOLOG) ASPART 100 UNITS/ML 10ML VIAL SQ SCH ×2 (07:01→16:45)
[2019-11-18] MEDS: PRENATAL VITAMINS W/ FOLIC ACID TABLET (FP) PO SCH (09:42)
[2019-11-18] MEDS: HYDROCHLOROTHIAZIDE 25 MG TABLET (FP) PO SCH (09:42)
[2019-11-18] MEDS: NIFEdipine E.R. 90 MG TABLET PO SCH (09:42)
[2019-11-18] MEDS: LISINOPRIL 20 MG TABLET (FP) PO SCH (09:42)
[2019-11-18] MEDS: TOLNAFTATE 1% CREAM 15 GM TUBE TP SCH ×2 (09:43→21:42)
[2019-11-18] MEDS: hydrOXYzine PAMOATE 25 MG CAPSULE (FP) PO PRN (09:44)
[2019-11-18] MEDS: MELATONIN 5 MG TABLETS PO SCH (21:42)
[2019-11-18] MEDS: THIAMINE HCL 100 MG TABLET (FP) PO SCH (21:42)
[2019-11-19] MEDS ORDERED: PT OWN MED DRAWER 7, Y5N ONE (03:34)
[2019-11-19] MEDS: EMTRICITAB/RILPIVIRI/TENOF ALA (ODEFSEY) TABLET PO SCH (07:57)
[2019-11-19] MEDS: metFORMIN HCL 500 MG TABLET (FP) PO SCH ×2 (07:57→16:45)
[2019-11-19] MEDS: INSULIN (NOVOLOG) ASPART 100 UNITS/ML 10ML VIAL SQ SCH ×2 (07:57→16:48)
[2019-11-19] MEDS: HYDROCHLOROTHIAZIDE 25 MG TABLET (FP) PO SCH (09:47)
[2019-11-19] MEDS: NIFEdipine E.R. 90 MG TABLET PO SCH (09:47)
[2019-11-19] MEDS: TOLNAFTATE 1% CREAM 15 GM TUBE TP SCH ×2 (09:47→21:28)
[2019-11-19] MEDS: PRENATAL VITAMINS W/ FOLIC ACID TABLET (FP) PO SCH (09:48)
[2019-11-19] MEDS: LISINOPRIL 20 MG TABLET (FP) PO SCH (09:48)
[2019-11-19] MEDS: MELATONIN 5 MG TABLETS PO SCH (21:28)
[2019-11-19] MEDS: THIAMINE HCL 100 MG TABLET (FP) PO SCH (21:28)
[2019-11-19] MEDS ORDERED: INSULIN SLIDING SCALE (NOVOLOG) 1 VIAL SQ ONE (21:36)
[2019-11-20] MEDS: metFORMIN HCL 500 MG TABLET (FP) PO SCH ×2 (07:03→16:35)
[2019-11-20] MEDS ORDERED: INSULIN SLIDING SCALE (NOVOLOG) 1 VIAL SQ ONE (07:03)
[2019-11-20] MEDS: INSULIN (NOVOLOG) ASPART 100 UNITS/ML 10ML VIAL SQ SCH ×2 (07:03→16:39)
[2019-11-20] MEDS: EMTRICITAB/RILPIVIRI/TENOF ALA (ODEFSEY) TABLET PO SCH (07:04)
[2019-11-20] MEDS: LISINOPRIL 20 MG TABLET (FP) PO SCH (09:59)
[2019-11-20] MEDS: NIFEdipine E.R. 90 MG TABLET PO SCH (09:59)
[2019-11-20] MEDS: hydrOXYzine PAMOATE 25 MG CAPSULE (FP) PO PRN (09:59)
[2019-11-20] MEDS: HYDROCHLOROTHIAZIDE 25 MG TABLET (FP) PO SCH (09:59)
[2019-11-20] MEDS: PRENATAL VITAMINS W/ FOLIC ACID TABLET (FP) PO SCH (09:59)
[2019-11-20] MEDS: TOLNAFTATE 1% CREAM 15 GM TUBE TP SCH ×2 (10:00→22:23)
[2019-11-20] MEDS: MELATONIN 5 MG TABLETS PO SCH (22:23)
[2019-11-20] MEDS: THIAMINE HCL 100 MG TABLET (FP) PO SCH (22:23)
[2019-11-21] MEDS: INSULIN (NOVOLOG) ASPART 100 UNITS/ML 10ML VIAL SQ SCH ×2 (07:07→16:48)
[2019-11-21] MEDS ORDERED: INSULIN SLIDING SCALE (NOVOLOG) 1 VIAL SQ ONE (07:07)
[2019-11-21] MEDS: metFORMIN HCL 500 MG TABLET (FP) PO SCH ×2 (07:07→16:45)
[2019-11-21] MEDS: EMTRICITAB/RILPIVIRI/TENOF ALA (ODEFSEY) TABLET PO SCH (07:07)
[2019-11-21] MEDS: HYDROCHLOROTHIAZIDE 25 MG TABLET (FP) PO SCH (10:33)
[2019-11-21] MEDS: PRENATAL VITAMINS W/ FOLIC ACID TABLET (FP) PO SCH (10:33)
[2019-11-21] MEDS: LISINOPRIL 20 MG TABLET (FP) PO SCH (10:33)
[2019-11-21] MEDS: hydrOXYzine PAMOATE 25 MG CAPSULE (FP) PO PRN (10:33)
[2019-11-21] MEDS: NIFEdipine E.R. 90 MG TABLET PO SCH (10:33)
[2019-11-21] MEDS: TOLNAFTATE 1% CREAM 15 GM TUBE TP SCH ×2 (10:34→21:47)
[2019-11-21] MEDS: THIAMINE HCL 100 MG TABLET (FP) PO SCH (21:47)
[2019-11-21] MEDS: MELATONIN 5 MG TABLETS PO SCH (21:47)
[2019-11-22] MEDS ORDERED: INSULIN SLIDING SCALE (NOVOLOG) 1 VIAL SQ ONE ×2 (07:05→16:35)
[2019-11-22] MEDS: INSULIN (NOVOLOG) ASPART 100 UNITS/ML 10ML VIAL SQ SCH ×2 (07:05→16:46)
[2019-11-22] MEDS: metFORMIN HCL 500 MG TABLET (FP) PO SCH ×2 (07:06→16:46)
[2019-11-22] MEDS: EMTRICITAB/RILPIVIRI/TENOF ALA (ODEFSEY) TABLET PO SCH (07:07)
[2019-11-22] MEDS: HYDROCHLOROTHIAZIDE 25 MG TABLET (FP) PO SCH (09:47)
[2019-11-22] MEDS: NIFEdipine E.R. 90 MG TABLET PO SCH (09:47)
[2019-11-22] MEDS: PRENATAL VITAMINS W/ FOLIC ACID TABLET (FP) PO SCH (09:47)
[2019-11-22] MEDS: LISINOPRIL 20 MG TABLET (FP) PO SCH (09:47)
[2019-11-22] MEDS: hydrOXYzine PAMOATE 25 MG CAPSULE (FP) PO PRN (09:47)
[2019-11-22] MEDS: TOLNAFTATE 1% CREAM 15 GM TUBE TP SCH ×2 (09:48→21:58)
[2019-11-22] MEDS: MELATONIN 5 MG TABLETS PO SCH (21:46)
[2019-11-22] MEDS: THIAMINE HCL 100 MG TABLET (FP) PO SCH (21:46)
[2019-11-23] MEDS: INSULIN (NOVOLOG) ASPART 100 UNITS/ML 10ML VIAL SQ SCH ×2 (06:33→16:42)
[2019-11-23] MEDS: metFORMIN HCL 500 MG TABLET (FP) PO SCH ×2 (06:33→16:41)
[2019-11-23] MEDS ORDERED: INSULIN SLIDING SCALE (NOVOLOG) 1 VIAL SQ ONE ×2 (06:40→16:37)
[2019-11-23] MEDS: EMTRICITAB/RILPIVIRI/TENOF ALA (ODEFSEY) TABLET PO SCH (07:18)
[2019-11-23] MEDS: LISINOPRIL 20 MG TABLET (FP) PO SCH (09:23)
[2019-11-23] MEDS: PRENATAL VITAMINS W/ FOLIC ACID TABLET (FP) PO SCH (09:23)
[2019-11-23] MEDS: TOLNAFTATE 1% CREAM 15 GM TUBE TP SCH ×2 (09:23→21:58)
[2019-11-23] MEDS: HYDROCHLOROTHIAZIDE 25 MG TABLET (FP) PO SCH (09:23)
[2019-11-23] MEDS: NIFEdipine E.R. 90 MG TABLET PO SCH (09:23)
[2019-11-23] MEDS: hydrOXYzine PAMOATE 25 MG CAPSULE (FP) PO PRN (16:41)
[2019-11-23] MEDS: MELATONIN 5 MG TABLETS PO SCH (21:55)
[2019-11-23] MEDS: THIAMINE HCL 100 MG TABLET (FP) PO SCH (21:55)
[2019-11-24] MEDS: EMTRICITAB/RILPIVIRI/TENOF ALA (ODEFSEY) TABLET PO SCH (07:04)
[2019-11-24] MEDS: INSULIN (NOVOLOG) ASPART 100 UNITS/ML 10ML VIAL SQ SCH ×2 (07:04→16:32)
[2019-11-24] MEDS ORDERED: INSULIN SLIDING SCALE (NOVOLOG) 1 VIAL SQ ONE ×2 (07:04→16:29)
[2019-11-24] MEDS: metFORMIN HCL 500 MG TABLET (FP) PO SCH ×2 (07:05→16:29)
[2019-11-24] MEDS: LISINOPRIL 20 MG TABLET (FP) PO SCH (09:38)
[2019-11-24] MEDS: HYDROCHLOROTHIAZIDE 25 MG TABLET (FP) PO SCH (09:38)
[2019-11-24] MEDS: NIFEdipine E.R. 90 MG TABLET PO SCH (09:38)
[2019-11-24] MEDS: TOLNAFTATE 1% CREAM 15 GM TUBE TP SCH ×2 (09:39→22:13)
[2019-11-24] MEDS: PRENATAL VITAMINS W/ FOLIC ACID TABLET (FP) PO SCH (09:39)
[2019-11-24] MEDS: MELATONIN 5 MG TABLETS PO SCH (22:13)
[2019-11-24] MEDS: THIAMINE HCL 100 MG TABLET (FP) PO SCH (22:13)
[2019-11-25] MEDS: INSULIN (NOVOLOG) ASPART 100 UNITS/ML 10ML VIAL SQ SCH ×2 (07:04→16:37)
[2019-11-25] MEDS ORDERED: INSULIN SLIDING SCALE (NOVOLOG) 1 VIAL SQ ONE ×2 (07:05→16:23)
[2019-11-25] MEDS: metFORMIN HCL 500 MG TABLET (FP) PO SCH ×2 (07:06→16:37)
[2019-11-25] MEDS: EMTRICITAB/RILPIVIRI/TENOF ALA (ODEFSEY) TABLET PO SCH (07:06)
[2019-11-25] MEDS: NIFEdipine E.R. 90 MG TABLET PO SCH (09:37)
[2019-11-25] MEDS: hydrOXYzine PAMOATE 25 MG CAPSULE (FP) PO PRN (09:37)
[2019-11-25] MEDS: HYDROCHLOROTHIAZIDE 25 MG TABLET (FP) PO SCH (09:37)
[2019-11-25] MEDS: LISINOPRIL 20 MG TABLET (FP) PO SCH (09:37)
[2019-11-25] MEDS: TOLNAFTATE 1% CREAM 15 GM TUBE TP SCH ×2 (09:37→21:15)
[2019-11-25] MEDS: PRENATAL VITAMINS W/ FOLIC ACID TABLET (FP) PO SCH (09:37)
[2019-11-25] MEDS: MELATONIN 5 MG TABLETS PO SCH (21:15)
[2019-11-25] MEDS: THIAMINE HCL 100 MG TABLET (FP) PO SCH (21:15)
[2019-11-26] MEDS: metFORMIN HCL 500 MG TABLET (FP) PO SCH ×2 (07:22→16:37)
[2019-11-26] MEDS: INSULIN (NOVOLOG) ASPART 100 UNITS/ML 10ML VIAL SQ SCH ×2 (07:22→16:38)
[2019-11-26] MEDS ORDERED: INSULIN SLIDING SCALE (NOVOLOG) 1 VIAL SQ ONE ×2 (07:23→16:35)
[2019-11-26] MEDS: EMTRICITAB/RILPIVIRI/TENOF ALA (ODEFSEY) TABLET PO SCH (07:23)
[2019-11-26] MEDS: HYDROCHLOROTHIAZIDE 25 MG TABLET (FP) PO SCH (09:21)
[2019-11-26] MEDS: LISINOPRIL 20 MG TABLET (FP) PO SCH (09:21)
[2019-11-26] MEDS: hydrOXYzine PAMOATE 25 MG CAPSULE (FP) PO PRN (09:21)
[2019-11-26] MEDS: PRENATAL VITAMINS W/ FOLIC ACID TABLET (FP) PO SCH (09:22)
[2019-11-26] MEDS: TOLNAFTATE 1% CREAM 15 GM TUBE TP SCH ×2 (09:22→21:57)
[2019-11-26] MEDS: NIFEdipine E.R. 90 MG TABLET PO SCH (09:22)
[2019-11-26] MEDS: THIAMINE HCL 100 MG TABLET (FP) PO SCH (21:57)
[2019-11-26] MEDS: MELATONIN 5 MG TABLETS PO SCH (21:57)
[2019-11-27] MEDS: metFORMIN HCL 500 MG TABLET (FP) PO SCH (06:12)
[2019-11-27] MEDS ORDERED: INSULIN SLIDING SCALE (NOVOLOG) 1 VIAL SQ ONE ×2 (06:14→07:27)
[2019-11-27] MEDS: INSULIN (NOVOLOG) ASPART 100 UNITS/ML 10ML VIAL SQ SCH (06:15)
[2019-11-27] MEDS: EMTRICITAB/RILPIVIRI/TENOF ALA (ODEFSEY) TABLET PO SCH (07:10)
[2019-11-27 07:59] VITALS: TEMP 97.1
[2019-11-27] MEDS: PRENATAL VITAMINS W/ FOLIC ACID TABLET (FP) PO SCH (09:07)
[2019-11-27] MEDS: HYDROCHLOROTHIAZIDE 25 MG TABLET (FP) PO SCH (09:07)
[2019-11-27] MEDS: LISINOPRIL 20 MG TABLET (FP) PO SCH (09:07)
[2019-11-27] MEDS: TOLNAFTATE 1% CREAM 15 GM TUBE TP SCH (09:07)
[2019-11-27] MEDS: NIFEdipine E.R. 90 MG TABLET PO SCH (09:07)
[2019-11-27 09:28] VITALS: BP 159/89; PULSE 94
--- NOTE | 2019-11-27 09:34 | DS ---
[facility] Rehab Discharge Summary - [facility] Rehab Discharge Summary Admission Date: 10/27/19 Discharge Date: 11/27/19 - History Present History: Alcohol dependence - Discharge Physical Exam Vital Signs: Vital Signs Temperature 97.1 F L 11/27/19 06:00 Pulse Rate 94 H 11/27/19 08:50 Respiratory Rate 18 11/27/19 06:00 Blood Pressure 159/89 11/27/19 08:50 O2 Sat by Pulse Oximetry (%) 96 11/27/19 06:00 Laboratory Tests 10/27/19 10/27/19 10/28/19 17:12 21:26 06:25 POC Glucometer 323 264 245 10/28/19 10/28/19 10/28/19 11:42 16:58 21:53 POC Glucometer 355 307 271 10/29/19 10/29/19 10/29/19 05:50 11:36 16:49 POC Glucometer 279 334 277 10/29/19 10/30/19 10/30/19 20:58 06:46 11:39 POC Glucometer 260 288 262 10/30/19 10/30/19 10/31/19 17:00 21:02 06:29 POC Glucometer 260 328 318 10/31/19 10/31/19 10/31/19 11:45 16:55 21:44 POC Glucometer 250 229 308 11/01/19 11/01/19 11/01/19 05:59 11:33 16:32 POC Glucometer 289 278 338 11/01/19 11/02/19 11/02/19 21:25 06:12 11:27 POC Glucometer 239 283 313 11/02/19 11/02/19 11/03/19 16:28 20:46 06:24 POC Glucometer 225 288 297 11/03/19 11/03/19 11/03/19 11:52 16:37 20:59 POC Glucometer 381 240 285 11/04/19 11/04/19 11/04/19 06:16 11:21 16:43 POC Glucometer 274 286 259 11/04/19 11/05/19 11/05/19 21:09 05:54 11:38 POC Glucometer 308 280 248 11/05/19 11/05/19 11/06/19 16:45 21:10 05:52 POC Glucometer 269 290 291 11/06/19 11/06/19 11/06/19 11:40 17:05 20:24 POC Glucometer 249 244 278 11/07/19 11/07/19 11/08/19 05:56 16:40 05:47 POC Glucometer 279 252 271 11/08/19 11/09/19 11/09/19 16:35 05:44 16:29 POC Glucometer 263 269 226 11/10/19 11/10/19 11/11/19 06:12 16:42 05:48 POC Glucometer 245 222 266 11/11/19 11/12/19 11/12/19 16:46 05:50 16:21 POC Glucometer 157 265 273 11/13/19 11/13/19 11/14/19 06:19 16:31 05:46 POC Glucometer 239 271 244 11/14/19 11/15/19 11/15/19 16:23 06:15 16:48 POC Glucometer 256 254 223 11/16/19 11/16/19 11/17/19 06:02 16:23 06:01 POC Glucometer 272 373 232 11/17/19 11/18/19 11/18/19 16:28 06:09 16:43 POC Glucometer 341 234 243 11/19/19 11/19/19 11/20/19 06:25 16:46 05:51 POC Glucometer 224 259 246 11/20/19 11/21/19 11/21/19 16:37 05:56 16:43 POC Glucometer 338 235 264 11/22/19 11/22/19 11/23/19 06:29 16:37 06:19 POC Glucometer 281 306 296 11/23/19 11/24/19 11/24/19 16:39 05:59 16:30 POC Glucometer 250 292 265 11/25/19 11/25/19 11/26/19 06:02 16:36 06:13 POC Glucometer 266 467 261 11/26/19 11/27/19 16:38 06:11 POC Glucometer 458 286 ROS: PATIENT DENIES CHEST PAIN, TREMORS, SWEATING, COUGH, FEVER AND SOB PE ALERT AND ORIENTED X 3 SKIN WARM AND DRY NECK SUPPLE, NO JVD IN NAD EXT FULL ROM, AMB AD DONELL +1 BLE EDEMA A/P: ALCOHOL DEPENDENCE HTN DM HIV+ PATIENT IS MEDICALLY STABLE FOR DISCHARGE AFTERCARE ARRANGED FOR [facility] Treatment Discharge Condition: Discharge condition good Hospital Course: PATIENT DISCHARGED FROM REHAB TODAY FOR ALCOHOL DEPENDENCE. PMH INCLUDES HTN, DM AND HIV+. DURING COURSE OF TREATMENT, PATIENT ATTENDED GROUP MEETINGS, 1:1 SESSIONS WITH COUNSELING TEAM AND INTERACTED POSITIVELY WITH [facility]. AFTERCARE ARRANGED FOR [facility]. PATIENT MEDICALLY ADVISED TO COMPLETED MASH TUB COOKER TREATMENT AND FOLLOW UP WITH PCP ONCE HE IS DISCHARGED FROM [facility]. PATIENT IS MEDICALLY STABLE AND DENIES SI/HI. Home Medications Medication Instructions Recorded Albuterol Sulfate [Proventil HFA 2 inh PO Q4H PRN #1 hfa.aer.ad 02/12/19 Inhaler -] Hydrochlorothiazide [Hctz -] 25 mg PO DAILY 03/30/19 metFORMIN HCL [Metformin HCl] 500 mg PO BID 03/30/19 Insulin Sliding Scale [Novolog 1 vial SQ ACHS units 10/27/19 Vial Sliding Scale -] Albuterol Sulfate Inhaler - 2 puff IH Q4H PRN #1 inhaler 11/27/19 [Ventolin HFA Inhaler -] Emtricitab/Rilpiviri/Tenof Ala 1 each PO DAILY #30 tablet 11/27/19 [Odefsey Tablet] Hydrochlorothiazide [Hctz -] 50 mg PO DAILY #14 tablet 11/27/19 Lisinopril [Prinivil] 20 mg PO DAILY #14 tablet 11/27/19 Nifedipine ER [Procardia XL -] 90 mg PO DAILY #14 tab.er.24 11/27/19 metFORMIN HCL [Glucophage -] 1,000 mg PO BID@0700,1630 #30 11/27/19 tablet - Medication Discharge Medications: Ambulatory Orders Albuterol Sulfate [Proventil HFA Inhaler -] 2 inh PO Q4H PRN #1 hfa.aer.ad 02/12/19 Hydrochlorothiazide [Hctz -] 25 mg PO DAILY 03/30/19 metFORMIN HCL [Metformin HCl] 500 mg PO BID 03/30/19 Insulin Sliding Scale [Novolog Vial Sliding Scale -] 1 vial SQ ACHS units 10/27/19 Albuterol Sulfate Inhaler - [Ventolin HFA Inhaler -] 2 puff IH Q4H PRN #1 inhaler 11/27/19 Emtricitab/Rilpiviri/Tenof Ala [Odefsey Tablet] 1 each PO DAILY #30 tablet 11/27/19 Hydrochlorothiazide [Hctz -] 50 mg PO DAILY #14 tablet 11/27/19 Lisinopril [Prinivil] 20 mg PO DAILY #14 tablet 11/27/19 Nifedipine ER [Procardia XL -] 90 mg PO DAILY #14 tab.er.24 11/27/19 metFORMIN HCL [Glucophage -] 1,000 mg PO BID@0700,1630 #30 tablet 11/27/19 - Discharge Instructions Diet, activity, other medical instructions: Diet: NCS Activity: TOLERATED Other medical instructions: F/U WITH PCP RECOMMENDED - Follow-up Referral Minutes to complete discharge: 35 - AMA Did Patient Leave Against Medical Advice: No
== END 2019-11-27 09:15 | disposition other institution (70) | DRG 772 ==
LOC: YASAS 15:03 → Y3W 15:05
PROVIDERS: ADMIT Allergy & Immunology; ATTEND Allergy & Immunology
PROC: HZ42ZZZ Group Counseling for Substance Abuse Treatment, Cognitive-Behavioral (ICD-10-PCS; principal; 2019-10-27)
DX: F10.20 Alcohol dependence, uncomplicated (principal); Z21 Asymptomatic human immunodeficiency virus [HIV] infection status; I11.0 Hypertensive heart disease with heart failure; I50.9 Heart failure, unspecified; E11.65 Type 2 diabetes mellitus with hyperglycemia; Z79.4 Long term (current) use of insulin; I73.9 Peripheral vascular disease, unspecified; B35.3 Tinea pedis; R60.0 Localized edema; E66.01 Morbid (severe) obesity due to excess calories; Z68.43 Body mass index [BMI] 50.0-59.9, adult; Z90.79 Acquired absence of other genital organ(s); Z98.61 Coronary angioplasty status
CPT/HCPCS: 82962

== ENCOUNTER 2021-07-30 12:08 | Inpatient (IN) | payer OTHER ==
[2021-07-30] MEDS ORDERED: LOPERAMIDE HCL 2 MG CAPSULE PO PRN (13:44)
[2021-07-30] MEDS ORDERED: METHOCARBAMOL 500 MG TABLET PO PRN (13:44)
[2021-07-30] MEDS ORDERED: MAG HYDROX/AL HYDROX/SIMETH 30 ML UNIT-DOSE CUP PO PRN (13:44)
[2021-07-30] MEDS ORDERED: ACETAMINOPHEN 325 MG TABLET (FP) PO PRN ×2 (13:44)
[2021-07-30] MEDS ORDERED: MAGNESIUM CITRATE 300 ML BOTTLE PO PRN (13:44)
[2021-07-30] MEDS ORDERED: MENTHOL/PHENOL 1 EACH UD MM PRN (13:44)
[2021-07-30] MEDS ORDERED: ONDANSETRON *ODT* 4 MG TABLET SL PRN (13:44)
[2021-07-30] MEDS ORDERED: MAGNESIUM HYDROX 2400MG/30ML ORAL SUSPENSION 30 ML CUP PO PRN (13:44)
[2021-07-30] MEDS ORDERED: IBUPROFEN 400 MG TABLET (FP) PO PRN (13:44)
[2021-07-30] MEDS ORDERED: BISMUTH SUBSALICYLATE 262 MG/15 ML BTL PO PRN (13:44)
[2021-07-30] MEDS ORDERED: ALBUTEROL SO4 HFA INHALER IH PRN (13:47)
[2021-07-30 14:36] VITALS: BMI 52.3
[2021-07-30] MEDS: metFORMIN HCL 500 MG TABLET (FP) PO SCH ×2 (15:43→18:21)
[2021-07-30] MEDS: hydrOXYzine PAMOATE 25 MG CAPSULE (FP) PO SCH ×3 (15:43→22:51)
[2021-07-30] MEDS: HYDROCHLOROTHIAZIDE 25 MG TABLET (FP) PO SCH (15:43)
[2021-07-30] MEDS ORDERED: cloNIDine HCL 0.1 MG TABLET PO ONE (15:46)
[2021-07-30] MEDS: NIFEdipine E.R. 90 MG TABLET PO SCH (15:58)
[2021-07-30] MEDS ORDERED: INSULIN SLIDING SCALE (NOVOLOG) 1 VIAL SQ SCH (16:30)
[2021-07-30] MEDS ORDERED: metFORMIN HCL 500 MG TABLET (FP) PO SCH (16:30)
[2021-07-30] MEDS: INSULIN SLIDING SCALE (NOVOLOG) 1 VIAL SQ SCH ×2 (18:21→23:26)
[2021-07-30] MEDS ORDERED: MELATONIN 5 MG TABLETS PO SCH (22:00)
[2021-07-30] MEDS ORDERED: THIAMINE HCL 100 MG TABLET (FP) PO SCH (22:00)
[2021-07-30] MEDS ORDERED: INSULIN (NOVOLOG) ASPART 100 UNITS/ML 10ML VIAL ONE (23:23)
[2021-07-31] MEDS: metFORMIN HCL 500 MG TABLET (FP) PO SCH (06:05)
[2021-07-31] MEDS: hydrOXYzine PAMOATE 25 MG CAPSULE (FP) PO SCH ×3 (06:05→13:37)
[2021-07-31] MEDS: INSULIN SLIDING SCALE (NOVOLOG) 1 VIAL SQ SCH ×2 (06:05→11:19)
[2021-07-31] MEDS ORDERED: EMTRICITAB/RILPIVIRI/TENOF ALA (ODEFSEY) TABLET PO SCH (08:00)
[2021-07-31 09:48] VITALS: PULSE 95
[2021-07-31] MEDS ORDERED: TORSEMIDE 20 MG PO SCH (10:00)
[2021-07-31] MEDS ORDERED: SPIRONOLACTONE 25 MG TABLET PO SCH (10:00)
[2021-07-31] MEDS ORDERED: LISINOPRIL 20 MG PO SCH (10:00)
[2021-07-31] MEDS ORDERED: LISINOPRIL 20 MG TABLET PO SCH (10:00)
[2021-07-31] MEDS ORDERED: PRENATAL VITAMINS W/ FOLIC ACID TABLET (FP) PO SCH (10:00)
[2021-07-31] MEDS ORDERED: TORSEMIDE 20 MG TABLET (FP) PO SCH (10:00)
[2021-07-31 10:47] LABS: HEMATOCRIT 37.9 % (35.4-49); HEMOGLOBIN 12.3 GM/dL (11.7-16.9); MCH 28.9 pg (25.7-33.7); MCHC 32.3 g/dl (32.0-35.9); MEAN CELL VOLUME 89.5 fl (80-96); MEAN PLT VOLUME 7.4 fl (7.5-11.1); PLATELET COUNT 226 10^3/uL (134-434); RBC 4.24 M/mm3 (4.00-5.60); RDW 16.2 % (11.9-15.9); WHITE BLOOD COUNT 6.3 K/mm3 (4.0-10.0)
[2021-07-31] MEDS: HYDROCHLOROTHIAZIDE 25 MG TABLET (FP) PO SCH (11:07)
[2021-07-31] MEDS: NIFEdipine E.R. 90 MG TABLET PO SCH (11:07)
[2021-07-31] MEDS ORDERED: INSULIN (NOVOLOG) ASPART 100 UNITS/ML 10ML VIAL ONE (11:18)
[2021-07-31 11:25] LABS: CALCIUM 8.9 mg/dL (8.5-10.1)
[2021-07-31 11:26] LABS: ALBUMIN 3.5 g/dl (3.4-5.0); BLOOD UREA NITROGEN 20.6 mg/dL (7-18)
[2021-07-31 11:28] LABS: CREATININE 1.2 mg/dL (0.55-1.3)
[2021-07-31 11:30] LABS: BILIRUBIN,TOTAL 1.6 mg/dL (0.2-1); TOT PROT 6.8 g/dl (6.4-8.2)
[2021-07-31 14:20] VITALS: BP 140/88; TEMP 97.5
[2021-07-31] MEDS ORDERED: METFORMIN HCL 500 MG PO SCH (16:30)
== END 2021-07-31 14:56 | disposition other institution (70) | DRG 774 ==
LOC: YASAS 12:08 → Y6N 15:05
PROVIDERS: ADMIT Allergy & Immunology; ATTEND Allergy & Immunology
PROC: HZ2ZZZZ Detoxification Services for Substance Abuse Treatment (ICD-10-PCS; principal; 2021-07-30)
DX: F10.20 Alcohol dependence, uncomplicated (principal); F14.20 Cocaine dependence, uncomplicated; Z21 Asymptomatic human immunodeficiency virus [HIV] infection status; I11.0 Hypertensive heart disease with heart failure; I50.9 Heart failure, unspecified; J45.20 Mild intermittent asthma, uncomplicated; E11.9 Type 2 diabetes mellitus without complications; Z79.84 Long term (current) use of oral hypoglycemic drugs; E66.01 Morbid (severe) obesity due to excess calories; Z68.43 Body mass index [BMI] 50.0-59.9, adult
CPT/HCPCS: 36415; 80053; 82962; 85027; 86780; C9803-CS; J0735; U0003; U0005

== ENCOUNTER 2021-07-31 15:17 | Inpatient (IN) | payer OTHER ==
[2021-07-31] MEDS ORDERED: MENTHOL/PHENOL 1 EACH UD MM PRN (17:52)
[2021-07-31] MEDS ORDERED: ACETAMINOPHEN 325 MG TABLET (FP) PO PRN (17:52)
[2021-07-31] MEDS ORDERED: MAGNESIUM CITRATE 300 ML BOTTLE PO PRN (17:52)
[2021-07-31] MEDS ORDERED: IBUPROFEN 400 MG TABLET (FP) PO PRN (17:52)
[2021-07-31] MEDS ORDERED: MAG HYDROX/AL HYDROX/SIMETH 30 ML UNIT-DOSE CUP PO PRN (17:52)
[2021-07-31] MEDS ORDERED: MAGNESIUM HYDROX 2400MG/30ML ORAL SUSPENSION 30 ML CUP PO PRN (17:52)
[2021-07-31] MEDS ORDERED: guaiFENesin 200 MG/10 ML 10 ML UNIT-DOSE CUPS PO PRN (17:52)
[2021-07-31] MEDS ORDERED: LOPERAMIDE HCL 2 MG CAPSULE PO PRN (17:52)
[2021-07-31] MEDS ORDERED: ALBUTEROL SO4 HFA INHALER IH PRN (17:53)
[2021-07-31] MEDS: THIAMINE HCL 100 MG TABLET (FP) PO SCH (21:47)
[2021-07-31] MEDS: MELATONIN 5 MG TABLETS PO SCH (21:47)
[2021-07-31] MEDS: INSULIN (LEVEMIR) 100 UNITS/ML UNITS SQ SCH (21:49)
[2021-07-31] MEDS: INSULIN SLIDING SCALE (NOVOLOG) 1 VIAL SQ SCH (21:51)
[2021-08-01] MEDS: INSULIN SLIDING SCALE (NOVOLOG) 1 VIAL SQ SCH ×4 (06:49→21:04)
[2021-08-01] MEDS: metFORMIN HCL 500 MG TABLET (FP) PO SCH ×2 (06:49→17:06)
[2021-08-01] MEDS: HYDROCHLOROTHIAZIDE 25 MG TABLET (FP) PO SCH (09:59)
[2021-08-01] MEDS: PRENATAL VITAMINS W/ FOLIC ACID TABLET (FP) PO SCH (09:59)
[2021-08-01] MEDS: LISINOPRIL 20 MG TABLET PO SCH (09:59)
[2021-08-01] MEDS: TORSEMIDE 20 MG TABLET (FP) PO SCH (10:00)
[2021-08-01] MEDS: EMTRICITAB/RILPIVIRI/TENOF ALA (ODEFSEY) TABLET PO SCH (10:00)
[2021-08-01] MEDS: SPIRONOLACTONE 25 MG TABLET PO SCH (10:00)
[2021-08-01] MEDS: NIFEdipine E.R. 90 MG TABLET PO SCH (10:01)
[2021-08-01] MEDS ORDERED: INSULIN (NOVOLOG) ASPART 100 UNITS/ML 10ML VIAL ONE (11:54)
[2021-08-01] MEDS: MELATONIN 5 MG TABLETS PO SCH (21:00)
[2021-08-01] MEDS: THIAMINE HCL 100 MG TABLET (FP) PO SCH (21:01)
[2021-08-01] MEDS: INSULIN (LEVEMIR) 100 UNITS/ML UNITS SQ SCH (21:04)
[2021-08-01] MEDS ORDERED: cloNIDine HCL 0.1 MG TABLET PO ONE (22:05)
[2021-08-02 06:10] LABS: SARS-CoV-2 NAA Not Detected (Not Detected)
[2021-08-02] MEDS: metFORMIN HCL 500 MG TABLET (FP) PO SCH ×2 (06:34→17:03)
[2021-08-02] MEDS: NIFEdipine E.R. 90 MG TABLET PO SCH ×2 (06:34→09:39)
[2021-08-02] MEDS: INSULIN SLIDING SCALE (NOVOLOG) 1 VIAL SQ SCH ×4 (06:35→20:59)
[2021-08-02] MEDS: LISINOPRIL 20 MG TABLET PO SCH (09:37)
[2021-08-02] MEDS: PRENATAL VITAMINS W/ FOLIC ACID TABLET (FP) PO SCH (09:37)
[2021-08-02] MEDS: HYDROCHLOROTHIAZIDE 25 MG TABLET (FP) PO SCH (09:38)
[2021-08-02] MEDS: SPIRONOLACTONE 25 MG TABLET PO SCH (09:38)
[2021-08-02] MEDS: TORSEMIDE 20 MG TABLET (FP) PO SCH (09:39)
[2021-08-02] MEDS: EMTRICITAB/RILPIVIRI/TENOF ALA (ODEFSEY) TABLET PO SCH (09:40)
[2021-08-02] MEDS: INSULIN (LEVEMIR) 100 UNITS/ML UNITS SQ SCH (21:01)
[2021-08-02] MEDS: MELATONIN 5 MG TABLETS PO SCH (21:02)
[2021-08-02] MEDS: THIAMINE HCL 100 MG TABLET (FP) PO SCH (21:02)
[2021-08-03] MEDS ORDERED: cloNIDine HCL 0.1 MG TABLET PO ONE (02:45)
[2021-08-03] MEDS: metFORMIN HCL 500 MG TABLET (FP) PO SCH ×2 (06:47→17:02)
[2021-08-03] MEDS: INSULIN SLIDING SCALE (NOVOLOG) 1 VIAL SQ SCH ×4 (06:48→22:11)
[2021-08-03] MEDS: PRENATAL VITAMINS W/ FOLIC ACID TABLET (FP) PO SCH (09:53)
[2021-08-03] MEDS: LISINOPRIL 20 MG TABLET PO SCH (09:53)
[2021-08-03] MEDS: NIFEdipine E.R. 90 MG TABLET PO SCH (09:54)
[2021-08-03] MEDS: SPIRONOLACTONE 25 MG TABLET PO SCH (09:54)
[2021-08-03] MEDS: HYDROCHLOROTHIAZIDE 25 MG TABLET (FP) PO SCH (09:54)
[2021-08-03] MEDS: TORSEMIDE 20 MG TABLET (FP) PO SCH (09:55)
[2021-08-03] MEDS: EMTRICITAB/RILPIVIRI/TENOF ALA (ODEFSEY) TABLET PO SCH (09:55)
[2021-08-03] MEDS ORDERED: INSULIN (NOVOLOG) ASPART 100 UNITS/ML 10ML VIAL ONE (11:01)
[2021-08-03] MEDS: THIAMINE HCL 100 MG TABLET (FP) PO SCH (22:09)
[2021-08-03] MEDS: MELATONIN 5 MG TABLETS PO SCH (22:09)
[2021-08-03] MEDS: INSULIN (LEVEMIR) 100 UNITS/ML UNITS SQ SCH (22:09)
[2021-08-04] MEDS: metFORMIN HCL 500 MG TABLET (FP) PO SCH ×2 (06:14→16:44)
[2021-08-04] MEDS: INSULIN SLIDING SCALE (NOVOLOG) 1 VIAL SQ SCH ×4 (06:15→21:32)
[2021-08-04] MEDS ORDERED: INSULIN (NOVOLOG) ASPART 100 UNITS/ML 10ML VIAL ONE ×2 (06:16→12:14)
[2021-08-04] MEDS: NIFEdipine E.R. 90 MG TABLET PO SCH (09:53)
[2021-08-04] MEDS: SPIRONOLACTONE 25 MG TABLET PO SCH (09:53)
[2021-08-04] MEDS: HYDROCHLOROTHIAZIDE 25 MG TABLET (FP) PO SCH (09:53)
[2021-08-04] MEDS: TORSEMIDE 20 MG TABLET (FP) PO SCH (09:54)
[2021-08-04] MEDS: EMTRICITAB/RILPIVIRI/TENOF ALA (ODEFSEY) TABLET PO SCH (09:55)
[2021-08-04] MEDS: PRENATAL VITAMINS W/ FOLIC ACID TABLET (FP) PO SCH (09:55)
[2021-08-04] MEDS: LISINOPRIL 20 MG TABLET PO SCH (11:03)
[2021-08-04] MEDS: ASPIRIN 81 MG CHEWABLE TABLETS PO SCH (12:17)
[2021-08-04] MEDS: PIOGLITAZONE HCL 15 MG TABLET PO SCH (13:06)
[2021-08-04] MEDS: hydrALAZINE HCL 10 MG TABLET PO SCH ×2 (13:06→18:47)
[2021-08-04] MEDS: ISOSORBIDE DINITRATE 10 MG TABLET PO SCH ×2 (13:06→18:47)
[2021-08-04] MEDS ORDERED: ISOSORBIDE DINITRATE 5 MG TABLET PO SCH (14:00)
[2021-08-04] MEDS: INSULIN (LEVEMIR) 100 UNITS/ML UNITS SQ SCH (21:34)
[2021-08-04] MEDS: THIAMINE HCL 100 MG TABLET (FP) PO SCH (21:37)
[2021-08-04] MEDS: ATORVASTATIN CA 20 MG TABLET (FP) PO SCH (21:37)
[2021-08-04] MEDS: MELATONIN 5 MG TABLETS PO SCH (21:38)
[2021-08-04] MEDS: CARVEDILOL 3.125 MG TABLET (FP) PO SCH (21:38)
[2021-08-05] MEDS: metFORMIN HCL 500 MG TABLET (FP) PO SCH ×2 (06:00→16:58)
[2021-08-05] MEDS: hydrALAZINE HCL 10 MG TABLET PO SCH ×5 (06:00→23:54)
[2021-08-05] MEDS: INSULIN SLIDING SCALE (NOVOLOG) 1 VIAL SQ SCH ×4 (06:01→21:23)
[2021-08-05] MEDS: ISOSORBIDE DINITRATE 10 MG TABLET PO SCH ×3 (09:00→18:26)
[2021-08-05] MEDS: PRENATAL VITAMINS W/ FOLIC ACID TABLET (FP) PO SCH (10:01)
[2021-08-05] MEDS: CARVEDILOL 3.125 MG TABLET (FP) PO SCH ×2 (10:02→21:22)
[2021-08-05] MEDS: LISINOPRIL 20 MG TABLET PO SCH (10:02)
[2021-08-05] MEDS: ASPIRIN 81 MG CHEWABLE TABLETS PO SCH (10:02)
[2021-08-05] MEDS: NIFEdipine E.R. 30 MG TABLET PO SCH (10:02)
[2021-08-05] MEDS: SPIRONOLACTONE 25 MG TABLET PO SCH (10:34)
[2021-08-05] MEDS: TORSEMIDE 20 MG TABLET (FP) PO SCH (10:34)
[2021-08-05] MEDS: PIOGLITAZONE HCL 15 MG TABLET PO SCH (10:34)
[2021-08-05] MEDS: EMTRICITAB/RILPIVIRI/TENOF ALA (ODEFSEY) TABLET PO SCH (10:35)
[2021-08-05] MEDS ORDERED: INSULIN (NOVOLOG) ASPART 100 UNITS/ML 10ML VIAL ONE (12:02)
[2021-08-05] MEDS: THIAMINE HCL 100 MG TABLET (FP) PO SCH (21:22)
[2021-08-05] MEDS: ATORVASTATIN CA 20 MG TABLET (FP) PO SCH (21:22)
[2021-08-05] MEDS: MELATONIN 5 MG TABLETS PO SCH (21:23)
[2021-08-05] MEDS: INSULIN (LEVEMIR) 100 UNITS/ML UNITS SQ SCH (21:25)
[2021-08-06] MEDS: INSULIN SLIDING SCALE (NOVOLOG) 1 VIAL SQ SCH ×4 (06:56→21:33)
[2021-08-06] MEDS: hydrALAZINE HCL 10 MG TABLET PO SCH ×4 (06:57→23:39)
[2021-08-06] MEDS: metFORMIN HCL 500 MG TABLET (FP) PO SCH ×2 (06:57→17:14)
[2021-08-06] MEDS: ISOSORBIDE DINITRATE 10 MG TABLET PO SCH ×3 (07:04→18:17)
[2021-08-06] MEDS: ASPIRIN 81 MG CHEWABLE TABLETS PO SCH (09:59)
[2021-08-06] MEDS: LISINOPRIL 20 MG TABLET PO SCH (09:59)
[2021-08-06] MEDS: PRENATAL VITAMINS W/ FOLIC ACID TABLET (FP) PO SCH (09:59)
[2021-08-06] MEDS: NIFEdipine E.R. 30 MG TABLET PO SCH (10:00)
[2021-08-06] MEDS: TORSEMIDE 20 MG TABLET (FP) PO SCH (10:00)
[2021-08-06] MEDS: CARVEDILOL 3.125 MG TABLET (FP) PO SCH ×2 (10:00→21:32)
[2021-08-06] MEDS: EMTRICITAB/RILPIVIRI/TENOF ALA (ODEFSEY) TABLET PO SCH (10:00)
[2021-08-06] MEDS: PIOGLITAZONE HCL 15 MG TABLET PO SCH (10:00)
[2021-08-06] MEDS: SPIRONOLACTONE 25 MG TABLET PO SCH (10:01)
[2021-08-06] MEDS ORDERED: INSULIN (NOVOLOG) ASPART 100 UNITS/ML 10ML VIAL ONE (17:14)
[2021-08-06] MEDS: INSULIN (LEVEMIR) 100 UNITS/ML UNITS SQ SCH (21:32)
[2021-08-06] MEDS: THIAMINE HCL 100 MG TABLET (FP) PO SCH (21:32)
[2021-08-06] MEDS: ATORVASTATIN CA 20 MG TABLET (FP) PO SCH (21:32)
[2021-08-06] MEDS: MELATONIN 5 MG TABLETS PO SCH (21:33)
[2021-08-07] MEDS: INSULIN SLIDING SCALE (NOVOLOG) 1 VIAL SQ SCH ×4 (06:07→21:07)
[2021-08-07] MEDS: hydrALAZINE HCL 10 MG TABLET PO SCH ×4 (06:08→23:51)
[2021-08-07] MEDS: metFORMIN HCL 500 MG TABLET (FP) PO SCH ×2 (06:08→17:05)
[2021-08-07] MEDS ORDERED: INSULIN (NOVOLOG) ASPART 100 UNITS/ML 10ML VIAL ONE ×3 (06:43→16:37)
[2021-08-07] MEDS: ISOSORBIDE DINITRATE 10 MG TABLET PO SCH ×3 (07:53→18:01)
[2021-08-07] MEDS: LISINOPRIL 20 MG TABLET PO SCH (10:16)
[2021-08-07] MEDS: ASPIRIN 81 MG CHEWABLE TABLETS PO SCH (10:16)
[2021-08-07] MEDS: TORSEMIDE 20 MG TABLET (FP) PO SCH (10:17)
[2021-08-07] MEDS: PIOGLITAZONE HCL 15 MG TABLET PO SCH (10:17)
[2021-08-07] MEDS: SPIRONOLACTONE 25 MG TABLET PO SCH (10:18)
[2021-08-07] MEDS: CARVEDILOL 3.125 MG TABLET (FP) PO SCH ×2 (10:18→21:08)
[2021-08-07] MEDS: NIFEdipine E.R. 30 MG TABLET PO SCH (10:18)
[2021-08-07] MEDS: PRENATAL VITAMINS W/ FOLIC ACID TABLET (FP) PO SCH (10:19)
[2021-08-07] MEDS: EMTRICITAB/RILPIVIRI/TENOF ALA (ODEFSEY) TABLET PO SCH (10:19)
[2021-08-07] MEDS: ATORVASTATIN CA 20 MG TABLET (FP) PO SCH (21:06)
[2021-08-07] MEDS: THIAMINE HCL 100 MG TABLET (FP) PO SCH (21:06)
[2021-08-07] MEDS: INSULIN (LEVEMIR) 100 UNITS/ML UNITS SQ SCH (21:07)
[2021-08-07] MEDS: MELATONIN 5 MG TABLETS PO SCH (21:08)
[2021-08-08] MEDS: metFORMIN HCL 500 MG TABLET (FP) PO SCH ×2 (06:01→16:50)
[2021-08-08] MEDS: hydrALAZINE HCL 10 MG TABLET PO SCH ×3 (06:01→17:49)
[2021-08-08] MEDS ORDERED: INSULIN (NOVOLOG) ASPART 100 UNITS/ML 10ML VIAL ONE ×2 (06:01→12:07)
[2021-08-08] MEDS: INSULIN SLIDING SCALE (NOVOLOG) 1 VIAL SQ SCH ×4 (06:02→22:00)
[2021-08-08] MEDS: ISOSORBIDE DINITRATE 10 MG TABLET PO SCH ×4 (07:07→20:27)
[2021-08-08] MEDS: PRENATAL VITAMINS W/ FOLIC ACID TABLET (FP) PO SCH (09:51)
[2021-08-08] MEDS: LISINOPRIL 20 MG TABLET PO SCH (09:51)
[2021-08-08] MEDS: ASPIRIN 81 MG CHEWABLE TABLETS PO SCH (09:51)
[2021-08-08] MEDS: CARVEDILOL 3.125 MG TABLET (FP) PO SCH ×2 (09:52→21:00)
[2021-08-08] MEDS: EMTRICITAB/RILPIVIRI/TENOF ALA (ODEFSEY) TABLET PO SCH (09:52)
[2021-08-08] MEDS: NIFEdipine E.R. 30 MG TABLET PO SCH (09:53)
[2021-08-08] MEDS: TORSEMIDE 20 MG TABLET (FP) PO SCH (09:53)
[2021-08-08] MEDS: PIOGLITAZONE HCL 15 MG TABLET PO SCH (09:54)
[2021-08-08] MEDS: SPIRONOLACTONE 25 MG TABLET PO SCH (09:54)
[2021-08-08] MEDS ORDERED: TORSEMIDE 20 MG TABLET (FP) PO ONE (11:45)
[2021-08-08] MEDS: MELATONIN 5 MG TABLETS PO SCH (21:00)
[2021-08-08] MEDS: INSULIN (LEVEMIR) 100 UNITS/ML UNITS SQ SCH (21:00)
[2021-08-08] MEDS: ATORVASTATIN CA 20 MG TABLET (FP) PO SCH (21:00)
[2021-08-08] MEDS: THIAMINE HCL 100 MG TABLET (FP) PO SCH (21:00)
[2021-08-09] MEDS: hydrALAZINE HCL 10 MG TABLET PO SCH ×5 (01:05→23:57)
[2021-08-09] MEDS ORDERED: INSULIN (NOVOLOG) ASPART 100 UNITS/ML 10ML VIAL ONE ×3 (05:46→12:13)
[2021-08-09] MEDS: INSULIN SLIDING SCALE (NOVOLOG) 1 VIAL SQ SCH ×4 (06:08→21:07)
[2021-08-09] MEDS: metFORMIN HCL 500 MG TABLET (FP) PO SCH ×2 (06:08→16:54)
[2021-08-09] MEDS ORDERED: TORSEMIDE 20 MG TABLET (FP) PO SCH ×3 (07:30→22:15)
[2021-08-09] MEDS: ISOSORBIDE DINITRATE 10 MG TABLET PO SCH ×3 (07:46→18:46)
[2021-08-09] MEDS: PRENATAL VITAMINS W/ FOLIC ACID TABLET (FP) PO SCH (10:04)
[2021-08-09] MEDS: LISINOPRIL 20 MG TABLET PO SCH (10:04)
[2021-08-09] MEDS: ASPIRIN 81 MG CHEWABLE TABLETS PO SCH (10:04)
[2021-08-09] MEDS: EMTRICITAB/RILPIVIRI/TENOF ALA (ODEFSEY) TABLET PO SCH (10:05)
[2021-08-09] MEDS: PIOGLITAZONE HCL 15 MG TABLET PO SCH (10:05)
[2021-08-09] MEDS: NIFEdipine E.R. 30 MG TABLET PO SCH (10:06)
[2021-08-09] MEDS: CARVEDILOL 3.125 MG TABLET (FP) PO SCH ×2 (10:06→21:05)
[2021-08-09] MEDS: SPIRONOLACTONE 25 MG TABLET PO SCH (10:06)
[2021-08-09] MEDS: ATORVASTATIN CA 20 MG TABLET (FP) PO SCH (21:05)
[2021-08-09] MEDS: MELATONIN 5 MG TABLETS PO SCH (21:05)
[2021-08-09] MEDS: INSULIN (LEVEMIR) 100 UNITS/ML UNITS SQ SCH (21:05)
[2021-08-09] MEDS ORDERED: TORSEMIDE 20 MG TABLET (FP) PO ONE (22:15)
[2021-08-09] MEDS: THIAMINE HCL 100 MG TABLET (FP) PO SCH (22:26)
[2021-08-10] MEDS: INSULIN SLIDING SCALE (NOVOLOG) 1 VIAL SQ SCH ×4 (06:35→21:23)
[2021-08-10] MEDS: hydrALAZINE HCL 10 MG TABLET PO SCH ×3 (06:35→18:04)
[2021-08-10] MEDS: metFORMIN HCL 500 MG TABLET (FP) PO SCH ×2 (06:35→16:49)
[2021-08-10] MEDS ORDERED: INSULIN (NOVOLOG) ASPART 100 UNITS/ML 10ML VIAL ONE ×3 (06:57→17:26)
[2021-08-10] MEDS: ISOSORBIDE DINITRATE 10 MG TABLET PO SCH ×3 (07:16→18:04)
[2021-08-10 07:52] VITALS: TEMP 96.9
[2021-08-10] MEDS: PRENATAL VITAMINS W/ FOLIC ACID TABLET (FP) PO SCH (09:34)
[2021-08-10] MEDS: LISINOPRIL 20 MG TABLET PO SCH (09:35)
[2021-08-10] MEDS: ASPIRIN 81 MG CHEWABLE TABLETS PO SCH (09:35)
[2021-08-10] MEDS: CARVEDILOL 3.125 MG TABLET (FP) PO SCH ×2 (09:35→21:25)
[2021-08-10] MEDS: PIOGLITAZONE HCL 15 MG TABLET PO SCH (09:36)
[2021-08-10] MEDS: EMTRICITAB/RILPIVIRI/TENOF ALA (ODEFSEY) TABLET PO SCH (09:37)
[2021-08-10] MEDS: NIFEdipine E.R. 30 MG TABLET PO SCH (09:37)
[2021-08-10] MEDS: SPIRONOLACTONE 25 MG TABLET PO SCH (09:40)
[2021-08-10] MEDS ORDERED: TORSEMIDE 100 MG TABLET PO SCH (10:00)
[2021-08-10] MEDS: ATORVASTATIN CA 20 MG TABLET (FP) PO SCH (21:21)
[2021-08-10] MEDS: INSULIN (LEVEMIR) 100 UNITS/ML UNITS SQ SCH (21:22)
[2021-08-10] MEDS: MELATONIN 5 MG TABLETS PO SCH (21:25)
[2021-08-10] MEDS: THIAMINE HCL 100 MG TABLET (FP) PO SCH (21:25)
[2021-08-10 23:02] VITALS: BP 156/95; PULSE 95
== END 2021-08-10 22:15 | disposition left against medical advice (07) | DRG 770 ==
LOC: YASAS 15:17 → Y5N 15:35
PROVIDERS: ADMIT Allergy & Immunology; ATTEND Allergy & Immunology
PROC: HZ42ZZZ Group Counseling for Substance Abuse Treatment, Cognitive-Behavioral (ICD-10-PCS; principal; 2021-07-31)
DX: F10.20 Alcohol dependence, uncomplicated (principal); F14.20 Cocaine dependence, uncomplicated; Z21 Asymptomatic human immunodeficiency virus [HIV] infection status; I11.0 Hypertensive heart disease with heart failure; I50.9 Heart failure, unspecified; I99.8 Other disorder of circulatory system; E11.9 Type 2 diabetes mellitus without complications; Z79.4 Long term (current) use of insulin; E66.01 Morbid (severe) obesity due to excess calories; Z68.43 Body mass index [BMI] 50.0-59.9, adult; R60.0 Localized edema
CPT/HCPCS: 82962; 93005; 93010; C9803-CS; J0735; U0003; U0005

== ENCOUNTER 2021-11-25 15:51 | Inpatient (IN) | payer OTHER ==
[2021-11-25 16:38] VITALS: BMI 49.8
[2021-11-25] MEDS ORDERED: DICYCLOMINE HCL 10 MG CAPSULE PO PRN (17:10)
[2021-11-25] MEDS ORDERED: IBUPROFEN 400 MG TABLET (FP) PO PRN (17:10)
[2021-11-25] MEDS ORDERED: IBUPROFEN 600 MG TABLET (FP) PO PRN (17:10)
[2021-11-25] MEDS ORDERED: ONDANSETRON *ODT* 4 MG TABLET SL PRN (17:10)
[2021-11-25] MEDS ORDERED: BISMUTH SUBSALICYLATE 524 MG/30 ML PO PRN (17:10)
[2021-11-25] MEDS ORDERED: ACETAMINOPHEN 325 MG TABLET (FP) PO PRN ×2 (17:10)
[2021-11-25] MEDS ORDERED: BENZOCAINE/MENTHOL (CHLORASEPTIC ) LOZENGE MM PRN (17:10)
[2021-11-25] MEDS ORDERED: MAGNESIUM HYDROX 2400MG/30ML ORAL SUSPENSION 30 ML CUP PO PRN (17:10)
[2021-11-25] MEDS ORDERED: LOPERAMIDE HCL 2 MG CAPSULE PO PRN (17:10)
[2021-11-25] MEDS ORDERED: MAG HYDROX/AL HYDROX/SIMETH 30 ML UNIT-DOSE CUP PO PRN (17:10)
[2021-11-25] MEDS ORDERED: chlordiazePOXIDE HCL 25 MG CAPSULE PO PRN (17:10)
[2021-11-25] MEDS ORDERED: MAGNESIUM CITRATE 300 ML BOTTLE PO PRN (17:10)
[2021-11-25] MEDS ORDERED: ALBUTEROL SO4 HFA INHALER IH PRN (19:13)
[2021-11-25] MEDS ORDERED: INSULIN (NOVOLOG) ASPART 100 UNITS/ML 10ML VIAL ONE (21:03)
[2021-11-25] MEDS: INSULIN SLIDING SCALE (NOVOLOG) 1 VIAL SQ SCH (23:03)
[2021-11-25] MEDS: INSULIN (LEVEMIR) 100 UNITS/ML UNITS SQ SCH (23:04)
[2021-11-25] MEDS: THIAMINE HCL 100 MG TABLET (FP) PO SCH (23:07)
[2021-11-25] MEDS: GABAPENTIN 300 MG CAPSULE PO SCH (23:07)
[2021-11-25] MEDS: MELATONIN 5 MG TABLETS PO SCH (23:07)
[2021-11-25] MEDS: ATORVASTATIN CA 20 MG TABLET (FP) PO SCH (23:07)
[2021-11-25] MEDS: chlordiazePOXIDE HCL 25 MG CAPSULE PO SCH (23:07)
[2021-11-25] MEDS: hydrOXYzine PAMOATE 25 MG CAPSULE (FP) PO SCH ×2 (23:11→23:12)
[2021-11-25] MEDS: hydrALAZINE HCL 10 MG TABLET PO SCH (23:12)
[2021-11-26] MEDS: hydrALAZINE HCL 10 MG TABLET PO SCH ×4 (01:55→19:14)
[2021-11-26] MEDS: hydrOXYzine PAMOATE 25 MG CAPSULE (FP) PO SCH ×5 (05:31→23:38)
[2021-11-26] MEDS: chlordiazePOXIDE HCL 25 MG CAPSULE PO SCH ×4 (05:31→23:31)
[2021-11-26] MEDS: GABAPENTIN 300 MG CAPSULE PO SCH ×3 (05:31→23:31)
[2021-11-26] MEDS: INSULIN SLIDING SCALE (NOVOLOG) 1 VIAL SQ SCH ×4 (08:06→23:34)
[2021-11-26] MEDS ORDERED: INSULIN (NOVOLOG) ASPART 100 UNITS/ML 10ML VIAL ONE ×3 (08:07→20:41)
[2021-11-26] MEDS: HYDROCHLOROTHIAZIDE 25 MG TABLET (FP) PO SCH (11:15)
[2021-11-26] MEDS: PRENATAL VITAMINS W/ FOLIC ACID TABLET (FP) PO SCH (11:15)
[2021-11-26] MEDS: ASPIRIN 81 MG CHEWABLE TABLETS PO SCH (11:15)
[2021-11-26] MEDS: LISINOPRIL 20 MG TABLET PO SCH (11:15)
[2021-11-26] MEDS: INSULIN (LEVEMIR) 100 UNITS/ML UNITS SQ SCH ×2 (11:17→23:31)
[2021-11-26] MEDS: EMTRICITAB/RILPIVIRI/TENOF ALA (ODEFSEY) TABLET PO SCH (11:54)
[2021-11-26] MEDS: NIFEdipine E.R. 30 MG TABLET PO SCH (11:54)
[2021-11-26] MEDS: ATORVASTATIN CA 20 MG TABLET (FP) PO SCH (23:31)
[2021-11-26] MEDS: THIAMINE HCL 100 MG TABLET (FP) PO SCH (23:38)
[2021-11-26] MEDS: MELATONIN 5 MG TABLETS PO SCH (23:38)
[2021-11-27] MEDS: hydrALAZINE HCL 10 MG TABLET PO SCH ×4 (02:02→19:35)
[2021-11-27] MEDS: GABAPENTIN 300 MG CAPSULE PO SCH ×3 (06:19→23:26)
[2021-11-27] MEDS: hydrOXYzine PAMOATE 25 MG CAPSULE (FP) PO SCH ×2 (06:19→09:35)
[2021-11-27] MEDS: chlordiazePOXIDE HCL 25 MG CAPSULE PO SCH ×2 (06:20→11:41)
[2021-11-27] MEDS ORDERED: INSULIN (NOVOLOG) ASPART 100 UNITS/ML 10ML VIAL ONE ×3 (07:45→21:32)
[2021-11-27] MEDS: INSULIN SLIDING SCALE (NOVOLOG) 1 VIAL SQ SCH ×4 (07:48→23:28)
[2021-11-27] MEDS: EMTRICITAB/RILPIVIRI/TENOF ALA (ODEFSEY) TABLET PO SCH (09:34)
[2021-11-27] MEDS: HYDROCHLOROTHIAZIDE 25 MG TABLET (FP) PO SCH (09:34)
[2021-11-27] MEDS: ASPIRIN 81 MG CHEWABLE TABLETS PO SCH (09:34)
[2021-11-27] MEDS: FERROUS SO4 325 MG TABLET (FP) PO SCH (09:34)
[2021-11-27] MEDS: PRENATAL VITAMINS W/ FOLIC ACID TABLET (FP) PO SCH (09:34)
[2021-11-27] MEDS: LISINOPRIL 20 MG TABLET PO SCH (09:34)
[2021-11-27] MEDS: NIFEdipine E.R. 30 MG TABLET PO SCH (09:35)
[2021-11-27] MEDS ORDERED: PATIENT'S OWN MEDICATION (NON-FORMULARY) (Ertugliflozin Pidolate [Steglatro] 5 MG Tablet) PO SCH (10:00)
[2021-11-27] MEDS: PIOGLITAZONE HCL 15 MG TABLET PO SCH (11:30)
[2021-11-27] MEDS: INSULIN (LEVEMIR) 100 UNITS/ML UNITS SQ SCH ×2 (11:36→23:27)
[2021-11-27] MEDS ORDERED: INSULIN (LEVEMIR) 100 UNITS/ML UNITS SQ ONE (14:00)
[2021-11-27] MEDS ORDERED: INSULIN (LEVEMIR) 100 UNITS/ML UNITS SQ SCH (14:15)
[2021-11-27] MEDS: INSULIN (NOVOLOG) ASPART 100 UNITS/ML 10ML VIAL SQ SCH (16:50)
[2021-11-27] MEDS ORDERED: diazePAM 5 MG TABLET PO SCH (17:00)
[2021-11-27] MEDS: metFORMIN HCL 500 MG TABLET (FP) PO SCH (18:04)
[2021-11-27] MEDS: hydrOXYzine PAMOATE 25 MG CAPSULE (FP) PO PRN ×2 (18:04→23:26)
[2021-11-27] MEDS: diazePAM 5 MG TABLET PO PRN ×2 (18:04→23:31)
[2021-11-27] MEDS: MELATONIN 5 MG TABLETS PO SCH (23:26)
[2021-11-27] MEDS: THIAMINE HCL 100 MG TABLET (FP) PO SCH (23:26)
[2021-11-27] MEDS: ATORVASTATIN CA 20 MG TABLET (FP) PO SCH (23:27)
[2021-11-28] MEDS ORDERED: chlordiazePOXIDE HCL 10 MG CAPSULE PO PRN
[2021-11-28] MEDS ORDERED: chlordiazePOXIDE HCL 10 MG CAPSULE PO SCH (05:00)
[2021-11-28] MEDS: GABAPENTIN 300 MG CAPSULE PO SCH ×3 (06:20→22:37)
[2021-11-28] MEDS: metFORMIN HCL 500 MG TABLET (FP) PO SCH ×2 (06:20→16:30)
[2021-11-28] MEDS: hydrALAZINE HCL 10 MG TABLET PO SCH ×5 (06:21→23:19)
[2021-11-28] MEDS: INSULIN (NOVOLOG) ASPART 100 UNITS/ML 10ML VIAL SQ SCH ×3 (06:36→18:07)
[2021-11-28] MEDS: INSULIN SLIDING SCALE (NOVOLOG) 1 VIAL SQ SCH ×4 (06:37→22:45)
[2021-11-28] MEDS ORDERED: LORazepam 1 MG TABLET PO PRN (09:32)
[2021-11-28] MEDS: HYDROCHLOROTHIAZIDE 25 MG TABLET (FP) PO SCH (10:23)
[2021-11-28] MEDS: hydrOXYzine PAMOATE 25 MG CAPSULE (FP) PO PRN (10:23)
[2021-11-28] MEDS: PRENATAL VITAMINS W/ FOLIC ACID TABLET (FP) PO SCH (10:23)
[2021-11-28] MEDS: LISINOPRIL 20 MG TABLET PO SCH (10:23)
[2021-11-28] MEDS: ASPIRIN 81 MG CHEWABLE TABLETS PO SCH (10:23)
[2021-11-28] MEDS: METHOCARBAMOL 500 MG TABLET PO PRN (10:23)
[2021-11-28] MEDS: PIOGLITAZONE HCL 15 MG TABLET PO SCH (10:23)
[2021-11-28] MEDS: EMTRICITAB/RILPIVIRI/TENOF ALA (ODEFSEY) TABLET PO SCH (10:24)
[2021-11-28] MEDS: NIFEdipine E.R. 30 MG TABLET PO SCH (10:24)
[2021-11-28] MEDS: INSULIN (LEVEMIR) 100 UNITS/ML UNITS SQ SCH ×2 (11:16→22:44)
[2021-11-28] MEDS: LORazepam 1 MG TABLET PO SCH ×3 (11:23→22:37)
[2021-11-28 12:22] LABS: HEMATOCRIT 42.7 % (35.4-49); HEMOGLOBIN 14.2 GM/dL (11.7-16.9); MCH 31.4 pg (25.7-33.7); MCHC 33.2 g/dl (32.0-35.9); MEAN CELL VOLUME 94.7 fl (80-96); MEAN PLT VOLUME 7.1 fl (7.5-11.1); PLATELET COUNT 296 10^3/uL (134-434); RBC 4.51 M/mm3 (4.00-5.60); RDW 14.3 % (11.9-15.9); WHITE BLOOD COUNT 9.2 K/mm3 (4.0-10.0)
[2021-11-28 12:42] LABS: CALCIUM 9.2 mg/dL (8.5-10.1)
[2021-11-28 12:43] LABS: ALBUMIN 3.7 g/dl (3.4-5.0)
[2021-11-28 12:46] LABS: CREATININE 1.1 mg/dL (0.55-1.3)
[2021-11-28 12:48] LABS: BILIRUBIN,TOTAL 0.6 mg/dL (0.2-1); TOT PROT 7.8 g/dl (6.4-8.2)
[2021-11-28] MEDS: ATORVASTATIN CA 20 MG TABLET (FP) PO SCH (22:37)
[2021-11-28] MEDS: THIAMINE HCL 100 MG TABLET (FP) PO SCH (22:38)
[2021-11-28] MEDS: MELATONIN 5 MG TABLETS PO SCH (22:38)
[2021-11-28] MEDS ORDERED: LISINOPRIL 20 MG TABLET PO ONE (23:04)
[2021-11-29] MEDS: METHOCARBAMOL 500 MG TABLET PO PRN (01:14)
[2021-11-29] MEDS: hydrOXYzine PAMOATE 25 MG CAPSULE (FP) PO PRN ×2 (01:14→23:34)
[2021-11-29] MEDS ORDERED: chlordiazePOXIDE HCL 10 MG CAPSULE PO SCH (05:00)
[2021-11-29] MEDS ORDERED: INSULIN (NOVOLOG) ASPART 100 UNITS/ML 10ML VIAL ONE ×2 (05:43→21:07)
[2021-11-29] MEDS: hydrALAZINE HCL 10 MG TABLET PO SCH ×3 (05:44→18:00)
[2021-11-29] MEDS: GABAPENTIN 300 MG CAPSULE PO SCH ×3 (05:44→23:34)
[2021-11-29] MEDS: LORazepam 1 MG TABLET PO SCH ×4 (05:45→23:34)
[2021-11-29] MEDS ORDERED: diazePAM 5 MG TABLET PO SCH (06:00)
[2021-11-29] MEDS: INSULIN (NOVOLOG) ASPART 100 UNITS/ML 10ML VIAL SQ SCH ×3 (06:34→17:00)
[2021-11-29] MEDS: metFORMIN HCL 500 MG TABLET (FP) PO SCH ×2 (06:34→16:46)
[2021-11-29] MEDS: NIFEdipine E.R. 30 MG TABLET PO SCH (08:37)
[2021-11-29] MEDS: INSULIN SLIDING SCALE (NOVOLOG) 1 VIAL SQ SCH ×4 (08:37→23:40)
[2021-11-29] MEDS: PIOGLITAZONE HCL 15 MG TABLET PO SCH (11:03)
[2021-11-29] MEDS: ASPIRIN 81 MG CHEWABLE TABLETS PO SCH (11:04)
[2021-11-29] MEDS: EMTRICITAB/RILPIVIRI/TENOF ALA (ODEFSEY) TABLET PO SCH (11:04)
[2021-11-29] MEDS: FERROUS SO4 325 MG TABLET (FP) PO SCH (11:04)
[2021-11-29] MEDS: HYDROCHLOROTHIAZIDE 25 MG TABLET (FP) PO SCH (11:04)
[2021-11-29] MEDS: LISINOPRIL 20 MG TABLET PO SCH (11:05)
[2021-11-29] MEDS: PRENATAL VITAMINS W/ FOLIC ACID TABLET (FP) PO SCH (11:05)
[2021-11-29] MEDS: INSULIN (LEVEMIR) 100 UNITS/ML UNITS SQ SCH ×2 (11:46→23:37)
[2021-11-29] MEDS ORDERED: cloNIDine HCL 0.1 MG TABLET PO ONE (16:39)
[2021-11-29] MEDS ORDERED: LISINOPRIL 20 MG TABLET PO ONE (17:49)
[2021-11-29] MEDS: MELATONIN 5 MG TABLETS PO SCH (23:34)
[2021-11-29] MEDS: THIAMINE HCL 100 MG TABLET (FP) PO SCH (23:34)
[2021-11-29] MEDS: ATORVASTATIN CA 20 MG TABLET (FP) PO SCH (23:34)
[2021-11-30] MEDS ORDERED: LORazepam 0.5 MG TABLET PO PRN
[2021-11-30] MEDS: hydrALAZINE HCL 10 MG TABLET PO SCH ×3 (01:08→12:15)
[2021-11-30] MEDS ORDERED: chlordiazePOXIDE HCL 10 MG CAPSULE PO ONE (05:00)
[2021-11-30] MEDS: GABAPENTIN 300 MG CAPSULE PO SCH (05:51)
[2021-11-30] MEDS: LORazepam 0.5 MG TABLET PO SCH ×2 (05:51→10:46)
[2021-11-30] MEDS: NIFEdipine E.R. 30 MG TABLET PO SCH (05:52)
[2021-11-30] MEDS ORDERED: diazePAM 5 MG TABLET PO ONE (06:00)
[2021-11-30] MEDS ORDERED: LISINOPRIL 20 MG TABLET PO SCH (06:00)
[2021-11-30] MEDS: metFORMIN HCL 500 MG TABLET (FP) PO SCH (06:30)
[2021-11-30] MEDS: INSULIN (NOVOLOG) ASPART 100 UNITS/ML 10ML VIAL SQ SCH ×2 (06:30→12:13)
[2021-11-30] MEDS: INSULIN SLIDING SCALE (NOVOLOG) 1 VIAL SQ SCH ×2 (08:50→12:13)
[2021-11-30] MEDS: EMTRICITAB/RILPIVIRI/TENOF ALA (ODEFSEY) TABLET PO SCH (10:44)
[2021-11-30] MEDS: PIOGLITAZONE HCL 15 MG TABLET PO SCH (10:45)
[2021-11-30] MEDS: HYDROCHLOROTHIAZIDE 25 MG TABLET (FP) PO SCH (10:45)
[2021-11-30] MEDS: ASPIRIN 81 MG CHEWABLE TABLETS PO SCH (10:45)
[2021-11-30] MEDS: PRENATAL VITAMINS W/ FOLIC ACID TABLET (FP) PO SCH (10:45)
[2021-11-30] MEDS: INSULIN (LEVEMIR) 100 UNITS/ML UNITS SQ SCH (11:59)
[2021-11-30 13:02] VITALS: BP 164/91; PULSE 106; RESP 17; TEMP 96.8
== END 2021-11-30 12:50 | disposition other institution (70) | DRG 774 ==
LOC: YASAS 15:51 → Y6N 19:39
PROVIDERS: ADMIT Allergy & Immunology; ATTEND Psychiatry & Neurology Pain Medicine
PROC: HZ2ZZZZ Detoxification Services for Substance Abuse Treatment (ICD-10-PCS; principal; 2021-11-25)
DX: F10.230 Alcohol dependence with withdrawal, uncomplicated (principal); F14.10 Cocaine abuse, uncomplicated; Z21 Asymptomatic human immunodeficiency virus [HIV] infection status; I11.0 Hypertensive heart disease with heart failure; I50.9 Heart failure, unspecified; E11.9 Type 2 diabetes mellitus without complications; Z79.4 Long term (current) use of insulin; J45.20 Mild intermittent asthma, uncomplicated; I99.8 Other disorder of circulatory system; E66.01 Morbid (severe) obesity due to excess calories; Z68.42 Body mass index [BMI] 45.0-49.9, adult
CPT/HCPCS: 36415; 80053; 82962; 85027; 86780; C9803-CS; J0735; U0003; U0005

== ENCOUNTER 2021-11-30 09:01 | Inpatient (IN) | payer OTHER ==
[2021-11-30] MEDS ORDERED: guaiFENesin 200 MG/10 ML 10 ML UNIT-DOSE CUPS PO PRN (14:44)
[2021-11-30] MEDS ORDERED: MAG HYDROX/AL HYDROX/SIMETH 30 ML UNIT-DOSE CUP PO PRN (14:44)
[2021-11-30] MEDS ORDERED: ACETAMINOPHEN 325 MG TABLET (FP) PO PRN (14:44)
[2021-11-30] MEDS ORDERED: P-EPHED 60MG/TRIPROLIDI 2.5MG TABLET PO PRN (14:44)
[2021-11-30] MEDS ORDERED: BENZOCAINE/MENTHOL (CHLORASEPTIC ) LOZENGE MM PRN (14:44)
[2021-11-30] MEDS ORDERED: IBUPROFEN 400 MG TABLET (FP) PO PRN (14:44)
[2021-11-30] MEDS ORDERED: MAGNESIUM HYDROX 2400MG/30ML ORAL SUSPENSION 30 ML CUP PO PRN (14:44)
[2021-11-30] MEDS ORDERED: NICOTINE 10 MG CARTRIDGE (INHALER) IH PRN (14:44)
[2021-11-30] MEDS ORDERED: LOPERAMIDE HCL 2 MG CAPSULE PO PRN (14:44)
[2021-11-30] MEDS ORDERED: MAGNESIUM CITRATE 300 ML BOTTLE PO PRN (14:44)
[2021-11-30] MEDS ORDERED: ALBUTEROL SO4 HFA INHALER IH PRN (15:55)
[2021-11-30] MEDS ORDERED: PATIENT'S OWN MEDICATION (NON-FORMULARY) (Semaglutide [Ozempic] 0.25 MG/0.2 ML Pen.Injctr) SQ SCH (16:00)
[2021-11-30] MEDS ORDERED: INSULIN SLIDING SCALE (NOVOLOG) 1 VIAL SQ SCH (16:30)
[2021-11-30] MEDS: hydrOXYzine PAMOATE 25 MG CAPSULE (FP) PO SCH ×2 (17:28→21:47)
[2021-11-30] MEDS: metFORMIN HCL 500 MG TABLET (FP) PO SCH (17:28)
[2021-11-30] MEDS ORDERED: INSULIN (NOVOLOG) ASPART 100 UNITS/ML 10ML VIAL SQ ONE (18:30)
[2021-11-30] MEDS: hydrALAZINE HCL 10 MG TABLET PO SCH (19:00)
[2021-11-30] MEDS: GABAPENTIN 300 MG CAPSULE PO SCH (21:17)
[2021-11-30] MEDS: THIAMINE HCL 100 MG TABLET (FP) PO SCH (21:18)
[2021-11-30] MEDS: ATORVASTATIN CA 20 MG TABLET (FP) PO SCH (21:18)
[2021-11-30] MEDS: MELATONIN 5 MG TABLETS PO SCH (21:18)
[2021-11-30] MEDS: INSULIN (LEVEMIR) 100 UNITS/ML UNITS SQ SCH (21:19)
[2021-11-30] MEDS: INSULIN SLIDING SCALE (NOVOLOG) 1 VIAL SQ SCH (21:23)
[2021-12-01] MEDS: hydrALAZINE HCL 10 MG TABLET PO SCH ×5 (01:33→23:39)
[2021-12-01] MEDS: metFORMIN HCL 500 MG TABLET (FP) PO SCH ×2 (06:25→16:38)
[2021-12-01] MEDS: GABAPENTIN 300 MG CAPSULE PO SCH ×3 (06:25→21:23)
[2021-12-01] MEDS: LISINOPRIL 20 MG TABLET PO SCH (06:25)
[2021-12-01] MEDS: hydrOXYzine PAMOATE 25 MG CAPSULE (FP) PO SCH ×5 (06:25→21:23)
[2021-12-01] MEDS: PIOGLITAZONE HCL 15 MG TABLET PO SCH (06:25)
[2021-12-01] MEDS: INSULIN SLIDING SCALE (NOVOLOG) 1 VIAL SQ SCH ×4 (06:28→21:24)
[2021-12-01] MEDS ORDERED: INSULIN SLIDING SCALE (NOVOLOG) 1 VIAL SQ ONE ×2 (06:28→12:33)
[2021-12-01] MEDS ORDERED: PATIENT'S OWN MEDICATION (NON-FORMULARY) (Insulin Glargine,Hum.Rec.Anlog [Basaglar Kwikpen SQ SCH (10:00)
[2021-12-01] MEDS: ASPIRIN 81 MG CHEWABLE TABLETS PO SCH (10:42)
[2021-12-01] MEDS: NICOTINE 7 MG/24 HOURS TOPICAL PATCH TD SCH (10:44)
[2021-12-01] MEDS: INSULIN (LEVEMIR) 100 UNITS/ML UNITS SQ SCH ×2 (10:45→21:23)
[2021-12-01] MEDS: PRENATAL VITAMINS W/ FOLIC ACID TABLET (FP) PO SCH (10:46)
[2021-12-01] MEDS: HYDROCHLOROTHIAZIDE 25 MG TABLET (FP) PO SCH (10:47)
[2021-12-01] MEDS: PATIENT'S OWN MEDICATION (NON-FORMULARY) (Ertugliflozin Pidolate [Steglatro] 5 MG Tablet) PO SCH (16:24)
[2021-12-01] MEDS: EMTRICITAB/RILPIVIRI/TENOF ALA (ODEFSEY) TABLET PO SCH (16:24)
[2021-12-01] MEDS: ATORVASTATIN CA 20 MG TABLET (FP) PO SCH (21:23)
[2021-12-01] MEDS: MELATONIN 5 MG TABLETS PO SCH (21:24)
[2021-12-01] MEDS: THIAMINE HCL 100 MG TABLET (FP) PO SCH (21:24)
[2021-12-02] MEDS: metFORMIN HCL 500 MG TABLET (FP) PO SCH ×2 (06:21→17:05)
[2021-12-02] MEDS: hydrOXYzine PAMOATE 25 MG CAPSULE (FP) PO SCH ×5 (06:21→21:33)
[2021-12-02] MEDS: LISINOPRIL 20 MG TABLET PO SCH (06:21)
[2021-12-02] MEDS: hydrALAZINE HCL 10 MG TABLET PO SCH ×3 (06:21→17:07)
[2021-12-02] MEDS: GABAPENTIN 300 MG CAPSULE PO SCH ×3 (06:22→21:33)
[2021-12-02] MEDS: INSULIN SLIDING SCALE (NOVOLOG) 1 VIAL SQ SCH ×3 (06:22→17:14)
[2021-12-02] MEDS: PIOGLITAZONE HCL 15 MG TABLET PO SCH (06:22)
[2021-12-02] MEDS: ASPIRIN 81 MG CHEWABLE TABLETS PO SCH (10:03)
[2021-12-02] MEDS: PRENATAL VITAMINS W/ FOLIC ACID TABLET (FP) PO SCH (10:04)
[2021-12-02] MEDS: HYDROCHLOROTHIAZIDE 25 MG TABLET (FP) PO SCH (10:04)
[2021-12-02] MEDS: INSULIN (LEVEMIR) 100 UNITS/ML UNITS SQ SCH ×2 (10:06→22:15)
[2021-12-02] MEDS: EMTRICITAB/RILPIVIRI/TENOF ALA (ODEFSEY) TABLET PO SCH (10:22)
[2021-12-02] MEDS: NICOTINE 7 MG/24 HOURS TOPICAL PATCH TD SCH (10:22)
[2021-12-02] MEDS: PATIENT'S OWN MEDICATION (NON-FORMULARY) (Ertugliflozin Pidolate [Steglatro] 5 MG Tablet) PO SCH (13:12)
[2021-12-02] MEDS ORDERED: INSULIN (NOVOLOG) ASPART 100 UNITS/ML 10ML VIAL SQ ONE (18:35)
[2021-12-02] MEDS ORDERED: INSULIN SLIDING SCALE (NOVOLOG) 1 VIAL SQ ONE (19:07)
[2021-12-02] MEDS: ATORVASTATIN CA 20 MG TABLET (FP) PO SCH (21:32)
[2021-12-02] MEDS: THIAMINE HCL 100 MG TABLET (FP) PO SCH (21:33)
[2021-12-02] MEDS: MELATONIN 5 MG TABLETS PO SCH (21:33)
[2021-12-03] MEDS: hydrALAZINE HCL 10 MG TABLET PO SCH ×4 (05:56→17:21)
[2021-12-03] MEDS: GABAPENTIN 300 MG CAPSULE PO SCH ×3 (05:57→21:23)
[2021-12-03] MEDS: metFORMIN HCL 500 MG TABLET (FP) PO SCH ×3 (05:57→16:39)
[2021-12-03] MEDS: LISINOPRIL 20 MG TABLET PO SCH (05:57)
[2021-12-03] MEDS: hydrOXYzine PAMOATE 25 MG CAPSULE (FP) PO SCH ×5 (05:57→21:23)
[2021-12-03] MEDS: PIOGLITAZONE HCL 15 MG TABLET PO SCH (06:02)
[2021-12-03] MEDS: INSULIN SLIDING SCALE (NOVOLOG) 1 VIAL SQ SCH ×3 (07:16→16:39)
[2021-12-03] MEDS: ERTUGLIFLOZIN PIDOLATE 5 MG PO SCH (07:16)
[2021-12-03] MEDS: HYDROCHLOROTHIAZIDE 25 MG TABLET (FP) PO SCH (10:53)
[2021-12-03] MEDS: ASPIRIN 81 MG CHEWABLE TABLETS PO SCH (10:53)
[2021-12-03] MEDS: PRENATAL VITAMINS W/ FOLIC ACID TABLET (FP) PO SCH (10:53)
[2021-12-03] MEDS: NICOTINE 7 MG/24 HOURS TOPICAL PATCH TD SCH (10:54)
[2021-12-03] MEDS: EMTRICITAB/RILPIVIRI/TENOF ALA (ODEFSEY) TABLET PO SCH (10:54)
[2021-12-03] MEDS: INSULIN (LEVEMIR) 100 UNITS/ML UNITS SQ SCH ×2 (11:11→21:25)
[2021-12-03] MEDS ORDERED: INSULIN SLIDING SCALE (NOVOLOG) 1 VIAL SQ ONE (11:12)
[2021-12-03] MEDS: ATORVASTATIN CA 20 MG TABLET (FP) PO SCH (21:23)
[2021-12-03] MEDS: THIAMINE HCL 100 MG TABLET (FP) PO SCH (21:23)
[2021-12-03] MEDS: MELATONIN 5 MG TABLETS PO SCH (21:24)
[2021-12-04] MEDS: hydrALAZINE HCL 10 MG TABLET PO SCH ×4 (00:12→17:16)
[2021-12-04] MEDS: INSULIN SLIDING SCALE (NOVOLOG) 1 VIAL SQ SCH ×3 (06:46→17:14)
[2021-12-04] MEDS: hydrOXYzine PAMOATE 25 MG CAPSULE (FP) PO SCH ×5 (06:48→21:55)
[2021-12-04] MEDS: LISINOPRIL 20 MG TABLET PO SCH (06:48)
[2021-12-04] MEDS: GABAPENTIN 300 MG CAPSULE PO SCH ×3 (06:49→21:53)
[2021-12-04] MEDS: metFORMIN HCL 500 MG TABLET (FP) PO SCH ×2 (06:49→17:14)
[2021-12-04] MEDS: PIOGLITAZONE HCL 15 MG TABLET PO SCH (06:50)
[2021-12-04] MEDS: ERTUGLIFLOZIN PIDOLATE 5 MG PO SCH (07:04)
[2021-12-04] MEDS: ASPIRIN 81 MG CHEWABLE TABLETS PO SCH (10:46)
[2021-12-04] MEDS: PRENATAL VITAMINS W/ FOLIC ACID TABLET (FP) PO SCH (10:46)
[2021-12-04] MEDS: HYDROCHLOROTHIAZIDE 25 MG TABLET (FP) PO SCH (10:47)
[2021-12-04] MEDS: NICOTINE 7 MG/24 HOURS TOPICAL PATCH TD SCH (10:48)
[2021-12-04] MEDS: INSULIN (LEVEMIR) 100 UNITS/ML UNITS SQ SCH ×2 (10:52→21:54)
[2021-12-04] MEDS: EMTRICITAB/RILPIVIRI/TENOF ALA (ODEFSEY) TABLET PO SCH (11:53)
[2021-12-04] MEDS ORDERED: METOPROLOL TARTRATE 25 MG TABLET (FP) PO ONE (19:06)
[2021-12-04] MEDS: MELATONIN 5 MG TABLETS PO SCH (21:53)
[2021-12-04] MEDS: ATORVASTATIN CA 20 MG TABLET (FP) PO SCH (21:53)
[2021-12-04] MEDS: THIAMINE HCL 100 MG TABLET (FP) PO SCH (21:54)
[2021-12-05] MEDS: hydrALAZINE HCL 10 MG TABLET PO SCH ×4 (00:43→17:13)
[2021-12-05] MEDS: hydrOXYzine PAMOATE 25 MG CAPSULE (FP) PO SCH ×5 (06:15→21:24)
[2021-12-05] MEDS: LISINOPRIL 20 MG TABLET PO SCH (06:15)
[2021-12-05] MEDS: GABAPENTIN 300 MG CAPSULE PO SCH ×3 (06:15→21:24)
[2021-12-05] MEDS: PIOGLITAZONE HCL 15 MG TABLET PO SCH (06:16)
[2021-12-05] MEDS: metFORMIN HCL 500 MG TABLET (FP) PO SCH ×2 (06:16→17:09)
[2021-12-05] MEDS: INSULIN SLIDING SCALE (NOVOLOG) 1 VIAL SQ SCH ×3 (07:06→17:11)
[2021-12-05] MEDS: ERTUGLIFLOZIN PIDOLATE 5 MG PO SCH (07:06)
[2021-12-05] MEDS: PRENATAL VITAMINS W/ FOLIC ACID TABLET (FP) PO SCH (10:22)
[2021-12-05] MEDS: ASPIRIN 81 MG CHEWABLE TABLETS PO SCH (10:22)
[2021-12-05] MEDS: NICOTINE 7 MG/24 HOURS TOPICAL PATCH TD SCH (10:23)
[2021-12-05] MEDS: EMTRICITAB/RILPIVIRI/TENOF ALA (ODEFSEY) TABLET PO SCH (10:23)
[2021-12-05] MEDS: metoPROLOL SUCCINATE 25 MG TAB.SR.24H (FP) PO SCH (10:24)
[2021-12-05] MEDS: HYDROCHLOROTHIAZIDE 25 MG TABLET (FP) PO SCH (10:25)
[2021-12-05] MEDS: INSULIN (LEVEMIR) 100 UNITS/ML UNITS SQ SCH ×2 (11:06→21:23)
[2021-12-05] MEDS: MELATONIN 5 MG TABLETS PO SCH (21:24)
[2021-12-05] MEDS: THIAMINE HCL 100 MG TABLET (FP) PO SCH (21:24)
[2021-12-05] MEDS: ATORVASTATIN CA 20 MG TABLET (FP) PO SCH (21:24)
[2021-12-06] MEDS: hydrALAZINE HCL 10 MG TABLET PO SCH ×5 (00:11→23:20)
[2021-12-06] MEDS: INSULIN SLIDING SCALE (NOVOLOG) 1 VIAL SQ SCH ×3 (06:13→16:42)
[2021-12-06] MEDS: LISINOPRIL 20 MG TABLET PO SCH (06:15)
[2021-12-06] MEDS: GABAPENTIN 300 MG CAPSULE PO SCH ×3 (06:15→21:09)
[2021-12-06] MEDS: metFORMIN HCL 500 MG TABLET (FP) PO SCH ×2 (06:15→16:41)
[2021-12-06] MEDS: hydrOXYzine PAMOATE 25 MG CAPSULE (FP) PO SCH ×5 (06:15→21:10)
[2021-12-06] MEDS: PIOGLITAZONE HCL 15 MG TABLET PO SCH (06:18)
[2021-12-06] MEDS ORDERED: INSULIN SLIDING SCALE (NOVOLOG) 1 VIAL SQ ONE (07:06)
[2021-12-06] MEDS: ERTUGLIFLOZIN PIDOLATE 5 MG PO SCH (07:37)
[2021-12-06] MEDS: ASPIRIN 81 MG CHEWABLE TABLETS PO SCH (10:28)
[2021-12-06] MEDS: EMTRICITAB/RILPIVIRI/TENOF ALA (ODEFSEY) TABLET PO SCH (10:28)
[2021-12-06] MEDS: HYDROCHLOROTHIAZIDE 25 MG TABLET (FP) PO SCH (10:28)
[2021-12-06] MEDS: metoPROLOL SUCCINATE 25 MG TAB.SR.24H (FP) PO SCH (10:28)
[2021-12-06] MEDS: PRENATAL VITAMINS W/ FOLIC ACID TABLET (FP) PO SCH (10:28)
[2021-12-06] MEDS: NICOTINE 7 MG/24 HOURS TOPICAL PATCH TD SCH (10:29)
[2021-12-06] MEDS: INSULIN (LEVEMIR) 100 UNITS/ML UNITS SQ SCH ×2 (11:31→21:13)
[2021-12-06] MEDS: ATORVASTATIN CA 20 MG TABLET (FP) PO SCH (21:10)
[2021-12-06] MEDS: THIAMINE HCL 100 MG TABLET (FP) PO SCH (21:10)
[2021-12-06] MEDS: MELATONIN 5 MG TABLETS PO SCH (21:10)
[2021-12-06] MEDS ORDERED: cloNIDine HCL 0.1 MG TABLET PO ONE (23:40)
[2021-12-07] MEDS: GABAPENTIN 300 MG CAPSULE PO SCH ×2 (05:54→14:02)
[2021-12-07] MEDS: hydrOXYzine PAMOATE 25 MG CAPSULE (FP) PO SCH ×4 (05:54→17:31)
[2021-12-07] MEDS: LISINOPRIL 20 MG TABLET PO SCH (05:54)
[2021-12-07] MEDS: hydrALAZINE HCL 10 MG TABLET PO SCH ×3 (05:54→17:31)
[2021-12-07] MEDS: INSULIN SLIDING SCALE (NOVOLOG) 1 VIAL SQ SCH ×3 (06:03→16:46)
[2021-12-07] MEDS: metFORMIN HCL 500 MG TABLET (FP) PO SCH ×2 (06:04→16:43)
[2021-12-07] MEDS: PIOGLITAZONE HCL 15 MG TABLET PO SCH (06:05)
[2021-12-07] MEDS: ERTUGLIFLOZIN PIDOLATE 5 MG PO SCH (07:07)
[2021-12-07] MEDS: metoPROLOL SUCCINATE 25 MG TAB.SR.24H (FP) PO SCH (10:36)
[2021-12-07] MEDS: HYDROCHLOROTHIAZIDE 25 MG TABLET (FP) PO SCH (10:36)
[2021-12-07] MEDS: PRENATAL VITAMINS W/ FOLIC ACID TABLET (FP) PO SCH (10:36)
[2021-12-07] MEDS: ASPIRIN 81 MG CHEWABLE TABLETS PO SCH (10:36)
[2021-12-07] MEDS: EMTRICITAB/RILPIVIRI/TENOF ALA (ODEFSEY) TABLET PO SCH (10:36)
[2021-12-07] MEDS: NICOTINE 7 MG/24 HOURS TOPICAL PATCH TD SCH (10:36)
[2021-12-07] MEDS: INSULIN (LEVEMIR) 100 UNITS/ML UNITS SQ SCH (10:36)
[2021-12-07 22:12] VITALS: RESP 18
[2021-12-07 22:14] VITALS: BP 160/102; PULSE 102; TEMP 97.5
== END 2021-12-07 21:25 | disposition left against medical advice (07) | DRG 770 ==
LOC: YASAS 09:01 → Y3W 09:03
PROVIDERS: ADMIT Allergy & Immunology; ATTEND Psychiatry & Neurology Pain Medicine
PROC: HZ42ZZZ Group Counseling for Substance Abuse Treatment, Cognitive-Behavioral (ICD-10-PCS; principal; 2021-11-30)
DX: F10.20 Alcohol dependence, uncomplicated (principal); F14.20 Cocaine dependence, uncomplicated; I11.0 Hypertensive heart disease with heart failure; I50.9 Heart failure, unspecified; J45.20 Mild intermittent asthma, uncomplicated; R94.5 Abnormal results of liver function studies; G47.30 Sleep apnea, unspecified; E11.65 Type 2 diabetes mellitus with hyperglycemia; Z21 Asymptomatic human immunodeficiency virus [HIV] infection status; E66.01 Morbid (severe) obesity due to excess calories; Z68.42 Body mass index [BMI] 45.0-49.9, adult; Z79.4 Long term (current) use of insulin
CPT/HCPCS: 82962; 83036

== ENCOUNTER 2022-01-13 09:34 | Inpatient (IN) | payer OTHER ==
[2022-01-13 10:35] VITALS: BMI 51.5
[2022-01-13] MEDS ORDERED: ACETAMINOPHEN 325 MG TABLET (FP) PO PRN (11:41)
[2022-01-13] MEDS ORDERED: MAGNESIUM HYDROX 2400MG/30ML ORAL SUSPENSION 30 ML CUP PO PRN (11:41)
[2022-01-13] MEDS ORDERED: MAGNESIUM CITRATE 300 ML BOTTLE PO PRN (11:41)
[2022-01-13] MEDS ORDERED: IBUPROFEN 400 MG TABLET (FP) PO PRN (11:41)
[2022-01-13] MEDS ORDERED: guaiFENesin 200 MG/10 ML 10 ML UNIT-DOSE CUPS PO PRN (11:41)
[2022-01-13] MEDS ORDERED: LOPERAMIDE HCL 2 MG CAPSULE PO PRN (11:41)
[2022-01-13] MEDS ORDERED: P-EPHED 60MG/TRIPROLIDI 2.5MG TABLET PO PRN (11:41)
[2022-01-13] MEDS ORDERED: MAG HYDROX/AL HYDROX/SIMETH 30 ML UNIT-DOSE CUP PO PRN (11:41)
[2022-01-13] MEDS ORDERED: ALBUTEROL SO4 HFA INHALER IH PRN (15:09)
[2022-01-13] MEDS: PRENATAL VITAMINS W/ FOLIC ACID TABLET (FP) PO SCH (15:23)
[2022-01-13] MEDS: hydrOXYzine PAMOATE 25 MG CAPSULE (FP) PO SCH ×3 (15:24→21:37)
[2022-01-13 15:38] LABS: HEMATOCRIT 40.7 % (35.4-49); HEMOGLOBIN 13.6 GM/dL (11.7-16.9); MCH 31.4 pg (25.7-33.7); MCHC 33.5 g/dl (32.0-35.9); MEAN CELL VOLUME 93.8 fl (80-96); MEAN PLT VOLUME 7.7 fl (7.5-11.1); PLATELET COUNT 232 10^3/uL (134-434); RBC 4.34 M/mm3 (4.00-5.60); RDW 13.4 % (11.9-15.9); WHITE BLOOD COUNT 6.3 K/mm3 (4.0-10.0)
[2022-01-13 16:07] LABS: ALBUMIN 3.5 g/dl (3.4-5.0); CALCIUM 8.6 mg/dL (8.5-10.1)
[2022-01-13 16:08] LABS: BLOOD UREA NITROGEN 11.4 mg/dL (7-18)
[2022-01-13 16:10] LABS: CREATININE 1.4 mg/dL (0.55-1.3)
[2022-01-13 16:12] LABS: BILIRUBIN,TOTAL 1.4 mg/dL (0.2-1)
[2022-01-13] MEDS ORDERED: INSULIN SLIDING SCALE (NOVOLOG) 1 VIAL SQ SCH (16:30)
[2022-01-13 16:34] LABS: SYPHILIS W/ RPR CONF NON-REACTIVE (NONREACTIVE)
[2022-01-13] MEDS: metFORMIN HCL 500 MG TABLET (FP) PO SCH (17:32)
[2022-01-13] MEDS: EMTRICITAB/RILPIVIRI/TENOF ALA (ODEFSEY) TABLET PO SCH (17:36)
[2022-01-13] MEDS: hydrALAZINE HCL 10 MG TABLET PO SCH (18:10)
[2022-01-13] MEDS: ATORVASTATIN CA 20 MG TABLET (FP) PO SCH (21:23)
[2022-01-13] MEDS: MELATONIN 5 MG TABLETS PO SCH (21:37)
[2022-01-13] MEDS: THIAMINE HCL 100 MG TABLET (FP) PO SCH (21:37)
[2022-01-13] MEDS: INSULIN SLIDING SCALE (NOVOLOG) 1 VIAL SQ SCH (22:33)
[2022-01-14] MEDS: hydrALAZINE HCL 10 MG TABLET PO SCH ×4 (01:14→17:02)
[2022-01-14] MEDS: INSULIN SLIDING SCALE (NOVOLOG) 1 VIAL SQ SCH ×4 (06:34→21:29)
[2022-01-14] MEDS: hydrOXYzine PAMOATE 25 MG CAPSULE (FP) PO SCH ×5 (06:35→21:26)
[2022-01-14] MEDS: metFORMIN HCL 500 MG TABLET (FP) PO SCH ×2 (06:35→16:54)
[2022-01-14] MEDS: PIOGLITAZONE HCL 15 MG TABLET PO SCH (06:35)
[2022-01-14] MEDS: EMTRICITAB/RILPIVIRI/TENOF ALA (ODEFSEY) TABLET PO SCH (07:09)
[2022-01-14] MEDS: LISINOPRIL 20 MG TABLET PO SCH (07:09)
[2022-01-14] MEDS: HYDROCHLOROTHIAZIDE 25 MG TABLET (FP) PO SCH (09:10)
[2022-01-14] MEDS: ASPIRIN 81 MG CHEWABLE TABLETS PO SCH (09:10)
[2022-01-14] MEDS: INSULIN (LEVEMIR) 100 UNITS/ML UNITS SQ SCH (09:12)
[2022-01-14] MEDS: PRENATAL VITAMINS W/ FOLIC ACID TABLET (FP) PO SCH (09:12)
[2022-01-14] MEDS: ERTUGLIFLOZIN PIDOLATE 5 MG PO SCH (09:13)
[2022-01-14] MEDS: LIRAGLUTIDE 0.6 MG/0.1 ML PEN.INJCTR SQ SCH (09:14)
[2022-01-14] MEDS ORDERED: INSULIN (NOVOLOG) ASPART 100 UNITS/ML 10ML VIAL ONE (11:51)
[2022-01-14 15:40] LABS: EPI CELLS 0 /uL (0-25.1); HYALINE CASTS 0 /uL (0-3.1); URINE APPEARANCE CLEAR; URINE BACTERIA 2 /uL (0-1359); URINE BILIRUBIN NEGATIVE (NEGATIVE); URINE COLOR YELLOW; URINE GLUCOSE (UA) 3+ (NEGATIVE); URINE KETONE NEGATIVE (NEGATIVE); URINE LEUK ESTERASE NEGATIVE (NEGATIVE); URINE NITRITE NEGATIVE (NEGATIVE); URINE PROTEIN 1+ (NEGATIVE); URINE RBC 1 /uL (0-23.9); URINE UROBILINOGEN 0.2 mg/dL (0.2-1.0); URINE WBC 2 /uL (0-25.8)
[2022-01-14] MEDS ORDERED: cloNIDine HCL 0.1 MG TABLET PO ONE ×2 (15:43→21:12)
[2022-01-14] MEDS: THIAMINE HCL 100 MG TABLET (FP) PO SCH (21:25)
[2022-01-14] MEDS: MELATONIN 5 MG TABLETS PO SCH (21:25)
[2022-01-14] MEDS: ATORVASTATIN CA 20 MG TABLET (FP) PO SCH (21:26)
[2022-01-14] MEDS: LACTULOSE 20 GM/30 ML UDC (FOR ORAL USE ONLY) PO SCH (21:27)
[2022-01-15] MEDS: hydrALAZINE HCL 10 MG TABLET PO SCH ×4 (01:00→17:43)
[2022-01-15] MEDS: hydrOXYzine PAMOATE 25 MG CAPSULE (FP) PO SCH ×3 (06:28→14:28)
[2022-01-15] MEDS: LACTULOSE 20 GM/30 ML UDC (FOR ORAL USE ONLY) PO SCH ×3 (06:28→21:21)
[2022-01-15] MEDS: PIOGLITAZONE HCL 15 MG TABLET PO SCH (06:28)
[2022-01-15] MEDS: LISINOPRIL 20 MG TABLET PO SCH (06:28)
[2022-01-15] MEDS: metFORMIN HCL 500 MG TABLET (FP) PO SCH ×2 (06:28→16:51)
[2022-01-15] MEDS: INSULIN SLIDING SCALE (NOVOLOG) 1 VIAL SQ SCH ×4 (06:30→21:23)
[2022-01-15] MEDS: EMTRICITAB/RILPIVIRI/TENOF ALA (ODEFSEY) TABLET PO SCH (07:13)
[2022-01-15] MEDS: HYDROCHLOROTHIAZIDE 25 MG TABLET (FP) PO SCH (09:44)
[2022-01-15] MEDS: ASPIRIN 81 MG CHEWABLE TABLETS PO SCH (09:44)
[2022-01-15] MEDS: PRENATAL VITAMINS W/ FOLIC ACID TABLET (FP) PO SCH (09:45)
[2022-01-15] MEDS: ERTUGLIFLOZIN PIDOLATE 5 MG PO SCH (09:45)
[2022-01-15] MEDS: LIRAGLUTIDE 0.6 MG/0.1 ML PEN.INJCTR SQ SCH (10:58)
[2022-01-15] MEDS: INSULIN (LEVEMIR) 100 UNITS/ML UNITS SQ SCH (11:00)
[2022-01-15] MEDS ORDERED: INSULIN (NOVOLOG) ASPART 100 UNITS/ML 10ML VIAL ONE (11:04)
[2022-01-15] MEDS: FUROSEMIDE 40 MG TABLET (FP) PO SCH (14:27)
[2022-01-15] MEDS: NIFEdipine E.R. 30 MG TABLET PO SCH (14:27)
[2022-01-15] MEDS: ATORVASTATIN CA 20 MG TABLET (FP) PO SCH (21:21)
[2022-01-15] MEDS: hydrOXYzine PAMOATE 25 MG CAPSULE (FP) PO PRN (21:21)
[2022-01-15] MEDS: MELATONIN 5 MG TABLETS PO SCH (21:21)
[2022-01-15] MEDS: THIAMINE HCL 100 MG TABLET (FP) PO SCH (21:21)
[2022-01-15] MEDS ORDERED: cloNIDine HCL 0.1 MG TABLET PO ONE (21:34)
[2022-01-16] MEDS: hydrALAZINE HCL 10 MG TABLET PO SCH ×5 (00:11→23:05)
[2022-01-16] MEDS: LISINOPRIL 20 MG TABLET PO SCH (06:23)
[2022-01-16] MEDS: metFORMIN HCL 500 MG TABLET (FP) PO SCH ×2 (06:23→16:33)
[2022-01-16] MEDS: LACTULOSE 20 GM/30 ML UDC (FOR ORAL USE ONLY) PO SCH ×3 (06:23→21:25)
[2022-01-16] MEDS ORDERED: INSULIN (NOVOLOG) ASPART 100 UNITS/ML 10ML VIAL ONE ×3 (06:24→16:32)
[2022-01-16] MEDS: INSULIN SLIDING SCALE (NOVOLOG) 1 VIAL SQ SCH ×4 (06:25→21:26)
[2022-01-16] MEDS: EMTRICITAB/RILPIVIRI/TENOF ALA (ODEFSEY) TABLET PO SCH (07:06)
[2022-01-16] MEDS: PIOGLITAZONE HCL 15 MG TABLET PO SCH (08:15)
[2022-01-16] MEDS: FUROSEMIDE 40 MG TABLET (FP) PO SCH (10:17)
[2022-01-16] MEDS: ASPIRIN 81 MG CHEWABLE TABLETS PO SCH (10:17)
[2022-01-16] MEDS: LIRAGLUTIDE 0.6 MG/0.1 ML PEN.INJCTR SQ SCH (10:18)
[2022-01-16] MEDS: ERTUGLIFLOZIN PIDOLATE 5 MG PO SCH (10:18)
[2022-01-16] MEDS: PRENATAL VITAMINS W/ FOLIC ACID TABLET (FP) PO SCH (10:18)
[2022-01-16] MEDS: NIFEdipine E.R. 30 MG TABLET PO SCH (10:18)
[2022-01-16] MEDS: HYDROCHLOROTHIAZIDE 25 MG TABLET (FP) PO SCH (10:20)
[2022-01-16] MEDS: INSULIN (LEVEMIR) 100 UNITS/ML UNITS SQ SCH (10:25)
[2022-01-16] MEDS: ATORVASTATIN CA 20 MG TABLET (FP) PO SCH (21:25)
[2022-01-16] MEDS: THIAMINE HCL 100 MG TABLET (FP) PO SCH (21:25)
[2022-01-16] MEDS: MELATONIN 5 MG TABLETS PO SCH (21:25)
[2022-01-16] MEDS: hydrOXYzine PAMOATE 25 MG CAPSULE (FP) PO PRN (21:25)
[2022-01-17] MEDS: metFORMIN HCL 500 MG TABLET (FP) PO SCH ×2 (06:22→16:50)
[2022-01-17] MEDS: hydrALAZINE HCL 10 MG TABLET PO SCH ×4 (06:23→23:04)
[2022-01-17] MEDS: LISINOPRIL 20 MG TABLET PO SCH (06:23)
[2022-01-17] MEDS: LACTULOSE 20 GM/30 ML UDC (FOR ORAL USE ONLY) PO SCH ×3 (06:23→22:07)
[2022-01-17] MEDS: PIOGLITAZONE HCL 15 MG TABLET PO SCH (06:24)
[2022-01-17] MEDS: INSULIN SLIDING SCALE (NOVOLOG) 1 VIAL SQ SCH ×4 (06:36→22:04)
[2022-01-17] MEDS ORDERED: INSULIN (NOVOLOG) ASPART 100 UNITS/ML 10ML VIAL ONE ×4 (06:49→22:05)
[2022-01-17] MEDS: EMTRICITAB/RILPIVIRI/TENOF ALA (ODEFSEY) TABLET PO SCH (07:05)
[2022-01-17] MEDS: ASPIRIN 81 MG CHEWABLE TABLETS PO SCH (10:46)
[2022-01-17] MEDS: HYDROCHLOROTHIAZIDE 25 MG TABLET (FP) PO SCH (10:46)
[2022-01-17] MEDS: FUROSEMIDE 40 MG TABLET (FP) PO SCH (10:46)
[2022-01-17] MEDS: PRENATAL VITAMINS W/ FOLIC ACID TABLET (FP) PO SCH (10:47)
[2022-01-17] MEDS: INSULIN (LEVEMIR) 100 UNITS/ML UNITS SQ SCH (10:51)
[2022-01-17] MEDS: LIRAGLUTIDE 0.6 MG/0.1 ML PEN.INJCTR SQ SCH (10:52)
[2022-01-17] MEDS: NIFEdipine E.R. 30 MG TABLET PO SCH (11:12)
[2022-01-17] MEDS: ERTUGLIFLOZIN PIDOLATE 5 MG PO SCH (11:12)
[2022-01-17] MEDS: THIAMINE HCL 100 MG TABLET (FP) PO SCH (22:06)
[2022-01-17] MEDS: ATORVASTATIN CA 20 MG TABLET (FP) PO SCH (22:06)
[2022-01-17] MEDS: MELATONIN 5 MG TABLETS PO SCH (22:06)
[2022-01-18] MEDS: INSULIN SLIDING SCALE (NOVOLOG) 1 VIAL SQ SCH ×4 (06:33→21:44)
[2022-01-18] MEDS: PIOGLITAZONE HCL 15 MG TABLET PO SCH (06:34)
[2022-01-18] MEDS: hydrALAZINE HCL 10 MG TABLET PO SCH ×4 (06:34→23:16)
[2022-01-18] MEDS: LACTULOSE 20 GM/30 ML UDC (FOR ORAL USE ONLY) PO SCH ×3 (06:34→21:39)
[2022-01-18] MEDS: LISINOPRIL 20 MG TABLET PO SCH (06:34)
[2022-01-18] MEDS: metFORMIN HCL 500 MG TABLET (FP) PO SCH ×2 (06:34→16:49)
[2022-01-18] MEDS: EMTRICITAB/RILPIVIRI/TENOF ALA (ODEFSEY) TABLET PO SCH (07:03)
[2022-01-18] MEDS: HYDROCHLOROTHIAZIDE 25 MG TABLET (FP) PO SCH (09:45)
[2022-01-18] MEDS: ASPIRIN 81 MG CHEWABLE TABLETS PO SCH (09:46)
[2022-01-18] MEDS: ERTUGLIFLOZIN PIDOLATE 5 MG PO SCH (09:46)
[2022-01-18] MEDS: PRENATAL VITAMINS W/ FOLIC ACID TABLET (FP) PO SCH (09:46)
[2022-01-18] MEDS: FUROSEMIDE 40 MG TABLET (FP) PO SCH (09:46)
[2022-01-18] MEDS: NIFEdipine E.R. 30 MG TABLET PO SCH (09:46)
[2022-01-18] MEDS: LIRAGLUTIDE 0.6 MG/0.1 ML PEN.INJCTR SQ SCH (11:11)
[2022-01-18] MEDS: INSULIN (LEVEMIR) 100 UNITS/ML UNITS SQ SCH (11:12)
[2022-01-18] MEDS ORDERED: INSULIN (NOVOLOG) ASPART 100 UNITS/ML 10ML VIAL ONE ×2 (11:54→22:11)
[2022-01-18] MEDS: ATORVASTATIN CA 20 MG TABLET (FP) PO SCH (21:39)
[2022-01-18] MEDS: THIAMINE HCL 100 MG TABLET (FP) PO SCH (21:39)
[2022-01-18] MEDS: MELATONIN 5 MG TABLETS PO SCH (21:40)
[2022-01-19] MEDS: LACTULOSE 20 GM/30 ML UDC (FOR ORAL USE ONLY) PO SCH ×3 (06:13→21:30)
[2022-01-19] MEDS: LISINOPRIL 20 MG TABLET PO SCH (06:13)
[2022-01-19] MEDS: hydrALAZINE HCL 10 MG TABLET PO SCH ×4 (06:13→23:01)
[2022-01-19] MEDS: metFORMIN HCL 500 MG TABLET (FP) PO SCH ×2 (06:13→16:48)
[2022-01-19] MEDS: PIOGLITAZONE HCL 15 MG TABLET PO SCH (06:14)
[2022-01-19] MEDS: INSULIN SLIDING SCALE (NOVOLOG) 1 VIAL SQ SCH ×4 (07:48→21:29)
[2022-01-19] MEDS: EMTRICITAB/RILPIVIRI/TENOF ALA (ODEFSEY) TABLET PO SCH (07:51)
[2022-01-19] MEDS ORDERED: INSULIN (NOVOLOG) ASPART 100 UNITS/ML 10ML VIAL ONE ×2 (08:02→11:41)
[2022-01-19] MEDS: ASPIRIN 81 MG CHEWABLE TABLETS PO SCH (10:05)
[2022-01-19] MEDS: FUROSEMIDE 40 MG TABLET (FP) PO SCH (10:05)
[2022-01-19] MEDS: HYDROCHLOROTHIAZIDE 25 MG TABLET (FP) PO SCH (10:05)
[2022-01-19] MEDS: ERTUGLIFLOZIN PIDOLATE 5 MG PO SCH (10:06)
[2022-01-19] MEDS: INSULIN (LEVEMIR) 100 UNITS/ML UNITS SQ SCH (10:06)
[2022-01-19] MEDS: PRENATAL VITAMINS W/ FOLIC ACID TABLET (FP) PO SCH (10:06)
[2022-01-19] MEDS: NIFEdipine E.R. 30 MG TABLET PO SCH (10:06)
[2022-01-19] MEDS: LIRAGLUTIDE 0.6 MG/0.1 ML PEN.INJCTR SQ SCH (10:21)
[2022-01-19] MEDS: MELATONIN 5 MG TABLETS PO SCH (21:26)
[2022-01-19] MEDS: THIAMINE HCL 100 MG TABLET (FP) PO SCH (21:26)
[2022-01-19] MEDS: ATORVASTATIN CA 20 MG TABLET (FP) PO SCH (21:26)
[2022-01-20] MEDS: metFORMIN HCL 500 MG TABLET (FP) PO SCH ×2 (06:30→16:47)
[2022-01-20] MEDS: LISINOPRIL 20 MG TABLET PO SCH (06:30)
[2022-01-20] MEDS: hydrALAZINE HCL 10 MG TABLET PO SCH ×4 (06:30→23:37)
[2022-01-20] MEDS: LACTULOSE 20 GM/30 ML UDC (FOR ORAL USE ONLY) PO SCH ×3 (06:30→21:15)
[2022-01-20] MEDS: PIOGLITAZONE HCL 15 MG TABLET PO SCH (06:31)
[2022-01-20] MEDS: INSULIN SLIDING SCALE (NOVOLOG) 1 VIAL SQ SCH ×4 (06:32→21:44)
[2022-01-20] MEDS: EMTRICITAB/RILPIVIRI/TENOF ALA (ODEFSEY) TABLET PO SCH (07:07)
[2022-01-20] MEDS: INSULIN (LEVEMIR) 100 UNITS/ML UNITS SQ SCH (10:42)
[2022-01-20] MEDS ORDERED: INSULIN (NOVOLOG) ASPART 100 UNITS/ML 10ML VIAL ONE (10:42)
[2022-01-20] MEDS: LIRAGLUTIDE 0.6 MG/0.1 ML PEN.INJCTR SQ SCH (10:43)
[2022-01-20] MEDS: NIFEdipine E.R. 30 MG TABLET PO SCH (10:45)
[2022-01-20] MEDS: PRENATAL VITAMINS W/ FOLIC ACID TABLET (FP) PO SCH (10:45)
[2022-01-20] MEDS: ERTUGLIFLOZIN PIDOLATE 5 MG PO SCH (10:45)
[2022-01-20] MEDS: FUROSEMIDE 40 MG TABLET (FP) PO SCH (10:45)
[2022-01-20] MEDS: HYDROCHLOROTHIAZIDE 25 MG TABLET (FP) PO SCH (10:45)
[2022-01-20] MEDS: ASPIRIN 81 MG CHEWABLE TABLETS PO SCH (10:45)
[2022-01-20] MEDS: ATORVASTATIN CA 20 MG TABLET (FP) PO SCH (21:15)
[2022-01-20] MEDS: MELATONIN 5 MG TABLETS PO SCH (21:15)
[2022-01-20] MEDS: THIAMINE HCL 100 MG TABLET (FP) PO SCH (21:15)
[2022-01-21] MEDS: LACTULOSE 20 GM/30 ML UDC (FOR ORAL USE ONLY) PO SCH ×3 (06:20→21:26)
[2022-01-21] MEDS: metFORMIN HCL 500 MG TABLET (FP) PO SCH ×2 (06:20→16:57)
[2022-01-21] MEDS: LISINOPRIL 20 MG TABLET PO SCH (06:20)
[2022-01-21] MEDS: hydrALAZINE HCL 10 MG TABLET PO SCH ×4 (06:21→23:44)
[2022-01-21] MEDS: PIOGLITAZONE HCL 15 MG TABLET PO SCH (06:22)
[2022-01-21] MEDS: INSULIN SLIDING SCALE (NOVOLOG) 1 VIAL SQ SCH ×4 (06:23→21:28)
[2022-01-21] MEDS: EMTRICITAB/RILPIVIRI/TENOF ALA (ODEFSEY) TABLET PO SCH (07:20)
[2022-01-21] MEDS ORDERED: INSULIN (NOVOLOG) ASPART 100 UNITS/ML 10ML VIAL ONE ×2 (07:24→12:07)
[2022-01-21] MEDS: ERTUGLIFLOZIN PIDOLATE 5 MG PO SCH (10:34)
[2022-01-21] MEDS: ASPIRIN 81 MG CHEWABLE TABLETS PO SCH (10:34)
[2022-01-21] MEDS: HYDROCHLOROTHIAZIDE 25 MG TABLET (FP) PO SCH (10:34)
[2022-01-21] MEDS: PRENATAL VITAMINS W/ FOLIC ACID TABLET (FP) PO SCH (10:34)
[2022-01-21] MEDS: FUROSEMIDE 40 MG TABLET (FP) PO SCH (10:35)
[2022-01-21] MEDS: INSULIN (LEVEMIR) 100 UNITS/ML UNITS SQ SCH (10:36)
[2022-01-21] MEDS: NIFEdipine E.R. 30 MG TABLET PO SCH (10:38)
[2022-01-21] MEDS: LIRAGLUTIDE 0.6 MG/0.1 ML PEN.INJCTR SQ SCH (10:38)
[2022-01-21] MEDS: MELATONIN 5 MG TABLETS PO SCH (21:24)
[2022-01-21] MEDS: ATORVASTATIN CA 20 MG TABLET (FP) PO SCH (21:25)
[2022-01-21] MEDS: THIAMINE HCL 100 MG TABLET (FP) PO SCH (21:25)
[2022-01-22] MEDS: PIOGLITAZONE HCL 15 MG TABLET PO SCH (06:17)
[2022-01-22] MEDS: LACTULOSE 20 GM/30 ML UDC (FOR ORAL USE ONLY) PO SCH ×3 (06:17→22:03)
[2022-01-22] MEDS: INSULIN SLIDING SCALE (NOVOLOG) 1 VIAL SQ SCH ×4 (06:17→22:04)
[2022-01-22] MEDS: metFORMIN HCL 500 MG TABLET (FP) PO SCH ×2 (06:17→16:30)
[2022-01-22] MEDS: hydrALAZINE HCL 10 MG TABLET PO SCH ×4 (06:17→23:02)
[2022-01-22] MEDS: LISINOPRIL 20 MG TABLET PO SCH (06:17)
[2022-01-22] MEDS: EMTRICITAB/RILPIVIRI/TENOF ALA (ODEFSEY) TABLET PO SCH (07:13)
[2022-01-22] MEDS ORDERED: INSULIN (NOVOLOG) ASPART 100 UNITS/ML 10ML VIAL ONE ×3 (07:26→16:31)
[2022-01-22] MEDS: ASPIRIN 81 MG CHEWABLE TABLETS PO SCH (10:54)
[2022-01-22] MEDS: FUROSEMIDE 40 MG TABLET (FP) PO SCH (10:55)
[2022-01-22] MEDS: PRENATAL VITAMINS W/ FOLIC ACID TABLET (FP) PO SCH (10:55)
[2022-01-22] MEDS: NIFEdipine E.R. 30 MG TABLET PO SCH (10:55)
[2022-01-22] MEDS: HYDROCHLOROTHIAZIDE 25 MG TABLET (FP) PO SCH (10:55)
[2022-01-22] MEDS: ERTUGLIFLOZIN PIDOLATE 5 MG PO SCH (10:55)
[2022-01-22] MEDS: LIRAGLUTIDE 0.6 MG/0.1 ML PEN.INJCTR SQ SCH (11:01)
[2022-01-22] MEDS: INSULIN (LEVEMIR) 100 UNITS/ML UNITS SQ SCH (11:08)
[2022-01-22] MEDS ORDERED: TUBERCULIN PPD 5 TU/0.1ML VIAL ID ONE (21:39)
[2022-01-22] MEDS: ATORVASTATIN CA 20 MG TABLET (FP) PO SCH (22:03)
[2022-01-22] MEDS: MELATONIN 5 MG TABLETS PO SCH (22:04)
[2022-01-22] MEDS: THIAMINE HCL 100 MG TABLET (FP) PO SCH (22:04)
[2022-01-23] MEDS: metFORMIN HCL 500 MG TABLET (FP) PO SCH ×2 (04:48→06:41)
[2022-01-23] MEDS: PIOGLITAZONE HCL 15 MG TABLET PO SCH (06:40)
[2022-01-23] MEDS: hydrALAZINE HCL 10 MG TABLET PO SCH ×3 (06:41→18:47)
[2022-01-23] MEDS: LISINOPRIL 20 MG TABLET PO SCH (06:41)
[2022-01-23] MEDS: LACTULOSE 20 GM/30 ML UDC (FOR ORAL USE ONLY) PO SCH ×3 (06:41→21:55)
[2022-01-23] MEDS: EMTRICITAB/RILPIVIRI/TENOF ALA (ODEFSEY) TABLET PO SCH (07:30)
[2022-01-23] MEDS: INSULIN SLIDING SCALE (NOVOLOG) 1 VIAL SQ SCH ×6 (07:30→23:13)
[2022-01-23] MEDS ORDERED: INSULIN (NOVOLOG) ASPART 100 UNITS/ML 10ML VIAL ONE ×2 (08:04→10:49)
[2022-01-23] MEDS: HYDROCHLOROTHIAZIDE 25 MG TABLET (FP) PO SCH (10:45)
[2022-01-23] MEDS: PRENATAL VITAMINS W/ FOLIC ACID TABLET (FP) PO SCH (10:45)
[2022-01-23] MEDS: ASPIRIN 81 MG CHEWABLE TABLETS PO SCH (10:45)
[2022-01-23] MEDS: FUROSEMIDE 40 MG TABLET (FP) PO SCH (10:45)
[2022-01-23] MEDS: NIFEdipine E.R. 30 MG TABLET PO SCH (10:45)
[2022-01-23] MEDS: LIRAGLUTIDE 0.6 MG/0.1 ML PEN.INJCTR SQ SCH (10:46)
[2022-01-23] MEDS: ERTUGLIFLOZIN PIDOLATE 5 MG PO SCH (10:46)
[2022-01-23] MEDS: INSULIN (LEVEMIR) 100 UNITS/ML UNITS SQ SCH (10:47)
[2022-01-23] MEDS: THIAMINE HCL 100 MG TABLET (FP) PO SCH (21:54)
[2022-01-23] MEDS: MELATONIN 5 MG TABLETS PO SCH (21:54)
[2022-01-23] MEDS: ATORVASTATIN CA 20 MG TABLET (FP) PO SCH (21:54)
[2022-01-24] MEDS: hydrALAZINE HCL 10 MG TABLET PO SCH ×5 (00:40→23:05)
[2022-01-24] MEDS: LISINOPRIL 20 MG TABLET PO SCH (06:22)
[2022-01-24] MEDS: metFORMIN HCL 500 MG TABLET (FP) PO SCH ×2 (06:22→16:41)
[2022-01-24] MEDS: LACTULOSE 20 GM/30 ML UDC (FOR ORAL USE ONLY) PO SCH ×3 (06:22→21:32)
[2022-01-24] MEDS: PIOGLITAZONE HCL 15 MG TABLET PO SCH (06:22)
[2022-01-24] MEDS: EMTRICITAB/RILPIVIRI/TENOF ALA (ODEFSEY) TABLET PO SCH (07:14)
[2022-01-24] MEDS: INSULIN SLIDING SCALE (NOVOLOG) 1 VIAL SQ SCH ×4 (07:21→21:31)
[2022-01-24] MEDS: HYDROCHLOROTHIAZIDE 25 MG TABLET (FP) PO SCH (09:59)
[2022-01-24] MEDS: LIRAGLUTIDE 0.6 MG/0.1 ML PEN.INJCTR SQ SCH (09:59)
[2022-01-24] MEDS: FUROSEMIDE 40 MG TABLET (FP) PO SCH (09:59)
[2022-01-24] MEDS: NIFEdipine E.R. 30 MG TABLET PO SCH (09:59)
[2022-01-24] MEDS: ASPIRIN 81 MG CHEWABLE TABLETS PO SCH (09:59)
[2022-01-24] MEDS: INSULIN (LEVEMIR) 100 UNITS/ML UNITS SQ SCH (09:59)
[2022-01-24] MEDS: PRENATAL VITAMINS W/ FOLIC ACID TABLET (FP) PO SCH (09:59)
[2022-01-24] MEDS: ERTUGLIFLOZIN PIDOLATE 5 MG PO SCH (10:01)
[2022-01-24] MEDS: THIAMINE HCL 100 MG TABLET (FP) PO SCH (21:29)
[2022-01-24] MEDS: MELATONIN 5 MG TABLETS PO SCH (21:29)
[2022-01-24] MEDS: ATORVASTATIN CA 20 MG TABLET (FP) PO SCH (21:30)
[2022-01-25] MEDS: PIOGLITAZONE HCL 15 MG TABLET PO SCH (06:39)
[2022-01-25] MEDS: LACTULOSE 20 GM/30 ML UDC (FOR ORAL USE ONLY) PO SCH ×3 (06:39→21:25)
[2022-01-25] MEDS: LISINOPRIL 20 MG TABLET PO SCH (06:40)
[2022-01-25] MEDS: metFORMIN HCL 500 MG TABLET (FP) PO SCH ×2 (06:40→16:37)
[2022-01-25] MEDS: hydrALAZINE HCL 10 MG TABLET PO SCH ×3 (06:40→17:20)
[2022-01-25 06:43] VITALS: RESP 16; TEMP 97.8
[2022-01-25] MEDS: EMTRICITAB/RILPIVIRI/TENOF ALA (ODEFSEY) TABLET PO SCH (07:23)
[2022-01-25] MEDS: INSULIN SLIDING SCALE (NOVOLOG) 1 VIAL SQ SCH ×4 (07:41→21:25)
[2022-01-25] MEDS ORDERED: INSULIN (NOVOLOG) ASPART 100 UNITS/ML 10ML VIAL ONE ×3 (08:09→16:36)
[2022-01-25] MEDS: INSULIN (LEVEMIR) 100 UNITS/ML UNITS SQ SCH (09:50)
[2022-01-25] MEDS: FUROSEMIDE 40 MG TABLET (FP) PO SCH (09:50)
[2022-01-25] MEDS: ASPIRIN 81 MG CHEWABLE TABLETS PO SCH (09:50)
[2022-01-25] MEDS: ERTUGLIFLOZIN PIDOLATE 5 MG PO SCH (09:50)
[2022-01-25] MEDS: PRENATAL VITAMINS W/ FOLIC ACID TABLET (FP) PO SCH (09:50)
[2022-01-25] MEDS: NIFEdipine E.R. 30 MG TABLET PO SCH (09:50)
[2022-01-25] MEDS: HYDROCHLOROTHIAZIDE 25 MG TABLET (FP) PO SCH (09:50)
[2022-01-25] MEDS: LIRAGLUTIDE 0.6 MG/0.1 ML PEN.INJCTR SQ SCH (09:51)
[2022-01-25 12:02] VITALS: BP 162/103; PULSE 101
[2022-01-25] MEDS: MELATONIN 5 MG TABLETS PO SCH (21:24)
[2022-01-25] MEDS: ATORVASTATIN CA 20 MG TABLET (FP) PO SCH (21:24)
[2022-01-25] MEDS: THIAMINE HCL 100 MG TABLET (FP) PO SCH (21:24)
== END 2022-01-25 22:30 | disposition left against medical advice (07) | DRG 770 ==
LOC: YASAS 09:34 → Y3E 14:21
PROVIDERS: ADMIT Allergy & Immunology; ATTEND Psychiatry & Neurology Pain Medicine
PROC: HZ42ZZZ Group Counseling for Substance Abuse Treatment, Cognitive-Behavioral (ICD-10-PCS; principal; 2022-01-13)
DX: F10.20 Alcohol dependence, uncomplicated (principal); F14.20 Cocaine dependence, uncomplicated; F19.24 Other psychoactive substance dependence with psychoactive substance-induced mood disorder; Z21 Asymptomatic human immunodeficiency virus [HIV] infection status; E72.20 Disorder of urea cycle metabolism, unspecified; I11.0 Hypertensive heart disease with heart failure; I50.9 Heart failure, unspecified; I99.8 Other disorder of circulatory system; J45.20 Mild intermittent asthma, uncomplicated; E11.9 Type 2 diabetes mellitus without complications; Z79.4 Long term (current) use of insulin; G47.33 Obstructive sleep apnea (adult) (pediatric); E66.01 Morbid (severe) obesity due to excess calories; Z68.43 Body mass index [BMI] 50.0-59.9, adult; Z99.89 Dependence on other enabling machines and devices
CPT/HCPCS: 36415; 80053; 81003; 82140; 82962; 84132; 85027; 86780; 86803; C9803-CS; U0003; U0005

== ENCOUNTER 2022-03-05 18:26 | Inpatient (IN) | payer OTHER ==
[2022-03-05 19:45] VITALS: BMI 52.3
[2022-03-05] MEDS ORDERED: ALBUTEROL SO4 HFA INHALER IH PRN (20:00)
[2022-03-05] MEDS ORDERED: DICYCLOMINE HCL 10 MG CAPSULE PO PRN (20:09)
[2022-03-05] MEDS ORDERED: MELATONIN 5 MG TABLETS PO PRN (20:09)
[2022-03-05] MEDS ORDERED: IBUPROFEN 400 MG TABLET (FP) PO PRN (20:09)
[2022-03-05] MEDS ORDERED: LOPERAMIDE HCL 2 MG CAPSULE PO PRN (20:09)
[2022-03-05] MEDS ORDERED: BISMUTH SUBSALICYLATE 524 MG/30 ML PO PRN (20:09)
[2022-03-05] MEDS ORDERED: IBUPROFEN 600 MG TABLET (FP) PO PRN (20:09)
[2022-03-05] MEDS ORDERED: MAGNESIUM HYDROX 2400MG/30ML ORAL SUSPENSION 30 ML CUP PO PRN (20:09)
[2022-03-05] MEDS ORDERED: ACETAMINOPHEN 325 MG TABLET (FP) PO PRN ×2 (20:09)
[2022-03-05] MEDS ORDERED: ONDANSETRON *ODT* 4 MG TABLET SL PRN (20:09)
[2022-03-05] MEDS ORDERED: MAG HYDROX/AL HYDROX/SIMETH 30 ML UNIT-DOSE CUP PO PRN (20:09)
[2022-03-05] MEDS ORDERED: hydrOXYzine PAMOATE 25 MG CAPSULE (FP) PO PRN (20:09)
[2022-03-05] MEDS ORDERED: P-EPHED 60MG/TRIPROLIDI 2.5MG TABLET PO PRN (20:09)
[2022-03-05] MEDS ORDERED: BENZOCAINE/MENTHOL (CHLORASEPTIC ) LOZENGE MM PRN (20:09)
[2022-03-05] MEDS ORDERED: METHOCARBAMOL 500 MG TABLET PO PRN (20:09)
[2022-03-05] MEDS ORDERED: guaiFENesin 200 MG/10 ML 10 ML UNIT-DOSE CUPS PO PRN (20:09)
[2022-03-05] MEDS: GABAPENTIN 300 MG CAPSULE PO SCH (21:39)
[2022-03-05] MEDS: INSULIN SLIDING SCALE (NOVOLOG) 1 VIAL SQ SCH ×2 (21:45)
[2022-03-05] MEDS ORDERED: ATORVASTATIN CA 20 MG TABLET (FP) PO SCH (22:00)
[2022-03-05] MEDS ORDERED: THIAMINE HCL 100 MG TABLET (FP) PO SCH (22:00)
[2022-03-06] MEDS: hydrALAZINE HCL 10 MG TABLET PO SCH ×3 (00:17→12:28)
[2022-03-06] MEDS: CARVEDILOL 12.5 MG TABLET (FP) PO SCH ×2 (00:17→10:25)
[2022-03-06] MEDS: GABAPENTIN 300 MG CAPSULE PO SCH (05:42)
[2022-03-06] MEDS ORDERED: LISINOPRIL 20 MG TABLET PO SCH (06:00)
[2022-03-06] MEDS ORDERED: metFORMIN HCL 500 MG TABLET (FP) PO SCH (07:00)
[2022-03-06] MEDS: INSULIN SLIDING SCALE (NOVOLOG) 1 VIAL SQ SCH ×2 (08:05→12:28)
[2022-03-06] MEDS ORDERED: TORSEMIDE 20 MG TABLET (FP) PO SCH (10:00)
[2022-03-06] MEDS ORDERED: NIFEdipine E.R. 30 MG TABLET PO SCH (10:00)
[2022-03-06] MEDS ORDERED: EMTRICITAB/RILPIVIRI/TENOF ALA (ODEFSEY) TABLET PO SCH (10:00)
[2022-03-06] MEDS ORDERED: ASPIRIN 81 MG CHEWABLE TABLETS PO SCH (10:00)
[2022-03-06] MEDS ORDERED: PRENATAL VITAMINS W/ FOLIC ACID TABLET (FP) PO SCH (10:00)
[2022-03-06 11:17] LABS: HEMATOCRIT 39.6 % (35.4-49); HEMOGLOBIN 12.9 GM/dL (11.7-16.9); MCHC 32.7 g/dl (32.0-35.9); MEAN CELL VOLUME 94.9 fl (80-96); MEAN PLT VOLUME 7.5 fl (7.5-11.1); PLATELET COUNT 208 10^3/uL (134-434); RBC 4.18 M/mm3 (4.00-5.60); WHITE BLOOD COUNT 5.8 K/mm3 (4.0-10.0)
[2022-03-06 11:24] LABS: ALBUMIN 3.5 g/dl (3.4-5.0)
[2022-03-06 11:25] LABS: BLOOD UREA NITROGEN 25.7 mg/dL (7-18); CALCIUM 8.5 mg/dL (8.5-10.1)
[2022-03-06 11:28] LABS: CREATININE 1.4 mg/dL (0.55-1.3)
[2022-03-06 11:29] LABS: TOT PROT 6.6 g/dl (6.4-8.2)
[2022-03-06 11:30] LABS: BILIRUBIN,TOTAL 1.3 mg/dL (0.2-1)
[2022-03-06] MEDS ORDERED: FLU VACC QS2022-23(6MOS UP)/PF 60 MCG/0.5 ML SYRINGE IM ONE (12:00)
[2022-03-06 14:02] VITALS: BP 145/88; PULSE 83; RESP 18; TEMP 98.2
== END 2022-03-06 14:34 | disposition other institution (70) | DRG 774 ==
LOC: YASAS 18:26 → Y3N 20:52
PROVIDERS: ADMIT Allergy & Immunology; ATTEND Surgery
PROC: HZ2ZZZZ Detoxification Services for Substance Abuse Treatment (ICD-10-PCS; principal; 2022-03-05)
DX: F10.230 Alcohol dependence with withdrawal, uncomplicated (principal); F14.20 Cocaine dependence, uncomplicated; F17.210 Nicotine dependence, cigarettes, uncomplicated; Z21 Asymptomatic human immunodeficiency virus [HIV] infection status; I11.0 Hypertensive heart disease with heart failure; I50.9 Heart failure, unspecified; J45.20 Mild intermittent asthma, uncomplicated; E78.5 Hyperlipidemia, unspecified; E11.9 Type 2 diabetes mellitus without complications; Z79.4 Long term (current) use of insulin
CPT/HCPCS: 36415; 80053; 82962; 85027; 86780; C9803-CS; G0008; Q2036; U0003; U0005

== ENCOUNTER 2022-03-06 14:52 | Inpatient (IN) | payer OTHER ==
[2022-03-06] MEDS ORDERED: ACETAMINOPHEN 325 MG TABLET (FP) PO PRN (16:15)
[2022-03-06] MEDS ORDERED: MAG HYDROX/AL HYDROX/SIMETH 30 ML UNIT-DOSE CUP PO PRN (16:15)
[2022-03-06] MEDS ORDERED: MAGNESIUM HYDROX 2400MG/30ML ORAL SUSPENSION 30 ML CUP PO PRN (16:15)
[2022-03-06] MEDS ORDERED: P-EPHED 60MG/TRIPROLIDI 2.5MG TABLET PO PRN (16:15)
[2022-03-06] MEDS ORDERED: NICOTINE 10 MG CARTRIDGE (INHALER) IH PRN (16:15)
[2022-03-06] MEDS ORDERED: NICOTINE POLACRILEX 2 MG GUM BUC PRN (16:15)
[2022-03-06] MEDS ORDERED: LOPERAMIDE HCL 2 MG CAPSULE PO PRN (16:15)
[2022-03-06] MEDS ORDERED: guaiFENesin 200 MG/10 ML 10 ML UNIT-DOSE CUPS PO PRN (16:15)
[2022-03-06] MEDS ORDERED: IBUPROFEN 400 MG TABLET (FP) PO PRN (16:15)
[2022-03-06] MEDS ORDERED: hydrOXYzine PAMOATE 25 MG CAPSULE (FP) PO PRN (16:15)
[2022-03-06] MEDS ORDERED: BENZOCAINE/MENTHOL (CHLORASEPTIC ) LOZENGE MM PRN (16:15)
[2022-03-06] MEDS ORDERED: MAGNESIUM CITRATE 300 ML BOTTLE PO PRN (16:15)
[2022-03-06] MEDS: hydrALAZINE HCL 10 MG TABLET PO SCH (17:33)
[2022-03-06] MEDS: INSULIN SLIDING SCALE (NOVOLOG) 1 VIAL SQ SCH ×2 (17:43→21:23)
[2022-03-06] MEDS: ATORVASTATIN CA 20 MG TABLET (FP) PO SCH (21:24)
[2022-03-06] MEDS: THIAMINE HCL 100 MG TABLET (FP) PO SCH (21:25)
[2022-03-06] MEDS: MELATONIN 5 MG TABLETS PO SCH (21:25)
[2022-03-06] MEDS: GABAPENTIN 300 MG CAPSULE PO SCH (21:25)
[2022-03-06] MEDS: CARVEDILOL 12.5 MG TABLET (FP) PO SCH (21:25)
[2022-03-06] MEDS ORDERED: INSULIN (LEVEMIR) 100 UNITS/ML UNITS SQ SCH (22:00)
[2022-03-07] MEDS: GABAPENTIN 300 MG CAPSULE PO SCH ×3 (06:26→21:37)
[2022-03-07] MEDS: hydrALAZINE HCL 10 MG TABLET PO SCH ×4 (06:26→17:21)
[2022-03-07] MEDS: INSULIN SLIDING SCALE (NOVOLOG) 1 VIAL SQ SCH ×4 (06:28→21:40)
[2022-03-07] MEDS: EMTRICITAB/RILPIVIRI/TENOF ALA (ODEFSEY) TABLET PO SCH (08:21)
[2022-03-07] MEDS: NICOTINE 7 MG/24 HOURS TOPICAL PATCH TD SCH (10:27)
[2022-03-07] MEDS: PRENATAL VITAMINS W/ FOLIC ACID TABLET (FP) PO SCH (10:27)
[2022-03-07] MEDS: CARVEDILOL 12.5 MG TABLET (FP) PO SCH ×2 (10:27→21:37)
[2022-03-07] MEDS: ASPIRIN 81 MG CHEWABLE TABLETS PO SCH (10:27)
[2022-03-07] MEDS ORDERED: INSULIN SLIDING SCALE (NOVOLOG) 1 VIAL SQ ONE (16:46)
[2022-03-07] MEDS: ATORVASTATIN CA 20 MG TABLET (FP) PO SCH (21:37)
[2022-03-07] MEDS: MELATONIN 5 MG TABLETS PO SCH (21:37)
[2022-03-07] MEDS: THIAMINE HCL 100 MG TABLET (FP) PO SCH (21:37)
[2022-03-08] MEDS: hydrALAZINE HCL 10 MG TABLET PO SCH ×5 (00:10→23:02)
[2022-03-08] MEDS: ALBUTEROL SO4 HFA INHALER IH PRN (06:27)
[2022-03-08] MEDS: GABAPENTIN 300 MG CAPSULE PO SCH ×3 (06:28→21:34)
[2022-03-08] MEDS: INSULIN SLIDING SCALE (NOVOLOG) 1 VIAL SQ SCH ×4 (06:30→21:37)
[2022-03-08] MEDS: EMTRICITAB/RILPIVIRI/TENOF ALA (ODEFSEY) TABLET PO SCH (07:16)
[2022-03-08] MEDS: ASPIRIN 81 MG CHEWABLE TABLETS PO SCH (09:12)
[2022-03-08] MEDS: CARVEDILOL 12.5 MG TABLET (FP) PO SCH ×2 (09:13→21:33)
[2022-03-08] MEDS: PRENATAL VITAMINS W/ FOLIC ACID TABLET (FP) PO SCH (09:13)
[2022-03-08] MEDS: NICOTINE 7 MG/24 HOURS TOPICAL PATCH TD SCH (09:51)
[2022-03-08] MEDS: TORSEMIDE 20 MG TABLET (FP) PO SCH (12:14)
[2022-03-08] MEDS: THIAMINE HCL 100 MG TABLET (FP) PO SCH (21:33)
[2022-03-08] MEDS: ATORVASTATIN CA 20 MG TABLET (FP) PO SCH (21:33)
[2022-03-08] MEDS: MELATONIN 5 MG TABLETS PO SCH (21:34)
[2022-03-09] MEDS: GABAPENTIN 300 MG CAPSULE PO SCH ×3 (06:11→21:31)
[2022-03-09] MEDS: hydrALAZINE HCL 10 MG TABLET PO SCH ×2 (06:11→11:18)
[2022-03-09] MEDS: ALBUTEROL SO4 HFA INHALER IH PRN ×2 (06:12→09:54)
[2022-03-09] MEDS: INSULIN SLIDING SCALE (NOVOLOG) 1 VIAL SQ SCH ×4 (06:14→21:37)
[2022-03-09] MEDS: EMTRICITAB/RILPIVIRI/TENOF ALA (ODEFSEY) TABLET PO SCH (07:06)
[2022-03-09] MEDS: PRENATAL VITAMINS W/ FOLIC ACID TABLET (FP) PO SCH (09:53)
[2022-03-09] MEDS: NICOTINE 7 MG/24 HOURS TOPICAL PATCH TD SCH (09:53)
[2022-03-09] MEDS: TORSEMIDE 20 MG TABLET (FP) PO SCH ×2 (09:55→21:32)
[2022-03-09] MEDS: CARVEDILOL 12.5 MG TABLET (FP) PO SCH ×2 (09:55→21:33)
[2022-03-09] MEDS: ASPIRIN 81 MG CHEWABLE TABLETS PO SCH (09:55)
[2022-03-09] MEDS ORDERED: LISINOPRIL 20 MG TABLET PO SCH (11:15)
[2022-03-09] MEDS ORDERED: TORSEMIDE 20 MG TABLET (FP) PO SCH (11:40)
[2022-03-09] MEDS ORDERED: cloNIDine HCL 0.1 MG TABLET PO ONE (11:50)
[2022-03-09] MEDS ORDERED: TORSEMIDE 20 MG TABLET (FP) PO ONE (12:06)
[2022-03-09] MEDS ORDERED: SACUBITRIL/VALSARTAN 24 MG-26 MG TABLET PO SCH (12:15)
[2022-03-09] MEDS: NIFEdipine E.R. 30 MG TABLET PO SCH (12:18)
[2022-03-09] MEDS: SPIRONOLACTONE 25 MG TABLET PO SCH (12:18)
[2022-03-09] MEDS: metFORMIN HCL 500 MG TABLET (FP) PO SCH (16:51)
[2022-03-09] MEDS: THIAMINE HCL 100 MG TABLET (FP) PO SCH (21:31)
[2022-03-09] MEDS: MELATONIN 5 MG TABLETS PO SCH (21:31)
[2022-03-09] MEDS: ATORVASTATIN CA 10 MG TABLET (FP) PO SCH (21:31)
[2022-03-09] MEDS: SACUBITRIL/VALSARTAN 24 MG-26 MG TABLET PO SCH (21:32)
[2022-03-09] MEDS: INSULIN (LEVEMIR) 100 UNITS/ML UNITS SQ SCH (21:35)
[2022-03-10] MEDS: GABAPENTIN 300 MG CAPSULE PO SCH ×3 (06:08→21:24)
[2022-03-10] MEDS: TORSEMIDE 20 MG TABLET (FP) PO SCH ×2 (06:08→13:17)
[2022-03-10] MEDS: metFORMIN HCL 500 MG TABLET (FP) PO SCH ×2 (06:08→16:35)
[2022-03-10] MEDS: INSULIN SLIDING SCALE (NOVOLOG) 1 VIAL SQ SCH ×4 (06:09→21:27)
[2022-03-10 06:37] VITALS: TEMP 97.3
[2022-03-10] MEDS: EMTRICITAB/RILPIVIRI/TENOF ALA (ODEFSEY) TABLET PO SCH (07:00)
[2022-03-10 09:04] VITALS: RESP 18
[2022-03-10] MEDS: PRENATAL VITAMINS W/ FOLIC ACID TABLET (FP) PO SCH (09:37)
[2022-03-10] MEDS: SACUBITRIL/VALSARTAN 24 MG-26 MG TABLET PO SCH ×2 (09:38→21:24)
[2022-03-10] MEDS: CARVEDILOL 12.5 MG TABLET (FP) PO SCH ×2 (09:38→21:24)
[2022-03-10] MEDS: NIFEdipine E.R. 30 MG TABLET PO SCH (09:38)
[2022-03-10] MEDS: NICOTINE 7 MG/24 HOURS TOPICAL PATCH TD SCH (09:38)
[2022-03-10] MEDS: ASPIRIN 81 MG CHEWABLE TABLETS PO SCH (09:38)
[2022-03-10] MEDS: SPIRONOLACTONE 25 MG TABLET PO SCH (09:38)
[2022-03-10] MEDS: MELATONIN 5 MG TABLETS PO SCH (21:24)
[2022-03-10] MEDS: ATORVASTATIN CA 10 MG TABLET (FP) PO SCH (21:24)
[2022-03-10] MEDS: THIAMINE HCL 100 MG TABLET (FP) PO SCH (21:24)
[2022-03-10] MEDS: INSULIN (LEVEMIR) 100 UNITS/ML UNITS SQ SCH (21:25)
[2022-03-10 22:05] VITALS: BP 140/86; PULSE 93
== END 2022-03-10 11:57 | disposition left against medical advice (07) | DRG 770 ==
LOC: YASAS 14:52 → Y3W 14:56
PROVIDERS: ADMIT Allergy & Immunology; ATTEND Psychiatry & Neurology Pain Medicine
PROC: HZ42ZZZ Group Counseling for Substance Abuse Treatment, Cognitive-Behavioral (ICD-10-PCS; principal; 2022-03-06)
DX: F10.20 Alcohol dependence, uncomplicated (principal); F14.20 Cocaine dependence, uncomplicated; Z21 Asymptomatic human immunodeficiency virus [HIV] infection status; I11.0 Hypertensive heart disease with heart failure; I50.9 Heart failure, unspecified; J45.20 Mild intermittent asthma, uncomplicated; G47.30 Sleep apnea, unspecified; E11.9 Type 2 diabetes mellitus without complications; Z79.4 Long term (current) use of insulin; L81.9 Disorder of pigmentation, unspecified; I99.8 Other disorder of circulatory system; R74.8 Abnormal levels of other serum enzymes; E66.01 Morbid (severe) obesity due to excess calories; Z68.43 Body mass index [BMI] 50.0-59.9, adult
CPT/HCPCS: 82962

== ENCOUNTER 2022-11-11 09:55 | Inpatient (IN) | payer OTHER ==
[2022-11-11 10:13] VITALS: BMI 52.2
[2022-11-11] MEDS ORDERED: ALBUTEROL SO4 HFA INHALER IH PRN (10:40)
[2022-11-11] MEDS ORDERED: METHOCARBAMOL 500 MG TABLET PO PRN (10:53)
[2022-11-11] MEDS ORDERED: MAG HYDROX/AL HYDROX/SIMETH 30 ML UNIT-DOSE CUP PO PRN (10:53)
[2022-11-11] MEDS ORDERED: IBUPROFEN 600 MG TABLET (FP) PO PRN (10:53)
[2022-11-11] MEDS ORDERED: MAGNESIUM HYDROX 2400MG/30ML ORAL SUSPENSION 30 ML CUP PO PRN (10:53)
[2022-11-11] MEDS ORDERED: IBUPROFEN 400 MG TABLET (FP) PO PRN (10:53)
[2022-11-11] MEDS ORDERED: BISMUTH SUBSALICYLATE 262 MG/15 ML BTL PO PRN (10:53)
[2022-11-11] MEDS ORDERED: P-EPHED 60MG/TRIPROLIDI 2.5MG TABLET PO PRN (10:53)
[2022-11-11] MEDS ORDERED: ACETAMINOPHEN 325 MG TABLET (FP) PO PRN (10:53)
[2022-11-11] MEDS ORDERED: BENZOCAINE/MENTHOL (CHLORASEPTIC ) LOZENGE MM PRN (10:53)
[2022-11-11] MEDS ORDERED: guaiFENesin 600 MG TABLET.ER (FP) PO PRN (10:53)
[2022-11-11] MEDS ORDERED: BENZONATATE 200 MG CAPSULE PO PRN (10:53)
[2022-11-11] MEDS ORDERED: LOPERAMIDE HCL 2 MG CAPSULE PO PRN (10:53)
[2022-11-11] MEDS ORDERED: DICYCLOMINE HCL 10 MG CAPSULE PO PRN (10:53)
[2022-11-11] MEDS ORDERED: POLYETHYLENE GLYCOL (HEALTHYLAX) 3350 17 GM PACKET PO PRN (10:53)
[2022-11-11] MEDS ORDERED: INSULIN (NOVOLOG) ASPART 100 UNITS/ML 10ML VIAL ONE (12:26)
[2022-11-11] MEDS ORDERED: LISINOPRIL 10 MG TABLET ONE (12:26)
[2022-11-11] MEDS ORDERED: ASPIRIN 81 MG CHEWABLE TABLETS ONE (12:26)
[2022-11-11] MEDS: INSULIN SLIDING SCALE (NOVOLOG) 1 VIAL SQ SCH ×3 (12:31→22:35)
[2022-11-11] MEDS: metFORMIN HCL 500 MG TABLET (FP) PO SCH ×2 (12:32→16:42)
[2022-11-11] MEDS: FOLIC ACID 1 MG TABLET (FP) PO SCH (12:32)
[2022-11-11] MEDS: ASPIRIN 81 MG CHEWABLE TABLETS PO SCH (12:32)
[2022-11-11] MEDS: LISINOPRIL 20 MG TABLET PO SCH (12:33)
[2022-11-11] MEDS: EMTRICITAB/RILPIVIRI/TENOF ALA (ODEFSEY) TABLET PO SCH (13:33)
[2022-11-11] MEDS ORDERED: TORSEMIDE 20 MG TABLET (FP) PO SCH (14:30)
[2022-11-11 15:49] LABS: HEMATOCRIT 44.2 % (35.4-49); HEMOGLOBIN 13.5 GM/dL (11.7-16.9); MCH 27.7 pg (25.7-33.7); MCHC 30.6 g/dl (32.0-35.9); MEAN CELL VOLUME 90.4 fl (80-96); MEAN PLT VOLUME 7.3 fl (7.5-11.1); PLATELET COUNT 275 10^3/uL (134-434); RBC 4.89 M/mm3 (4.00-5.60); RDW 17.2 % (11.9-15.9)
[2022-11-11 16:05] LABS: POTASSIUM 3.4 mmol/L (3.5-5.1)
[2022-11-11 16:08] LABS: CALCIUM 9.1 mg/dL (8.5-10.1)
[2022-11-11 16:09] LABS: ALBUMIN 3.4 g/dl (3.4-5.0); BLOOD UREA NITROGEN 20.4 mg/dL (7-18)
[2022-11-11 16:12] LABS: CREATININE 1.5 mg/dL (0.55-1.3)
[2022-11-11 16:13] LABS: BILIRUBIN,TOTAL 1.4 mg/dL (0.2-1)
[2022-11-11 16:14] LABS: TOT PROT 7.1 g/dl (6.4-8.2)
[2022-11-11] MEDS: EMPAGLIFLOZIN (NF) 10 MG TABLET PO SCH (17:02)
[2022-11-11] MEDS: TORSEMIDE 20 MG TABLET (FP) PO SCH (17:03)
[2022-11-11] MEDS: THIAMINE HCL 100 MG TABLET (FP) PO SCH (22:24)
[2022-11-11] MEDS: MELATONIN 5 MG TABLETS PO SCH (22:25)
[2022-11-11] MEDS: amLODIPine BESYLATE 5 MG TABLET (FP) PO SCH (22:25)
[2022-11-11] MEDS: ATORVASTATIN CA 20 MG TABLET (FP) PO SCH (22:25)
[2022-11-11] MEDS: INSULIN (LEVEMIR) 100 UNITS/ML UNITS SQ SCH (22:30)
[2022-11-12] MEDS: TORSEMIDE 20 MG TABLET (FP) PO SCH ×2 (05:37→14:51)
[2022-11-12] MEDS: EMPAGLIFLOZIN (NF) 10 MG TABLET PO SCH (06:28)
[2022-11-12] MEDS: metFORMIN HCL 500 MG TABLET (FP) PO SCH ×2 (06:29→17:20)
[2022-11-12] MEDS: INSULIN SLIDING SCALE (NOVOLOG) 1 VIAL SQ SCH ×4 (06:29→22:15)
[2022-11-12] MEDS: EMTRICITAB/RILPIVIRI/TENOF ALA (ODEFSEY) TABLET PO SCH (08:15)
[2022-11-12] MEDS ORDERED: chlordiazePOXIDE HCL 25 MG CAPSULE PO PRN ×2 (10:09→10:20)
[2022-11-12] MEDS: amLODIPine BESYLATE 5 MG TABLET (FP) PO SCH ×2 (10:22→22:10)
[2022-11-12] MEDS: FOLIC ACID 1 MG TABLET (FP) PO SCH (10:22)
[2022-11-12] MEDS: ASPIRIN 81 MG CHEWABLE TABLETS PO SCH (10:22)
[2022-11-12] MEDS: LISINOPRIL 20 MG TABLET PO SCH (10:22)
[2022-11-12] MEDS: PRENATAL VITAMINS W/ FOLIC ACID TABLET (FP) PO SCH (10:22)
[2022-11-12] MEDS: POTASSIUM CHLORIDE ORAL LIQUID 20 MEQ/15 ML PO SCH ×2 (10:39→22:15)
[2022-11-12] MEDS: chlordiazePOXIDE HCL 25 MG CAPSULE PO SCH ×3 (10:39→22:09)
[2022-11-12] MEDS ORDERED: chlordiazePOXIDE HCL 25 MG CAPSULE PO SCH (11:00)
[2022-11-12] MEDS ORDERED: INSULIN SLIDING SCALE (NOVOLOG) 1 VIAL SQ ONE (12:16)
[2022-11-12] MEDS: THIAMINE HCL 100 MG TABLET (FP) PO SCH (22:10)
[2022-11-12] MEDS: ATORVASTATIN CA 20 MG TABLET (FP) PO SCH (22:10)
[2022-11-12] MEDS: MELATONIN 5 MG TABLETS PO SCH (22:10)
[2022-11-12] MEDS: INSULIN (LEVEMIR) 100 UNITS/ML UNITS SQ SCH (22:14)
[2022-11-13] MEDS: chlordiazePOXIDE HCL 25 MG CAPSULE PO SCH ×4 (05:21→22:51)
[2022-11-13] MEDS: TORSEMIDE 20 MG TABLET (FP) PO SCH ×2 (05:21→14:12)
[2022-11-13] MEDS: metFORMIN HCL 500 MG TABLET (FP) PO SCH ×2 (06:25→16:50)
[2022-11-13] MEDS: EMPAGLIFLOZIN (NF) 10 MG TABLET PO SCH (06:26)
[2022-11-13] MEDS: INSULIN SLIDING SCALE (NOVOLOG) 1 VIAL SQ SCH ×4 (06:26→22:54)
[2022-11-13] MEDS: EMTRICITAB/RILPIVIRI/TENOF ALA (ODEFSEY) TABLET PO SCH (08:05)
[2022-11-13 10:02] LABS: BLOOD UREA NITROGEN 21.7 mg/dL (7-18); CALCIUM 8.8 mg/dL (8.5-10.1)
[2022-11-13 10:04] LABS: CREATININE 1.3 mg/dL (0.55-1.3)
[2022-11-13] MEDS: ASPIRIN 81 MG CHEWABLE TABLETS PO SCH (10:21)
[2022-11-13] MEDS: POTASSIUM CHLORIDE ORAL LIQUID 20 MEQ/15 ML PO SCH ×2 (10:21→22:51)
[2022-11-13] MEDS: amLODIPine BESYLATE 5 MG TABLET (FP) PO SCH ×2 (10:21→22:51)
[2022-11-13] MEDS: LISINOPRIL 20 MG TABLET PO SCH (10:21)
[2022-11-13] MEDS: FOLIC ACID 1 MG TABLET (FP) PO SCH (10:21)
[2022-11-13] MEDS: PRENATAL VITAMINS W/ FOLIC ACID TABLET (FP) PO SCH (10:21)
[2022-11-13] MEDS: MELATONIN 5 MG TABLETS PO SCH (22:51)
[2022-11-13] MEDS: ATORVASTATIN CA 20 MG TABLET (FP) PO SCH (22:51)
[2022-11-13] MEDS: THIAMINE HCL 100 MG TABLET (FP) PO SCH (22:51)
[2022-11-13] MEDS: INSULIN (LEVEMIR) 100 UNITS/ML UNITS SQ SCH (22:54)
[2022-11-14] MEDS ORDERED: chlordiazePOXIDE HCL 25 MG CAPSULE PO SCH (05:00)
[2022-11-14] MEDS: chlordiazePOXIDE HCL 25 MG CAPSULE PO SCH ×4 (05:52→22:11)
[2022-11-14] MEDS: TORSEMIDE 20 MG TABLET (FP) PO SCH ×2 (05:53→13:16)
[2022-11-14] MEDS: metFORMIN HCL 500 MG TABLET (FP) PO SCH ×2 (05:59→17:17)
[2022-11-14] MEDS: EMPAGLIFLOZIN (NF) 10 MG TABLET PO SCH (05:59)
[2022-11-14] MEDS: INSULIN SLIDING SCALE (NOVOLOG) 1 VIAL SQ SCH ×4 (06:00→21:31)
[2022-11-14] MEDS ORDERED: INSULIN SLIDING SCALE (NOVOLOG) 1 VIAL SQ ONE (06:18)
[2022-11-14] MEDS: EMTRICITAB/RILPIVIRI/TENOF ALA (ODEFSEY) TABLET PO SCH (07:21)
[2022-11-14] MEDS: ASPIRIN 81 MG CHEWABLE TABLETS PO SCH (10:12)
[2022-11-14] MEDS: LISINOPRIL 20 MG TABLET PO SCH (10:12)
[2022-11-14] MEDS: amLODIPine BESYLATE 5 MG TABLET (FP) PO SCH ×3 (10:12→22:11)
[2022-11-14] MEDS: POTASSIUM CHLORIDE ORAL LIQUID 20 MEQ/15 ML PO SCH (10:12)
[2022-11-14] MEDS: FOLIC ACID 1 MG TABLET (FP) PO SCH (10:12)
[2022-11-14] MEDS: PRENATAL VITAMINS W/ FOLIC ACID TABLET (FP) PO SCH (10:12)
[2022-11-14] MEDS ORDERED: POTASSIUM CHLORIDE ORAL LIQUID 20 MEQ/15 ML PO ONE (13:09)
[2022-11-14] MEDS: INSULIN (LEVEMIR) 100 UNITS/ML UNITS SQ SCH (21:31)
[2022-11-14] MEDS: ATORVASTATIN CA 20 MG TABLET (FP) PO SCH (22:11)
[2022-11-14] MEDS: THIAMINE HCL 100 MG TABLET (FP) PO SCH (22:11)
[2022-11-14] MEDS: MELATONIN 5 MG TABLETS PO SCH (22:11)
[2022-11-15] MEDS ORDERED: chlordiazePOXIDE HCL 10 MG CAPSULE PO PRN ×2
[2022-11-15] MEDS ORDERED: chlordiazePOXIDE HCL 10 MG CAPSULE PO SCH (05:00)
[2022-11-15] MEDS: chlordiazePOXIDE HCL 10 MG CAPSULE PO SCH ×4 (05:28→22:38)
[2022-11-15] MEDS: TORSEMIDE 20 MG TABLET (FP) PO SCH ×2 (05:29→13:07)
[2022-11-15] MEDS ORDERED: INSULIN SLIDING SCALE (NOVOLOG) 1 VIAL SQ ONE (06:25)
[2022-11-15] MEDS: INSULIN SLIDING SCALE (NOVOLOG) 1 VIAL SQ SCH ×4 (06:36→21:15)
[2022-11-15] MEDS: EMPAGLIFLOZIN (NF) 10 MG TABLET PO SCH (06:36)
[2022-11-15] MEDS: metFORMIN HCL 500 MG TABLET (FP) PO SCH ×2 (06:36→17:44)
[2022-11-15] MEDS: EMTRICITAB/RILPIVIRI/TENOF ALA (ODEFSEY) TABLET PO SCH (07:41)
[2022-11-15] MEDS: FOLIC ACID 1 MG TABLET (FP) PO SCH (10:30)
[2022-11-15] MEDS: ASPIRIN 81 MG CHEWABLE TABLETS PO SCH (10:30)
[2022-11-15] MEDS: amLODIPine BESYLATE 5 MG TABLET (FP) PO SCH ×2 (10:30→22:38)
[2022-11-15] MEDS: PRENATAL VITAMINS W/ FOLIC ACID TABLET (FP) PO SCH (10:30)
[2022-11-15] MEDS: LISINOPRIL 20 MG TABLET PO SCH (10:30)
[2022-11-15] MEDS ORDERED: POTASSIUM CHLORIDE TABS 20 MEQ TABLET.ER (FP) PO ONE (14:45)
[2022-11-15] MEDS: INSULIN (LEVEMIR) 100 UNITS/ML UNITS SQ SCH (21:14)
[2022-11-15] MEDS: THIAMINE HCL 100 MG TABLET (FP) PO SCH (22:38)
[2022-11-15] MEDS: ATORVASTATIN CA 20 MG TABLET (FP) PO SCH (22:38)
[2022-11-15] MEDS: MELATONIN 5 MG TABLETS PO SCH (22:38)
[2022-11-16] MEDS ORDERED: chlordiazePOXIDE HCL 10 MG CAPSULE PO SCH (05:00)
[2022-11-16] MEDS: chlordiazePOXIDE HCL 10 MG CAPSULE PO SCH ×2 (05:16→17:23)
[2022-11-16] MEDS: TORSEMIDE 20 MG TABLET (FP) PO SCH ×2 (05:17→14:37)
[2022-11-16] MEDS: metFORMIN HCL 500 MG TABLET (FP) PO SCH ×2 (06:14→17:21)
[2022-11-16] MEDS: EMPAGLIFLOZIN (NF) 10 MG TABLET PO SCH (06:14)
[2022-11-16] MEDS: EMTRICITAB/RILPIVIRI/TENOF ALA (ODEFSEY) TABLET PO SCH (07:11)
[2022-11-16] MEDS ORDERED: INSULIN SLIDING SCALE (NOVOLOG) 1 VIAL SQ ONE (07:57)
[2022-11-16] MEDS: INSULIN SLIDING SCALE (NOVOLOG) 1 VIAL SQ SCH ×4 (07:58→21:48)
[2022-11-16] MEDS: ASPIRIN 81 MG CHEWABLE TABLETS PO SCH (10:29)
[2022-11-16] MEDS: LISINOPRIL 20 MG TABLET PO SCH (10:29)
[2022-11-16] MEDS: FOLIC ACID 1 MG TABLET (FP) PO SCH (10:29)
[2022-11-16] MEDS: PRENATAL VITAMINS W/ FOLIC ACID TABLET (FP) PO SCH (10:29)
[2022-11-16] MEDS: amLODIPine BESYLATE 5 MG TABLET (FP) PO SCH ×2 (10:30→22:11)
[2022-11-16] MEDS ORDERED: cloNIDine HCL 0.1 MG TABLET PO ONE (18:10)
[2022-11-16] MEDS: INSULIN (LEVEMIR) 100 UNITS/ML UNITS SQ SCH (21:47)
[2022-11-16] MEDS: MELATONIN 5 MG TABLETS PO SCH (22:11)
[2022-11-16] MEDS: THIAMINE HCL 100 MG TABLET (FP) PO SCH (22:11)
[2022-11-16] MEDS: ATORVASTATIN CA 20 MG TABLET (FP) PO SCH (22:11)
[2022-11-17] MEDS ORDERED: chlordiazePOXIDE HCL 10 MG CAPSULE PO ONE (05:00)
[2022-11-17] MEDS: chlordiazePOXIDE HCL 10 MG CAPSULE PO ONE ×2 (05:55→06:28)
[2022-11-17] MEDS: TORSEMIDE 20 MG TABLET (FP) PO SCH (06:06)
[2022-11-17] MEDS: EMPAGLIFLOZIN (NF) 10 MG TABLET PO SCH (06:06)
[2022-11-17] MEDS: metFORMIN HCL 500 MG TABLET (FP) PO SCH (06:07)
[2022-11-17] MEDS: INSULIN SLIDING SCALE (NOVOLOG) 1 VIAL SQ SCH (06:26)
[2022-11-17] MEDS ORDERED: INSULIN SLIDING SCALE (NOVOLOG) 1 VIAL SQ ONE (06:45)
[2022-11-17] MEDS: EMTRICITAB/RILPIVIRI/TENOF ALA (ODEFSEY) TABLET PO SCH (08:31)
[2022-11-17 08:56] VITALS: BP 144/94; PULSE 93; RESP 20; TEMP 97.7
[2022-11-17] MEDS: LISINOPRIL 20 MG TABLET PO SCH (09:30)
[2022-11-17] MEDS: PRENATAL VITAMINS W/ FOLIC ACID TABLET (FP) PO SCH (09:30)
[2022-11-17] MEDS: amLODIPine BESYLATE 5 MG TABLET (FP) PO SCH (09:30)
[2022-11-17] MEDS: ASPIRIN 81 MG CHEWABLE TABLETS PO SCH (09:30)
[2022-11-17] MEDS: FOLIC ACID 1 MG TABLET (FP) PO SCH (09:30)
== END 2022-11-17 09:38 | disposition home or self-care (01) | DRG 774 ==
LOC: YASAS 09:55 → Y3N 11:42 → UNDODISIN 11-13 12:25
PROVIDERS: ADMIT Allergy & Immunology; ATTEND Surgery
PROC: HZ2ZZZZ Detoxification Services for Substance Abuse Treatment (ICD-10-PCS; principal; 2022-11-11)
DX: F10.230 Alcohol dependence with withdrawal, uncomplicated (principal); F14.20 Cocaine dependence, uncomplicated; Z21 Asymptomatic human immunodeficiency virus [HIV] infection status; I11.0 Hypertensive heart disease with heart failure; I50.9 Heart failure, unspecified; E78.5 Hyperlipidemia, unspecified; E11.9 Type 2 diabetes mellitus without complications; Z79.4 Long term (current) use of insulin
CPT/HCPCS: 36415; 80048; 80053; 82247; 82962; 84132; 85027; 86780; 87635; 87811; 93005; 93010

== ENCOUNTER 2024-07-05 13:09 | Inpatient (IN) | payer OTHER ==
[2024-07-05 14:32] VITALS: BMI 51.5
[2024-07-05] MEDS ORDERED: DICYCLOMINE HCL 10 MG CAPSULE PO PRN (14:33)
[2024-07-05] MEDS ORDERED: ONDANSETRON *ODT* 4 MG TABLET SL PRN (14:33)
[2024-07-05] MEDS ORDERED: guaiFENesin 600 MG TABLET.ER (FP) PO PRN (14:33)
[2024-07-05] MEDS ORDERED: BISMUTH SUBSALICYLATE 524 MG/30 ML PO PRN (14:33)
[2024-07-05] MEDS ORDERED: BENZOCAINE/MENTHOL (CHLORASEPTIC ) LOZENGE MM PRN (14:33)
[2024-07-05] MEDS ORDERED: POLYETHYLENE GLYCOL (HEALTHYLAX) 3350 17 GM PACKET PO PRN (14:33)
[2024-07-05] MEDS ORDERED: MAGNESIUM HYDROX 2400MG/30ML ORAL SUSPENSION 30 ML CUP PO PRN (14:33)
[2024-07-05] MEDS ORDERED: IBUPROFEN 400 MG TABLET (FP) PO PRN (14:33)
[2024-07-05] MEDS ORDERED: BENZONATATE 200 MG CAPSULE PO PRN (14:33)
[2024-07-05] MEDS ORDERED: chlordiazePOXIDE HCL 25 MG CAPSULE PO PRN (14:33)
[2024-07-05] MEDS ORDERED: MAG HYDROX/AL HYDROX/SIMETH 30 ML UNIT-DOSE CUP PO PRN (14:33)
[2024-07-05] MEDS ORDERED: NALOXONE (NARCAN) HCL 4 MG/0.1 ML SPRAY NS PRN (14:33)
[2024-07-05] MEDS ORDERED: hydrOXYzine PAMOATE 25 MG CAPSULE (FP) PO PRN (14:33)
[2024-07-05] MEDS ORDERED: IBUPROFEN 600 MG TABLET (FP) PO PRN (14:33)
[2024-07-05] MEDS ORDERED: LOPERAMIDE HCL 2 MG CAPSULE PO PRN (14:33)
[2024-07-05] MEDS ORDERED: ALBUTEROL SO4 HFA INHALER IH PRN (14:36)
[2024-07-05] MEDS ORDERED: chlordiazePOXIDE HCL 25 MG CAPSULE ONE (17:53)
[2024-07-05] MEDS ORDERED: PRENATAL VITAMINS W/ FOLIC ACID TABLET (FP) PO ONE (17:54)
[2024-07-05] MEDS: metFORMIN HCL 500 MG TABLET (FP) PO SCH (18:00)
[2024-07-05] MEDS: chlordiazePOXIDE HCL 25 MG CAPSULE PO SCH (18:07)
[2024-07-05] MEDS: PRENATAL VITAMINS W/ FOLIC ACID TABLET (FP) PO SCH (18:09)
[2024-07-05] MEDS ORDERED: INSULIN (NOVOLOG) ASPART 100 UNITS/ML 10ML VIAL ONE ×2 (18:23→22:51)
[2024-07-05] MEDS: INSULIN ASPART SLIDING SCALE (NOVOLOG) 1 VIAL SQ SCH ×2 (18:37→21:39)
[2024-07-05] MEDS ORDERED: INSULIN (LEVEMIR) 100 UNITS/ML UNITS SQ SCH (22:00)
[2024-07-05] MEDS: THIAMINE 100 MG TABLET PO SCH (22:44)
[2024-07-05] MEDS: ATORVASTATIN CA 20 MG TABLET (FP) PO SCH (22:44)
[2024-07-05] MEDS: CARVEDILOL 6.25 MG TABLET (FP) PO SCH (22:45)
[2024-07-05] MEDS: amLODIPine BESYLATE 5 MG TABLET (FP) PO SCH (22:45)
[2024-07-05] MEDS: MELATONIN 5 MG TABLETS PO SCH (22:46)
[2024-07-06] MEDS: TORSEMIDE 20 MG TABLET (FP) PO SCH (05:48)
[2024-07-06] MEDS ORDERED: INSULIN (NOVOLOG) ASPART 100 UNITS/ML 10ML VIAL ONE ×3 (05:56→22:04)
[2024-07-06] MEDS: EMTRICITAB/RILPIVIRI/TENOF ALA (ODEFSEY) TABLET PO SCH (08:04)
[2024-07-06] MEDS ORDERED: PATIENT'S OWN MEDICATION (NON-FORMULARY) (Ertugliflozin Pidolate 5 MG Tablet) PO SCH (10:00)
[2024-07-06] MEDS: SPIRONOLACTONE 25 MG TABLET PO SCH (10:05)
[2024-07-06] MEDS: ASPIRIN 81 MG CHEWABLE TABLETS PO SCH (10:05)
[2024-07-06] MEDS: NALTREXONE HCL 50 MG TABLET PO SCH (10:06)
[2024-07-06] MEDS: EMPAGLIFLOZIN (JARDIANCE) 10 MG TABLET PO SCH (10:57)
[2024-07-06] MEDS: SACUBITRIL/VALSARTAN 24 MG-26 MG TABLET PO SCH (10:57)
[2024-07-06 11:58] LABS: CHLORIDE 100 mmol/L (98-107); POTASSIUM 3.2 mmol/L (3.5-5.1); SODIUM 141 mmol/L (136-145)
[2024-07-06 12:00] LABS: ALBUMIN 3.4 g/dl (3.4-5.0)
[2024-07-06 12:01] LABS: ANION GAP 7 mmol/L (4-13); BLOOD UREA NITROGEN 31.5 mg/dL (7-18); CO2 34 mmol/L (21-32); GLUCOSE,RANDOM 259 mg/dL (74-106)
[2024-07-06 12:02] LABS: CALCIUM 8.8 mg/dL (8.5-10.1)
[2024-07-06 12:03] LABS: SGOT/AST 17 U/L (15-37); SGPT/ALT 23 U/L (13-61)
[2024-07-06 12:04] LABS: CREATININE 1.7 mg/dL (0.55-1.3)
[2024-07-06 12:05] LABS: BILIRUBIN,TOTAL 1.1 mg/dL (0.2-1); TOT PROT 7.6 g/dl (6.4-8.2)
[2024-07-06 12:06] LABS: ALK PHOS 120 U/L (45-117)
[2024-07-06] MEDS: FLU VACCINE (FLULAVAL) PF 45 MCG/0.5 ML SYRINGE 2024-2025 IM ONE (12:23)
[2024-07-06 12:36] LABS: HEMATOCRIT 41.9 % (35.4-49); MCH 27.4 pg (25.7-33.7); MCHC 30.9 g/dl (32.0-35.9); MEAN CELL VOLUME 88.6 fl (80-96); MEAN PLT VOLUME 7.9 fl (7.5-11.1); PLATELET COUNT 211 10^3/uL (134-434); RBC 4.72 M/mm3 (4.00-5.60); WHITE BLOOD COUNT 6.3 K/mm3 (4.0-10.0)
[2024-07-06] MEDS: METHOCARBAMOL 500 MG TABLET PO PRN (22:05)
[2024-07-07] MEDS: chlordiazePOXIDE HCL 25 MG CAPSULE PO SCH (05:36)
[2024-07-07] MEDS: POTASSIUM CHLORIDE ORAL LIQUID 20 MEQ/15 ML PO ONE (10:02)
[2024-07-07] MEDS: MINERAL OIL/PET HY-PHL TOPICAL OINTMENT 454 GM JAR TP SCH (13:05)
[2024-07-07] MEDS: NIFEdipine E.R. 30 MG TABLET PO SCH (14:04)
[2024-07-07] MEDS ORDERED: INSULIN (NOVOLOG) ASPART 100 UNITS/ML 10ML VIAL ONE (22:17)
[2024-07-08] MEDS ORDERED: chlordiazePOXIDE HCL 10 MG CAPSULE PO PRN
[2024-07-08] MEDS ORDERED: INSULIN (NOVOLOG) ASPART 100 UNITS/ML 10ML VIAL ONE (05:34)
[2024-07-08] MEDS: chlordiazePOXIDE HCL 10 MG CAPSULE PO SCH (05:36)
[2024-07-08] MEDS: ACETAMINOPHEN 325 MG TABLET (FP) PO PRN (17:15)
[2024-07-09] MEDS: chlordiazePOXIDE HCL 10 MG CAPSULE PO SCH (05:36)
[2024-07-09 10:34] LABS: POTASSIUM 3.7 mmol/L (3.5-5.1)
[2024-07-09 10:46] LABS: CALCIUM 8.6 mg/dL (8.5-10.1)
[2024-07-09 10:49] LABS: CREATININE 1.6 mg/dL (0.55-1.3)
[2024-07-09 12:59] VITALS: RESP 18
[2024-07-09] MEDS ORDERED: INSULIN (NOVOLOG) ASPART 100 UNITS/ML 10ML VIAL ONE (16:53)
[2024-07-09 20:32] VITALS: BP 142/88; PULSE 89; TEMP 97.5
[2024-07-10] MEDS ORDERED: chlordiazePOXIDE HCL 10 MG CAPSULE PO ONE (05:00)
== END 2024-07-09 22:00 | disposition left against medical advice (07) | DRG 770 ==
LOC: YASAS 13:09 → Y6N 17:22
PROVIDERS: ADMIT Allergy & Immunology; ATTEND Allergy & Immunology
PROC: HZ2ZZZZ Detoxification Services for Substance Abuse Treatment (ICD-10-PCS; principal; 2024-07-05)
DX: F10.230 Alcohol dependence with withdrawal, uncomplicated (principal); F19.282 Other psychoactive substance dependence with psychoactive substance-induced sleep disorder; F39 Unspecified mood [affective] disorder; Z21 Asymptomatic human immunodeficiency virus [HIV] infection status; E87.6 Hypokalemia; G47.33 Obstructive sleep apnea (adult) (pediatric); I11.0 Hypertensive heart disease with heart failure; I50.9 Heart failure, unspecified; E78.5 Hyperlipidemia, unspecified; E11.9 Type 2 diabetes mellitus without complications; Z79.84 Long term (current) use of oral hypoglycemic drugs; R79.89 Other specified abnormal findings of blood chemistry
CPT/HCPCS: 36415; 80048; 80053; 80305; 80307; 82962; 85027; 86780; 90656; 93005; 93010; G0008

== ENCOUNTER 2024-12-20 15:12 | Inpatient (IN) | payer OTHER ==
[2024-12-20] MEDS ORDERED: MAG HYDROX/AL HYDROX/SIMETH 30 ML UNIT-DOSE CUP PO PRN (15:55)
[2024-12-20] MEDS ORDERED: IBUPROFEN 400 MG TABLET (FP) PO PRN (15:55)
[2024-12-20] MEDS ORDERED: NALOXONE HCL 0.4 MG/ML VIAL IVPUSH PRN (15:55)
[2024-12-20] MEDS ORDERED: LOPERAMIDE HCL 2 MG CAPSULE PO PRN (15:55)
[2024-12-20] MEDS ORDERED: BENZOCAINE/MENTHOL (CHLORASEPTIC ) LOZENGE MM PRN (15:55)
[2024-12-20] MEDS ORDERED: BENZONATATE 200 MG CAPSULE PO PRN (15:55)
[2024-12-20] MEDS ORDERED: guaiFENesin 600 MG TABLET.ER (FP) PO PRN (15:55)
[2024-12-20] MEDS ORDERED: METHOCARBAMOL 500 MG TABLET PO PRN (15:55)
[2024-12-20] MEDS ORDERED: MAGNESIUM HYDROX 2400MG/30ML ORAL SUSPENSION 30 ML CUP PO PRN (15:55)
[2024-12-20] MEDS ORDERED: POLYETHYLENE GLYCOL (HEALTHYLAX) 3350 17 GM PACKET PO PRN (15:55)
[2024-12-20] MEDS ORDERED: NALOXONE (NARCAN) HCL 4 MG/0.1 ML SPRAY NS PRN (15:55)
[2024-12-20] MEDS ORDERED: ACETAMINOPHEN 325 MG TABLET (FP) PO PRN (15:55)
[2024-12-20] MEDS ORDERED: INSULIN ASPART SLIDING SCALE (NOVOLOG) 1 VIAL SQ PRN (15:57)
[2024-12-20] MEDS ORDERED: PATIENT'S OWN MEDICATION (NON-FORMULARY) (Semaglutide [Ozempic] 0.25 MG/0.4 ML Pen.Injctr) SQ SCH (16:00)
[2024-12-20] MEDS ORDERED: AMMONIUM LACTATE 12% LOTION 225 GM BOTTLE TP PRN (16:04)
[2024-12-20] MEDS ORDERED: ALBUTEROL SO4 HFA INHALER IH PRN (16:04)
[2024-12-20] MEDS: metFORMIN HCL 500 MG TABLET (FP) PO SCH (16:49)
[2024-12-20] MEDS: MELATONIN 5 MG TABLETS PO SCH (21:18)
[2024-12-20] MEDS: SACUBITRIL/VALSARTAN 97 MG-103 MG TABLET PO SCH (21:18)
[2024-12-20] MEDS: THIAMINE 100 MG TABLET PO SCH (21:18)
[2024-12-20] MEDS: CARVEDILOL 12.5 MG TABLET (FP) PO SCH (21:18)
[2024-12-20] MEDS: ATORVASTATIN CA 40 MG TABLET (FP) PO SCH (21:19)
[2024-12-20] MEDS: INSULIN GLARGINE (LANTUS) 100 UNITS/ML UNITS SQ SCH (21:19)
[2024-12-20] MEDS: GABAPENTIN 300 MG CAPSULE PO SCH (21:19)
[2024-12-20] MEDS: BUDESONIDE/FORMETEROL FUMARATE 80/4.5 mcg INHALER IH SCH (21:27)
[2024-12-21] MEDS: TORSEMIDE 20 MG TABLET (FP) PO SCH (05:52)
[2024-12-21] MEDS: EMPAGLIFLOZIN (JARDIANCE) 10 MG TABLET PO SCH (07:28)
[2024-12-21] MEDS: PRENATAL VITAMINS W/ FOLIC ACID TABLET (FP) PO SCH (10:01)
[2024-12-21] MEDS: ASPIRIN COATED 81 MG TABLET.EC PO SCH (10:02)
[2024-12-21] MEDS: FERROUS SO4 325 MG TABLET (FP) PO SCH (10:03)
[2024-12-21] MEDS: FOLIC ACID 1 MG TABLET (FP) PO SCH (10:03)
[2024-12-21] MEDS: THIAMINE 100 MG TABLET PO SCH (10:03)
[2024-12-21] MEDS: amLODIPine BESYLATE 10 MG TABLET (FP) PO SCH (10:04)
[2024-12-21] MEDS: EMTRICITAB/RILPIVIRI/TENOF ALA (ODEFSEY) TABLET PO SCH (10:04)
[2024-12-21] MEDS: SPIRONOLACTONE 25 MG TABLET PO SCH (10:04)
[2024-12-21] MEDS: IBUPROFEN 600 MG TABLET (FP) PO PRN (10:05)
[2024-12-22] MEDS: hydrOXYzine PAMOATE 25 MG CAPSULE (FP) PO PRN (00:55)
[2024-12-22] MEDS: ERGOCALCIFEROL (VIT D2) 50,000 UNIT (1.25 MG) CAPSULE PO SCH (10:29)
[2024-12-22] MEDS: NALTREXONE HCL 50 MG TABLET PO ONE (12:54)
[2024-12-22] MEDS: BACITRACIN 0.9 GM PACKET TP SCH (21:26)
[2024-12-22] MEDS: MIRTAZAPINE 15 MG TABLET (FP) PO SCH (21:28)
[2024-12-22 22:04] VITALS: RESP 18
[2024-12-23] MEDS: NALTREXONE HCL 50 MG TABLET PO SCH (09:36)
[2024-12-23 09:52] LABS: ABSOLUTE IMMATURE GRANULOCYTES 0.02 x10^3/uL (0.0-0.031); BASOPHILS # 0.06 x10^3/uL (0.01-0.08); EOSINOPHIL % 3.3 % (0.8-7.0); EOSINOPHILS # 0.27 x10^3/uL (0.04-0.54); MCHC 27.9 g/dl (32.3-36.5); MEAN CELL VOLUME 106.0 fl (79.0-92.2); MEAN PLT VOLUME 9.5 fl (9.4-12.4); MONOCYTE # 0.58 x10^3/uL (0.30-0.82); MONOCYTE % 7.0 % (5.3-12.2); RDW 14.6 % (12.1-15.9)
[2024-12-23 10:13] LABS: GLUCOSE,RANDOM 142.0 mg/dL (74-106)
[2024-12-23 10:14] LABS: CO2 35.0 mmol/L (21-32)
[2024-12-23 11:24] LABS: CREATININE 1.64 mg/dL (0.55-1.3)
[2024-12-24 22:06] VITALS: BP 130/69; PULSE 86; TEMP 97.1
== END 2024-12-24 22:08 | disposition left against medical advice (07) | DRG 770 ==
LOC: YASAS 15:12 → Y3W 15:16
PROVIDERS: ADMIT Psychiatry & Neurology Pain Medicine; ATTEND Psychiatry & Neurology Pain Medicine
PROC: HZ42ZZZ Group Counseling for Substance Abuse Treatment, Cognitive-Behavioral (ICD-10-PCS; principal; 2024-12-20)
DX: F10.20 Alcohol dependence, uncomplicated (principal); F14.20 Cocaine dependence, uncomplicated; Z21 Asymptomatic human immunodeficiency virus [HIV] infection status; I25.10 Atherosclerotic heart disease of native coronary artery without angina pectoris; I11.0 Hypertensive heart disease with heart failure; I50.9 Heart failure, unspecified; I99.8 Other disorder of circulatory system; G47.30 Sleep apnea, unspecified; J45.20 Mild intermittent asthma, uncomplicated; L81.9 Disorder of pigmentation, unspecified; E11.9 Type 2 diabetes mellitus without complications; Z79.4 Long term (current) use of insulin; Z59.00 Homelessness unspecified
CPT/HCPCS: 36415; 80048; 82962; 85025